=== PATIENT | female | born 1960 | race American Indian/Alaskan Native ===

== ENCOUNTER 2016-04-24 09:56 | Outpatient (CLI) | payer MEDICAID ==
[~2016-04-24 09:56] MED LIST: PROVENTIL IH ONE
--- NOTE | 2016-04-24 11:48 | XRay Report ---
CHEST X-RAY, 2 VIEWS History: Shortness of breath. Findings: Compared to 12/12/15. Heart size is borderline. Normal pulmonary vascularity. The lungs are clear. Hazy opacity at the right lung base has resolved. No pleural effusion or pneumothorax. Impression: Borderline heart size. Lungs clear.
[2016-04-24 12:14] LABS: ISTAT Base Excess 6; ISTAT DEVICE 0; ISTAT HCO3 30.8; ISTAT PCO2 50.6 (35-45); ISTAT PH 7.392 (7.35-7.45); ISTAT PO2 58 (80-105); ISTAT SO2 89; ISTAT TCO2 32
[2016-04-24 12:15] LABS: Hematocrit 40.6 % (30.3-42.9); Mean Corpuscular Volume 91 fl (79-97); Red Blood Count 4.48 M/mm3 (3.65-5.03); White Blood Count 4.4 K/mm3 (4.5-11.0)
[2016-04-24 12:16] LABS: Mean Corpuscular HGB Conc 32 % (30-34); Mean Corpuscular Hemoglobin 29 pg (28-32); Platelet Count 251 K/mm3 (140-440); Red Cell Distribution Width 14.2 % (13.2-15.2)
[2016-04-24 13:17] LABS: Alanine Aminotransferase 12 units/L (7-56); Albumin 4.1 g/dL (3.9-5); Alkaline Phosphatase 83 units/L (35-129); Anion Gap 16 mmol/L; BUN/Creatinine Ratio 22.22; Bilirubin,Total 0.3 mg/dL (0.1-1.2); Blood Urea Nitrogen 20 mg/dL (7-17); Calcium 9.6 mg/dL (8.4-10.2); Carbon Dioxide 31 mmol/L (22-30); Chloride 99.5 mmol/L (98-107); Cholesterol 242 mg/dL (50-199); Glucose 86 mg/dL (65-100); HDL Cholesterol 61 mg/dL (40-59); LDL Cholesterol,Direct 145 mg/dL (50-130); Potassium 4.1 mmol/L (3.6-5.0); Sodium 142 mmol/L (137-145); Total Protein 8.1 g/dL (6.3-8.2); Triglycerides 183 mg/dL (2-149)
== END 2016-04-24 09:57 | disposition home or self-care (01) ==
LOC: PF 09:56
PROVIDERS: ATTEND Internal Medicine
DX: R06.02 Shortness of breath (principal)
CPT/HCPCS: 36415; 36600; 71020; 80053; 80061; 82803; 84439; 84443; 85027; 94060; 94640; 94726; 94729

== ENCOUNTER 2016-09-07 11:57 | Inpatient (IN) | payer MEDICAID ==
[2016-09-07] MEDS ORDERED: PROVENTIL IH ONE ×2 (12:01)
[2016-09-07 12:31] LABS: Basophils % (Auto) 0.4 % (0.0-1.8); Eosinophils % (Auto) 3.1 % (0.0-4.3); Hematocrit 38.9 % (30.3-42.9); Hemoglobin 12.5 gm/dl (10.1-14.3); Mean Corpuscular HGB Conc 32 % (30-34); Mean Corpuscular Hemoglobin 30 pg (28-32); Mean Corpuscular Volume 94 fl (79-97); Platelet Count 241 K/mm3 (140-440); Red Blood Count 4.16 M/mm3 (3.65-5.03); White Blood Count 4.4 K/mm3 (4.5-11.0)
--- NOTE | 2016-09-07 12:31 | Emergency Department Report ---
ED Shortness of Breath HPI - General Chief Complaint: Dyspnea/Respdistress Stated Complaint: ELIJAH Time Seen by Provider: 09/07/16 12:01 Source: patient, EMS Mode of arrival: Stretcher Limitations: No Limitations - History of Present Illness Initial Comments: 55-year-old female presents to the emergency department via EMS complaining of difficulty breathing. Patient states she's been having difficulty breathing for the past 3 days. Symptoms became worse this morning. Patient states she has been running fever at home and has had a productive cough, but cannot describe the sputum. Patient states she was not going to call the ambulance, but her daughter did. EMS states that on their arrival another EMS unit had are administered a single DuoNeb nebulizer treatment. The transporting EMS unit administered 2.5 mg of additional albuterol and started the patient on CPAP. Patient states that CPAP is helping her breathing. She denies pain. There are no other complaints. MD Complaint: shortness of breath -: Gradual, days(s) (3) Pain Scale: 0 Consistency: constant Improves With: oxygen Worsens With: nothing Known History Of: congestive heart failure, HIV Associated Symptoms: fever, cough, sputum production Treatments Prior to Arrival: oxygen, bronchodilator, NIPPV - Related Data Home Oxygen Therapy: No Home Medications Medication Instructions Recorded Confirmed Last Taken Abacavir/Dolutegravir/Lamivudi 1 each PO DAILY 12/13/15 09/07/16 09/06/16 [Triumeq Tablet] Carvedilol [Coreg] 25 mg PO BID 12/13/15 09/07/16 09/06/16 Hydroxyzine HCl 25 mg PO Q6HR PRN 12/13/15 09/07/16 09/06/16 Lisinopril [Zestril] 20 mg PO QDAY 12/13/15 09/07/16 09/06/16 Temazepam 30 mg PO QHS 12/13/15 09/07/16 09/06/16 levETIRAcetam [Keppra TAB] 500 mg PO BID 12/13/15 09/07/16 09/06/16 Diphenhydramine HCl [Sleep Tabs 25 mg PO QHS PRN 09/07/16 09/07/16 09/06/16 25MG] Hydrochlorothiazide [HCTZ] 25 mg PO QDAY 09/07/16 09/07/1609/06/17 Ibuprofen [Motrin] 800 mg PO Q8HR PRN 09/07/16 09/07/16 09/06/16 Allergies Allergy/AdvReac Type Severity Reaction Status Date / Time No Known Allergies Allergy Verified 12/12/15 20:48 ED Review of Systems ROS: Stated complaint: ELIJAH Other details as noted in HPI Comment: All other systems reviewed and negative Constitutional: fever Respiratory: cough, shortness of breath, wheezing ED Past Medical Hx - Past Medical History Previous Medical History?: Yes Hx Hypertension: Yes Hx Congestive Heart Failure: Yes Hx Headaches / Migraines: Yes Hx Seizures: Yes Hx HIV: Yes - Surgical History Past Surgical History?: No - Family History Family history: no significant - Social History Smoking Status: Never Smoker Substance Use Type: None - Medications Home Medications: Home Medications Medication Instructions Recorded Confirmed Last Taken Type Abacavir/Dolutegravir/Lamivudi 1 each PO DAILY 12/13/15 09/07/16 09/06/16 History [Triumeq Tablet] Carvedilol [Coreg] 25 mg PO BID 12/13/15 09/07/16 09/06/16 History Hydroxyzine HCl 25 mg PO Q6HR PRN 12/13/15 09/07/16 09/06/16 History Lisinopril [Zestril] 20 mg PO QDAY 12/13/15 09/07/16 09/06/16 History Temazepam 30 mg PO QHS 12/13/15 09/07/16 09/06/16 History levETIRAcetam [Keppra TAB] 500 mg PO BID 12/13/15 09/07/16 09/06/16 History Diphenhydramine HCl [Sleep Tabs 25 mg PO QHS PRN 09/07/16 09/07/16 09/06/16 History 25MG] Hydrochlorothiazide [HCTZ] 25 mg PO QDAY 09/07/16 09/07/16 09/06/16 History Ibuprofen [Motrin] 800 mg PO Q8HR PRN 09/07/16 09/07/16 09/06/16 History ED Physical Exam - General Limitations: No Limitations General appearance: alert, in distress (moderate respiratory distress) - Head Head exam: Present: atraumatic, normocephalic - Eye Eye exam: Present: normal appearance, PERRL, EOMI - ENT ENT exam: Present: normal exam, normal orophraynx, mucous membranes moist - Neck Neck exam: Present: normal inspection, full ROM. Absent: tenderness - Respiratory Respiratory exam: Present: respiratory distress (moderate tachypnea), wheezes ( audible expiratory wheezing noted), decreased breath sounds (bilateral posterior diffuse) - Cardiovascular Cardiovascular Exam: Present: regular rate, normal rhythm, normal heart sounds - GI/Abdominal GI/Abdominal exam: Present: soft, normal bowel sounds. Absent: distended, tenderness - Extremities Exam Extremities exam: Present: normal inspection, full ROM. Absent: tenderness - Back Exam Back exam: Present: normal inspection, full ROM. Absent: tenderness - Neurological Exam Neurological exam: Present: alert, oriented X3. Absent: motor sensory deficit - Skin Skin exam: Present: warm, dry, intact ED Course Vital Signs 09/07/16 09/07/16 09/07/16 11:52 11:57 12:01 Temperature 98.3 F Pulse Rate 92 H 91 H 88 Pulse Rate [ Anterior Bilateral Throughout] Respiratory 26 H 32 H 24 Rate Respiratory Rate [Anterior Bilateral Throughout] Blood Pressure 131/84 O2 Sat by Pulse 96 95 99 Oximetry 09/07/16 09/07/16 09/07/16 12:05 12:17 12:41 Temperature Pulse Rate Pulse Rate [ 88 85 Anterior Bilateral Throughout] Respiratory 26 H Rate Respiratory 32 H 22 Rate [Anterior Bilateral Throughout] Blood Pressure O2 Sat by Pulse 100 Oximetry 09/07/16 12:45 Temperature Pulse Rate 85 Pulse Rate [ Anterior Bilateral Throughout] Respiratory 22 Rate Respiratory Rate [Anterior Bilateral Throughout] Blood Pressure O2 Sat by Pulse 94 Oximetry ED Medical Decision Making - Lab Data Result diagrams: 09/07/16 12:19 09/07/16 12:19 - Radiology Data Radiology results: image reviewed interpreted by me: Chest x-ray shows no acute cardiopulmonary abnormality. - Medical Decision Making Lab and imaging results reviewed and discussed with the patient. Patient continues to require noninvasive positive pressure ventilation. Patient is to be admitted by the hospitalist. - Differential Diagnosis CHF, pneumonia, asthma, pulmonary edema Critical care attestation.: If time is entered above; I have spent that time in minutes in the direct care of this critically ill patient, excluding procedure time. ED Disposition Clinical Impression: Acute and chronic respiratory failure Qualifiers: Respiratory failure complication: hypoxia Qualified Code(s): J96.21 - Acute and chronic respiratory failure with hypoxia Disposition: DC-09 OP ADMIT IP TO THIS HOSP Is pt being admited?: Yes Condition: Stable Time of Disposition: 13:27
[2016-09-07 12:52] LABS: Alanine Aminotransferase 9 units/L (7-56); Albumin/Globulin Ratio 1.1 %; Alkaline Phosphatase 58 units/L (35-129); Anion Gap 18 mmol/L; Blood Urea Nitrogen 21 mg/dL (7-17); Calcium 8.7 mg/dL (8.4-10.2); Carbon Dioxide 28 mmol/L (22-30); Chloride 98.5 mmol/L (98-107); Glucose 131 mg/dL (65-100); Sodium 140 mmol/L (137-145); Total Protein 7.7 g/dL (6.3-8.2)
--- NOTE | 2016-09-07 13:21 | History and Physical Report ---
History of Present Illness Chief complaint: I cant breathe History of present illness: 55 YO Female with HTN, CHF, COPD, AIDS, Seizure Disorder presents to ED for evaluation. Pt states that she has been experiencing difficulty breathing with productive cough with increased production of clear sputum for the past 3 days with worsening symptoms for the past 6 hours. Pt reports subjective fever, but denies chills, CP, Palpitations, NVD, skin rashes,NVD, Syncope, Vertigo, BRBPR, Medication Noncompliance, or recent ill contacts. Pt seen and evaluated in ED and found to be is respiratory distress. Pt placed on NIPPV. Past History Past Medical History: COPD, heart failure, HIV/AIDS, hypertension, seizures Past Surgical History: No surgical history, Other (reviewed) Social history: single. denies: smoking, alcohol abuse, prescription drug abuse Family history: no significant family history Medications and Allergies Allergies Allergy/AdvReac Type Severity Reaction Status Date / Time No Known Allergies Allergy Verified 12/12/15 20:48 Home Medications Medication Instructions Recorded Confirmed Last Taken Type Abacavir/Dolutegravir/Lamivudi 1 each PO DAILY 12/13/15 09/07/16 09/06/16 History [Triumeq Tablet] Carvedilol [Coreg] 25 mg PO BID 12/13/15 09/07/16 09/06/16 History Hydroxyzine HCl 25 mg PO Q6HR PRN 12/13/15 09/07/16 09/06/16 History Lisinopril [Zestril] 20 mg PO QDAY 12/13/15 09/07/16 09/06/16 History Temazepam 30 mg PO QHS 12/13/15 09/07/16 09/06/16 History levETIRAcetam [Keppra TAB] 500 mg PO BID 12/13/15 09/07/16 09/06/16 History Diphenhydramine HCl [Sleep Tabs 25 mg PO QHS PRN 09/07/16 09/07/16 09/06/16 History 25MG] Hydrochlorothiazide [HCTZ] 25 mg PO QDAY 09/07/16 09/07/16 09/06/16 History Ibuprofen [Motrin] 800 mg PO Q8HR PRN 09/07/16 09/07/16 09/06/16 History Review of Systems All systems: negative Respiratory: shortness of breath Exam - Constitutional Vitals: Temp Pulse Resp BP Pulse Ox 98.3 F 85 22 131/84 94 09/07/16 11:57 09/07/16 12:45 09/07/16 12:45 09/07/16 11:57 09/07/16 12:45 General appearance: Present: mild distress, obese - EENT Eyes: Present: PERRL ENT: hearing intact, clear oral mucosa - Neck Neck: Present: supple, normal ROM - Respiratory Respiratory effort: normal Respiratory: bilateral: CTA - Cardiovascular Rhythm: regular Heart Sounds: Present: S1 & S2. Absent: rub, click - Extremities Extremities: pulses symmetrical, No edema Peripheral Pulses: within normal limits - Abdominal General gastrointestinal: Present: soft, non-tender, non-distended, normal bowel sounds Female genitourinary: Present: normal - Integumentary Integumentary: Present: clear, dry, decreased turgor - Musculoskeletal Musculoskeletal: gait normal, strength equal bilaterally - Psychiatric Psychiatric: appropriate mood/affect, intact judgment & insight - Neurologic Neurologic: CNII-XII intact, moves all extremities Results - Labs CBC & Chem 7: 09/07/16 12:19 09/07/16 12:19 Labs: Abnormal lab results 09/07/16 09/07/16 Range/Units 12:19 12:19 WBC 4.4 L (4.5-11.0) K/mm3 [place] % (Auto) 10.5 H (0.0-7.3) % BUN 21 H (7-17) mg/dL Glucose 131 H (65-100) mg/dL Assessment and Plan - Patient Problems (1) Sepsis Current Visit: Yes Status: Acute Qualifiers: Sepsis type: S Plan to address problem: IV abx, IVF, supportive care, serial lactate levels, monitor uop q shift, blood culture, IVF bolus as per protocol (2) COPD with exacerbation Current Visit: Yes Status: Acute Plan to address problem: IV abx, nebs, supplemental oxygen, NIPPV as clinically indicated (3) CHF (congestive heart failure) Current Visit: Yes Status: Acute Qualifiers: Congestive heart failure type: C Congestive heart failure chronicity: C Plan to address problem: BNP, D dimer, fluid restriction, resume home medication, (4) Acute and chronic respiratory failure Current Visit: Yes Status: Acute Qualifiers: Respiratory failure complication: hypoxia Qualified Code(s): J96.21 - Acute and chronic respiratory failure with hypoxia Plan to address problem: Supplemental oxygen, nebs, aspiration precautions, NIPPV (5) DVT prophylaxis Current Visit: Yes Status: Acute
--- NOTE | 2016-09-07 13:28 | XRay Report ---
Single view chest: Compared to 04/24/16. History: Dyspnea. Findings: Cardiomegaly. Trachea is midline. Mild pulmonary venous congestion predominantly lower lobes. Normal CP angles. No consolidation. Impression: Probable early CHF.
--- NOTE | 2016-09-07 13:36 | Admit Criteria Form ---
Admission Criteria Documentation: RESPIRATORY FAILURE GRG Clinical Indications for Admission to Inpatient Care (Place 'X' for any and all applicable criteria): Hospital admission is needed for appropriate care of the patient because of acute respiratory failure or insufficiency as indicated by ANY ONE of the following(1)(2)(3)(4)(5)(6)(7)(8): [X ]I. Mechanical ventilation needed (acute invasive or noninvasive) [ ]II. Severe ventilation deficit as indicated by ANY ONE of the following (9) [ ]a) Respiratory acidosis (pH less than 7.32 and partial pressure of carbon dioxide greater than 40 mm Hg (5.3 kPa)) [ ]b) Partial pressure of carbon dioxide greater than 44 mm Hg (5.9 kPa ) (new) [ ]c) Airflow measurements less than 25% of predicted (eg, peak expiratory flow rate less than 100 L/minute) [ ]d) Forced vital capacity less than 15 mL/kg of ideal body weight, or 50% decrease in vital capacity from baseline [ ]III. Noncardiac pulmonary edema not resolving with rapid emergency treatment (8) [ ]IV. Severe respiratory distress as indicated by ANY ONE of the following: [ ]a) Severe tachypnea (respiratory rate greater than 30, greater than 45 for 6-month-old, greater than 60 for ) [ ]b) Severe hypoxemia (partial pressure of oxygen less than 50 mm Hg ( 6.7 kPa) on greater than 50% oxygen or partial pressure of oxygen to FIO2 ratio less than 200) [ ]c) Mental status deterioration from respiratory disease [ ]V. Airway obstruction or inadequate protection [A](10)(11) The original [email or web address] content created by [email or web address] has been revised. The portions of the content which have been revised are identified through the use of italic text or in bold, and [employer] has neither reviewed nor approved the modified material. All other unmodified content is copyright [email or web address]. Please see references footnoted in the original [email or web address] edition 2016 Admission Criteria Met: Yes
[2016-09-07] MEDS ORDERED: ZOFRAN IV PRN (14:05)
[2016-09-07] MEDS ORDERED: TYLENOL PO PRN (14:05)
[2016-09-07] MEDS ORDERED: ATARAX PO PRN (14:11)
[2016-09-07] MEDS ORDERED: DIPHENHYDRAMINE HCL 25 MG PO PRN (14:11)
[2016-09-07] MEDS ORDERED: MOTRIN PO PRN (14:14)
[2016-09-07] MEDS: ZITHROMAX 500 MG in NACL 0.9% 250ML 250 ML IV SCH (15:00)
[2016-09-07] MEDS ORDERED: NACL 0.9% 1000 ML IV ONE (15:08)
[2016-09-07] MEDS ORDERED: NACL 0.9% 1000 ML 1,000 ML ONE (16:40)
[2016-09-07] MEDS: NACL 0.45% 1000 ML 1,000 ML IV SCH (18:00)
[2016-09-07] MEDS: COREG PO SCH (22:33)
[2016-09-07] MEDS: KEPPRA PO SCH (22:34)
[2016-09-07] MEDS: RESTORIL PO SCH (22:34)
[2016-09-07] MEDS: ZOSYN/NS 4.5GM/100ML 4.5 GM/100 ML VIAL IV SCH (22:34)
[2016-09-08] MEDS: ZOSYN/NS 4.5GM/100ML 4.5 GM/100 ML VIAL IV SCH ×3 (06:08→22:56)
[2016-09-08] MEDS: DUONEB *Not for PRN Use IH (08:47)
[2016-09-08] MEDS ORDERED: NON-FORMULARY (Abacavir/Dolutegravir/Lamivudi [Triumeq Tablet] 1 EACH) PO SCH (10:00)
[2016-09-08] MEDS: EPIVIR PO SCH (11:19)
[2016-09-08] MEDS: KEPPRA PO SCH ×2 (11:19→22:57)
[2016-09-08] MEDS: TIVICAY (NF) PO SCH (11:21)
[2016-09-08] MEDS: ZIAGEN PO SCH (11:21)
[2016-09-08] MEDS: COREG PO SCH ×2 (11:23→22:59)
[2016-09-08] MEDS: HCTZ PO SCH (11:23)
[2016-09-08] MEDS: ZESTRIL PO SCH (11:24)
[2016-09-08] MEDS: ZITHROMAX 500 MG in NACL 0.9% 250ML 250 ML IV SCH (11:41)
--- NOTE | 2016-09-08 18:16 | Progress Note ---
Assessment and Plan - Patient Problems (1) Sepsis Current Visit: Yes Status: Acute Qualifiers: Sepsis type: S Plan to address problem: IV abx, IVF, supportive care, serial lactate levels, monitor uop q shift, blood culture, IVF bolus as per protocol (2) COPD with exacerbation Current Visit: Yes Status: Acute Plan to address problem: IV abx, nebs, supplemental oxygen, NIPPV as clinically indicated (3) CHF (congestive heart failure) Current Visit: Yes Status: Acute Qualifiers: Congestive heart failure type: C Congestive heart failure chronicity: C Plan to address problem: BNP, D dimer, fluid restriction, resume home medication, (4) Acute and chronic respiratory failure Current Visit: Yes Status: Acute Qualifiers: Respiratory failure complication: hypoxia Qualified Code(s): J96.21 - Acute and chronic respiratory failure with hypoxia Plan to address problem: Supplemental oxygen, nebs, aspiration precautions, NIPPV (5) DVT prophylaxis Current Visit: Yes Status: Acute Subjective Date of service: 09/08/16 Principal diagnosis: Sepsis+ Copd exacerbation Interval history: On Bipap still Improved from Objective - Constitutional Vitals: Vital Signs - 12hr 09/08/16 09/08/16 09/08/16 08:00 10:00 11:23 Temperature 98.2 F Pulse Rate [ 66 Right From Monitor] Respiratory 20 Rate Blood Pressure 100/67 Blood Pressure 100/67 [Right Arm] O2 Sat by Pulse 96 97 Oximetry 09/08/16 09/08/16 11:24 16:00 Temperature 98.1 F Pulse Rate [ 64 Right From Monitor] Respiratory 20 Rate Blood Pressure 100/67 Blood Pressure 120/80 [Right Arm] O2 Sat by Pulse 97 Oximetry General appearance: Present: no acute distress, well-nourished - EENT Eyes: PERRL, EOM intact ENT: hearing intact, clear oral mucosa Ears: bilateral: normal - Neck Neck: supple, normal ROM - Respiratory Respiratory effort: normal Respiratory: bilateral: CTA - Breasts Breasts: normal - Cardiovascular Rhythm: regular Heart Sounds: Present: S1 & S2. Absent: gallop, rub Extremities: pulses intact, No edema, normal color, Full ROM - Gastrointestinal General gastrointestinal: Present: soft, non-tender, non-distended, normal bowel sounds - Genitourinary Female genitourinary: normal - Integumentary Integumentary: clear, warm, dry - Musculoskeletal Musculoskeletal: 1, strength equal bilaterally - Neurologic Neurologic: moves all extremities - Psychiatric Psychiatric: memory intact, appropriate mood/affect, intact judgment & insight - Labs CBC & Chem 7: 09/07/16 12:19 09/07/16 12:19
[2016-09-08] MEDS: NACL 0.45% 1000 ML 1,000 ML IV SCH (22:54)
[2016-09-08] MEDS: RESTORIL PO SCH (22:57)
[2016-09-09 05:21] LABS: Hematocrit 35.6 % (30.3-42.9); Hemoglobin 11.5 gm/dl (10.1-14.3); Mean Corpuscular HGB Conc 32 % (30-34); Mean Corpuscular Hemoglobin 30 pg (28-32); Mean Corpuscular Volume 92 fl (79-97); Platelet Count 202 K/mm3 (140-440); Red Blood Count 3.85 M/mm3 (3.65-5.03); Red Cell Distribution Width 15.2 % (13.2-15.2); White Blood Count 5.2 K/mm3 (4.5-11.0)
[2016-09-09 05:39] LABS: Alanine Aminotransferase 8 units/L (7-56); Albumin 3.6 g/dL (3.9-5); Alkaline Phosphatase 51 units/L (35-129); Anion Gap 16 mmol/L; BUN/Creatinine Ratio 25.55; Blood Urea Nitrogen 23 mg/dL (7-17); Calcium 8.2 mg/dL (8.4-10.2); Carbon Dioxide 26 mmol/L (22-30); Chloride 99.9 mmol/L (98-107); Glucose 172 mg/dL (65-100); Potassium 4.2 mmol/L (3.6-5.0); Sodium 138 mmol/L (137-145); Total Protein 7.2 g/dL (6.3-8.2)
[2016-09-09] MEDS: ZOSYN/NS 4.5GM/100ML 4.5 GM/100 ML VIAL IV SCH ×3 (05:55→21:16)
[2016-09-09 06:07] LABS: Basophils % (Manual) 0 % (0.0-1.8); Blastocytes % (Manual) 0 %; Diff Status Complete; Platelet Estimate Consistent w Auto; RBC Morphology Normal
[2016-09-09] MEDS: DUONEB *Not for PRN Use IH (08:11)
[2016-09-09] MEDS ORDERED: PROVENTIL IH PRN (09:18)
[2016-09-09] MEDS: KEPPRA PO SCH ×2 (10:18→21:17)
[2016-09-09] MEDS: ZESTRIL PO SCH (10:18)
[2016-09-09] MEDS: COREG PO SCH ×2 (10:19→21:17)
[2016-09-09] MEDS: TIVICAY (NF) PO SCH (10:19)
[2016-09-09] MEDS: ZIAGEN PO SCH (10:19)
[2016-09-09] MEDS: HCTZ PO SCH (10:19)
[2016-09-09] MEDS: EPIVIR PO SCH (10:20)
[2016-09-09] MEDS: ZITHROMAX 500 MG in NACL 0.9% 250ML 250 ML IV SCH (10:22)
[2016-09-09] MEDS: DUONEB *Not for PRN Use IH SCH ×2 (15:50→19:50)
--- NOTE | 2016-09-09 16:18 | Progress Note ---
Assessment and Plan - Patient Problems (1) Sepsis Current Visit: Yes Status: Acute Qualifiers: Sepsis type: S Plan to address problem: IV abx, IVF, supportive care, serial lactate levels, monitor uop q shift, blood culture, IVF bolus as per protocol (2) COPD with exacerbation Current Visit: Yes Status: Acute Plan to address problem: IV abx, nebs, supplemental oxygen, NIPPV as clinically indicated Still Wheezing (3) CHF (congestive heart failure) Current Visit: Yes Status: Acute Qualifiers: Congestive heart failure type: C Congestive heart failure chronicity: C Plan to address problem: BNP, D dimer, fluid restriction, resume home medication, (4) Acute and chronic respiratory failure Current Visit: Yes Status: Acute Qualifiers: Respiratory failure complication: hypoxia Qualified Code(s): J96.21 - Acute and chronic respiratory failure with hypoxia Plan to address problem: Supplemental oxygen, nebs, aspiration precautions, NIPPV (5) DVT prophylaxis Current Visit: Yes Status: Acute Subjective Date of service: 09/09/16 Principal diagnosis: Sepsis+ Copd exacerbation Interval history: On Bipap still Improved from Objective - Constitutional Vitals: Vital Signs - 12hr 09/09/16 09/09/16 09/09/16 08:00 08:10 08:59 Temperature 97.9 F Pulse Rate [ 69 70 Anterior Bilateral Throughout] Pulse Rate [ 61 Left Radial] Pulse Rate [ 61 Right From Monitor] Respiratory 20 Rate Respiratory 18 18 Rate [Anterior Bilateral Throughout] Blood Pressure Blood Pressure 138/70 [Right Arm] O2 Sat by Pulse 96 Oximetry 09/09/16 09/09/16 09/09/16 09:02 10:18 10:19 Temperature Pulse Rate [ Anterior Bilateral Throughout] Pulse Rate [ Left Radial] Pulse Rate [ Right From Monitor] Respiratory Rate Respiratory Rate [Anterior Bilateral Throughout] Blood Pressure 131/71 131/71 Blood Pressure [Right Arm] O2 Sat by Pulse 96 Oximetry 09/09/16 09/09/16 15:50 16:02 Temperature Pulse Rate [ 65 65 Anterior Bilateral Throughout] Pulse Rate [ Left Radial] Pulse Rate [ Right From Monitor] Respiratory Rate Respiratory 18 20 Rate [Anterior Bilateral Throughout] Blood Pressure Blood Pressure [Right Arm] O2 Sat by Pulse Oximetry General appearance: Present: no acute distress, well-nourished - EENT Eyes: PERRL, EOM intact ENT: hearing intact, clear oral mucosa Ears: bilateral: normal - Neck Neck: supple, normal ROM - Respiratory Respiratory effort: normal Respiratory: bilateral: CTA - Breasts Breasts: normal - Cardiovascular Rhythm: regular Heart Sounds: Present: S1 & S2. Absent: gallop, rub Extremities: pulses intact, No edema, normal color, Full ROM - Gastrointestinal General gastrointestinal: Present: soft, non-tender, non-distended, normal bowel sounds - Genitourinary Female genitourinary: normal - Integumentary Integumentary: clear, warm, dry - Musculoskeletal Musculoskeletal: 1, strength equal bilaterally - Neurologic Neurologic: moves all extremities - Psychiatric Psychiatric: memory intact, appropriate mood/affect, intact judgment & insight - Labs CBC & Chem 7: 09/09/16 04:46 09/09/16 04:46 Labs: Abnormal lab results 09/09/16 09/09/16 Range/Units 04:46 04:46 Seg Neuts % (Manual) 88.0 H (40.0-70.0) % Lymphocytes % (Manual) 6.0 L (13.4-35.0) % Lymphocytes # (Manual) 0.3 L (1.2-5.4) K/mm3 BUN 23 H (7-17) mg/dL Glucose 172 H (65-100) mg/dL Calcium 8.2 L (8.4-10.2) mg/dL Albumin 3.6 L (3.9-5) g/dL
[2016-09-09] MEDS: RESTORIL PO SCH (21:18)
[2016-09-09] MEDS: BENADRYL PO PRN (21:19)
[2016-09-10] MEDS: DUONEB *Not for PRN Use IH SCH ×4 (02:00→19:19)
[2016-09-10] MEDS: ZOSYN/NS 4.5GM/100ML 4.5 GM/100 ML VIAL IV SCH ×2 (06:39→16:00)
[2016-09-10] MEDS: NACL 0.45% 1000 ML 1,000 ML IV SCH (07:31)
--- NOTE | 2016-09-10 09:37 | Discharge Summary ---
Providers - Providers Date of Admission: 09/07/16 14:05 Attending physician: MATTEO MANUEL MD Primary care physician: FIRE WATCHMAN Hospitalization Condition: Stable Hospital course: 55 YO Female with HTN, CHF, COPD, AIDS, Seizure Disorder presents to ED for evaluation. Pt states that she has been experiencing difficulty breathing with productive cough with increased production of clear sputum for the past 3 days with worsening symptoms (1) Sepsis Current Visit: Yes Status: Acute Qualifiers: Sepsis type: S Plan to address problem: IV abx, IVF, supportive care, serial lactate levels, monitor uop q shift, blood culture, IVF bolus as per protocol (2) COPD with exacerbation Current Visit: Yes Status: Acute Plan to address problem: IV abx, nebs, supplemental oxygen, NIPPV as clinically indicated Still Wheezing (3) CHF (congestive heart failure) Current Visit: Yes Status: Acute Qualifiers: Congestive heart failure type: C Congestive heart failure chronicity: C Plan to address problem: BNP, D dimer, fluid restriction, resume home medication, (4) Acute and chronic respiratory failure Current Visit: Yes Status: Acute Qualifiers: Respiratory failure complication: hypoxia Qualified Code(s): J96.21 - Acute and chronic respiratory failure with hypoxia Plan to address problem: Supplemental oxygen, nebs, aspiration precautions, NIPPV (5) DVT prophylaxis Current Visit: Yes Status: Acute Disposition: DC-01 TO HOME OR SELFCARE Time spent for discharge: 33 minutes Core Measure Documentation - Palliative Care Palliative Care/ Comfort Measures: Not Applicable - Core Measures Any of the following diagnoses?: none Exam - Constitutional Vitals: Temp Pulse Resp BP Pulse Ox 97.9 F 54 L 18 141/84 100 09/10/16 08:21 09/10/16 08:21 09/10/16 08:21 09/10/16 08:21 09/10/16 08:21 General appearance: Present: no acute distress, well-nourished - EENT Eyes: Present: PERRL ENT: hearing intact, clear oral mucosa - Neck Neck: Present: supple, normal ROM - Respiratory Respiratory effort: normal Respiratory: bilateral: CTA - Cardiovascular Heart Sounds: Present: S1 & S2. Absent: rub, click - Extremities Extremities: pulses symmetrical, No edema Peripheral Pulses: within normal limits - Abdominal General gastrointestinal: Present: soft, non-tender, non-distended, normal bowel sounds Female genitourinary: Present: normal - Integumentary Integumentary: Present: clear, warm, dry - Musculoskeletal Musculoskeletal: gait normal, strength equal bilaterally - Psychiatric Psychiatric: appropriate mood/affect, intact judgment & insight - Neurologic Neurologic: CNII-XII intact, moves all extremities Plan Follow up with: PRIMARY CARE, [Primary Care Provider] - 3-5 Days Prescriptions: Azithromycin [Zithromax TAB] 250 mg PO QDAY #3 tablet Fluticasone/Salmeterol [Advair Diskus 250-50 mcg] 1 puff IH BID #1 disk.w.[email or web address] Ipratropium/Albuterol Sulfate [Duoneb 0.5 mg-3 mg/3 ml Soln] 1 ampul IH Q6HRT # 180 ampul.neb predniSONE [Deltasone] 10 mg PO .TAPER #48 tab
[2016-09-10] MEDS: ZESTRIL PO SCH (10:06)
[2016-09-10] MEDS: HCTZ PO SCH (10:08)
[2016-09-10] MEDS: COREG PO SCH ×2 (10:08→23:00)
[2016-09-10] MEDS: ZIAGEN PO SCH (10:09)
[2016-09-10] MEDS: KEPPRA PO SCH ×2 (10:09→23:00)
[2016-09-10] MEDS: EPIVIR PO SCH (10:10)
[2016-09-10] MEDS: ZITHROMAX 500 MG in NACL 0.9% 250ML 250 ML IV SCH (10:23)
[2016-09-10] MEDS: TIVICAY (NF) PO SCH (16:28)
[2016-09-10] MEDS: RESTORIL PO SCH (23:00)
--- NOTE | 2016-09-10 23:48 | Progress Note ---
Assessment and Plan Assessment and plan: 55-year-old female presents to the emergency department via EMS complaining of difficulty breathing. Sepsis was ruled out, * negative Blood cx, negative CXR * no fever, no source of sepsis identified COPD with exacerbation IV abx, nebs, supplemental oxygen, NIPPV as clinically indicated Still Wheezing CHF (congestive heart failure) * , fluid restriction, resume home medication, * IV lasix optimize meds Acute and chronic respiratory failure Supplemental oxygen, nebs, aspiration precautions, NIPPV as needed History Interval history: she is still c/o sob, tried ambulating in hallway today and got severely sob, was using accessory muscles and wheezing, and had to be allowed to sit in hallway till she recovered her breath. Her RN promptly took her back to her room and she was given neb rx Hospitalist Physical - Constitutional Vitals: Temp Pulse Resp BP Pulse Ox 98.9 F 60 23 172/88 97 09/10/16 20:00 09/10/16 23:15 09/10/16 23:15 09/10/16 20:00 09/10/16 23:15 General appearance: Present: no acute distress, well-nourished - EENT Eyes: Present: PERRL, EOM intact ENT: hearing intact, clear oral mucosa, dentition normal - Neck Neck: Present: supple, normal ROM - Respiratory Respiratory effort: labored Respiratory: bilateral: wheezing - Cardiovascular Rhythm: regular Heart Sounds: Present: S1 & S2 - Extremities Extremities: no ischemia, No edema Peripheral Pulses: within normal limits - Abdominal General gastrointestinal: soft, non-tender, non-distended, normal bowel sounds - Integumentary Integumentary: Present: clear, warm, dry - Psychiatric Psychiatric: appropriate mood/affect, intact judgment & insight - Neurologic Neurologic: CNII-XII intact, no focal deficits Results - Labs CBC & Chem 7: 09/09/16 04:46 09/12/16 08:59 Labs: Laboratory Last Values WBC 5.2 K/mm3 (4.5-11.0) 09/09/16 04:46 RBC 3.85 M/mm3 (3.65-5.03) 09/09/16 04:46 Hgb 11.5 gm/dl (10.1-14.3) 09/09/16 04:46 Hct 35.6 % (30.3-42.9) 09/09/16 04:46 MCV 92 fl (79-97) 09/09/16 04:46 MCH 30 pg (28-32) 09/09/16 04:46 MCHC 32 % (30-34) 09/09/16 04:46 RDW 15.2 % (13.2-15.2) 09/09/16 04:46 Plt Count 202 K/mm3 (140-440) 09/09/16 04:46 Lymph % (Auto) 27.0 % (13.4-35.0) 09/07/16 12:19 [place] % (Auto) 10.5 % (0.0-7.3) H 09/07/16 12:19 Eos % (Auto) 3.1 % (0.0-4.3) 09/07/16 12:19 Baso % (Auto) 0.4 % (0.0-1.8) 09/07/16 12:19 Lymph # 1.2 K/mm3 (1.2-5.4) 09/07/16 12:19 [place] # 0.5 K/mm3 (0.0-0.8) 09/07/16 12:19 Eos # 0.1 K/mm3 (0.0-0.4) 09/07/16 12:19 Baso # 0.0 K/mm3 (0.0-0.1) 09/07/16 12:19 Add Manual Diff Complete 09/09/16 04:46 Total Counted 100 09/09/16 04:46 Seg Neutrophils % Compression Molding Machine Setter 09/09/16 04:46 Seg Neuts % (Manual) 88.0 % (40.0-70.0) H 09/09/16 04:46 Band Neutrophils % 0 % 09/09/16 04:46 Lymphocytes % (Manual) 6.0 % (13.4-35.0) L 09/09/16 04:46 Reactive Lymphs % (Man) 0 % 09/09/16 04:46 Monocytes % (Manual) 4.0 % (0.0-7.3) 09/09/16 04:46 Eosinophils % (Manual) 2.0 % (0.0-4.3) 09/09/16 04:46 Basophils % (Manual) 0 % (0.0-1.8) 09/09/16 04:46 Metamyelocytes % 0 % 09/09/16 04:46 Myelocytes % 0 % 09/09/16 04:46 Promyelocytes % 0 % 09/09/16 04:46 Blast Cells % 0 % 09/09/16 04:46 Nucleated RBC % Not Reportable 09/09/16 04:46 Seg Neutrophils # 2.6 K/mm3 (1.8-7.7) 09/07/16 12:19 Seg Neutrophils # Man 4.6 K/mm3 (1.8-7.7) 09/09/16 04:46 Band Neutrophils # 0.0 K/mm3 09/09/16 04:46 Lymphocytes # (Manual) 0.3 K/mm3 (1.2-5.4) L 09/09/16 04:46 Abs React Lymphs (Man) 0.0 K/mm3 09/09/16 04:46 Monocytes # (Manual) 0.2 K/mm3 (0.0-0.8) 09/09/16 04:46 Eosinophils # (Manual) 0.1 K/mm3 (0.0-0.4) 09/09/16 04:46 Basophils # (Manual) 0.0 K/mm3 (0.0-0.1) 09/09/16 04:46 Metamyelocytes # 0.0 K/mm3 09/09/16 04:46 Myelocytes # 0.0 K/mm3 09/09/16 04:46 Promyelocytes # 0.0 K/mm3 09/09/16 04:46 Blast Cells # 0.0 K/mm3 09/09/16 04:46 WBC Morphology Not Reportable 09/09/16 04:46 Hypersegmented Neuts Not Reportable 09/09/16 04:46 Hyposegmented Neuts Not Reportable 09/09/16 04:46 Hypogranular Neuts Not Reportable 09/09/16 04:46 Smudge Cells Not Reportable 09/09/16 04:46 Toxic Granulation Not Reportable 09/09/16 04:46 Toxic Vacuolation Not Reportable 09/09/16 04:46 Dohle Bodies Not Reportable 09/09/16 04:46 Pelger-Huet Anomaly Not Reportable 09/09/16 04:46 Yaya Rods Not Reportable 09/09/16 04:46 Platelet Estimate Consistent w auto 09/09/16 04:46 Clumped Platelets Not Reportable 09/09/16 04:46 Plt Clumps, EDTA Not Reportable 09/09/16 04:46 Large Platelets Not Reportable 09/09/16 04:46 Giant Platelets Not Reportable 09/09/16 04:46 Platelet Satelliting Not Reportable 09/09/16 04:46 Plt Morphology Comment Not Reportable 09/09/16 04:46 RBC Morphology Normal 09/09/16 04:46 Dimorphic RBCs Not Reportable 09/09/16 04:46 Polychromasia Not Reportable 09/09/16 04:46 Hypochromasia Not Reportable 09/09/16 04:46 Poikilocytosis Not Reportable 09/09/16 04:46 Anisocytosis Not Reportable 09/09/16 04:46 Microcytosis Not Reportable 09/09/16 04:46 Macrocytosis Not Reportable 09/09/16 04:46 Spherocytes Not Reportable 09/09/16 04:46 Pappenheimer Bodies Not Reportable 09/09/16 04:46 Sickle Cells Not Reportable 09/09/16 04:46 Target Cells Not Reportable 09/09/16 04:46 Tear Drop Cells Not Reportable 09/09/16 04:46 Ovalocytes Not Reportable 09/09/16 04:46 Helmet Cells Not Reportable 09/09/16 04:46 [place] Bodies Not Reportable 09/09/16 04:46 [place] Rings Not Reportable 09/09/16 04:46 Paula Cells Not Reportable 09/09/16 04:46 Bite Cells Not Reportable 09/09/16 04:46 Crenated Cell Not Reportable 09/09/16 04:46 Elliptocytes Not Reportable 09/09/16 04:46 Acanthocytes (Spur) Not Reportable 09/09/16 04:46 Rouleaux Not Reportable 09/09/16 04:46 Hemoglobin C Crystals Not Reportable 09/09/16 04:46 Schistocytes Not Reportable 09/09/16 04:46 Malaria parasites Not Reportable 09/09/16 04:46 Vicente Bodies Not Reportable 09/09/16 04:46 Hem Pathologist Commnt No 09/09/16 04:46 D-Dimer 188.81 ng/mlDDU (0-234) 07/07/17 14:14 Sodium 138 mmol/L (137-145) 09/09/16 04:46 Potassium 4.2 mmol/L (3.6-5.0) 09/09/16 04:46 Chloride 99.9 mmol/L (98-107) 09/09/16 04:46 Carbon Dioxide 26 mmol/L (22-30) 09/09/16 04:46 Anion Gap 16 mmol/L 09/09/16 04:46 BUN 23 mg/dL (7-17) H 09/09/16 04:46 Creatinine 0.9 mg/dL (0.7-1.2) 09/09/16 04:46 Estimated GFR > 60 ml/min 09/09/16 04:46 BUN/Creatinine Ratio 25.55 % 09/09/16 04:46 Glucose 172 mg/dL (65-100) H 09/09/16 04:46 Lactic Acid 0.90 mmol/L (0.7-2.0) 09/07/16 18:20 Calcium 8.2 mg/dL (8.4-10.2) L 09/09/16 04:46 Magnesium 1.70 mg/dL (1.7-2.3) 09/07/16 12:19 Total Bilirubin 0.30 mg/dL (0.1-1.2) 09/09/16 04:46 AST 9 units/L (5-40) 09/09/16 04:46 ALT 8 units/L (7-56) 09/09/16 04:46 Alkaline Phosphatase 51 units/L (35-129) 09/09/16 04:46 Troponin T < 0.010 ng/mL (0.00-0.029) 09/07/16 12:19 NT-Pro-B Natriuret Pep 1390 pg/mL (0-900) H 09/07/16 12:09 Total Protein 7.2 g/dL (6.3-8.2) 09/09/16 04:46 Albumin 3.6 g/dL (3.9-5) L 09/09/16 04:46 Albumin/Globulin Ratio 1.0 % 09/09/16 04:46 Blood Type O POSITIVE 09/07/16 15:34 Antibody Screen TNR 09/07/16 15:34 PAULA Antibody Screen Negative 09/07/16 15:34
[2016-09-11] MEDS: LASIX IV SCH ×3 (01:49→22:07)
[2016-09-11] MEDS: DUONEB *Not for PRN Use IH SCH ×5 (01:54→20:32)
[2016-09-11] MEDS: COREG PO SCH ×2 (11:42→22:08)
[2016-09-11] MEDS: ZITHROMAX PO SCH (11:42)
[2016-09-11] MEDS: ZESTRIL PO SCH (11:42)
[2016-09-11] MEDS: KEPPRA PO SCH ×2 (11:42→22:08)
[2016-09-11] MEDS: EPIVIR PO SCH (11:43)
[2016-09-11] MEDS: HCTZ PO SCH (11:43)
[2016-09-11] MEDS: ZIAGEN PO SCH (11:43)
[2016-09-11] MEDS ORDERED: LASIX IV ONE (13:00)
--- NOTE | 2016-09-11 13:13 | XRay Report ---
Single view chest: Compared to 09/07/16. History: CHF. Findings: Cardiomegaly. Trachea is midline. Pulmonary venous congestion bilaterally. No significant interval change. Neck impression: No significant interval change.
--- NOTE | 2016-09-11 14:52 | Progress Note ---
Assessment and Plan Assessment and plan: 55 YO Female with HTN, CHF, COPD, AIDS, Seizure Disorder presents to ED for evaluation. Pt states that she has been experiencing difficulty breathing with productive cough with increased production of clear sputum for the past 3 days with worsening symptoms for the past 6 hours. Pt reports subjective fever, but denies chills, CP, Palpitations, NVD, skin rashes,NVD, Syncope, Vertigo, BRBPR, Medication Noncompliance, or recent ill contacts. Pt seen and evaluated in ED and found to be is respiratory distress. Pt placed on NIPPV and subsequently weaned down to nasal cannula. She is on oxygen PRN at home. COPD with exacerbation * IV abx, nebs, supplemental oxygen, NIPPV as clinically indicated * Still Wheezing, Not quite at baseline. * Taper steriods CHF (congestive heart failure) * Fluid restriction, resume home medication, will hold HCTZ, Continue Lasix, await Echo to further determine severity * Chest xray showing pulmonary congestion * IV lasix optimize meds Acute and chronic respiratory failure * Supplemental oxygen, nebs, aspiration precautions, NIPPV AIDS * Continue current home meds Sepsis was ruled out, * negative Blood cx, negative CXR * no fever, no source of sepsis identified * IVF weaned off. HTN * Continue home meds DVT/GI prophylaxis Disposition Anticipate discharge in 24 to 48 hrs. History Interval history: Patient seen and examined, in no acute distress but still with shortness of breath and not at baseline. Denies any chest pain, nausea, vomiting. still with some shortness of breath but reports some improvement. Awaiting to ambulate today. Hospitalist Physical - Physical exam Narrative exam: VITAL SIGNS: Reviewed. GENERAL: The patient appeared well nourished and normally developed, obese. Vital signs as documented. HEAD: No signs of head trauma. EYES: Pupils are equal. Extraocular motions intact. EARS: Hearing grossly intact. MOUTH: Oropharynx is normal. NECK: No adenopathy, no JVD. CHEST: Chest with wheezing breath sounds bilaterally. No rales, or rhonchi. CARDIAC: Regular rate and rhythm. S1 and S2, without murmurs, gallops, or rubs. VASCULAR: Trace Edema. Peripheral pulses normal and equal in all extremities. ABDOMEN: Soft, without detectable tenderness. No sign of distention. No rebound or guarding, and no masses palpated. Bowel Sounds normal. MUSCULOSKELETAL: Good range of motion of all major joints. Extremities without clubbing, cyanosis. Trace edema. NEUROLOGIC EXAM: Alert and oriented x 3. No focal sensory or strength deficits. Speech normal. Follows commands. PSYCHIATRIC: Mood normal. SKIN: hypopigmented skin - Constitutional Vitals: Temp Pulse Resp BP Pulse Ox 98.0 F 60 24 171/92 98 09/11/16 11:10 09/11/16 11:10 09/11/16 11:10 09/11/16 11:10 09/11/16 11:10 Results - Labs CBC & Chem 7: 09/09/16 04:46 09/09/16 04:46 Labs: Laboratory Last Values WBC 5.2 K/mm3 (4.5-11.0) 09/09/16 04:46 RBC 3.85 M/mm3 (3.65-5.03) 09/09/16 04:46 Hgb 11.5 gm/dl (10.1-14.3) 09/09/16 04:46 Hct 35.6 % (30.3-42.9) 09/09/16 04:46 MCV 92 fl (79-97) 09/09/16 04:46 MCH 30 pg (28-32) 09/09/16 04:46 MCHC 32 % (30-34) 09/09/16 04:46 RDW 15.2 % (13.2-15.2) 09/09/16 04:46 Plt Count 202 K/mm3 (140-440) 09/09/16 04:46 Lymph % (Auto) 27.0 % (13.4-35.0) 09/07/16 12:19 [place] % (Auto) 10.5 % (0.0-7.3) H 09/07/16 12:19 Eos % (Auto) 3.1 % (0.0-4.3) 09/07/16 12:19 Baso % (Auto) 0.4 % (0.0-1.8) 09/07/16 12:19 Lymph # 1.2 K/mm3 (1.2-5.4) 09/07/16 12:19 [place] # 0.5 K/mm3 (0.0-0.8) 09/07/16 12:19 Eos # 0.1 K/mm3 (0.0-0.4) 09/07/16 12:19 Baso # 0.0 K/mm3 (0.0-0.1) 09/07/16 12:19 Add Manual Diff Complete 09/09/16 04:46 Total Counted 100 09/09/16 04:46 Seg Neutrophils % Property Insurance Inspector 09/09/16 04:46 Seg Neuts % (Manual) 88.0 % (40.0-70.0) H 09/09/16 04:46 Band Neutrophils % 0 % 09/09/16 04:46 Lymphocytes % (Manual) 6.0 % (13.4-35.0) L 09/09/16 04:46 Reactive Lymphs % (Man) 0 % 09/09/16 04:46 Monocytes % (Manual) 4.0 % (0.0-7.3) 09/09/16 04:46 Eosinophils % (Manual) 2.0 % (0.0-4.3) 09/09/16 04:46 Basophils % (Manual) 0 % (0.0-1.8) 09/09/16 04:46 Metamyelocytes % 0 % 09/09/16 04:46 Myelocytes % 0 % 09/09/16 04:46 Promyelocytes % 0 % 09/09/16 04:46 Blast Cells % 0 % 09/09/16 04:46 Nucleated RBC % Not Reportable 09/09/16 04:46 Seg Neutrophils # 2.6 K/mm3 (1.8-7.7) 09/07/16 12:19 Seg Neutrophils # Man 4.6 K/mm3 (1.8-7.7) 09/09/16 04:46 Band Neutrophils # 0.0 K/mm3 09/09/16 04:46 Lymphocytes # (Manual) 0.3 K/mm3 (1.2-5.4) L 09/09/16 04:46 Abs React Lymphs (Man) 0.0 K/mm3 09/09/16 04:46 Monocytes # (Manual) 0.2 K/mm3 (0.0-0.8) 09/09/16 04:46 Eosinophils # (Manual) 0.1 K/mm3 (0.0-0.4) 09/09/16 04:46 Basophils # (Manual) 0.0 K/mm3 (0.0-0.1) 09/09/16 04:46 Metamyelocytes # 0.0 K/mm3 09/09/16 04:46 Myelocytes # 0.0 K/mm3 09/09/16 04:46 Promyelocytes # 0.0 K/mm3 09/09/16 04:46 Blast Cells # 0.0 K/mm3 09/09/16 04:46 WBC Morphology Not Reportable 09/09/16 04:46 Hypersegmented Neuts Not Reportable 09/09/16 04:46 Hyposegmented Neuts Not Reportable 09/09/16 04:46 Hypogranular Neuts Not Reportable 09/09/16 04:46 Smudge Cells Not Reportable 09/09/16 04:46 Toxic Granulation Not Reportable 09/09/16 04:46 Toxic Vacuolation Not Reportable 09/09/16 04:46 Dohle Bodies Not Reportable 09/09/16 04:46 Pelger-Huet Anomaly Not Reportable 09/09/16 04:46 Yaya Rods Not Reportable 09/09/16 04:46 Platelet Estimate Consistent w auto 09/09/16 04:46 Clumped Platelets Not Reportable 09/09/16 04:46 Plt Clumps, EDTA Not Reportable 09/09/16 04:46 Large Platelets Not Reportable 09/09/16 04:46 Giant Platelets Not Reportable 09/09/16 04:46 Platelet Satelliting Not Reportable 09/09/16 04:46 Plt Morphology Comment Not Reportable 09/09/16 04:46 RBC Morphology Normal 09/09/16 04:46 Dimorphic RBCs Not Reportable 09/09/16 04:46 Polychromasia Not Reportable 09/09/16 04:46 Hypochromasia Not Reportable 09/09/16 04:46 Poikilocytosis Not Reportable 09/09/16 04:46 Anisocytosis Not Reportable 09/09/16 04:46 Microcytosis Not Reportable 09/09/16 04:46 Macrocytosis Not Reportable 09/09/16 04:46 Spherocytes Not Reportable 09/09/16 04:46 Pappenheimer Bodies Not Reportable 09/09/16 04:46 Sickle Cells Not Reportable 09/09/16 04:46 Target Cells Not Reportable 09/09/16 04:46 Tear Drop Cells Not Reportable 09/09/16 04:46 Ovalocytes Not Reportable 09/09/16 04:46 Helmet Cells Not Reportable 09/09/16 04:46 [place] Bodies Not Reportable 09/09/16 04:46 [place] Rings Not Reportable 09/09/16 04:46 Paula Cells Not Reportable 09/09/16 04:46 Bite Cells Not Reportable 09/09/16 04:46 Crenated Cell Not Reportable 09/09/16 04:46 Elliptocytes Not Reportable 09/09/16 04:46 Acanthocytes (Spur) Not Reportable 09/09/16 04:46 Rouleaux Not Reportable 09/09/16 04:46 Hemoglobin C Crystals Not Reportable 09/09/16 04:46 Schistocytes Not Reportable 09/09/16 04:46 Malaria parasites Not Reportable 09/09/16 04:46 Vicente Bodies Not Reportable 09/09/16 04:46 Hem Pathologist Commnt No 09/09/16 04:46 D-Dimer 188.81 ng/mlDDU (0-234) 09/07/16 14:14 Sodium 138 mmol/L (137-145) 09/09/16 04:46 Potassium 4.2 mmol/L (3.6-5.0) 09/09/16 04:46 Chloride 99.9 mmol/L (98-107) 09/09/16 04:46 Carbon Dioxide 26 mmol/L (22-30) 09/09/16 04:46 Anion Gap 16 mmol/L 09/09/16 04:46 BUN 23 mg/dL (7-17) H 09/09/16 04:46 Creatinine 0.9 mg/dL (0.7-1.2) 09/09/16 04:46 Estimated GFR > 60 ml/min 09/09/16 04:46 BUN/Creatinine Ratio 25.55 % 09/09/16 04:46 Glucose 172 mg/dL (65-100) H 09/09/16 04:46 Lactic Acid 0.90 mmol/L (0.7-2.0) 09/07/16 18:20 Calcium 8.2 mg/dL (8.4-10.2) L 09/09/16 04:46 Magnesium 1.70 mg/dL (1.7-2.3) 09/07/16 12:19 Total Bilirubin 0.30 mg/dL (0.1-1.2) 09/09/16 04:46 AST 9 units/L (5-40) 09/09/16 04:46 ALT 8 units/L (7-56) 09/09/16 04:46 Alkaline Phosphatase 51 units/L (35-129) 09/09/16 04:46 Troponin T < 0.010 ng/mL (0.00-0.029) 09/07/16 12:19 NT-Pro-B Natriuret Pep 1390 pg/mL (0-900) H 09/07/16 12:09 Total Protein 7.2 g/dL (6.3-8.2) 09/09/16 04:46 Albumin 3.6 g/dL (3.9-5) L 09/09/16 04:46 Albumin/Globulin Ratio 1.0 % 09/09/16 04:46 Blood Type O POSITIVE 09/07/16 15:34 Antibody Screen TNR 09/07/16 15:34 PAULA Antibody Screen Negative 09/07/16 15:34 - Imaging and Cardiology Chest x-ray: image reviewed (vascular congestion)
[2016-09-11] MEDS: TIVICAY (NF) PO SCH (15:08)
[2016-09-11] MEDS: RESTORIL PO SCH (22:08)
[2016-09-11] MEDS: BENADRYL PO PRN (22:08)
[2016-09-11] MEDS: HEPARIN SUB-Q SCH (22:09)
[2016-09-12] MEDS: DUONEB *Not for PRN Use IH SCH ×3 (02:25→13:27)
--- NOTE | 2016-09-12 09:26 | Discharge Summary ---
Providers - Providers Date of Admission: 09/07/16 14:05 Date of discharge: 09/12/16 Attending physician: CHANDRAKANT ARANDA MD Primary care physician: [employer] Hospitalization Reason for admission: dyspnea Condition: Stable Hospital course: 55 YO Female with HTN, CHF, COPD, AIDS, Seizure Disorder presents to ED for evaluation. Pt states that she has been experiencing difficulty breathing with productive cough with increased production of clear sputum for the past 3 days with worsening symptoms for the past 6 hours. Pt reports subjective fever, but denies chills, CP, Palpitations, NVD, skin rashes,NVD, Syncope, Vertigo, BRBPR, Medication Noncompliance, or recent ill contacts. Pt seen and evaluated in ED and found to be is respiratory distress. Pt placed on NIPPV and subsequently weaned down to nasal cannula. She is on oxygen PRN at home. The patient was treated for COPD exacerbation with IV antibiotics and labs supplemental oxygen. Please note that the patient uses oxygen at home although she states she uses this intermittently. She also received IV fluids prior to discharge discharge was held on the first initial day due to audible wheezing and congestion and desaturation. The patient required high level of oxygen than normal. IV Lasix was started hydrochlorothiazide was discontinued. An echocardiogram was obtained which the patient will follow with cardiology outpatient for review. She is clinically stable at this point for discharge. She is on beta francoise and also an Nagi inhibitor. She understands that if her COPD continues to be a problem and the beta francoise may need to be discontinued. On discharge I discussed this personally with the patient about her obesity and need for weight loss. She is to continue on home oxygen. Her potassium was also replaced. COPD with exacerbation Acute systolic CHF (congestive heart failure) Acute and chronic respiratory failure with chronic hypoxia AIDS Seizure Morbid obesity HTN Hypokalemia Disposition: [id number]/[place]-06 HOME UNDER HOME [facility] Time spent for discharge: 35 mins Core Measure Documentation - Palliative Care Palliative Care/ Comfort Measures: Not Applicable - Core Measures Any of the following diagnoses?: heart failure - VTE Discharge Requirements Deep Vein Thrombosis/Pulmonary Embolism Present on Admission: No - Heart Failure Discharge Requirements NAGI/ARB for LVSD if EF <40%: Yes Beta francoise at discharge: Yes Exam - Physical Exam Narrative exam: VITAL SIGNS: Reviewed. GENERAL: The patient appeared well nourished and normally developed, obese. Vital signs as documented. HEAD: No signs of head trauma. EYES: Pupils are equal. Extraocular motions intact. EARS: Hearing grossly intact. MOUTH: Oropharynx is normal. NECK: No adenopathy, no JVD. CHEST: Chest with wheezing breath sounds bilaterally. No rales, or rhonchi. CARDIAC: Regular rate and rhythm. S1 and S2, without murmurs, gallops, or rubs. VASCULAR: Trace Edema. Peripheral pulses normal and equal in all extremities. ABDOMEN: Soft, without detectable tenderness. No sign of distention. No rebound or guarding, and no masses palpated. Bowel Sounds normal. MUSCULOSKELETAL: Good range of motion of all major joints. Extremities without clubbing, cyanosis. Trace edema. NEUROLOGIC EXAM: Alert and oriented x 3. No focal sensory or strength deficits. Speech normal. Follows commands. PSYCHIATRIC: Mood normal. SKIN: hypopigmented skin - Constitutional Vitals: Temp Pulse Resp BP Pulse Ox 97.6 F 96 H 18 131/91 96 09/12/16 00:32 09/12/16 07:37 09/12/16 07:37 09/12/16 00:32 09/12/16 07:38 Plan Activity: advance as tolerated, fall precautions Diet: low salt Special Instructions: record daily weights, record daily BP diary Additional Instructions: check Renal function test with PCP in 3-5 days due to lasix(new medication) Follow up with: PRIMARY CARE, [Primary Care Provider] - 3-5 Days MAIA MASON MD [Staff Physician] - 7 Days Prescriptions: Azithromycin [Zithromax TAB] 250 mg PO QDAY #3 tablet Fluticasone/Salmeterol [Advair Diskus 250-50 mcg] 1 puff IH BID #1 disk.w.dev Furosemide [Lasix] 20 mg PO QDAY #30 tablet Ipratropium/Albuterol Sulfate [Combivent Respimat] 1 spray IH QID PRN #1 aer.w.adap PRN Reason: Shortness Of Breath Ipratropium/Albuterol Sulfate [DUONEB *Not for PRN Use*] 1 ampul IH Q6HRT #180 ampul.neb predniSONE [Deltasone] 10 mg PO .TAPER #48 tab predniSONE [Deltasone] 10 mg PO .TAPER #48 tab Tiotropium [place] [Spiriva Respimat] 4 gm IH DAILY #1 mist.inhal
[2016-09-12] MEDS: HEPARIN SUB-Q SCH (09:34)
[2016-09-12] MEDS: LASIX IV SCH (09:34)
[2016-09-12] MEDS: ZITHROMAX PO SCH (09:35)
[2016-09-12] MEDS: ZESTRIL PO SCH (09:35)
[2016-09-12] MEDS: ZIAGEN PO SCH (09:35)
[2016-09-12] MEDS: EPIVIR PO SCH (09:35)
[2016-09-12] MEDS: COREG PO SCH (09:36)
[2016-09-12] MEDS: TIVICAY (NF) PO SCH (09:36)
[2016-09-12] MEDS: KEPPRA PO SCH (09:36)
[2016-09-12] MEDS ORDERED: DELTASONE PO SCH (10:00)
[2016-09-12 10:11] LABS: BUN/Creatinine Ratio 21.81; Blood Urea Nitrogen 24 mg/dL (7-17); Calcium 9.1 mg/dL (8.4-10.2); Carbon Dioxide 36 mmol/L (22-30); Chloride 92.5 mmol/L (98-107); Glucose 186 mg/dL (65-100); Potassium 3.1 mmol/L (3.6-5.0); Sodium 142 mmol/L (137-145)
[2016-09-12 10:31] LABS: Anion Gap 17 mmol/L
[2016-09-12 17:57] VITALS: BP 130/76
== END 2016-09-12 19:55 | disposition home health service (06) | DRG 291 ==
LOC: ED 11:57 → 3A 14:05
PROVIDERS: ADMIT Internal Medicine; ATTEND Internal Medicine
PROC: 5A09457 Assistance with Respiratory Ventilation, 24-96 Consecutive Hours, Continuous Positive Airway Pressure (ICD-10-PCS; principal; 2016-09-07)
DX: I11.0 Hypertensive heart disease with heart failure (principal); B20 Human immunodeficiency virus [HIV] disease; J96.21 Acute and chronic respiratory failure with hypoxia; J44.1 Chronic obstructive pulmonary disease with (acute) exacerbation; G43.909 Migraine, unspecified, not intractable, without status migrainosus; G40.909 Epilepsy, unspecified, not intractable, without status epilepticus; E66.01 Morbid (severe) obesity due to excess calories; E87.6 Hypokalemia; I50.21 Acute systolic (congestive) heart failure; Z68.42 Body mass index [BMI] 45.0-49.9, adult; Z91.19 Patient's noncompliance with other medical treatment and regimen
CPT/HCPCS: 36415; 71010; 80048; 80053; 82140; 83735; 83880; 84484; 85007; 85025; 85379; 86850; 86900; 86901; 87040; 93005; 93010; 93306; 94640; 94644; 94660; 94760; J0456; J1644; J1940; J2543; J2920; J7030; J7050; J7512

== ENCOUNTER 2017-02-16 09:23 | Inpatient (IN) | payer MEDICAID ==
[2017-02-16] MEDS ORDERED: MAGNESIUM SULFATE 2GM/50ML 2 GM/50 ML BAG IV ONE (10:49)
[2017-02-16] MEDS ORDERED: PROVENTIL IH ONE (10:49)
[2017-02-16] MEDS ORDERED: ATROVENT IH ONE (10:49)
[2017-02-16] MEDS ORDERED: TYLENOL PO ONE (10:51)
[2017-02-16] MEDS ORDERED: NACL 0.9% 500 ML 500 ML IV ONE (10:51)
--- NOTE | 2017-02-16 10:52 | Emergency Department Report ---
ED General Adult HPI - General Chief complaint: Dyspnea/Respdistress Stated complaint: DIFFICULTY BREATHING Time Seen by Provider: 02/16/17 10:24 Source: patient, EMS (ems notes not available at time of chart dictation), RN notes reviewed, old records reviewed Mode of arrival: Stretcher Limitations: Physical Limitation - History of Present Illness Initial comments: Primary care doctor/HIV doctor: Dr. Georges Cardiology: Patient can't remember Pulmonology: Dr. Edd Cummings Past medical history includes COPD, CHF, hypertension, AIDS, early on highly active antiretroviral therapy. Patient presents to the ER with a complaint of cough, wheezing, chest congestion, shortness of breath, fever, generalized weakness. Symptoms are constant. They've been going on for the past few days. They worse with physical exertion, and it decreased with rest. No recent road trips, hospitalizations or admissions. History is limited because the patient is in severe respiratory distress requiring BiPAP therapy. She did indicate left calf pain, which has been going on for the past few days. -: Gradual Location: left, lower extremity Quality: aching Consistency: intermittent Improves with: rest Worsens with: movement Associated Symptoms: cough, loss of appetite, malaise, shortness of breath, weakness - Related Data Home Medications Medication Instructions Recorded Confirmed Last Taken Abacavir/Dolutegravir/Lamivudi 1 each PO DAILY 12/13/15 09/07/16 09/06/16 [Triumeq Tablet] Carvedilol [Coreg] 25 mg PO BID 12/13/15 09/07/16 09/06/16 Hydroxyzine HCl 25 mg PO Q6HR PRN 12/13/15 09/07/16 09/06/16 Lisinopril [Zestril TAB] 20 mg PO QDAY 12/13/15 09/07/16 09/06/16 Temazepam 30 mg PO QHS 12/13/15 09/07/16 09/06/16 levETIRAcetam [Keppra TAB] 500 mg PO BID 12/13/15 09/07/16 09/06/16 Diphenhydramine HCl [Sleep Tabs 25 mg PO QHS PRN 09/07/16 09/07/16 09/06/16 25MG] Ibuprofen [Motrin 800 MG tab] 800 mg PO Q8HR PRN 09/07/16 09/07/16 09/06/16 Previous Rx's Medication Instructions Recorded Last Taken Type Azithromycin [Zithromax TAB] 250 mg PO QDAY #3 tablet 09/10/16 Unknown Rx Fluticasone/Salmeterol [Advair 1 puff IH BID #1 disk.w.dev 09/10/16 Unknown Rx Diskus 250-50 mcg] Ipratropium/Albuterol Sulfate 1 spray IH QID PRN #1 aer.w.adap 09/10/16 Unknown Rx [Combivent Respimat] Ipratropium/Albuterol Sulfate 1 ampul IH Q6HRT #180 ampul.neb 09/10/16 Unknown Rx [DUONEB *Not for PRN Use*] Tiotropium [place] [Spiriva 4 gm IH DAILY #1 mist.inhal 09/10/16 Unknown Rx Respimat] predniSONE [Deltasone] 10 mg PO .TAPER #48 tab 09/10/16 Unknown Rx Benzonatate [Tessalon Perles] 100 mg PO Q8HR #30 capsule 09/12/16 Unknown Rx Furosemide [Lasix] 20 mg PO QDAY #30 tablet 09/12/16 Unknown Rx predniSONE [Deltasone] 10 mg PO .TAPER #48 tab 09/12/16 Unknown Rx Allergies Allergy/AdvReac Type Severity Reaction Status Date / Time No Known Allergies Allergy Verified 12/12/15 20:48 ED Review of Systems ROS: Stated complaint: DIFFICULTY BREATHING Other details as noted in HPI Comment: Unobtainable due to pts medical conditions Constitutional: fever, malaise Respiratory: shortness of breath Cardiovascular: dyspnea on exertion Gastrointestinal: denies: vomiting Genitourinary: as per HPI Musculoskeletal: arthralgia, myalgia Skin: as per HPI Neurological: as per HPI, weakness ED Past Medical Hx - Past Medical History Hx Hypertension: Yes Hx Congestive Heart Failure: Yes Hx Headaches / Migraines: Yes Hx Seizures: Yes Hx Asthma: Yes Hx HIV: Yes - Social History Smoking Status: Never Smoker - Medications Home Medications: Home Medications Medication Instructions Recorded Confirmed Last Taken Type Abacavir/Dolutegravir/Lamivudi 1 each PO DAILY 12/13/15 09/07/16 09/06/16 History [Triumeq Tablet] Carvedilol [Coreg] 25 mg PO BID 10/01/1709/07/16 09/06/16 History Hydroxyzine HCl 25 mg PO Q6HR PRN 12/13/15 09/07/16 09/06/16 History Lisinopril [Zestril TAB] 20 mg PO QDAY 12/13/15 09/07/16 09/06/16 History Temazepam 30 mg PO QHS 12/13/15 09/07/16 09/06/16 History levETIRAcetam [Keppra TAB] 500 mg PO BID 12/13/15 09/07/16 09/06/16 History Diphenhydramine HCl [Sleep Tabs 25 mg PO QHS PRN 09/07/16 09/07/16 09/06/16 History 25MG] Ibuprofen [Motrin 800 MG tab] 800 mg PO Q8HR PRN 09/07/16 09/07/16 09/06/16 History Azithromycin [Zithromax TAB] 250 mg PO QDAY #3 tablet 09/10/16 Unknown Rx Fluticasone/Salmeterol [Advair 1 puff IH BID #1 disk.w.dev 09/10/16 Unknown Rx Diskus 250-50 mcg] Ipratropium/Albuterol Sulfate 1 spray IH QID PRN #1 aer.w.adap 09/10/16 Unknown Rx [Combivent Respimat] Ipratropium/Albuterol Sulfate 1 ampul IH Q6HRT #180 ampul.neb 09/10/16 Unknown Rx [DUONEB *Not for PRN Use*] Tiotropium [place] [Spiriva 4 gm IH DAILY #1 mist.inhal 09/10/16 Unknown Rx Respimat] predniSONE [Deltasone] 10 mg PO .TAPER #48 tab 09/10/16 Unknown Rx Benzonatate [Tessalon Perles] 100 mg PO Q8HR #30 capsule 09/12/16 Unknown Rx Furosemide [Lasix] 20 mg PO QDAY #30 tablet 09/12/16 Unknown Rx predniSONE [Deltasone] 10 mg PO .TAPER #48 tab 09/12/16 Unknown Rx ED Physical Exam - General Limitations: Physical Limitation General appearance: alert, in distress, obese - Head Head exam: Present: atraumatic, normocephalic - Eye Eye exam: Present: normal appearance - ENT ENT exam: Present: normal exam, normal orophraynx, mucous membranes moist, normal external ear exam - Neck Neck exam: Present: normal inspection, full ROM - Respiratory Respiratory exam: Present: respiratory distress, wheezes, rhonchi - Cardiovascular Cardiovascular Exam: Present: normal rhythm, tachycardia, normal heart sounds. Absent: systolic murmur, diastolic murmur, rubs, gallop - GI/Abdominal GI/Abdominal exam: Present: soft, normal bowel sounds. Absent: distended, tenderness, guarding, rebound, rigid, pulsatile mass - Extremities Exam Extremities exam: Present: normal inspection, full ROM, normal capillary refill , calf tenderness (the left calf is tender. There is no palpable cord. There is a negative Homans sign.). Absent: pedal edema, joint swelling - Back Exam Back exam: Present: normal inspection, full ROM. Absent: tenderness, CVA tenderness (R), paraspinal tenderness, vertebral tenderness - Neurological Exam Neurological exam: Present: alert, oriented X3, CN II-XII intact, normal gait, other (Extraocular movements intact. Tongue midline. No facial droop. Facial sensation intact to light touch in the V1, V2, V3 distribution bilaterally. 5 and 5 strength in 4 extremities.. Sensation is intact to light touch in 4 extremities.). Absent: motor sensory deficit - Psychiatric Psychiatric exam: Present: anxious - Skin Skin exam: Present: warm, dry, intact, normal color. Absent: rash ED Course Vital Signs 02/16/17 02/16/17 02/16/17 10:03 10:15 10:27 Temperature 101.1 F H Pulse Rate 111 H 93 H Pulse Rate [ Anterior Bilateral Throughout] Respiratory 22 20 Rate Respiratory Rate [Anterior Bilateral Throughout] Blood Pressure 123/97 150/91 O2 Sat by Pulse 78 L 97 94 Oximetry 02/16/17 02/16/17 02/16/17 10:30 10:45 10:55 Temperature Pulse Rate 111 H 107 H 86 Pulse Rate [ Anterior Bilateral Throughout] Respiratory 14 24 34 H Rate Respiratory Rate [Anterior Bilateral Throughout] Blood Pressure 122/89 148/88 O2 Sat by Pulse 82 L 82 L 97 Oximetry 02/16/17 02/16/17 10:59 11:03 Temperature Pulse Rate Pulse Rate [ 95 H Anterior Bilateral Throughout] Respiratory 18 Rate Respiratory 22 Rate [Anterior Bilateral Throughout] Blood Pressure O2 Sat by Pulse 94 Oximetry ED Medical Decision Making - Lab Data Result diagrams: 02/16/17 10:34 02/16/17 10:34 Vital Signs 02/16/17 02/16/17 02/16/17 10:03 10:15 10:27 Temperature 101.1 F H Pulse Rate 111 H 93 H Pulse Rate [ Anterior Bilateral Throughout] Respiratory 22 20 Rate Respiratory Rate [Anterior Bilateral Throughout] Blood Pressure 123/97 150/91 O2 Sat by Pulse 78 L 97 94 Oximetry 02/16/17 02/16/17 02/16/17 10:30 10:45 10:55 Temperature Pulse Rate 111 H 107 H 86 Pulse Rate [ Anterior Bilateral Throughout] Respiratory 14 24 34 H Rate Respiratory Rate [Anterior Bilateral Throughout] Blood Pressure 122/89 148/88 O2 Sat by Pulse 82 L 82 L 97 Oximetry 02/16/17 02/16/17 10:59 11:03 Temperature Pulse Rate Pulse Rate [ 95 H Anterior Bilateral Throughout] Respiratory 18 Rate Respiratory 22 Rate [Anterior Bilateral Throughout] Blood Pressure O2 Sat by Pulse 94 Oximetry Labs 02/16/17 02/16/17 02/16/17 10:34 10:34 10:34 WBC 6.4 RBC 4.87 Hgb 14.2 Hct 43.9 H MCV 90 MCH 29 MCHC 32 RDW 15.0 Plt Count 224 Lymph % (Auto) 8.6 L [place] % (Auto) 5.5 Eos % (Auto) 0.3 Baso % (Auto) 0.4 Lymph # 0.5 L [place] # 0.3 Eos # 0.0 Baso # 0.0 Seg Neutrophils % 85.2 H Seg Neutrophils # 5.4 PT 13.9 INR 1.02 APTT 33.2 POC ABG pH POC ABG pCO2 POC ABG pO2 POC ABG HCO3 POC ABG Total CO2 POC ABG O2 Sat POC ABG Base Excess FiO2 Sodium 137 Potassium 3.9 Chloride 93.4 L Carbon Dioxide 26 Anion Gap 22 BUN 14 Creatinine 0.9 Estimated GFR > 60 BUN/Creatinine Ratio 16 Glucose 186 H Lactic Acid Calcium 9.0 Magnesium 1.60 L Total Bilirubin 0.50 AST 15 ALT 14 Alkaline Phosphatase 76 Lactate Dehydrogenase Troponin T < 0.010 NT-Pro-B Natriuret Pep Total Protein 7.9 Albumin 4.4 Albumin/Globulin Ratio 1.3 02/16/17 02/16/17 02/16/17 10:34 10:39 10:39 WBC RBC Hgb Hct MCV MCH MCHC RDW Plt Count Lymph % (Auto) [place] % (Auto) Eos % (Auto) Baso % (Auto) Lymph # [place] # Eos # Baso # Seg Neutrophils % Seg Neutrophils # PT INR APTT POC ABG pH POC ABG pCO2 POC ABG pO2 POC ABG HCO3 POC ABG Total CO2 POC ABG O2 Sat POC ABG Base Excess FiO2 Sodium Potassium Chloride Carbon Dioxide Anion Gap BUN Creatinine Estimated GFR BUN/Creatinine Ratio Glucose Lactic Acid 1.30 Calcium Magnesium Total Bilirubin AST ALT Alkaline Phosphatase Lactate Dehydrogenase 225 H Troponin T NT-Pro-B Natriuret Pep 3232 H Total Protein Albumin Albumin/Globulin Ratio 02/16/17 02/16/17 11:06 11:50 WBC RBC Hgb Hct MCV MCH MCHC RDW Plt Count Lymph % (Auto) [place] % (Auto) Eos % (Auto) Baso % (Auto) Lymph # [place] # Eos # Baso # Seg Neutrophils % Seg Neutrophils # PT INR APTT POC ABG pH 7.411 POC ABG pCO2 44.7 POC ABG pO2 56 L POC ABG HCO3 28.4 POC ABG Total CO2 30 POC ABG O2 Sat 89 POC ABG Base Excess 4 FiO2 28 Sodium Potassium Chloride Carbon Dioxide Anion Gap BUN Creatinine Estimated GFR BUN/Creatinine Ratio Glucose Lactic Acid 1.10 Calcium Magnesium Total Bilirubin AST ALT Alkaline Phosphatase Lactate Dehydrogenase Troponin T NT-Pro-B Natriuret Pep Total Protein Albumin Albumin/Globulin Ratio - EKG Data -: EKG Interpreted by Wy EKG shows normal: sinus rhythm Rate: normal - EKG Data 02/16/17 12:51 Sinus tachycardia, 127 bpm, borderline rightward axis, right bundle branch block , QTC prolonged, motion artifact, abnormal EKG, not morphologically consistent with ST elevation myocardial infarction, appears unchanged from prior from 09/07. - Radiology Data Radiology results: report reviewed, image [facility] 1960 [facility] [id number] 02/16/17 11:51 - Radiology Dept. Note by KOBY SHAH Acct Num: [id number] : 1960 Patient Age: 56 LLE VENOUS DUPLEX COMPLETED BEDSIDE. VAS LAB PRELIMINARY REPORT; NO EVIDENCE OF DVT/SVT NOTED IN VESSELS/SEGMENTS EXAMINED. PHYSICIANS REPORT TO FOLLOW...(RSK) Initialized on 02/16/17 11:51 - END OF NOTE Referring Physician: MARIBELL REID Patient Name: JULIETA LATHAM Date of : 1960 Sex: Female Report Date: 2017-02-16 Report Status: Finalized Findings [facility] [address] [place] [address] XRay Report Signed Patient: JULIETA LATHAM MR#: [id number] : 1960 Acct:[id number] Age/Sex: 56 / F ADM Date: 02/16/17 Loc: ED Attending Dr: Ordering Physician: MARIBELL REID MD Date of Service: 02/16/17 Procedure(s): XR chest 1V ap Accession Number(s): [id number] cc: MARIBELL REID MD Fluoro Time In Minutes: AP CHEST :02/16/17 09:23:00 CLINICAL: Dyspnea. COMPARISON:09/11/16 FINDINGS: Cardiomegaly and central vascular congestion with redistribution of pulmonary blood flow to the upper lobes. Right basal airspace disease or atelectasis. Left basal opacification with silhouetting of the left hemidiaphragm. Mild blunting of the right costophrenic angle is unchanged compared to the prior exam. The tubes or lines. IMPRESSION: CHF with mild perihilar interstitial pulmonary edema. Bibasal dependent pulmonary edema versus atelectasis or airspace disease. Transcribed By: REF Dictated By: BRIANNE GUAJARDO MD Electronically Authenticated By: BRIANNE GUAJARDO MD Signed Date/Time: 02/16/17 1219 - Medical Decision Making Differential diagnosis, including but not limited to: Congestive heart failure, COPD, pneumonia, PCP pneumonia, pulmonary hypertension, we'll defect for respiratory failure Assessment and plan: 56-year-old female with a history of congestive heart failure, HIV AIDS, on highly active antiretroviral therapy, currently with fever , tachycardia, diffuse pulmonary findings, and left leg pain. Left leg ultrasound negative for DVT. Clinically doubt pulmonary embolus, given physical exam findings, history and chest x-ray, I think congestive heart failure, pneumonia/COPD much more likely. I do appreciated the patient is ruling in for systemic inflammatory response syndrome criteria, she was given an empiric bolus of 500 mL of fluid, still had some respiratory distress, so additional fluid was withheld. Patient given BiPAP, albuterol, Atrovent, steroids, magnesium, Lasix therapy. Her work of breathing improved, and she clinically improved on BiPAP and initial arterial blood gas demonstrated hypoxemic respiratory failure. Given that patient most likely has a component of congestive heart failure examination, I will specifically withhold the 30 mL/ kg bolus of IV fluids, because it is my opinion that this will worsen the patient's status clinically. Given HIV status, LDH was ordered, and was elevated, so patient given IV bolus of Bactrim. Case presented to the Hospital physician, Dr. Martines, who accepted the patient to the medical service. Critical Care Time: Yes Critical care time in (mins) excluding proc time.: 45 Critical care attestation.: If time is entered above; I have spent that time in minutes in the direct care of this critically ill patient, excluding procedure time. ED Disposition Clinical Impression: Respiratory failure, SIRS (systemic inflammatory response syndrome) Disposition: [id number] OP ADMIT IP TO THIS HOSP Is pt being admited?: Yes Condition: Good Referrals: PRIMARY CARE, [Primary Care Provider] - 3-5 Days
[2017-02-16 10:56] LABS: Basophils % (Auto) 0.4 % (0.0-1.8); Eosinophils % (Auto) 0.3 % (0.0-4.3); Hematocrit 43.9 % (30.3-42.9); Hemoglobin 14.2 gm/dl (10.1-14.3); Mean Corpuscular HGB Conc 32 % (30-34); Mean Corpuscular Hemoglobin 29 pg (28-32); Mean Corpuscular Volume 90 fl (79-97); Platelet Count 224 K/mm3 (140-440); Red Blood Count 4.87 M/mm3 (3.65-5.03); White Blood Count 6.4 K/mm3 (4.5-11.0)
[2017-02-16 11:08] LABS: INR 1.02 (0.87-1.13)
[2017-02-16 11:09] LABS: Partial Thromboplastin Time 33.2 Sec. (24.2-36.6)
[2017-02-16 11:17] LABS: ISTAT Base Excess 4; ISTAT HCO3 28.4; ISTAT PCO2 44.7 (35-45); ISTAT PH 7.411 (7.35-7.45); ISTAT PO2 56 (80-105); ISTAT SO2 89; ISTAT TCO2 30
[2017-02-16 12:08] LABS: Alanine Aminotransferase 14 units/L (7-56); Albumin 4.4 g/dL (3.9-5); Albumin/Globulin Ratio 1.3 %; Alkaline Phosphatase 76 units/L (35-129); Anion Gap 22 mmol/L; BUN/Creatinine Ratio 16; Blood Urea Nitrogen 14 mg/dL (7-17); Carbon Dioxide 26 mmol/L (22-30); Chloride 93.4 mmol/L (98-107); Glucose 186 mg/dL (65-100); Potassium 3.9 mmol/L (3.6-5.0); Sodium 137 mmol/L (137-145); Total Protein 7.9 g/dL (6.3-8.2)
--- NOTE | 2017-02-16 12:23 | XRay Report ---
AP CHEST :02/16/17 09:23:00 CLINICAL: Dyspnea. COMPARISON:09/11/16 FINDINGS: Cardiomegaly and central vascular congestion with redistribution of pulmonary blood flow to the upper lobes. Right basal airspace disease or atelectasis. Left basal opacification with silhouetting of the left hemidiaphragm. Mild blunting of the right costophrenic angle is unchanged compared to the prior exam. The tubes or lines. IMPRESSION: CHF with mild perihilar interstitial pulmonary edema. Bibasal dependent pulmonary edema versus atelectasis or airspace disease.
[2017-02-16] MEDS ORDERED: LEVAQUIN 750MG/150ML 750 MG/150 ML BAG IV ONE (12:41)
[2017-02-16] MEDS ORDERED: LASIX IV ONE (12:41)
[2017-02-16] MEDS ORDERED: BACTRIM IV STA (12:43)
[2017-02-16] MEDS ORDERED: BACTRIM IV ONE (14:00)
[2017-02-16] MEDS ORDERED: D5W IV ONE (14:00)
[2017-02-16 15:11] LABS: ISTAT Base Excess 4; ISTAT PCO2 46.4 (35-45); ISTAT PH 7.403 (7.35-7.45); ISTAT PO2 69 (80-105); ISTAT SO2 93; ISTAT TCO2 30
--- NOTE | 2017-02-16 22:52 | History and Physical Report ---
History of Present Illness Date of examination: 02/16/17 Date of admission: 02/16/17 15:37 Chief complaint: CC Sob and cough for 1 week History of present illness: 56 y/o female with past medical history includes COPD, CHF, hypertension, AIDS on antiretroviral therapy presents to the ER with a complaint of cough, wheezing, chest congestion, shortness of breath, fever, generalized weakness. Symptoms are constant. They've been going on for the past few days. They worse with physical exertion, and it decreased with rest. No recent road trips , hospitalizations or admissions. History is limited because the patient is in severe respiratory distress requiring BiPAP therapy. She did indicate left calf pain, which has been going on for the past few days.No exacerbating or relieving factors. Past Medical History Hx Hypertension: Yes Hx Congestive Heart Failure: Yes Hx Headaches / Migraines: Yes Hx Seizures: Yes Hx Asthma: Yes Hx HIV: Yes Social History Smoking Status: Never Smoker Fam Hx Htn - Medications Home Medications: Home Medications Medication Instructions Recorded Confirmed Last Taken Type Abacavir/Dolutegravir/Lamivudi 1 each PO DAILY 12/13/15 09/07/16 09/06/16 History [Triumeq Tablet] Carvedilol [Coreg] 25 mg PO BID 12/13/15 09/07/16 09/06/16 History Hydroxyzine HCl 25 mg PO Q6HR PRN 12/13/15 09/07/16 09/06/16 History Lisinopril [Zestril TAB] 20 mg PO QDAY 12/13/15 09/07/16 09/06/16 History Temazepam 30 mg PO QHS 12/13/15 09/07/16 09/06/16 History levETIRAcetam [Keppra TAB] 500 mg PO BID 12/13/15 09/07/16 09/06/16 History Diphenhydramine HCl [Sleep Tabs 25 mg PO QHS PRN 09/07/16 09/07/16 09/06/16 History 25MG] Ibuprofen [Motrin 800 MG tab] 800 mg PO Q8HR PRN 09/07/16 09/07/16 09/06/16 History Azithromycin [Zithromax TAB] 250 mg PO QDAY #3 tablet 09/10/16 Unknown Rx Fluticasone/Salmeterol [Advair 1 puff IH BID #1 disk.w.dev 09/10/16 Unknown Rx Diskus 250-50 mcg] Ipratropium/Albuterol Sulfate 1 spray IH QID PRN #1 aer.w.adap 09/10/16 Unknown Rx [Combivent Respimat] Ipratropium/Albuterol Sulfate 1 ampul IH Q6HRT #180 ampul.neb 09/10/16 Unknown Rx [DUONEB *Not for PRN Use*] Tiotropium [place] [Spiriva 4 gm IH DAILY #1 mist.inhal 09/10/16 Unknown Rx Respimat] predniSONE [Deltasone] 10 mg PO .TAPER #48 tab 09/10/16 Unknown Rx Benzonatate [Tessalon Perles] 100 mg PO Q8HR #30 capsule 09/12/16 Unknown Rx Furosemide [Lasix] 20 mg PO QDAY #30 tablet 09/12/16 Unknown Rx predniSONE [Deltasone] 10 mg PO .TAPER #48 tab 09/12/16 Unknown Rx Review of Systems Stated complaint: DIFFICULTY BREATHING Other details as noted in HPI Comment: Unobtainable due to pts medical conditions Constitutional: fever, malaise Respiratory: shortness of breath Cardiovascular: dyspnea on exertion Gastrointestinal: denies: vomiting Genitourinary: as per HPI Musculoskeletal: arthralgia, myalgia Skin: as per HPI Neurological: as per HPI, weakness Medications and Allergies Allergies Allergy/AdvReac Type Severity Reaction Status Date / Time No Known Allergies Allergy Verified 12/12/15 20:48 Home Medications Medication Instructions Recorded Confirmed Last Taken Type Abacavir/Dolutegravir/Lamivudi 1 each PO DAILY 12/13/15 02/16/17 09/06/16 History [Triumeq Tablet] Carvedilol [Coreg] 25 mg PO BID 12/13/15 02/16/17 09/06/16 History Hydroxyzine HCl 25 mg PO Q6HR PRN 12/13/15 02/16/17 09/06/16 History Lisinopril [Zestril TAB] 20 mg PO QDAY 12/13/15 02/16/17 09/06/16 History Temazepam 30 mg PO QHS 12/13/15 02/16/17 09/06/16 History levETIRAcetam [Keppra TAB] 500 mg PO BID 12/13/15 02/16/17 09/06/16 History Diphenhydramine HCl [Sleep Tabs 25 mg PO QHS PRN 09/07/16 02/16/17 09/06/16 History 25MG] Ibuprofen [Motrin 800 MG tab] 800 mg PO Q8HR PRN 09/07/16 02/16/17 09/06/16 History Azithromycin [Zithromax TAB] 250 mg PO QDAY #3 tablet 09/10/16 02/16/17 Unknown Rx Fluticasone/Salmeterol [Advair 1 puff IH BID #1 disk.w.dev 09/10/16 02/16/17 Unknown Rx Diskus 250-50 mcg] Ipratropium/Albuterol Sulfate 1 spray IH QID PRN #1 aer.w.adap 09/10/16 Unknown Rx [Combivent Respimat] Ipratropium/Albuterol Sulfate 1 ampul IH Q6HRT #180 ampul.neb 09/10/16 02/16/17 Unknown Rx [DUONEB *Not for PRN Use*] Tiotropium [place] [Spiriva 4 gm IH DAILY #1 mist.inhal 09/10/16 02/16/17 Unknown Rx Respimat] Benzonatate [Tessalon Perles] 100 mg PO Q8HR #30 capsule 09/12/16 02/16/17 Unknown Rx Furosemide [Lasix] 20 mg PO QDAY #30 tablet 09/12/16 02/16/17 Unknown Rx Exam - Constitutional Vitals: Temp Pulse Resp BP Pulse Ox 97.3 F L 82 22 102/61 95 02/16/17 19:39 02/16/17 19:39 02/16/17 19:39 02/16/17 19:39 02/16/17 20:40 General appearance: Present: severe distress, well-nourished - EENT Eyes: Present: PERRL ENT: hearing intact, clear oral mucosa, other (Hypopigmented Skin lesions c/w Vitiligo) - Neck Neck: Present: supple, normal ROM - Respiratory Respiratory effort: normal Respiratory: bilateral: CTA, rales, rhonchi - Cardiovascular Heart rate: 90 Rhythm: regular Heart Sounds: Present: S1 & S2. Absent: rub, click - Extremities Extremities: no ischemia, pulses intact, pulses symmetrical, No edema Peripheral Pulses: within normal limits - Abdominal General gastrointestinal: Present: soft, non-tender, non-distended, normal bowel sounds Female genitourinary: Present: normal - Rectal Rectal Exam: deferred - Integumentary Integumentary: Present: clear, warm, dry - Musculoskeletal Musculoskeletal: gait normal, strength equal bilaterally - Psychiatric Psychiatric: appropriate mood/affect, intact judgment & insight - Neurologic Neurologic: CNII-XII intact, moves all extremities - Allied Health Allied health notes reviewed: nursing, case management Results - Labs CBC & Chem 7: 02/16/17 10:34 02/16/17 10:34 Labs: Laboratory Last Values WBC 6.4 K/mm3 (4.5-11.0) 02/16/17 10:34 RBC 4.87 M/mm3 (3.65-5.03) 02/16/17 10:34 Hgb 14.2 gm/dl (10.1-14.3) 02/16/17 10:34 Hct 43.9 % (30.3-42.9) H 02/16/17 10:34 MCV 90 fl (79-97) 02/16/17 10:34 MCH 29 pg (28-32) 02/16/17 10:34 MCHC 32 % (30-34) 02/16/17 10:34 RDW 15.0 % (13.2-15.2) 02/16/17 10:34 Plt Count 224 K/mm3 (140-440) 02/16/17 10:34 Lymph % (Auto) 8.6 % (13.4-35.0) L 02/16/17 10:34 [place] % (Auto) 5.5 % (0.0-7.3) 02/16/17 10:34 Eos % (Auto) 0.3 % (0.0-4.3) 02/16/17 10:34 Baso % (Auto) 0.4 % (0.0-1.8) 02/16/17 10:34 Lymph # 0.5 K/mm3 (1.2-5.4) L 02/16/17 10:34 [place] # 0.3 K/mm3 (0.0-0.8) 02/16/17 10:34 Eos # 0.0 K/mm3 (0.0-0.4) 02/16/17 10:34 Baso # 0.0 K/mm3 (0.0-0.1) 02/16/17 10:34 Seg Neutrophils % 85.2 % (40.0-70.0) H 02/16/17 10:34 Seg Neutrophils # 5.4 K/mm3 (1.8-7.7) 02/16/17 10:34 PT 13.9 Sec. (12.2-14.9) 02/16/17 10:34 INR 1.02 (0.87-1.13) 02/16/17 10:34 APTT 33.2 Sec. (24.2-36.6) 02/16/17 10:34 POC ABG pH 7.403 (7.35-7.45) 02/16/17 15:03 POC ABG pCO2 46.4 (35-45) H 02/16/17 15:03 POC ABG pO2 69 (80-105) L 02/16/17 15:03 POC ABG HCO3 29.0 02/16/17 15:03 POC ABG Total CO2 30 02/16/17 15:03 POC ABG O2 Sat 93 02/16/17 15:03 POC ABG Base Excess 4 02/16/17 15:03 FiO2 35 % 02/16/17 15:03 Sodium 137 mmol/L (137-145) 02/16/17 10:34 Potassium 3.9 mmol/L (3.6-5.0) 02/16/17 10:34 Chloride 93.4 mmol/L (98-107) L 02/16/17 10:34 Carbon Dioxide 26 mmol/L (22-30) 02/16/17 10:34 Anion Gap 22 mmol/L 02/16/17 10:34 BUN 14 mg/dL (7-17) 02/16/17 10:34 Creatinine 0.9 mg/dL (0.7-1.2) 02/16/17 10:34 Estimated GFR > 60 ml/min 02/16/17 10:34 BUN/Creatinine Ratio 16 % 02/16/17 10:34 Glucose 186 mg/dL (65-100) H 02/16/17 10:34 Lactic Acid 1.10 mmol/L (0.7-2.0) 02/16/17 11:50 Calcium 9.0 mg/dL (8.4-10.2) 02/16/17 10:34 Magnesium 1.60 mg/dL (1.7-2.3) L 02/16/17 10:34 Total Bilirubin 0.50 mg/dL (0.1-1.2) 02/16/17 10:34 AST 15 units/L (5-40) 02/16/17 10:34 ALT 14 units/L (7-56) 02/16/17 10:34 Alkaline Phosphatase 76 units/L (35-129) 02/16/17 10:34 Lactate Dehydrogenase 225 units/L (91-180) H 02/16/17 10:39 Troponin T < 0.010 ng/mL (0.00-0.029) 02/16/17 15:58 NT-Pro-B Natriuret Pep 3232 pg/mL (0-900) H 02/16/17 10:39 Total Protein 7.9 g/dL (6.3-8.2) 02/16/17 10:34 Albumin 4.4 g/dL (3.9-5) 02/16/17 10:34 Albumin/Globulin Ratio 1.3 % 02/16/17 10:34 Short CBC 02/16/17 Range/Units 10:34 WBC 6.4 (4.5-11.0) K/mm3 Hgb 14.2 (10.1-14.3) gm/dl Hct 43.9 H (30.3-42.9) % Plt Count 224 (140-440) K/mm3 BMP 02/16/17 10:34 Sodium 137 Potassium 3.9 Chloride 93.4 L Carbon Dioxide 26 BUN 14 Creatinine 0.9 Glucose 186 H Calcium 9.0 Cardiac Enzymes 02/16/17 02/16/17 02/16/17 Range/Units 10:34 13:07 15:58 Troponin T < 0.010 < 0.010 < 0.010 (0.00-0.029) ng/mL Liver Function 02/16/17 Range/Units 10:34 Total Bilirubin 0.50 (0.1-1.2) mg/dL AST 15 (5-40) units/L ALT 14 (7-56) units/L Alkaline Phosphatase 76 (35-129) units/L Albumin 4.4 (3.9-5) g/dL - Imaging and Cardiology EKG: report reviewed Chest x-ray: report reviewed (CHF with basilar pulmonary edema) Assessment and Plan Advance Directives: Yes (Full code) Plan of care discussed with patient/family: Yes - Patient Problems (1) Acute respiratory failure with hypoxia Current Visit: Yes Status: Acute Plan to address problem: Cont Bipap Neb tx Iv solumedrol and IV abx Pulnm cons requested (2) Acute exacerbation of CHF (congestive heart failure) Current Visit: Yes Status: Acute Qualifiers: Congestive heart failure type: combined Qualified Code(s): I50.43 - Acute on chronic combined systolic (congestive) and diastolic (congestive) heart failure Plan to address problem: IV Lasix and Echo ordered (3) Bronchitis Current Visit: No Status: Acute Plan to address problem: Iv Abx + Bronchodilator's (4) SIRS (systemic inflammatory response syndrome) Current Visit: Yes Status: Acute Plan to address problem: In favor of SIRS given Fever (5) HTN (hypertension) Current Visit: No Status: Chronic Qualifiers: Hypertension type: essential hypertension Qualified Code(s): I10 - Essential (primary) hypertension (6) HIV (human immunodeficiency virus infection) Current Visit: Yes Status: Chronic Plan to address problem: Cont Anti retrovirals (7) Seizure disorder Current Visit: Yes Status: Chronic Plan to address problem: Cont Keppra (8) DVT prophylaxis Current Visit: No Status: Acute Plan to address problem: On Lovenox
[2017-02-16] MEDS ORDERED: MOTRIN PO PRN (22:53)
[2017-02-16] MEDS ORDERED: NON-FORMULARY (Ipratropium/Albuterol Sulfate [Combivent Respimat] 1 SPRAY) IH PRN (22:53)
[2017-02-16] MEDS ORDERED: ATARAX PO PRN (22:53)
[2017-02-16] MEDS ORDERED: BENADRYL PO PRN (22:53)
[2017-02-16] MEDS ORDERED: DELTASONE PO SCH (23:00)
[2017-02-16] MEDS ORDERED: TYLENOL PO PRN (23:03)
[2017-02-16] MEDS ORDERED: DULCOLAX PR PRN (23:03)
[2017-02-16] MEDS ORDERED: MILK OF MAGNESIA PO PRN (23:03)
[2017-02-16] MEDS ORDERED: ZOFRAN IV PRN (23:03)
[2017-02-16] MEDS ORDERED: AMBIEN PO PRN (23:04)
[2017-02-16] MEDS ORDERED: MORPHINE IV PRN (23:04)
[2017-02-16] MEDS ORDERED: PERCOCET 5/325 PO PRN (23:04)
[2017-02-16] MEDS ORDERED: PROVENTIL IH PRN (23:08)
[2017-02-16] MEDS ORDERED: NACL 0.9% 1000 ML 1,000 ML IV SCH (23:45)
[2017-02-16] MEDS: COREG PO SCH (23:50)
[2017-02-17] MEDS: DUONEB *Not for PRN Use IH SCH ×7 (02:18→19:43)
[2017-02-17] MEDS: TESSALON PERLES PO SCH ×2 (06:44→13:49)
[2017-02-17] MEDS: LEVAQUIN 750MG/150ML 750 MG/150 ML BAG IV SCH (09:50)
[2017-02-17] MEDS: KEPPRA PO SCH ×2 (09:51→21:36)
[2017-02-17] MEDS: LASIX PO SCH (09:51)
[2017-02-17] MEDS: K-DUR PO SCH ×2 (09:51→19:45)
[2017-02-17] MEDS: ZITHROMAX PO SCH (09:51)
[2017-02-17] MEDS: COREG PO SCH ×2 (09:52→21:37)
--- NOTE | 2017-02-17 09:54 | Progress Note ---
Assessment and Plan Assessment and plan: Acute on chronic respiratory failure due to COPD excaerbation. Continue supplemental Oxygen. solu-medrol iv, Duoneb. She was on home Oxygen at 2l/min COPD excerbation. Treatment as above. Chronic CHF. Continue Coreg Hypertension. BP stable on Coreg HIV/AIDS. Continue HAART Seizure disorder. She was on Keppra at home . Continue this. Full code status. History Interval history: less shortness breath, less cough No chest pain no vomiting Hospitalist Physical - Physical exam Narrative exam: GEN APPEARANCE : Not in acute distress, morbidly obese HEENT: Normocephalic, Atraumatic NECK : supple, no JVD LUNGS: Decreased breath sounds bilaterally, bilat rhonchi, wheezing HEART: S1 and S2 regular, no murmurs, rubs or gallop, ABD: Soft, non tender, non distended, normal bowel sounds EXT: No edema, no clubbing, no cyanosis NEURO: Awake,alert, oriented x3. No focal neurological signs psych:Normal mood - Constitutional Vitals: Temp Pulse Resp BP Pulse Ox 98.9 F 70 22 116/62 95 02/17/17 07:47 02/17/17 07:47 02/17/17 07:47 02/17/17 07:47 02/17/17 07:47 Results - Labs CBC & Chem 7: 02/16/17 10:34 02/18/17 05:49 Labs: Laboratory Last Values WBC 6.4 K/mm3 (4.5-11.0) 02/16/17 10:34 RBC 4.87 M/mm3 (3.65-5.03) 02/16/17 10:34 Hgb 14.2 gm/dl (10.1-14.3) 02/16/17 10:34 Hct 43.9 % (30.3-42.9) H 02/16/17 10:34 MCV 90 fl (79-97) 02/16/17 10:34 MCH 29 pg (28-32) 02/16/17 10:34 MCHC 32 % (30-34) 02/16/17 10:34 RDW 15.0 % (13.2-15.2) 02/16/17 10:34 Plt Count 224 K/mm3 (140-440) 02/16/17 10:34 Lymph % (Auto) 8.6 % (13.4-35.0) L 02/16/17 10:34 [place] % (Auto) 5.5 % (0.0-7.3) 02/16/17 10:34 Eos % (Auto) 0.3 % (0.0-4.3) 02/16/17 10:34 Baso % (Auto) 0.4 % (0.0-1.8) 02/16/17 10:34 Lymph # 0.5 K/mm3 (1.2-5.4) L 02/16/17 10:34 [place] # 0.3 K/mm3 (0.0-0.8) 02/16/17 10:34 Eos # 0.0 K/mm3 (0.0-0.4) 02/16/17 10:34 Baso # 0.0 K/mm3 (0.0-0.1) 02/16/17 10:34 Seg Neutrophils % 85.2 % (40.0-70.0) H 02/16/17 10:34 Seg Neutrophils # 5.4 K/mm3 (1.8-7.7) 02/16/17 10:34 PT 13.9 Sec. (12.2-14.9) 02/16/17 10:34 INR 1.02 (0.87-1.13) 02/16/17 10:34 APTT 33.2 Sec. (24.2-36.6) 02/16/17 10:34 POC ABG pH 7.403 (7.35-7.45) 02/16/17 15:03 POC ABG pCO2 46.4 (35-45) H 02/16/17 15:03 POC ABG pO2 69 (80-105) L 02/16/17 15:03 POC ABG HCO3 29.0 02/16/17 15:03 POC ABG Total CO2 30 02/16/17 15:03 POC ABG O2 Sat 93 02/16/17 15:03 POC ABG Base Excess 4 02/16/17 15:03 FiO2 35 % 02/16/17 15:03 Sodium 137 mmol/L (137-145) 02/16/17 10:34 Potassium 3.9 mmol/L (3.6-5.0) 02/16/17 10:34 Chloride 93.4 mmol/L (98-107) L 02/16/17 10:34 Carbon Dioxide 26 mmol/L (22-30) 02/16/17 10:34 Anion Gap 22 mmol/L 02/16/17 10:34 BUN 14 mg/dL (7-17) 02/16/17 10:34 Creatinine 0.9 mg/dL (0.7-1.2) 02/16/17 10:34 Estimated GFR > 60 ml/min 02/16/17 10:34 BUN/Creatinine Ratio 16 % 02/16/17 10:34 Glucose 186 mg/dL (65-100) H 02/16/17 10:34 Hemoglobin A1c 7.2 % (4-6) H 02/16/17 23:21 Lactic Acid 1.10 mmol/L (0.7-2.0) 02/16/17 11:50 Calcium 9.0 mg/dL (8.4-10.2) 02/16/17 10:34 Magnesium 1.60 mg/dL (1.7-2.3) L 02/16/17 10:34 Total Bilirubin 0.50 mg/dL (0.1-1.2) 02/16/17 10:34 AST 15 units/L (5-40) 02/16/17 10:34 ALT 14 units/L (7-56) 02/16/17 10:34 Alkaline Phosphatase 76 units/L (35-129) 02/16/17 10:34 Lactate Dehydrogenase 225 units/L (91-180) H 02/16/17 10:39 Troponin T < 0.010 ng/mL (0.00-0.029) 02/16/17 15:58 NT-Pro-B Natriuret Pep 3232 pg/mL (0-900) H 02/16/17 10:39 Total Protein 7.9 g/dL (6.3-8.2) 02/16/17 10:34 Albumin 4.4 g/dL (3.9-5) 02/16/17 10:34 Albumin/Globulin Ratio 1.3 % 02/16/17 10:34
[2017-02-17] MEDS ORDERED: NON-FORMULARY (Abacavir/Dolutegravir/Lamivudi [Triumeq Tablet] 1 EACH) PO SCH (10:00)
[2017-02-17] MEDS ORDERED: NON-FORMULARY (Tiotropium Bromide [Spiriva Respimat] 4 GM) IH SCH (10:00)
[2017-02-17] MEDS ORDERED: NON-FORMULARY (Fluticasone/Salmeterol [Advair Diskus 250-50 Mcg] 1 PUFF) IH SCH (10:00)
[2017-02-17 10:01] LABS: Anion Gap 21 mmol/L; BUN/Creatinine Ratio 22; Blood Urea Nitrogen 24 mg/dL (7-17); Calcium 8.7 mg/dL (8.4-10.2); Carbon Dioxide 26 mmol/L (22-30); Chloride 93.5 mmol/L (98-107); Glucose 240 mg/dL (65-100); Sodium 136 mmol/L (137-145)
[2017-02-17] MEDS: NON-FORMULARY PO SCH (11:21)
[2017-02-17] MEDS: ZESTRIL PO SCH (13:49)
[2017-02-17] MEDS: PULMICORT IH SCH ×2 (14:10→19:43)
[2017-02-17] MEDS: BROVANA NEBU IH SCH ×2 (14:11→19:43)
[2017-02-17] MEDS: LASIX IV SCH (18:23)
[2017-02-17] MEDS ORDERED: RESTORIL PO SCH (22:00)
[2017-02-17] MEDS ORDERED: LOVENOX SUB-Q SCH (22:00)
--- NOTE | 2017-02-17 22:40 | Event Note ---
Date: 02/17/17 PULMONARY CONSULTATION: Dr. Martines thank you for asking us to participate in the care of this patient. Full consultation follow. This is 56 year old female with history of COPD,CHF, Hypertension. Seizures , Migraine headaches and AIDS admitted through emergency room with a complaint of shortness of breath,cough,wheezing, fever and generalized weakness. Patient has no history of smoking.Patients ABGs showed PH 7.4, PCO2 46 , PO2 69, HCO3 29, O2 saturation 93% on 35% FIO2. Chest xray obtained reported CHF with perihilar interstitial pulmonary edema.Patient has no known drug allergies. Impression: 1. Acute exacerbation Asthma 2. CHF Exacerbation 3. HIV/AIDS 4. Hypertension 5. Seizure disorder. 6. HIV/AIDs PLAN: 1. O2 5 litres via nasal canula 2. Brovanna/Budesonide aerosol treatments q 12 hours. 3. Albuterol/atrovent aerosol treatments q 6 hours prn for wheezing and shortness of breath. 4. Continue I/V Solumedral 5. Continue Levaquine and Zithromax. 6. Continue S/C Lovenox. r
[2017-02-18] MEDS: DUONEB *Not for PRN Use IH SCH ×2 (01:20→08:43)
[2017-02-18] MEDS: TESSALON PERLES PO SCH ×3 (04:54→14:00)
[2017-02-18] MEDS: LASIX IV SCH (07:02)
[2017-02-18 07:20] LABS: Anion Gap 17 mmol/L; BUN/Creatinine Ratio 22; Blood Urea Nitrogen 24 mg/dL (7-17); Calcium 8.8 mg/dL (8.4-10.2); Carbon Dioxide 30 mmol/L (22-30); Chloride 96.3 mmol/L (98-107); Glucose 180 mg/dL (65-100); Potassium 4.3 mmol/L (3.6-5.0); Sodium 139 mmol/L (137-145)
[2017-02-18 08:37] VITALS: BP 120/83
[2017-02-18] MEDS: BROVANA NEBU IH SCH (08:43)
[2017-02-18] MEDS: PULMICORT IH SCH (08:43)
[2017-02-18] MEDS ORDERED: PROVENTIL IH PRN ×2 (08:50→08:52)
--- NOTE | 2017-02-18 09:49 | Discharge Summary ---
Providers - Providers Date of Admission: 02/16/17 15:37 Date of discharge: 02/18/17 Attending physician: MARIBELL MOYER 02/16/17 23:04 Consult to Physician [CONS] Routine Consulting Provider: MÓNICA ADAME Reason For Exam: resp failure Place consult to:: vito/ dr. adame Notified:: answering service Phone number called:: Was contact made?: Yes If yes, spoke with:: feng Time called:: 12:30 Primary care physician: DOCUMENT CONTROL SUPERVISOR Hospitalization Condition: Good Hospital course: Patient is 56 yo with Chronic respiratory failure,CHF, COPD and HIV/AIDS. She presented with shortness of breath, cough. She was diagnosed with COPD excaerbation, started on solumedrol, Oxygen and Nebulizers. [employer] was consulted and she was evaluated. She improved over few days. She was re- evaluated on 02/18/17. Shortness of breath had resolved and she was back to her baseline Oxygen requirement of 2l/min via nasal canula. She was then dscharged home to follow as outpatient. Total time spent on discharge, 33 mins Disposition: DC/TX-70 ANOTHER TYPE HLTHCARE - Discharge Diagnoses (1) Acute and chronic respiratory failure Status: Acute (2) Acute on chronic diastolic CHF (congestive heart failure) Status: Acute (3) HIV (human immunodeficiency virus infection) Status: Chronic (4) COPD with exacerbation Status: Acute (5) HTN (hypertension), benign Status: Chronic Core Measure Documentation - Palliative Care Palliative Care/ Comfort Measures: Not Applicable - Core Measures Any of the following diagnoses?: heart failure - Heart Failure Discharge Requirements NAOMY/ARB for LVSD if EF <40%: Not Applicable Beta francoise at discharge: Yes Exam - Constitutional Vitals: Temp Pulse Resp BP Pulse Ox 98.3 F 64 18 120/83 99 02/18/17 07:27 02/18/17 08:44 02/18/17 08:44 02/18/17 07:27 02/18/17 08:48 Plan Activity: advance as tolerated Diet: low fat, low cholesterol, low salt Additional Instructions: 1.Follow up with PCP in 1 week. 2.Follow up with Dr. Medeiros in 1 week. 3.Continue home oxygen at 2l/min. 4.Follow up with cardiology in 1 week Follow up with: PRIMARY CARE, [Primary Care Provider] - 3-5 Days Prescriptions: Azithromycin [Zithromax TAB] 250 mg PO QDAY #5 tablet Prednisone [predniSONE 5 mg (6-Day Pack, 21 Tabs)] 5 mg PO .TAPER #1 tab.ds.pk
[2017-02-18] MEDS: LEVAQUIN 750MG/150ML 750 MG/150 ML BAG IV SCH (10:48)
[2017-02-18] MEDS: ZITHROMAX PO SCH (10:49)
[2017-02-18] MEDS: LASIX PO SCH (10:49)
[2017-02-18] MEDS: KEPPRA PO SCH (10:49)
[2017-02-18] MEDS: K-DUR PO SCH (10:49)
[2017-02-18] MEDS: COREG PO SCH (10:51)
[2017-02-18] MEDS: ZESTRIL PO SCH (10:51)
[2017-02-18] MEDS: NON-FORMULARY PO SCH (11:07)
[2017-02-18] MEDS ORDERED: DUONEB *Not for PRN Use IH SCH (14:00)
[2017-02-18] MEDS ORDERED: PULMICORT IH SCH (20:00)
[2017-02-19] MEDS ORDERED: LEVAQUIN PO SCH (10:00)
--- NOTE | 2017-02-22 13:23 | Query-Infection ---
Dear Siobhan Date:___02/22/17 Speech Language Pathologist Assistant/CDS:____Danymisbah / Siva Phone#:___[phone] Exercise your independent professional judgment when responding to this query. Questions asked do not imply a particular answer is desired or expected. We greatly appreciate your clarification on this issue. Clinical Documentation States: 56 year female was admitted on 02/16/17 The H&P (Dr. Martines) states " 56 y/o female with past medical history includes COPD, CHF, hypertension, AIDS on antiretroviral therapy presents to the ER with a complaint of cough, wheezing, chest congestion, shortness of breath, fever, generalized weakness. (3) Bronchitis (4) SIRS (systemic inflammatory response syndrome) " The Discharge summary (Dr. Mccann) states " (1) Acute and chronic respiratory failure, (2) Acute on chronic diastolic CHF (congestive heart failure), (3) HIV (human immunodeficiency virus infection), (4) COPD with exacerbation " Temperature: 101.1 Pulse rate: 111 Respiratory rate: 34 Clinical findings show: (please check applicable parameters) Infection, known /suspected, with some of the following indicators; Specify the infection: 3 General parameters [x ] Fever (core temp >38.30C or 100.40F) [ ] Hypothermia (core temp <36C) [ x] Heart rate >90 bpm [ x] Tachypnea: >20 bpm or pCO2 < 32 mmHg [ ] Altered mental status [ ] Significant edema / +ve fluid balance (>20 ml/kg 24 h) [ ] Hyperglycemia (Bl. glucose >110 mg/dl) w/o diabetes Inflammatory parameters [ ] Leukocytosis (white blood cell count >12,000/l) [ ] Leukopenia (white blood cell count <4,000/l) [ ] Bandemia (immature WBC > 10%) [ ] Leucocyte Left Shift [ ] Plasma procalcitonin>2 SD above the normal value Hemodynamic and tissue perfusion parameters [ ] Arterial hypotension(SBP <90 mmHg, MAP <70 mmHg,or a SBP drop >40 mmHg in adults) [ ] Hyperlactatemia (>3 mmol/l) [ ] Anion Gap (> 11mEG/l) [ ] Decreased capillary refill or mottling Organ dysfunction parameters [ ] Arterial hypoxemia (PaO2/FIO2 <300) [ ] Creatinine increase =0.5 mg/dl [ ] Acute oliguria (urine output <0.5 ml | kg |h or 45 mM/l for at least 2 hrs) [ ] Coagulation abnormalities (INR >1.5 or activated partial thromboplastin time >60 s) [ ] Ileus (absent ha wel sounds) [ ] Thrombocytopenia (platelet count <100,000/l) [ ] Hyperbilirubinemia (plasma total bilirubin >4 mg/dl) According to the clinical indications above, can Bacteremia be further specified? If so, please indicate below and in your Progress Notes and/ or Discharge Summary. Indicate if the condition was present on admission. PHYSICIAN RESPONSE: [ ] Sepsis [ ] Severe Sepsis [ ] Septic Shock [ ] Septicemia [ ] Sepsis now resolved [ ] SIRS due to non-infectious cause with organ dysfunction [ x] SIRS due to non-infectious cause without organ dysfunction [ ] Other: [ ] Comment/Explanation: Present on Admission: [ x] Yes (Y) [ ] Clinically undeterminable (W) [ ] No (N) [ ] Ruled Out Please also document response in your Progress Notes and/or Discharge Summary and indicate if the condition was present on admission Notes: SIRS/ SIRS WITH ORGAN DYSFUNCTION Systemic inflammatory response syndrome (SIRS) generally refers to the systemic response to trauma/granados or other insult such as Acute Myocardial Infarction, Acute Pancreatitis, and Major Surgery with symptoms including fever, tachycardia , tachypnea, and leukocytosis (1). BACTEREMIA Presence of viable bacteria in the circulating blood (2). This term is reserved for patients that do not manifest above SIRS response. SEPTICEMIA Generally refers to a systemic disease associated with the presence of pathological microorganisms or toxins in the blood, which can include bacteria, viruses, fungi or other organisms (1). SEPSIS Generally refers to SIRS due infection (1). SEVERE SEPSIS Generally refers to sepsis associated with acute organ dysfunction (1). SEPTIC SHOCK Generally refers to circulatory failure associated with severe sepsis (2), and defined as hypotension or hypoperfusion despite adequate fluid resuscitation (1 hour) (3). REFERENCES: 1. [place] [employer]/Society of Critical Care Medicine Consensus Conference. Definitions for sepsis and organ failure and guidelines for the use of innovative therapies in sepsis. Critical Care Med 1992;20:864 - 74. 2. Immanuel padron MM, Briana MP, Maury LANGLEY, Aleksandr E, Rigo D, Maurice D, Pernell J, [place] SM , Giorgio JL, Libby G; International Sepsis Definitions Conference. 2001 SCCM/ESICM/ACCP/ATS/SIS International Sepsis Definitions Conference. Intensive Care Med. 2002 Apr;29(4):530-8. Epub 2002May 29. Review. PubMed PMID:[id number] 3. ICD-9-CM Official Guidelines for Coding and Reporting 4. Medscape Drugs, Diseases and Procedures references 5. Nitesh Textbook of Internal Medicine. 18th Edition MTDD
== END 2017-02-18 16:15 | disposition home or self-care (01) | DRG 291 ==
LOC: ED 09:23 → 3A 15:37
PROVIDERS: ADMIT Internal Medicine; ATTEND Internal Medicine
PROC: 5A09357 Assistance with Respiratory Ventilation, Less than 24 Consecutive Hours, Continuous Positive Airway Pressure (ICD-10-PCS; principal; 2017-02-16)
PROC: 4A033R1 Measurement of Arterial Saturation, Peripheral, Percutaneous Approach (ICD-10-PCS; 2017-02-16)
DX: I11.0 Hypertensive heart disease with heart failure (principal); B20 Human immunodeficiency virus [HIV] disease; J96.21 Acute and chronic respiratory failure with hypoxia; R65.10 Systemic inflammatory response syndrome (SIRS) of non-infectious origin without acute organ dysfunction; G40.909 Epilepsy, unspecified, not intractable, without status epilepticus; E66.01 Morbid (severe) obesity due to excess calories; G43.909 Migraine, unspecified, not intractable, without status migrainosus; J44.1 Chronic obstructive pulmonary disease with (acute) exacerbation; I50.33 Acute on chronic diastolic (congestive) heart failure; Z82.49 Family history of ischemic heart disease and other diseases of the circulatory system; Z68.42 Body mass index [BMI] 45.0-49.9, adult; Z79.899 Other long term (current) drug therapy; Z79.52 Long term (current) use of systemic steroids
CPT/HCPCS: 36415; 71010; 80048; 80053; 82140; 82803; 83036; 83615; 83735; 83880; 84484; 85025; 85610; 85730; 87040; 93005; 93010; 94640; 94760; 96365; 96367; 96375; J1650; J1940; J1956; J2920; J2930; J3475; J7040; J7060

== ENCOUNTER 2017-03-10 12:31 | Inpatient (IN) | payer MEDICAID ==
[2017-03-10] MEDS ORDERED: DUONEB *Not for PRN Use IH ONE (12:57)
[2017-03-10] MEDS ORDERED: NACL 0.9% 1000 ML 1,000 ML IV ONE (12:57)
[2017-03-10] MEDS ORDERED: LEVAQUIN 750MG/150ML 750 MG/150 ML BAG IV ONE (12:58)
--- NOTE | 2017-03-10 13:17 | XRay Report ---
Single view chest: Compared to 02/16/17. History: Shortness of breath. Findings: Marked cardiomegaly. Trachea is midline. Pulmonary venous congestion predominantly lower lobes. No significant interval change. Impression: No significant interval change.
[2017-03-10] MEDS ORDERED: PROVENTIL IH ONE ×2 (13:22→13:29)
[2017-03-10] MEDS ORDERED: ATROVENT IH ONE ×2 (13:22→13:29)
[2017-03-10] MEDS ORDERED: MAGNESIUM SULFATE 2GM/50ML 2 GM/50 ML BAG IV ONE (13:37)
[2017-03-10 13:50] LABS: Basophils % (Auto) 0.3 % (0.0-1.8); Eosinophils % (Auto) 1.2 % (0.0-4.3); Hematocrit 41.7 % (30.3-42.9); Hemoglobin 13.3 gm/dl (10.1-14.3); Lymphocytes # (Auto) 0.4 K/mm3 (1.2-5.4); Lymphocytes % (Auto) 11.6 % (13.4-35.0); Mean Corpuscular HGB Conc 32 % (30-34); Mean Corpuscular Hemoglobin 29 pg (28-32); Mean Corpuscular Volume 91 fl (79-97); Monocytes # (Auto) 0.3 K/mm3 (0.0-0.8); Monocytes % (Auto) 7.3 % (0.0-7.3); Platelet Count 163 K/mm3 (140-440); Red Blood Count 4.59 M/mm3 (3.65-5.03)
--- NOTE | 2017-03-10 13:53 | History and Physical Report ---
History of Present Illness Chief complaint: I cant breathe History of present illness: 56 YO Female with HTN,Diastolic CHF, COPD, AIDS with undetectable Viral load, Seizure Disorder presents to ED for evaluation. Pt states that she has been experiencing difficulty breathing, wheezing, with productive cough with increased production of clear sputum for the past 2 days with worsening symptoms for the past 6 hours. Pt reports subjective fever, but denies chills, CP, Palpitations, NVD, skin rashes,NVD, Syncope, Vertigo, BRBPR, Medication Noncompliance, or recent ill contacts. Pt seen and evaluated in ED and found to be in respiratory failure secondary to bilateral Pneumonia and subsequently placed on supplemental oxygen. Pt admitted to medical floor. Past History Past Medical History: COPD, heart failure, HIV/AIDS, hypertension, seizures Past Surgical History: No surgical history, Other (reviewed) Social history: single. denies: smoking, alcohol abuse, prescription drug abuse Family history: hypertension Medications and Allergies Allergies Allergy/AdvReac Type Severity Reaction Status Date / Time No Known Allergies Allergy Verified 03/10/17 14:13 Home Medications Medication Instructions Recorded Confirmed Last Taken Type Abacavir/Dolutegravir/Lamivudi 1 each PO DAILY 12/13/15 02/16/17 09/06/16 History [Triumeq Tablet] Carvedilol [Coreg] 25 mg PO BID 12/13/15 02/16/17 09/06/16 History Hydroxyzine HCl 25 mg PO Q6HR PRN 12/13/15 02/16/17 09/06/16 History Lisinopril [Zestril TAB] 20 mg PO QDAY 12/13/15 02/16/17 09/06/16 History Temazepam 30 mg PO QHS 12/13/15 02/16/17 09/06/16 History levETIRAcetam [Keppra TAB] 500 mg PO BID 12/13/15 02/16/17 09/06/16 History Diphenhydramine HCl [Sleep Tabs 25 mg PO QHS PRN 09/07/16 02/16/17 09/06/16 History 25MG] Ibuprofen [Motrin 800 MG tab] 800 mg PO Q8HR PRN 09/07/16 02/16/17 09/06/16 History Fluticasone/Salmeterol [Advair 1 puff IH BID #1 disk.w.dev 09/10/16 02/16/17 Unknown Rx Diskus 250-50 mcg] Ipratropium/Albuterol Sulfate 1 spray IH QID PRN #1 aer.w.adap 09/10/16 Unknown Rx [Combivent Respimat] Ipratropium/Albuterol Sulfate 1 ampul IH Q6HRT #180 ampul.neb 09/10/16 02/16/17 Unknown Rx [DUONEB *Not for PRN Use*] Tiotropium Richards [Spiriva 4 gm IH DAILY #1 mist.inhal 09/10/16 02/16/17 Unknown Rx Respimat] Benzonatate [Tessalon Perles] 100 mg PO Q8HR #30 capsule 09/12/16 02/16/17 Unknown Rx Furosemide [Lasix TAB] 20 mg PO QDAY #30 tablet 09/12/16 02/16/17 Unknown Rx Azithromycin [Zithromax TAB] 250 mg PO QDAY #5 tablet 02/18/17 Unknown Rx Prednisone [predniSONE 5 mg (6-Day 5 mg PO .TAPER #1 tab.ds.pk 02/18/17 Unknown Rx Pack, 21 Tabs)] Active Meds: Active Medications Sodium Chloride (Nacl 0.9% 1000 Ml) 1,000 mls @ 999 mls/hr IV BOLUS ONE Stop: 03/10/17 13:57 Last Admin: 03/10/17 13:25 Dose: 999 mls/hr Levofloxacin/Dextrose (Levaquin 750mg/150ml) 750 mg in 150 mls @ 100 mls/hr IV ONCE ONE PRN Reason: Protocol Stop: 03/10/17 14:27 Last Admin: 03/10/17 13:38 Dose: 100 mls/hr Review of Systems Constitutional: fever, no weight loss, no weight gain, no chills, no sweats, no night sweats Ears, nose, mouth and throat: no ear pain, no ear discharge, no tinnitis, no decreased hearing, no nose pain Breasts: no change in shape, no swelling, no mass Cardiovascular: shortness of breath, no chest pain, no orthopnea, no palpitations Respiratory: cough, cough with sputum, shortness of breath, wheezing Gastrointestinal: no abdominal pain, no nausea, no vomiting, no diarrhea Genitourinary Female: no dysmenorrhea, no pelvic pain, no flank pain, no menorrhagia, no dysuria Rectal: no pain, no incontinence, no bleeding Musculoskeletal: no neck stiffness, no neck pain, no shooting arm pain, no arm numbness/tingling Integumentary: no rash, no pruritis, no redness, no sores, no wounds Neurological: no paralysis, no weakness, no parathesias, no numbness, no tingling Psychiatric: no anxiety, no memory loss, no change in sleep habits, no sleep disturbances, no insomnia Endocrine: no cold intolerance, no heat intolerance, no polyphagia, no excessive thirst, no polydipsia Hematologic/Lymphatic: no easy bruising, no easy bleeding, no lymphadenopathy, no lymphedema Allergic/Immunologic: no urticaria, no allergic rhinitis, no wheezing, no persistent infections Exam - Constitutional Vitals: Temp Pulse Resp BP Pulse Ox 101 F H 86 24 157/88 94 03/10/17 12:36 03/10/17 13:31 03/10/17 13:31 03/10/17 13:00 03/10/17 13:00 General appearance: Present: mild distress, obese - EENT Eyes: Present: PERRL ENT: hearing intact, clear oral mucosa - Neck Neck: Present: supple, normal ROM - Respiratory Respiratory effort: labored Respiratory: bilateral: diminished, wheezing - Cardiovascular Heart Sounds: Present: S1 & S2. Absent: rub, click - Extremities Extremities: pulses symmetrical, No edema Peripheral Pulses: within normal limits - Abdominal General gastrointestinal: Present: soft, non-tender, non-distended, normal bowel sounds Female genitourinary: Present: normal - Integumentary Integumentary: Present: clear, warm, dry - Musculoskeletal Musculoskeletal: gait normal, strength equal bilaterally - Psychiatric Psychiatric: appropriate mood/affect, intact judgment & insight - Neurologic Neurologic: CNII-XII intact, moves all extremities Results - Labs CBC & Chem 7: 03/10/17 13:33 03/10/17 13:33 Labs: Abnormal lab results 03/10/17 03/10/17 Range/Units 13:33 13:35 WBC 3.6 L (4.5-11.0) K/mm3 Lymph % (Auto) 11.6 L (13.4-35.0) % Lymph # 0.4 L (1.2-5.4) K/mm3 Seg Neutrophils % 79.6 H (40.0-70.0) % POC ABG pO2 62 L (80-105) Assessment and Plan - Patient Problems (1) Pneumonia Current Visit: Yes Status: Acute Qualifiers: Laterality: bilateral Lung location: lower lobe of lung Plan to address problem: IV abx, IVF, supplemental oxygen, nebs, aspiration precautions, supportive care. (2) COPD with exacerbation Current Visit: Yes Status: Acute Plan to address problem: supplemental oxygen, nebs, IV abx, steroids, NIPPV as clinically indicated. (3) AIDS (acquired immune deficiency syndrome) Current Visit: Yes Status: Acute Plan to address problem: continue medical management, outpatient ID f/u care. (4) Acute and chronic respiratory failure Current Visit: No Status: Acute Qualifiers: Respiratory failure complication: hypoxia Qualified Code(s): J96.21 - Acute and chronic respiratory failure with hypoxia Plan to address problem: Supplemental oxygen, nebs, aspiration precautions, supportive care, treat COPD exacerbation. (5) CHF (congestive heart failure) Current Visit: Yes Status: Acute Qualifiers: Congestive heart failure type: diastolic Congestive heart failure chronicity: chronic Qualified Code(s): I50.32 - Chronic diastolic (congestive ) heart failure Plan to address problem: Supportive care, fluid restriction, blood pressure control, monitor uop q shift , continue medical management (6) DVT prophylaxis Current Visit: Yes Status: Acute
[2017-03-10 14:04] LABS: INR 0.97 (0.87-1.13)
[2017-03-10 14:05] LABS: Partial Thromboplastin Time 33.8 Sec. (24.2-36.6)
[2017-03-10 14:06] LABS: Alanine Aminotransferase 13 units/L (7-56); Albumin 3.8 g/dL (3.9-5)
[2017-03-10 14:20] LABS: BUN/Creatinine Ratio 17; Blood Urea Nitrogen 15 mg/dL (7-17); Calcium 8.6 mg/dL (8.4-10.2); Hemolysis Index 1
[2017-03-10] MEDS ORDERED: ZOFRAN IV PRN (14:23)
[2017-03-10 14:24] LABS: Bilirubin,Direct < 0.2 mg/dL (0-0.2)
[2017-03-10 14:30] LABS: Bacteria,Urine 1+ /HPF (Negative); Bilirubin,Urine NEG (Negative); Blood,Urine NEG (Negative); Color,Urine Yellow (Yellow); Mucus,Urine FEW /HPF; Nitrite,Urine NEG (Negative)
[2017-03-10] MEDS ORDERED: TYLENOL ONE (14:53)
[2017-03-10] MEDS ORDERED: MILK OF MAGNESIA PO PRN (15:00)
[2017-03-10] MEDS: TYLENOL PO PRN ×2 (15:00→20:52)
[2017-03-10] MEDS ORDERED: DULCOLAX PR PRN (15:00)
--- NOTE | 2017-03-10 15:20 | Emergency Department Report ---
ED General Adult HPI - General Chief complaint: Dyspnea/Respdistress Stated complaint: ELIJAH Time Seen by Provider: 03/10/17 12:55 Source: patient, EMS Mode of arrival: Stretcher Limitations: No Limitations - History of Present Illness Initial comments: Patient is a poor historian but is aware of her past medical history to some degree. She states that she had a fairly good CD4 count of greater than 275 as well as an undetectable viral load. She arrives via EMS for evaluation of wheezing. She was given Solu-Medrol and magnesium and route to the hospital. The patient states that she has a headache. She states that "my headache and fever on the same thing". I think she is trying to state that she gets headache when she has a fever. She states that both her headache and her fever started 2 days ago. She complains of a cough which is only occasionally productive. She does not report chills. She states she's had some stiffness of her shoulders but no actual stiff neck and no photophobia. She does not complain of nausea or vomiting. The patient denies being on home O2. She states she does not know what prednisone is so I presume she is not currently taking this. She has been previously prescribed inhaled steroids. I don't know if she is compliant with this either. She cannot really identify her medications very well. She has been admitted to this facility several times for exacerbation of asthma/COPD. She states that she has been previously treated for pneumonia but does not know what PCP is. She does not know what meningitis is either she tells me. When I explained these diseases to her, she states that she does not think that she has had them before. She sees an infectious disease MD in [place]. -: days(s) Location: head Radiation: non-radiation Quality: aching Consistency: intermittent Improves with: none Worsens with: none Associated Symptoms: denies other symptoms, other (not infrequent headaches) Treatments Prior to Arrival: none - Related Data Home Medications Medication Instructions Recorded Confirmed Last Taken Abacavir/Dolutegravir/Lamivudi 1 each PO DAILY 12/13/15 02/16/17 09/06/16 [Triumeq Tablet] Carvedilol [Coreg] 25 mg PO BID 12/13/15 02/16/17 09/06/16 Hydroxyzine HCl 25 mg PO Q6HR PRN 12/13/15 02/16/17 09/06/16 Lisinopril [Zestril TAB] 20 mg PO QDAY 12/13/15 02/16/17 09/06/16 Temazepam 30 mg PO QHS 12/13/15 02/16/17 09/06/16 levETIRAcetam [Keppra TAB] 500 mg PO BID 12/13/15 02/16/17 09/06/16 Diphenhydramine HCl [Sleep Tabs 25 mg PO QHS PRN 09/07/16 02/16/17 09/06/16 25MG] Ibuprofen [Motrin 800 MG tab] 800 mg PO Q8HR PRN 09/07/16 02/16/17 09/06/16 Previous Rx's Medication Instructions Recorded Last Taken Type Fluticasone/Salmeterol [Advair 1 puff IH BID #1 disk.w.dev 09/10/16 Unknown Rx Diskus 250-50 mcg] Ipratropium/Albuterol Sulfate 1 spray IH QID PRN #1 aer.w.adap 09/10/16 Unknown Rx [Combivent Respimat] Ipratropium/Albuterol Sulfate 1 ampul IH Q6HRT #180 ampul.neb 09/10/16 Unknown Rx [DUONEB *Not for PRN Use*] Tiotropium Joy [Spiriva 4 gm IH DAILY #1 mist.inhal 09/10/16 Unknown Rx Respimat] Benzonatate [Tessalon Perles] 100 mg PO Q8HR #30 capsule 09/12/16 Unknown Rx Furosemide [Lasix TAB] 20 mg PO QDAY #30 tablet 09/12/16 Unknown Rx Azithromycin [Zithromax TAB] 250 mg PO QDAY #5 tablet 02/18/17 Unknown Rx Prednisone [predniSONE 5 mg (6-Day 5 mg PO .TAPER #1 tab.ds.pk 02/18/17 Unknown Rx Pack, 21 Tabs)] Allergies Allergy/AdvReac Type Severity Reaction Status Date / Time No Known Allergies Allergy Verified 03/10/17 14:13 ED Review of Systems ROS: Stated complaint: ELIJAH Other details as noted in HPI Constitutional: denies: chills, fever Eyes: denies: eye pain, eye discharge, vision change ENT: denies: ear pain, throat pain Respiratory: cough, shortness of breath, wheezing Cardiovascular: denies: chest pain, palpitations Endocrine: no symptoms reported Gastrointestinal: denies: abdominal pain, nausea, diarrhea Genitourinary: denies: urgency, dysuria, discharge Musculoskeletal: denies: back pain, joint swelling, arthralgia Skin: denies: rash, lesions Neurological: headache. denies: weakness, paresthesias Psychiatric: denies: anxiety, depression Hematological/Lymphatic: denies: easy bleeding, easy bruising ED Past Medical Hx - Past Medical History Hx Hypertension: Yes Hx Congestive Heart Failure: Yes Hx Headaches / Migraines: Yes Hx Seizures: Yes Hx Asthma: No Hx COPD: Yes Hx HIV: Yes - Social History Smoking Status: Never Smoker Substance Use Type: None - Medications Home Medications: Home Medications Medication Instructions Recorded Confirmed Last Taken Type Abacavir/Dolutegravir/Lamivudi 1 each PO DAILY 12/13/15 02/16/17 09/06/16 History [Triumeq Tablet] Carvedilol [Coreg] 25 mg PO BID 12/13/15 02/16/17 09/06/16 History Hydroxyzine HCl 25 mg PO Q6HR PRN 12/13/15 02/16/17 09/06/16 History Lisinopril [Zestril TAB] 20 mg PO QDAY 12/13/15 02/16/17 09/06/16 History Temazepam 30 mg PO QHS 12/13/15 02/16/17 09/06/16 History levETIRAcetam [Keppra TAB] 500 mg PO BID 12/13/15 02/16/17 09/06/16 History Diphenhydramine HCl [Sleep Tabs 25 mg PO QHS PRN 09/07/16 02/16/17 09/06/16 History 25MG] Ibuprofen [Motrin 800 MG tab] 800 mg PO Q8HR PRN 09/07/16 02/16/17 09/06/16 History Fluticasone/Salmeterol [Advair 1 puff IH BID #1 disk.w.dev 09/10/16 02/16/17 Unknown Rx Diskus 250-50 mcg] Ipratropium/Albuterol Sulfate 1 spray IH QID PRN #1 aer.w.adap 09/10/16 Unknown Rx [Combivent Respimat] Ipratropium/Albuterol Sulfate 1 ampul IH Q6HRT #180 ampul.neb 09/10/16 02/16/17 Unknown Rx [DUONEB *Not for PRN Use*] Tiotropium Joy [Spiriva 4 gm IH DAILY #1 mist.inhal 09/10/16 02/16/17 Unknown Rx Respimat] Benzonatate [Tessalon Perles] 100 mg PO Q8HR #30 capsule 09/12/16 02/16/17 Unknown Rx Furosemide [Lasix TAB] 20 mg PO QDAY #30 tablet 09/12/16 02/16/17 Unknown Rx Azithromycin [Zithromax TAB] 250 mg PO QDAY #5 tablet 02/18/17 Unknown Rx Prednisone [predniSONE 5 mg (6-Day 5 mg PO .TAPER #1 tab.ds.pk 02/18/17 Unknown Rx Pack, 21 Tabs)] ED Physical Exam - General Limitations: No Limitations General appearance: alert, in no apparent distress - Head Head exam: Present: atraumatic, normocephalic - Eye Eye exam: Present: normal appearance, PERRL, EOMI. Absent: scleral icterus - ENT ENT exam: Present: normal orophraynx, mucous membranes moist - Neck Neck exam: Present: normal inspection. Absent: tenderness, meningismus - Respiratory Respiratory exam: Present: wheezes (audible and apparently somewhat self- accentuated). Absent: respiratory distress, accessory muscle use, decreased breath sounds - Cardiovascular Cardiovascular Exam: Present: regular rate, normal rhythm. Absent: systolic murmur, diastolic murmur, rubs, gallop - GI/Abdominal GI/Abdominal exam: Present: soft, normal bowel sounds. Absent: distended, tenderness, guarding - Extremities Exam Extremities exam: Present: normal inspection - Back Exam Back exam: Present: normal inspection - Neurological Exam Neurological exam: Present: alert, oriented X3, CN II-XII intact. Absent: motor sensory deficit - Psychiatric Psychiatric exam: Present: normal affect, normal mood - Skin Skin exam: Present: warm, dry, intact, normal color. Absent: rash ED Course Vital Signs 03/10/17 03/10/17 03/10/17 12:36 12:37 12:45 Temperature 101 F H Pulse Rate 102 H 83 Pulse Rate [ Anterior Bilateral Throughout] Pulse Rate [ Bilateral] Respiratory 18 15 Rate Respiratory Rate [Anterior Bilateral Throughout] Respiratory Rate [Bilateral ] Blood Pressure 158/88 156/94 Blood Pressure [Left] O2 Sat by Pulse 94 92 94 Oximetry 03/10/17 03/10/17 03/10/17 12:50 13:00 13:01 Temperature Pulse Rate 83 Pulse Rate [ 82 84 Anterior Bilateral Throughout] Pulse Rate [ Bilateral] Respiratory 30 H Rate Respiratory 26 H 24 Rate [Anterior Bilateral Throughout] Respiratory Rate [Bilateral ] Blood Pressure 157/88 Blood Pressure [Left] O2 Sat by Pulse 94 Oximetry 03/10/17 03/10/17 03/10/17 13:04 13:16 13:31 Temperature Pulse Rate 84 Pulse Rate [ Anterior Bilateral Throughout] Pulse Rate [ 85 86 Bilateral] Respiratory Rate Respiratory Rate [Anterior Bilateral Throughout] Respiratory 24 24 Rate [Bilateral ] Blood Pressure Blood Pressure [Left] O2 Sat by Pulse Oximetry 03/10/17 03/10/17 15:00 15:01 Temperature 99.4 F Pulse Rate 85 Pulse Rate [ Anterior Bilateral Throughout] Pulse Rate [ Bilateral] Respiratory 24 18 Rate Respiratory Rate [Anterior Bilateral Throughout] Respiratory Rate [Bilateral ] Blood Pressure Blood Pressure 146/91 [Left] O2 Sat by Pulse 95 Oximetry - Reevaluation(s) Reevaluation #1: As far as I can determine at this point the patient has not had an AIDS defining infection. She is a poor historian and I am uncertain if this is the case. Nonetheless, she does have a headache and a fever. I have offered to do a lumbar puncture. I discussed this with Dr. Andersen. Dr. Andersen discussed the procedure with the patient and he has informed me she has refused. Clinically she does not appear to be suffering from meningitis. However, we did recommend a lumbar puncture in view of her history of HIV. Now that she is amply stable I will order a CT of her head. She is admitted by Dr. Andersen to the hospitalist service. It is uncertain as to whether she has pneumonia area and she was given Levaquin. The radiologist seem to favor congestive heart failure as a diagnosis per his report. 03/10/17 15:42 ED Medical Decision Making - Lab Data Result diagrams: 03/10/17 13:33 03/10/17 13:33 Laboratory Results - last 24 hr 03/10/17 03/10/17 03/10/17 13:33 13:33 13:33 WBC 3.6 L RBC 4.59 Hgb 13.3 Hct 41.7 MCV 91 MCH 29 MCHC 32 RDW 15.0 Plt Count 163 Lymph % (Auto) 11.6 L [place] % (Auto) 7.3 Eos % (Auto) 1.2 Baso % (Auto) 0.3 Lymph # 0.4 L F[place] # 0.3 Eos # 0.0 Baso # 0.0 Seg Neutrophils % 79.6 H Seg Neutrophils # 2.9 PT INR APTT POC ABG pH POC ABG pCO2 POC ABG pO2 POC ABG HCO3 POC ABG Total CO2 POC ABG O2 Sat POC ABG Base Excess FiO2 Sodium 140 Potassium 3.9 Chloride 98.6 Carbon Dioxide 29 Anion Gap 16 BUN 15 Creatinine 0.9 Estimated GFR > 60 BUN/Creatinine Ratio 17 Glucose 149 H Calcium 8.6 Total Bilirubin Direct Bilirubin Indirect Bilirubin AST ALT Alkaline Phosphatase NT-Pro-B Natriuret Pep 973.3 H Total Protein Albumin Albumin/Globulin Ratio Urine Color Urine Turbidity Urine pH Ur Specific [place] Urine Protein Urine Glucose (UA) Urine Ketones Urine Blood Urine Nitrite Urine Bilirubin Urine Urobilinogen Ur Leukocyte Esterase Urine WBC (Auto) Urine RBC (Auto) U Epithel Cells (Auto) Urine Bacteria (Auto) Urine Mucus 03/10/17 03/10/17 03/10/17 13:33 13:33 13:35 WBC RBC Hgb Hct MCV MCH MCHC RDW Plt Count Lymph % (Auto) [place] % (Auto) Eos % (Auto) Baso % (Auto) Lymph # [place] # Eos # Baso # Seg Neutrophils % Seg Neutrophils # PT 13.4 INR 0.97 APTT 33.8 POC ABG pH 7.402 POC ABG pCO2 43.7 POC ABG pO2 62 L POC ABG HCO3 27.2 POC ABG Total CO2 29 POC ABG O2 Sat 91 POC ABG Base Excess 2 FiO2 2 Sodium Potassium Chloride Carbon Dioxide Anion Gap BUN Creatinine Estimated GFR BUN/Creatinine Ratio Glucose Calcium Total Bilirubin 0.40 Direct Bilirubin < 0.2 Indirect Bilirubin 0.2 AST 13 ALT 13 Alkaline Phosphatase 59 NT-Pro-B Natriuret Pep Total Protein 7.1 Albumin 3.8 L Albumin/Globulin Ratio 1.2 Urine Color Urine Turbidity Urine pH Ur Specific [place] Urine Protein Urine Glucose (UA) Urine Ketones Urine Blood Urine Nitrite Urine Bilirubin Urine Urobilinogen Ur Leukocyte Esterase Urine WBC (Auto) Urine RBC (Auto) U Epithel Cells (Auto) Urine Bacteria (Auto) Urine Mucus 03/10/17 14:05 WBC RBC Hgb Hct MCV MCH MCHC RDW Plt Count Lymph % (Auto) [place] % (Auto) Eos % (Auto) Baso % (Auto) Lymph # [place] # Eos # Baso # Seg Neutrophils % Seg Neutrophils # PT INR APTT POC ABG pH POC ABG pCO2 POC ABG pO2 POC ABG HCO3 POC ABG Total CO2 POC ABG O2 Sat POC ABG Base Excess FiO2 Sodium Potassium Chloride Carbon Dioxide Anion Gap BUN Creatinine Estimated GFR BUN/Creatinine Ratio Glucose Calcium Total Bilirubin Direct Bilirubin Indirect Bilirubin AST ALT Alkaline Phosphatase NT-Pro-B Natriuret Pep Total Protein Albumin Albumin/Globulin Ratio Urine Color Yellow Urine Turbidity Slightly-cloudy Urine pH 5.0 Ur Specific [place] 1.025 Urine Protein 30 mg/dl Urine Glucose (UA) Neg Urine Ketones Neg Urine Blood Neg Urine Nitrite Neg Urine Bilirubin Neg Urine Urobilinogen 2.0 Ur Leukocyte Esterase Tr Urine WBC (Auto) 3.0 Urine RBC (Auto) 2.0 U Epithel Cells (Auto) 9.0 Urine Bacteria (Auto) 1+ Urine Mucus Few - EKG Data -: EKG Interpreted by Ak EKG shows normal: sinus rhythm - EKG Data Interpretation: nonspecific ST-T wave kelsy (right bundle-branch block), other - Radiology Data Radiology results: report reviewed Critical care attestation.: If time is entered above; I have spent that time in minutes in the direct care of this critically ill patient, excluding procedure time. ED Disposition Clinical Impression: Acute exacerbation of COPD with asthma, HIV positive, Right bundle branch block Pneumonia Qualifiers: Pneumonia type: due to unspecified organism Laterality: unspecified laterality Lung location: lower lobe of lung Qualified Code(s): J18.1 - Lobar pneumonia, unspecified organism Headache Qualifiers: Headache type: unspecified Headache chronicity pattern: acute headache Intractability: not intractable Qualified Code(s): R51 - Headache Cardiomyopathy Qualifiers: Cardiomyopathy type: unspecified Qualified Code(s): I42.9 - Cardiomyopathy, unspecified Disposition: OP ADMIT IP TO THIS HOSP Is pt being admited?: Yes Does the pt Need Aspirin: Yes Condition: Stable Time of Disposition: 15:47
--- NOTE | 2017-03-10 16:18 | Cat Scan Report ---
FINAL REPORT EXAM: CT HEAD/BRAIN WO CON HISTORY: headache TECHNIQUE: CT head without contrast PRIORS: None. FINDINGS: No acute intra-axial or extra-axial hemorrhage is identified. There is no evidence of midline shift or mass effect. The ventricles and sulci are within normal limits. Sosa-white matter differentiation is intact. No acute parenchymal abnormalities seen. Bony calvarium is grossly intact. There is mucosal thickening and some foamy appearing material within the left maxillary sinus suspicious for sinusitis likely acute chronic IMPRESSION: Left maxillary sinusitis likely acute on chronic.
[2017-03-10] MEDS: PROVENTIL IH PRN (21:07)
[2017-03-11] MEDS: PROVENTIL IH PRN (08:21)
[2017-03-11] MEDS ORDERED: ROCEPHIN/NS 1 GM/50 ML 1 GM/50 ML BAG IV SCH (10:00)
[2017-03-11] MEDS: ZITHROMAX 500 MG in NACL 0.9% 250ML 250 ML IV SCH (10:42)
[2017-03-11] MEDS: TYLENOL PO PRN (10:59)
--- NOTE | 2017-03-11 11:38 | Progress Note ---
<BRODY BECKETT - Last Filed: 03/11/17 12:06> Assessment and Plan Assessment and plan: 56 YO Female with HTN,Diastolic CHF, COPD, AIDS with undetectable Viral load, Seizure Disorder presents to ED for evaluation. Pt states that she has been experiencing difficulty breathing, wheezing, with productive cough with increased production of clear sputum for the past 2 days with worsening symptoms for the past 6 hours. Pt reports subjective fever, but denies chills, CP, Palpitations, NVD, skin rashes,NVD, Syncope, Vertigo, BRBPR, Medication Noncompliance, or recent ill contacts. Pt seen and evaluated in ED and found to be in respiratory failure secondary to bilateral Pneumonia and subsequently placed on supplemental oxygen. Pt admitted to medical floor. Pneumonia IV abx, IVF, supplemental oxygen, nebs, aspiration precautions, supportive care. COPD with exacerbation supplemental oxygen, nebs, IV abx, steroids, NIPPV as clinically indicated. AIDS (acquired immune deficiency syndrome) continue medical management, outpatient ID f/u care. Acute and chronic respiratory failure Supplemental oxygen, nebs, aspiration precautions, supportive care, CHF (congestive heart failure) Continue lasix, fluid restriction, blood pressure control, monitor uop q shift, continue medical management Seizure disorder Continue Keppra DVT prophylaxis History Interval history: Patient was seen and examined. She complains of shortness of breath and cough. He denies chest pain, nausea, vomiting. Nursing notes and labs reviewed. Hospitalist Physical - Constitutional Vitals: Temp Pulse Resp BP Pulse Ox 98.5 F 60 20 128/78 96 03/11/17 07:54 03/11/17 08:37 03/11/17 08:37 03/11/17 07:54 03/11/17 08:25 General appearance: Present: mild distress, well-nourished, obese - EENT Eyes: Present: PERRL, EOM intact ENT: hearing intact, clear oral mucosa - Neck Neck: Present: supple, normal ROM - Respiratory Respiratory effort: labored Respiratory: bilateral: rhonchi, wheezing - Cardiovascular Rhythm: regular Heart Sounds: Present: S1 & S2 - Extremities Extremities: no ischemia, No edema - Abdominal General gastrointestinal: soft, non-tender - Integumentary Integumentary: Present: clear, warm, dry - Psychiatric Psychiatric: appropriate mood/affect, cooperative - Neurologic Neurologic: CNII-XII intact, moves all extremities - Allied Health Allied health notes reviewed: nursing Results - Labs CBC & Chem 7: 03/10/17 13:33 03/10/17 13:33 Labs: Laboratory Last Values WBC 3.6 K/mm3 (4.5-11.0) L 03/10/17 13:33 RBC 4.59 M/mm3 (3.65-5.03) 03/10/17 13:33 Hgb 13.3 gm/dl (10.1-14.3) 03/10/17 13:33 Hct 41.7 % (30.3-42.9) 03/10/17 13:33 MCV 91 fl (79-97) 03/10/17 13:33 MCH 29 pg (28-32) 03/10/17 13:33 MCHC 32 % (30-34) 03/10/17 13:33 RDW 15.0 % (13.2-15.2) 03/10/17 13:33 Plt Count 163 K/mm3 (140-440) 03/10/17 13:33 Lymph % (Auto) 11.6 % (13.4-35.0) L 03/10/17 13:33 [place] % (Auto) 7.3 % (0.0-7.3) 03/10/17 13:33 Eos % (Auto) 1.2 % (0.0-4.3) 03/10/17 13:33 Baso % (Auto) 0.3 % (0.0-1.8) 03/10/17 13:33 Lymph # 0.4 K/mm3 (1.2-5.4) L 03/10/17 13:33 [place] # 0.3 K/mm3 (0.0-0.8) 03/10/17 13:33 Eos # 0.0 K/mm3 (0.0-0.4) 03/10/17 13:33 Baso # 0.0 K/mm3 (0.0-0.1) 03/10/17 13:33 Seg Neutrophils % 79.6 % (40.0-70.0) H 03/10/17 13:33 Seg Neutrophils # 2.9 K/mm3 (1.8-7.7) 03/10/17 13:33 PT 13.4 Sec. (12.2-14.9) 03/10/17 13:33 INR 0.97 (0.87-1.13) 03/10/17 13:33 APTT 33.8 Sec. (24.2-36.6) 03/10/17 13:33 D-Dimer < 135.00 ng/mlDDU (0-234) 03/10/17 13:33 POC ABG pH 7.402 (7.35-7.45) 03/10/17 13:35 POC ABG pCO2 43.7 (35-45) 03/10/17 13:35 POC ABG pO2 62 (80-105) L 03/10/17 13:35 POC ABG HCO3 27.2 03/10/17 13:35 POC ABG Total CO2 29 03/10/17 13:35 POC ABG O2 Sat 91 03/10/17 13:35 POC ABG Base Excess 2 03/10/17 13:35 FiO2 2 % 03/10/17 13:35 Sodium 140 mmol/L (137-145) 03/10/17 13:33 Potassium 3.9 mmol/L (3.6-5.0) 03/10/17 13:33 Chloride 98.6 mmol/L (98-107) 03/10/17 13:33 Carbon Dioxide 29 mmol/L (22-30) 03/10/17 13:33 Anion Gap 16 mmol/L 03/10/17 13:33 BUN 15 mg/dL (7-17) 03/10/17 13:33 Creatinine 0.9 mg/dL (0.7-1.2) 03/10/17 13:33 Estimated GFR > 60 ml/min 03/10/17 13:33 BUN/Creatinine Ratio 17 % 03/10/17 13:33 Glucose 149 mg/dL (65-100) H 03/10/17 13:33 Calcium 8.6 mg/dL (8.4-10.2) 03/10/17 13:33 Total Bilirubin 0.40 mg/dL (0.1-1.2) 03/10/17 13:33 Direct Bilirubin < 0.2 mg/dL (0-0.2) 03/10/17 13:33 Indirect Bilirubin 0.2 mg/dL 03/10/17 13:33 AST 13 units/L (5-40) 03/10/17 13:33 ALT 13 units/L (7-56) 03/10/17 13:33 Alkaline Phosphatase 59 units/L (35-129) 03/10/17 13:33 NT-Pro-B Natriuret Pep 973.3 pg/mL (0-900) H 03/10/17 13:33 Total Protein 7.1 g/dL (6.3-8.2) 03/10/17 13:33 Albumin 3.8 g/dL (3.9-5) L 03/10/17 13:33 Albumin/Globulin Ratio 1.2 % 03/10/17 13:33 Urine Color Yellow (Yellow) 03/10/17 14:05 Urine Turbidity Slightly-cloudy (Clear) 03/10/17 14:05 Urine pH 5.0 (5.0-7.0) 03/10/17 14:05 Ur Specific [place] 1.025 (1.003-1.030) 03/10/17 14:05 Urine Protein 30 mg/dl mg/dL (Negative) 03/10/17 14:05 Urine Glucose (UA) Neg mg/dL (Negative) 03/10/17 14:05 Urine Ketones Neg mg/dL (Negative) 03/10/17 14:05 Urine Blood Neg (Negative) 03/10/17 14:05 Urine Nitrite Neg (Negative) 03/10/17 14:05 Urine Bilirubin Neg (Negative) 03/10/17 14:05 Urine Urobilinogen 2.0 mg/dL (<2.0) 03/10/17 14:05 Ur Leukocyte Esterase Tr (Negative) 03/10/17 14:05 Urine WBC (Auto) 3.0 /HPF (0.0-6.0) 03/10/17 14:05 Urine RBC (Auto) 2.0 /HPF (0.0-6.0) 03/10/17 14:05 U Epithel Cells (Auto) 9.0 /HPF (0-13.0) 03/10/17 14:05 Urine Bacteria (Auto) 1+ /HPF (Negative) 03/10/17 14:05 Urine Mucus Few /HPF 03/10/17 14:05 <CHANDRAKANT ARANDA - Last Filed: 03/11/17 17:55> Assessment and Plan Assessment and plan: I saw and evaluated the patient. I agree with the findings and the plan of care as documented in the Physician Assistants'~note, with the following corrections and additions. Possible Diastolic Heart failure- Acute ON Chronic. Will obtain ECHO. cards consult. Hospitalist Physical - Constitutional Vitals: Temp Pulse Resp BP Pulse Ox 98.1 F 67 22 125/74 94 03/11/17 16:07 03/11/17 16:07 03/11/17 16:07 03/11/17 16:07 03/11/17 16:07 Results - Labs CBC & Chem 7: 03/10/17 13:33 03/10/17 13:33 Labs: Laboratory Last Values WBC 3.6 K/mm3 (4.5-11.0) L 03/10/17 13:33 RBC 4.59 M/mm3 (3.65-5.03) 03/10/17 13:33 Hgb 13.3 gm/dl (10.1-14.3) 03/10/17 13:33 Hct 41.7 % (30.3-42.9) 03/10/17 13:33 MCV 91 fl (79-97) 03/10/17 13:33 MCH 29 pg (28-32) 03/10/17 13:33 MCHC 32 % (30-34) 03/10/17 13:33 RDW 15.0 % (13.2-15.2) 03/10/17 13:33 Plt Count 163 K/mm3 (140-440) 03/10/17 13:33 Lymph % (Auto) 11.6 % (13.4-35.0) L 03/10/17 13:33 [place] % (Auto) 7.3 % (0.0-7.3) 03/10/17 13:33 Eos % (Auto) 1.2 % (0.0-4.3) 03/10/17 13:33 Baso % (Auto) 0.3 % (0.0-1.8) 03/10/17 13:33 Lymph # 0.4 K/mm3 (1.2-5.4) L 03/10/17 13:33 [place] # 0.3 K/mm3 (0.0-0.8) 03/10/17 13:33 Eos # 0.0 K/mm3 (0.0-0.4) 03/10/17 13:33 Baso # 0.0 K/mm3 (0.0-0.1) 03/10/17 13:33 Seg Neutrophils % 79.6 % (40.0-70.0) H 03/10/17 13:33 Seg Neutrophils # 2.9 K/mm3 (1.8-7.7) 03/10/17 13:33 PT 13.4 Sec. (12.2-14.9) 03/10/17 13:33 INR 0.97 (0.87-1.13) 03/10/17 13:33 APTT 33.8 Sec. (24.2-36.6) 03/10/17 13:33 D-Dimer < 135.00 ng/mlDDU (0-234) 03/10/17 13:33 POC ABG pH 7.402 (7.35-7.45) 03/10/17 13:35 POC ABG pCO2 43.7 (35-45) 03/10/17 13:35 POC ABG pO2 62 (80-105) L 03/10/17 13:35 POC ABG HCO3 27.2 03/10/17 13:35 POC ABG Total CO2 29 03/10/17 13:35 POC ABG O2 Sat 91 03/10/17 13:35 POC ABG Base Excess 2 03/10/17 13:35 FiO2 2 % 03/10/17 13:35 Sodium 140 mmol/L (137-145) 03/10/17 13:33 Potassium 3.9 mmol/L (3.6-5.0) 03/10/17 13:33 Chloride 98.6 mmol/L (98-107) 03/10/17 13:33 Carbon Dioxide 29 mmol/L (22-30) 03/10/17 13:33 Anion Gap 16 mmol/L 03/10/17 13:33 BUN 15 mg/dL (7-17) 03/10/17 13:33 Creatinine 0.9 mg/dL (0.7-1.2) 03/10/17 13:33 Estimated GFR > 60 ml/min 03/10/17 13:33 BUN/Creatinine Ratio 17 % 03/10/17 13:33 Glucose 149 mg/dL (65-100) H 03/10/17 13:33 Calcium 8.6 mg/dL (8.4-10.2) 03/10/17 13:33 Total Bilirubin 0.40 mg/dL (0.1-1.2) 03/10/17 13:33 Direct Bilirubin < 0.2 mg/dL (0-0.2) 03/10/17 13:33 Indirect Bilirubin 0.2 mg/dL 03/10/17 13:33 AST 13 units/L (5-40) 03/10/17 13:33 ALT 13 units/L (7-56) 03/10/17 13:33 Alkaline Phosphatase 59 units/L (35-129) 03/10/17 13:33 NT-Pro-B Natriuret Pep 973.3 pg/mL (0-900) H 03/10/17 13:33 Total Protein 7.1 g/dL (6.3-8.2) 03/10/17 13:33 Albumin 3.8 g/dL (3.9-5) L 03/10/17 13:33 Albumin/Globulin Ratio 1.2 % 03/10/17 13:33 Urine Color Yellow (Yellow) 03/10/17 14:05 Urine Turbidity Slightly-cloudy (Clear) 03/10/17 14:05 Urine pH 5.0 (5.0-7.0) 03/10/17 14:05 Ur Specific [place] 1.025 (1.003-1.030) 03/10/17 14:05 Urine Protein 30 mg/dl mg/dL (Negative) 03/10/17 14:05 Urine Glucose (UA) Neg mg/dL (Negative) 03/10/17 14:05 Urine Ketones Neg mg/dL (Negative) 03/10/17 14:05 Urine Blood Neg (Negative) 03/10/17 14:05 Urine Nitrite Neg (Negative) 03/10/17 14:05 Urine Bilirubin Neg (Negative) 03/10/17 14:05 Urine Urobilinogen 2.0 mg/dL (<2.0) 03/10/17 14:05 Ur Leukocyte Esterase Tr (Negative) 03/10/17 14:05 Urine WBC (Auto) 3.0 /HPF (0.0-6.0) 03/10/17 14:05 Urine RBC (Auto) 2.0 /HPF (0.0-6.0) 03/10/17 14:05 U Epithel Cells (Auto) 9.0 /HPF (0-13.0) 03/10/17 14:05 Urine Bacteria (Auto) 1+ /HPF (Negative) 03/10/17 14:05 Urine Mucus Few /HPF 03/10/17 14:05
[2017-03-11] MEDS ORDERED: ATARAX PO PRN (11:42)
[2017-03-11] MEDS ORDERED: DIPHENHYDRAMINE HCL 25 MG PO PRN (11:42)
[2017-03-11] MEDS: KEPPRA PO SCH ×2 (12:47→21:48)
[2017-03-11] MEDS: COREG PO SCH ×2 (12:47→22:01)
[2017-03-11] MEDS: ZESTRIL PO SCH (12:48)
[2017-03-11] MEDS: cefTRIAXone 1 GM in NACL 0.9% 20 ML IV SCH (13:25)
--- NOTE | 2017-03-11 14:53 | Consultation ---
History of Present Illness Consult date: 03/11/17 Requesting physician: CHANDRAKANT ARANDA Consult reason: congestive heart failure History of present illness: The pt is a 56 YO female with a past medical history significant for chronic diastolic HF, COPD, HIV (CD4 count of greater than 275 as well as an undetectable viral load per pt report), morbid obesity, HTN, HLP, seizure d/o. She is followed in our office by Dr. Puentes. She presented with c/o SOB, wheezing, productive cough for several days prior to arrival. She denies any chest pain, palpitations, n/v, diaphoresis, dizziness or syncope. Echo done 09/2016 showed EF 50-55%, mild LVH, abnormal diastolic function. Lexiscan MPI stress test done 10/2016 was negative for ischemia, EF 43% at rest and 60% during stress. Past History Past Medical History: COPD, heart failure, HIV/AIDS, hypertension, seizures Past Surgical History: No surgical history, Other (reviewed) Social history: single. denies: smoking, alcohol abuse, prescription drug abuse Family history: hypertension Medications and Allergies Allergies Allergy/AdvReac Type Severity Reaction Status Date / Time No Known Allergies Allergy Verified 03/10/17 14:13 Home Medications Medication Instructions Recorded Confirmed Last Taken Type Abacavir/Dolutegravir/Lamivudi 1 each PO DAILY 12/13/15 03/10/17 09/06/16 History [Triumeq Tablet] Carvedilol [Coreg] 25 mg PO BID 12/13/15 03/10/17 09/06/16 History Hydroxyzine HCl 25 mg PO Q6HR PRN 12/13/15 03/10/17 09/06/16 History Lisinopril [Zestril TAB] 20 mg PO QDAY 12/13/15 03/10/17 09/06/16 History Temazepam 30 mg PO QHS 12/13/15 03/10/17 09/06/16 History levETIRAcetam [Keppra TAB] 500 mg PO BID 12/13/15 03/10/17 09/06/16 History Diphenhydramine HCl [Sleep Tabs 25 mg PO QHS PRN 09/07/16 03/10/17 09/06/16 History 25MG] Ibuprofen [Motrin 800 MG tab] 800 mg PO Q8HR PRN 09/07/16 03/10/17 09/06/16 History Fluticasone/Salmeterol [Advair 1 puff IH BID #1 disk.w.dev 09/10/16 03/10/17 Unknown Rx Diskus 250-50 mcg] Ipratropium/Albuterol Sulfate 1 spray IH QID PRN #1 aer.w.adap 09/10/16 Unknown Rx [Combivent Respimat] Ipratropium/Albuterol Sulfate 1 ampul IH Q6HRT #180 ampul.neb 09/10/16 03/10/17 Unknown Rx [DUONEB *Not for PRN Use*] Tiotropium Home [Spiriva 4 gm IH DAILY #1 mist.inhal 09/10/16 03/10/17 Unknown Rx Respimat] Benzonatate [Tessalon Perles] 100 mg PO Q8HR #30 capsule 09/12/16 03/10/17 Unknown Rx Furosemide [Lasix TAB] 20 mg PO QDAY #30 tablet 09/12/16 03/10/17 Unknown Rx Azithromycin [Zithromax TAB] 250 mg PO QDAY #5 tablet 02/18/17 03/10/17 Unknown Rx Prednisone [predniSONE 5 mg (6-Day 5 mg PO .TAPER #1 tab.ds.pk 02/18/17 Unknown Rx Pack, 21 Tabs)] Active Meds: Active Medications Acetaminophen (Tylenol) 650 mg PO Q4H PRN PRN Reason: Pain MILD(1-3)/Fever >100.5/COLON Last Admin: 03/11/17 10:59 Dose: 650 mg Albuterol (Proventil) 2.5 mg IH Q4HRT PRN PRN Reason: Shortness Of Breath Last Admin: 03/11/17 08:21 Dose: 2.5 mg Arformoterol Tartrate (Brovana Nebu) 15 mcg IH Q12HRT [facility] Aspirin (Baby Aspirin) 81 mg PO QDAY ONE Stop: 03/11/17 15:50 Benzonatate (Tessalon Perles) 100 mg PO Q8HR [facility] Bisacodyl (Dulcolax) 10 mg [place] QDAY PRN PRN Reason: Constipation unrelieved by MOM Budesonide (Pulmicort) 0.5 mg IH Q12HRT [facility] Carvedilol (Coreg) 25 mg PO BID [facility] Last Admin: 03/11/17 12:47 Dose: 25 mg Diphenhydramine HCl (Benadryl) 25 mg PO QHS PRN PRN Reason: Sleep Furosemide (Lasix) 40 mg IV 0600,1800 [facility] Hydroxyzine HCl (Atarax) 25 mg PO Q6HR PRN PRN Reason: Itching Azithromycin 500 mg/ Sodium (Chloride) 250 mls @ 250 mls/hr IV Q24HR [facility] PRN Reason: Protocol Last Admin: 03/11/17 10:42 Dose: 250 mls/hr Ceftriaxone Sodium 1 gm/ (Sodium Chloride) 20 mls @ 20 mls/10 min IV Q24HR [facility] Last Admin: 03/11/17 13:25 Dose: 20 mls/10 min Levetiracetam (Keppra) 500 mg PO BID [facility] Last Admin: 03/11/17 12:47 Dose: 500 mg Lisinopril (Zestril) 20 mg PO QDAY [facility] Last Admin: 03/11/17 12:48 Dose: 20 mg Magnesium Hydroxide (Milk Of Magnesia) 30 ml PO Q4H PRN PRN Reason: Constipation Methylprednisolone Sodium Succinate (Solu-Medrol) 20 mg IV Q12HR [facility] Last Admin: 03/11/17 10:43 Dose: 20 mg Miscellaneous Medication (Abacavir/Dolutegravir/Lamivudi [Triumeq Tablet]) 1 each PO DAILY [facility] Temazepam (Restoril) 30 mg PO QHS [facility] Tiotropium Home (Spiriva) 1 puff IH Q24HRT [facility] Review of Systems Constitutional: no weight loss, no weight gain, no fever, no chills, no sweats Ears, nose, mouth and throat: no ear pain, no nose pain, no sinus pressure, no sinus pain Cardiovascular: orthopnea, shortness of breath, dyspnea on exertion, no chest pain, no palpitations, no rapid/irregular heart beat, no edema, no syncope, no lightheadedness Respiratory: cough with sputum, shortness of breath, dyspnea on exertion, wheezing, no congestion, no pain on inspiration Gastrointestinal: no abdominal pain, no nausea, no vomiting, no diarrhea, no constipation, no change in bowel habits Genitourinary Female: no pelvic pain, no flank pain, no dysuria, no urinary frequency Musculoskeletal: no shooting arm pain, no arm numbness/tingling, no low back pain, no shooting leg pain, no leg numbness/tingling, no redness of joints Integumentary: no rash, no pruritis, no redness, no sores, no wounds Neurological: no head injury, no syncope Psychiatric: no anxiety Endocrine: no cold intolerance, no heat intolerance Hematologic/Lymphatic: no easy bruising, no easy bleeding Allergic/Immunologic: wheezing, no urticaria Physical Examination Vital Signs Temp Pulse Resp BP Pulse Ox 101 F H 102 H 18 158/88 94 03/10/17 12:36 03/10/17 12:36 03/10/17 12:36 03/10/17 12:36 03/10/17 12:36 General appearance: no acute distress HEENT: Positive: PERRL, Normocephaly, Mucus Membranes Moist Neck: Positive: neck supple, trachea midline Cardiac: Positive: Reg Rate and Rhythm, S1/S2 Lungs: Positive: clear to auscultation Neuro: Positive: Grossly Intact, Cranial Nerve 2-12 Intact Abdomen: Positive: Soft. Negative: Tender Skin: Positive: Clear. Negative: Rash, Wound Musculoskeletal: No Fluid Collection, No Pain, Normal Range of Motion Extremities: Absent: edema Results 03/10/17 13:33 03/10/17 13:33 - Imaging and Cardiology Echo: pending, report reviewed (09/2016 showed EF 50-55%, mild LVH, abnormal diastolic function.) EKG: report reviewed, image reviewed EKG interpretations - Telemetry EKG Rhythm: Sinus Rhythm - EKG Sinus rhythms and dysrhythmias: sinus rhythm AV and intraventricular conduction: right bundle branch block Assessment and Plan Assessment: Acute on chronic diastolic heart failure COPD with exacerbation ? PNA HTN HLP HIV H/o seizure d/o Morbid obesity Plan: Await f/u echo. Cont present cardiac regimen. Assessment and plan reviewed with pt at bedside. The patient has been seen in conjunction with Dr. Tracy who agrees with the assessment and plan of care.
[2017-03-11] MEDS ORDERED: BABY ASPIRIN PO ONE (15:49)
--- NOTE | 2017-03-11 16:03 | Consultation ---
History of Present Illness Consult date: 03/11/17 Requesting physician: CHANDRAKANT ARANDA Reason for consult: COPD (AECOPD) History of present illness: PULMONARY/CCM CONSULT NOTE (Full dictation # [id number]) Please see dictated notes for full details Past History Past Medical History: COPD, heart failure, HIV/AIDS, hypertension, seizures Past Surgical History: No surgical history, Other (reviewed) Social history: single. denies: smoking, alcohol abuse, prescription drug abuse Family history: hypertension Medications and Allergies Allergies Allergy/AdvReac Type Severity Reaction Status Date / Time No Known Allergies Allergy Verified 03/10/17 14:13 Home Medications Medication Instructions Recorded Confirmed Last Taken Type Abacavir/Dolutegravir/Lamivudi 1 each PO DAILY 12/13/15 03/10/17 09/06/16 History [Triumeq Tablet] Carvedilol [Coreg] 25 mg PO BID 12/13/15 03/10/17 09/06/16 History Hydroxyzine HCl 25 mg PO Q6HR PRN 12/13/15 03/10/17 09/06/16 History Lisinopril [Zestril TAB] 20 mg PO QDAY 12/13/15 03/10/17 09/06/16 History Temazepam 30 mg PO QHS 12/13/15 03/10/17 09/06/16 History levETIRAcetam [Keppra TAB] 500 mg PO BID 12/13/15 03/10/17 09/06/16 History Diphenhydramine HCl [Sleep Tabs 25 mg PO QHS PRN 09/07/16 03/10/17 09/06/16 History 25MG] Ibuprofen [Motrin 800 MG tab] 800 mg PO Q8HR PRN 09/07/16 03/10/17 09/06/16 History Fluticasone/Salmeterol [Advair 1 puff IH BID #1 disk.w.dev 09/10/16 03/10/17 Unknown Rx Diskus 250-50 mcg] Ipratropium/Albuterol Sulfate 1 spray IH QID PRN #1 aer.w.adap 09/10/16 Unknown Rx [Combivent Respimat] Ipratropium/Albuterol Sulfate 1 ampul IH Q6HRT #180 ampul.neb 09/10/16 03/10/17 Unknown Rx [DUONEB *Not for PRN Use*] Tiotropium [place] [Spiriva 4 gm IH DAILY #1 mist.inhal 09/10/16 03/10/17 Unknown Rx Respimat] Benzonatate [Tessalon Perles] 100 mg PO Q8HR #30 capsule 09/12/16 03/10/17 Unknown Rx Furosemide [Lasix TAB] 20 mg PO QDAY #30 tablet 09/12/16 03/10/17 Unknown Rx Azithromycin [Zithromax TAB] 250 mg PO QDAY #5 tablet 02/18/17 03/10/17 Unknown Rx Prednisone [predniSONE 5 mg (6-Day 5 mg PO .TAPER #1 tab.ds.pk 02/18/17 Unknown Rx Pack, 21 Tabs)] Active Meds: Active Medications Acetaminophen (Tylenol) 650 mg PO Q4H PRN PRN Reason: Pain MILD(1-3)/Fever >100.5/COLON Last Admin: 03/11/17 10:59 Dose: 650 mg Albuterol (Proventil) 2.5 mg IH Q4HRT PRN PRN Reason: Shortness Of Breath Last Admin: 03/11/17 08:21 Dose: 2.5 mg Arformoterol Tartrate (Brovana Nebu) 15 mcg IH Q12HRT [facility] Benzonatate (Tessalon Perles) 100 mg PO Q8HR [facility] Bisacodyl (Dulcolax) 10 mg [place] QDAY PRN PRN Reason: Constipation unrelieved by MOM Budesonide (Pulmicort) 0.5 mg IH Q12HRT [facility] Carvedilol (Coreg) 25 mg PO BID [facility] Last Admin: 03/11/17 12:47 Dose: 25 mg Diphenhydramine HCl (Benadryl) 25 mg PO QHS PRN PRN Reason: Sleep Furosemide (Lasix) 40 mg IV 0600,1800 [facility] Hydroxyzine HCl (Atarax) 25 mg PO Q6HR PRN PRN Reason: Itching Azithromycin 500 mg/ Sodium (Chloride) 250 mls @ 250 mls/hr IV Q24HR [facility] PRN Reason: Protocol Last Admin: 03/11/17 10:42 Dose: 250 mls/hr Ceftriaxone Sodium 1 gm/ (Sodium Chloride) 20 mls @ 20 mls/10 min IV Q24HR [facility] Last Admin: 03/11/17 13:25 Dose: 20 mls/10 min Levetiracetam (Keppra) 500 mg PO BID [facility] Last Admin: 03/11/17 12:47 Dose: 500 mg Lisinopril (Zestril) 20 mg PO QDAY [facility] Last Admin: 03/11/17 12:48 Dose: 20 mg Magnesium Hydroxide (Milk Of Magnesia) 30 ml PO Q4H PRN PRN Reason: Constipation Methylprednisolone Sodium Succinate (Solu-Medrol) 20 mg IV Q12HR [facility] Last Admin: 03/11/17 10:43 Dose: 20 mg Miscellaneous Medication (Abacavir/Dolutegravir/Lamivudi [Triumeq Tablet]) 1 each PO DAILY [facility] Temazepam (Restoril) 30 mg PO QHS [facility] Tiotropium [place] (Spiriva) 1 puff IH Q24HRT [facility] Physical Examination Vital signs: Vital Signs Temp Pulse Resp BP Pulse Ox 101 F H 102 H 18 158/88 94 03/10/17 12:36 03/10/17 12:36 03/10/17 12:36 03/10/17 12:36 03/10/17 12:36 Results - Laboratory Findings CBC and BMP: 03/10/17 13:33 03/10/17 13:33 ABG POC ABG pH 7.402 (7.35-7.45) 03/10/17 13:35 POC ABG pCO2 43.7 (35-45) 03/10/17 13:35 POC ABG pO2 62 (80-105) L 03/10/17 13:35 POC ABG HCO3 27.2 03/10/17 13:35 POC ABG Total CO2 29 03/10/17 13:35 POC ABG O2 Sat 91 03/10/17 13:35 PT/INR, D-dimer PT 13.4 Sec. (12.2-14.9) 03/10/17 13:33 INR 0.97 (0.87-1.13) 03/10/17 13:33 D-Dimer < 135.00 ng/mlDDU (0-234) 03/10/17 13:33 Abnormal lab findings: Abnormal Labs 03/10/17 03/10/17 03/10/17 13:33 13:33 13:33 WBC 3.6 L Lymph % (Auto) 11.6 L Lymph # 0.4 L Seg Neutrophils % 79.6 H POC ABG pO2 Glucose 149 H NT-Pro-B Natriuret Pep 973.3 H Albumin 03/10/17 03/10/17 13:33 13:35 WBC Lymph % (Auto) Lymph # Seg Neutrophils % POC ABG pO2 62 L Glucose NT-Pro-B Natriuret Pep Albumin 3.8 L
[2017-03-11] MEDS: LASIX IV SCH (17:33)
[2017-03-11] MEDS: TESSALON PERLES PO SCH ×2 (17:34→21:48)
[2017-03-11] MEDS: PULMICORT IH SCH (20:56)
[2017-03-11] MEDS: BROVANA NEBU IH SCH (20:56)
[2017-03-11] MEDS: PEPCID PO SCH (21:48)
[2017-03-11] MEDS: RESTORIL PO SCH (21:48)
[2017-03-11] MEDS: DELTASONE PO SCH (21:48)
[2017-03-11] MEDS: LOVENOX SUB-Q SCH (21:49)
[2017-03-11] MEDS: BENADRYL PO PRN (21:52)
[2017-03-11] MEDS ORDERED: NON-FORMULARY (Fluticasone/Salmeterol [Advair Diskus 250-50 Mcg] 1 PUFF) IH SCH (22:00)
[2017-03-12] MEDS: TESSALON PERLES PO SCH (05:43)
[2017-03-12] MEDS: LASIX IV SCH ×2 (05:48→18:28)
--- NOTE | 2017-03-12 08:55 | Progress Note ---
<BRODY BECKETT - Last Filed: 03/12/17 14:49> Assessment and Plan Assessment and plan: 56 YO Female with HTN,Diastolic CHF, COPD, AIDS with undetectable Viral load, Seizure Disorder presents to ED for evaluation. Pt states that she has been experiencing difficulty breathing, wheezing, with productive cough with increased production of clear sputum for the past 2 days with worsening symptoms for the past 6 hours. Pt reports subjective fever, but denies chills, CP, Palpitations, NVD, skin rashes,NVD, Syncope, Vertigo, BRBPR, Medication Noncompliance, or recent ill contacts. Pt seen and evaluated in ED and found to be in respiratory failure secondary to bilateral Pneumonia and subsequently placed on supplemental oxygen. Pt admitted to medical floor. Pneumonia IV abx, IVF, supplemental oxygen, nebs, aspiration precautions, supportive care. COPD with exacerbation supplemental oxygen, nebs, IV abx, steroids, NIPPV as clinically indicated. Pulmonology following AIDS (acquired immune deficiency syndrome) continue medical management, outpatient ID f/u care. Acute and chronic respiratory failure Supplemental oxygen, nebs, aspiration precautions, supportive care, CHF (congestive heart failure) Continue lasix, fluid restriction, blood pressure control, monitor uop q shift, continue medical management Echo showed EF 40-45%, Cardiology following Seizure disorder Continue Keppra DVT prophylaxis Lovenox History Interval history: Patient was seen and examined. She complains of shortness of breath with exertion. She denies chest pain, nausea, vomiting. Nursing notes and labs reviewed. Hospitalist Physical - Constitutional Vitals: Temp Pulse Resp BP Pulse Ox 98.1 F 63 20 134/72 2 L 03/11/17 16:07 03/11/17 21:13 03/11/17 21:55 03/11/17 22:01 03/12/17 07:44 General appearance: Present: no acute distress - EENT Eyes: Present: PERRL, EOM intact ENT: hearing intact, clear oral mucosa - Neck Neck: Present: supple, normal ROM - Respiratory Respiratory effort: normal Respiratory: bilateral: wheezing - Cardiovascular Rhythm: regular Heart Sounds: Present: S1 & S2 - Extremities Extremities: no ischemia, No edema - Abdominal General gastrointestinal: soft, non-tender - Integumentary Integumentary: Present: clear, warm, dry - Psychiatric Psychiatric: appropriate mood/affect, cooperative - Neurologic Neurologic: CNII-XII intact, moves all extremities - Allied Health Allied health notes reviewed: nursing Results - Labs CBC & Chem 7: 03/10/17 13:33 03/10/17 13:33 Labs: Laboratory Last Values WBC 3.6 K/mm3 (4.5-11.0) L 03/10/17 13:33 RBC 4.59 M/mm3 (3.65-5.03) 03/10/17 13:33 Hgb 13.3 gm/dl (10.1-14.3) 03/10/17 13:33 Hct 41.7 % (30.3-42.9) 03/10/17 13:33 MCV 91 fl (79-97) 03/10/17 13:33 MCH 29 pg (28-32) 03/10/17 13:33 MCHC 32 % (30-34) 03/10/17 13:33 RDW 15.0 % (13.2-15.2) 03/10/17 13:33 Plt Count 163 K/mm3 (140-440) 03/10/17 13:33 Lymph % (Auto) 11.6 % (13.4-35.0) L 03/10/17 13:33 [place] % (Auto) 7.3 % (0.0-7.3) 03/10/17 13:33 Eos % (Auto) 1.2 % (0.0-4.3) 03/10/17 13:33 Baso % (Auto) 0.3 % (0.0-1.8) 03/10/17 13:33 Lymph # 0.4 K/mm3 (1.2-5.4) L 03/10/17 13:33 [place] # 0.3 K/mm3 (0.0-0.8) 03/10/17 13:33 Eos # 0.0 K/mm3 (0.0-0.4) 03/10/17 13:33 Baso # 0.0 K/mm3 (0.0-0.1) 03/10/17 13:33 Seg Neutrophils % 79.6 % (40.0-70.0) H 03/10/17 13:33 Seg Neutrophils # 2.9 K/mm3 (1.8-7.7) 03/10/17 13:33 PT 13.4 Sec. (12.2-14.9) 03/10/17 13:33 INR 0.97 (0.87-1.13) 03/10/17 13:33 APTT 33.8 Sec. (24.2-36.6) 03/10/17 13:33 D-Dimer < 135.00 ng/mlDDU (0-234) 03/10/17 13:33 POC ABG pH 7.402 (7.35-7.45) 03/10/17 13:35 POC ABG pCO2 43.7 (35-45) 03/10/17 13:35 POC ABG pO2 62 (80-105) L 03/10/17 13:35 POC ABG HCO3 27.2 03/10/17 13:35 POC ABG Total CO2 29 03/10/17 13:35 POC ABG O2 Sat 91 03/10/17 13:35 POC ABG Base Excess 2 03/10/17 13:35 FiO2 2 % 03/10/17 13:35 Sodium 140 mmol/L (137-145) 03/10/17 13:33 Potassium 3.9 mmol/L (3.6-5.0) 03/10/17 13:33 Chloride 98.6 mmol/L (98-107) 03/10/17 13:33 Carbon Dioxide 29 mmol/L (22-30) 03/10/17 13:33 Anion Gap 16 mmol/L 03/10/17 13:33 BUN 15 mg/dL (7-17) 03/10/17 13:33 Creatinine 0.9 mg/dL (0.7-1.2) 03/10/17 13:33 Estimated GFR > 60 ml/min 03/10/17 13:33 BUN/Creatinine Ratio 17 % 03/10/17 13:33 Glucose 149 mg/dL (65-100) H 03/10/17 13:33 Calcium 8.6 mg/dL (8.4-10.2) 03/10/17 13:33 Total Bilirubin 0.40 mg/dL (0.1-1.2) 03/10/17 13:33 Direct Bilirubin < 0.2 mg/dL (0-0.2) 03/10/17 13:33 Indirect Bilirubin 0.2 mg/dL 03/10/17 13:33 AST 13 units/L (5-40) 03/10/17 13:33 ALT 13 units/L (7-56) 03/10/17 13:33 Alkaline Phosphatase 59 units/L (35-129) 03/10/17 13:33 C-Reactive Protein 0.20 mg/dL (0.00-1.30) 03/11/17 21:30 NT-Pro-B Natriuret Pep 973.3 pg/mL (0-900) H 03/10/17 13:33 Total Protein 7.1 g/dL (6.3-8.2) 03/10/17 13:33 Albumin 3.8 g/dL (3.9-5) L 03/10/17 13:33 Albumin/Globulin Ratio 1.2 % 03/10/17 13:33 Urine Color Yellow (Yellow) 03/10/17 14:05 Urine Turbidity Slightly-cloudy (Clear) 03/10/17 14:05 Urine pH 5.0 (5.0-7.0) 03/10/17 14:05 Ur Specific [place] 1.025 (1.003-1.030) 03/10/17 14:05 Urine Protein 30 mg/dl mg/dL (Negative) 03/10/17 14:05 Urine Glucose (UA) Neg mg/dL (Negative) 03/10/17 14:05 Urine Ketones Neg mg/dL (Negative) 03/10/17 14:05 Urine Blood Neg (Negative) 03/10/17 14:05 Urine Nitrite Neg (Negative) 03/10/17 14:05 Urine Bilirubin Neg (Negative) 03/10/17 14:05 Urine Urobilinogen 2.0 mg/dL (<2.0) 03/10/17 14:05 Ur Leukocyte Esterase Tr (Negative) 03/10/17 14:05 Urine WBC (Auto) 3.0 /HPF (0.0-6.0) 03/10/17 14:05 Urine RBC (Auto) 2.0 /HPF (0.0-6.0) 03/10/17 14:05 U Epithel Cells (Auto) 9.0 /HPF (0-13.0) 03/10/17 14:05 Urine Bacteria (Auto) 1+ /HPF (Negative) 03/10/17 14:05 Urine Mucus Few /HPF 03/10/17 14:05 <CHANDRAKANT ARANDA - Last Filed: 03/12/17 15:03> Assessment and Plan Assessment and plan: I saw and evaluated the patient. I agree with the findings and the plan of care as documented in the PA's~note, with the following corrections and additions. Hospitalist Physical - Constitutional Vitals: Temp Pulse Resp BP Pulse Ox 98.3 F 88 22 150/82 100 03/12/17 07:56 03/12/17 07:56 03/12/17 07:56 03/12/17 10:22 03/12/17 09:30 Results - Labs CBC & Chem 7: 03/10/17 13:33 03/10/17 13:33 Labs: Laboratory Last Values WBC 3.6 K/mm3 (4.5-11.0) L 03/10/17 13:33 RBC 4.59 M/mm3 (3.65-5.03) 03/10/17 13:33 Hgb 13.3 gm/dl (10.1-14.3) 03/10/17 13:33 Hct 41.7 % (30.3-42.9) 03/10/17 13:33 MCV 91 fl (79-97) 03/10/17 13:33 MCH 29 pg (28-32) 03/10/17 13:33 MCHC 32 % (30-34) 03/10/17 13:33 RDW 15.0 % (13.2-15.2) 03/10/17 13:33 Plt Count 163 K/mm3 (140-440) 03/10/17 13:33 Lymph % (Auto) 11.6 % (13.4-35.0) L 03/10/17 13:33 [place] % (Auto) 7.3 % (0.0-7.3) 03/10/17 13:33 Eos % (Auto) 1.2 % (0.0-4.3) 03/10/17 13:33 Baso % (Auto) 0.3 % (0.0-1.8) 03/10/17 13:33 Lymph # 0.4 K/mm3 (1.2-5.4) L 03/10/17 13:33 [place] # 0.3 K/mm3 (0.0-0.8) 03/10/17 13:33 Eos # 0.0 K/mm3 (0.0-0.4) 03/10/17 13:33 Baso # 0.0 K/mm3 (0.0-0.1) 03/10/17 13:33 Seg Neutrophils % 79.6 % (40.0-70.0) H 03/10/17 13:33 Seg Neutrophils # 2.9 K/mm3 (1.8-7.7) 03/10/17 13:33 PT 13.4 Sec. (12.2-14.9) 03/10/17 13:33 INR 0.97 (0.87-1.13) 03/10/17 13:33 APTT 33.8 Sec. (24.2-36.6) 03/10/17 13:33 D-Dimer < 135.00 ng/mlDDU (0-234) 03/10/17 13:33 POC ABG pH 7.402 (7.35-7.45) 03/10/17 13:35 POC ABG pCO2 43.7 (35-45) 03/10/17 13:35 POC ABG pO2 62 (80-105) L 03/10/17 13:35 POC ABG HCO3 27.2 03/10/17 13:35 POC ABG Total CO2 29 03/10/17 13:35 POC ABG O2 Sat 91 03/10/17 13:35 POC ABG Base Excess 2 03/10/17 13:35 FiO2 2 % 03/10/17 13:35 Sodium 140 mmol/L (137-145) 03/10/17 13:33 Potassium 3.9 mmol/L (3.6-5.0) 03/10/17 13:33 Chloride 98.6 mmol/L (98-107) 03/10/17 13:33 Carbon Dioxide 29 mmol/L (22-30) 03/10/17 13:33 Anion Gap 16 mmol/L 03/10/17 13:33 BUN 15 mg/dL (7-17) 03/10/17 13:33 Creatinine 0.9 mg/dL (0.7-1.2) 03/10/17 13:33 Estimated GFR > 60 ml/min 03/10/17 13:33 BUN/Creatinine Ratio 17 % 03/10/17 13:33 Glucose 149 mg/dL (65-100) H 03/10/17 13:33 Calcium 8.6 mg/dL (8.4-10.2) 03/10/17 13:33 Total Bilirubin 0.40 mg/dL (0.1-1.2) 03/10/17 13:33 Direct Bilirubin < 0.2 mg/dL (0-0.2) 03/10/17 13:33 Indirect Bilirubin 0.2 mg/dL 03/10/17 13:33 AST 13 units/L (5-40) 03/10/17 13:33 ALT 13 units/L (7-56) 03/10/17 13:33 Alkaline Phosphatase 59 units/L (35-129) 03/10/17 13:33 C-Reactive Protein 0.20 mg/dL (0.00-1.30) 03/11/17 21:30 NT-Pro-B Natriuret Pep 973.3 pg/mL (0-900) H 03/10/17 13:33 Total Protein 7.1 g/dL (6.3-8.2) 03/10/17 13:33 Albumin 3.8 g/dL (3.9-5) L 03/10/17 13:33 Albumin/Globulin Ratio 1.2 % 03/10/17 13:33 Urine Color Yellow (Yellow) 03/10/17 14:05 Urine Turbidity Slightly-cloudy (Clear) 03/10/17 14:05 Urine pH 5.0 (5.0-7.0) 03/10/17 14:05 Ur Specific [place] 1.025 (1.003-1.030) 03/10/17 14:05 Urine Protein 30 mg/dl mg/dL (Negative) 03/10/17 14:05 Urine Glucose (UA) Neg mg/dL (Negative) 03/10/17 14:05 Urine Ketones Neg mg/dL (Negative) 03/10/17 14:05 Urine Blood Neg (Negative) 03/10/17 14:05 Urine Nitrite Neg (Negative) 03/10/17 14:05 Urine Bilirubin Neg (Negative) 03/10/17 14:05 Urine Urobilinogen 2.0 mg/dL (<2.0) 03/10/17 14:05 Ur Leukocyte Esterase Tr (Negative) 03/10/17 14:05 Urine WBC (Auto) 3.0 /HPF (0.0-6.0) 03/10/17 14:05 Urine RBC (Auto) 2.0 /HPF (0.0-6.0) 03/10/17 14:05 U Epithel Cells (Auto) 9.0 /HPF (0-13.0) 03/10/17 14:05 Urine Bacteria (Auto) 1+ /HPF (Negative) 03/10/17 14:05 Urine Mucus Few /HPF 03/10/17 14:05
[2017-03-12] MEDS: PULMICORT IH SCH ×2 (09:24→21:10)
[2017-03-12] MEDS: BROVANA NEBU IH SCH ×2 (09:24→21:10)
[2017-03-12] MEDS ORDERED: NON-FORMULARY (Tiotropium Bromide [Spiriva Respimat] 4 GM) IH SCH (10:00)
[2017-03-12] MEDS ORDERED: NON-FORMULARY (Abacavir/Dolutegravir/Lamivudi [Triumeq Tablet] 1 EACH) PO SCH (10:00)
[2017-03-12] MEDS: DELTASONE PO SCH (10:22)
[2017-03-12] MEDS: ZESTRIL PO SCH (10:22)
[2017-03-12] MEDS: COREG PO SCH ×2 (10:22→21:51)
[2017-03-12] MEDS: TYLENOL PO PRN (10:23)
[2017-03-12] MEDS: cefTRIAXone 1 GM in NACL 0.9% 20 ML IV SCH (10:24)
[2017-03-12] MEDS: ZITHROMAX 500 MG in NACL 0.9% 250ML 250 ML IV SCH (10:24)
[2017-03-12] MEDS: KEPPRA PO SCH ×2 (10:24→21:52)
[2017-03-12] MEDS: PEPCID PO SCH ×2 (10:28→21:52)
--- NOTE | 2017-03-12 10:30 | Progress Note ---
Assessment and Plan Assessment: Acute on chronic combined systolic and diastolic heart failure Mild LV systolic dysfunction COPD with exacerbation ? PNA HTN HLP HIV Moderate pulm HTN H/o seizure d/o Morbid obesity Plan: Echo reviewed - EF 40-45%, pseudonormalization, moderate pulm HTN with RVSP 51mmHg. Cont present cardiac regimen. Assessment and plan reviewed with pt at bedside. The patient has been seen in conjunction with Dr. Tracy who agrees with the assessment and plan of care. Subjective Date of service: 03/12/17 Principal diagnosis: HF; COPD Interval history: pt resting comfortably in bed, states SOB slightly improved. Objective Last Vital Signs Temp 98.3 F 03/12/17 07:56 Pulse 88 03/12/17 07:56 Resp 22 03/12/17 07:56 BP 150/82 03/12/17 10:22 Pulse Ox 100 03/12/17 09:30 - Physical Examination General: No Apparent Distress HEENT: Positive: PERRL, Normocephaly, Mucus Membranes Moist Neck: Positive: neck supple, trachea midline Cardiac: Positive: Reg Rate and Rhythm, S1/S2 Lungs: Positive: Wheezes Neuro: Positive: Grossly Intact, Cranial Nerve 2-12 Intact Abdomen: Positive: Soft. Negative: Tender Skin: Positive: Clear. Negative: Rash, Wound Musculoskeletal: No Fluid Collection, No Pain, Normal Range of Motion Extremities: Absent: edema - Imaging and Cardiology EKG: report reviewed, image reviewed Echo: report reviewed (03/11/2017: EF 40-45%, pseudonormalization, moderate pulm HTN with RVSP 51mmHg. 09/2016 showed EF 50-55%, mild LVH, abnormal diastolic function.) - Telemetry EKG Rhythm: Sinus Rhythm - EKG Sinus rhythms and dysrhythmias: sinus rhythm AV and intraventricular conduction: right bundle branch block
[2017-03-12] MEDS: GUAIFENESIN DM SYRUP PO PRN (15:33)
[2017-03-12] MEDS: SPIRIVA IH SCH (18:29)
--- NOTE | 2017-03-12 20:01 | Progress Note ---
Assessment and Plan 56 YO Female with HTN,Diastolic CHF, COPD, AIDS with undetectable Viral load, Seizure Disorder presents to ED for evaluation. Pt states that she has been experiencing difficulty breathing, wheezing, with productive cough with increased production of clear sputum for the past 2 days with worsening symptoms for the past 6 hours. Pt reports subjective fever, but denies chills, CP, Palpitations, NVD, skin rashes,NVD, Syncope, Vertigo, BRBPR, Medication Noncompliance, or recent ill contacts. Pt seen and evaluated in ED and found to be in respiratory failure secondary to bilateral Pneumonia and subsequently placed on supplemental oxygen. Pt admitted to medical floor. Acute on chronic respiratory failure Pneumonia COPD with exacerbation AIDS (acquired immune deficiency syndrome) CHF (congestive heart failure) Seizure disorder Subjective Date of service: 03/12/17 Principal diagnosis: HF; COPD Objective Vital Signs - 12hr 03/12/17 03/12/17 09:30 10:22 Blood Pressure 150/82 O2 Sat by Pulse 100 Oximetry CBC and BMP: 03/10/17 13:33 03/13/17 06:32 ABG, PT/INR, D-dimer: ABG POC ABG pH 7.402 (7.35-7.45) 03/10/17 13:35 POC ABG pCO2 43.7 (35-45) 03/10/17 13:35 POC ABG pO2 62 (80-105) L 03/10/17 13:35 POC ABG HCO3 27.2 03/10/17 13:35 POC ABG Total CO2 29 03/10/17 13:35 POC ABG O2 Sat 91 03/10/17 13:35 PT/INR, D-dimer PT 13.4 Sec. (12.2-14.9) 03/10/17 13:33 INR 0.97 (0.87-1.13) 03/10/17 13:33 D-Dimer < 135.00 ng/mlDDU (0-234) 03/10/17 13:33 Abnormal lab findings: Abnormal Labs 03/10/17 03/10/17 03/10/17 13:33 13:33 13:33 WBC 3.6 L Lymph % (Auto) 11.6 L Lymph # 0.4 L Seg Neutrophils % 79.6 H POC ABG pO2 Glucose 149 H NT-Pro-B Natriuret Pep 973.3 H Albumin 03/10/17 03/10/17 13:33 13:35 WBC Lymph % (Auto) Lymph # Seg Neutrophils % POC ABG pO2 62 L Glucose NT-Pro-B Natriuret Pep Albumin 3.8 L
--- NOTE | 2017-03-12 21:06 | Consultation ---
CONSULTING PHYSICIAN: Rex Rand MD REASON FOR CONSULTATION: [id number] hypoxemic respiratory failure, acute chronic obstructive pulmonary disease exacerbation. CHIEF COMPLAINT AND HISTORY OF PRESENT ILLNESS: As follow, the patient is a 56-year-old -[place] female office patient of ours, past medical history indeed significant for chronic obstructive lung disease for which she is on home oxygen at 2 liters nasal cannula and also HIV positive, seen in the office about a month ago, did well, states that she was recently discharged also from this hospital in about preceding 2-3 days prior to presentation, she noticed upper respiratory tract type symptoms, rhinorrhea, itchy eyes. She developed a cough that was mostly dry and then she started to cough up some yellowish phlegm. She lives alone. She denies tobacco abuse, she denies any sick contacts. She was taking home Proventil and Symbicort, but some [id number] Nyquil tried to do everything to keep from coming to the hospital. She did not call the office, did not take any antibiotics. Ultimately, she had to call emergency medical services, yesterday in the ER, she was wheezing. She was short of breath. She required admission. We are asked to see her in consult. When I stopped by to see her, she was lying in bed, bunched up in bed with covers over her. She stated she measured a fever of 104 degrees at home. She denied any nausea, vomiting, or overt aspiration. She was feeling a little bit better, but nothing major. I should mention she denied any new onset leg pain or swelling either unilaterally or bilaterally, denied any gross or streaky hemoptysis. Denied any chest pain or any suggestion of venous thromboembolic disorder. PAST MEDICAL HISTORY: Again, significant for COPD, hypertension, congestive heart failure, history of migraines, history of seizures, and history of HIV. PAST SURGICAL HISTORY: Unknown. MEDICATIONS: She was on at the time I stopped by to see were reviewed. Pertinent medications included Brovana 15 mcg inhaled q.12 hours, azithromycin 500 mg IV daily, Tessalon Perles 100 mg p.o. q.8 hours, Pulmicort 0.5 mg nebulized q.12 hours, carvedilol 25 mg p.o. b.i.d., Rocephin 1 g IV daily, Lasix 40 mg IV b.i.d., Keppra 500 mg p.o. b.i.d., Zestril 20 mg p.o. daily, Spiriva 1 puff inhaled q.24 hours. ALLERGIES: No known drug allergies. DIET: Obese lady, morbidly obese. Denies significant weight loss or gain preceding a few weeks to months. FAMILY AND SOCIAL HISTORY: Lives in the community. She describes a less than 5-pack-year remote tobacco smoking history. Denies current alcohol, tobacco, or illicit drug use or abuse. Family history, otherwise noncontributory. REVIEW OF SYSTEMS: No loss of consciousness. No new onset seizures. No new onset focal weakness. Denies gross hematochezia or melena. Denies gross hematuria or dysuria. No joint pains or swellings. Complete 13 review of systems obtained. Pertinent positives and/or negatives as in body of history above, otherwise they are noncontributory. PHYSICAL EXAMINATION: VITAL SIGNS: At presentation in the Emergency Room, she had a fever of 101.0 degrees Fahrenheit, pulse of 102, respiratory rate of 18, blood pressure 158/88, oxygen sats were 94%, inspired oxygen concentration was not recorded. GENERAL: She is a middle-aged -[place] female, looks her stated age, resting in bed. Normocephalic, atraumatic with some vitiligo type lesions to her face and skin; talking to me in partially interrupted sentences, in mild to moderate respiratory distress. HEAD, EYES, EARS, NOSE AND THROAT: She is anicteric. No conjunctival erythema. Oropharynx is a Mallampati #4 oropharynx, mild oropharyngeal pallor. Oropharynx is moist. No gross jugular venous distention, no thyromegaly, grossly no palpable lymph nodes in the supraclavicular or submandibular lymph node chains. LUNGS: Auscultation of both lung locke significant for diminished bilateral breath sounds, expiratory wheezes and prolonged expiratory phase. HEART: No rubs, no murmurs. ABDOMEN: Soft, full, bowel sounds are positive. She has mild epigastric tenderness, no palpable hepatosplenomegaly. EXTREMITIES: Without overt digital clubbing or cyanosis. She says she has trace left lower extremity edema, no significant digital clubbing or cyanosis. Dorsalis pedis pulses are palpable bilaterally. The skin has vitiligo lesions over the whole areas of skin exposed in the lower extremities, upper extremities, face, and upper chest. Turgor is normal, no tenting, no cellulitis, no rash. NEUROLOGIC: Pupils are equal, round, about 3-4 mm, reactive to light. Extraocular muscle movements are intact. She moves all 4 extremities spontaneously. LABORATORY DATA: From my review, white cell count 3600, hemoglobin 13.3, hematocrit 41.7, platelet count 163,000. INR 0.97. D-dimer within normal limits. ABG showed a pH of 7.40, pCO2 of 44, pO2 of 62 that was on 2 liters nasal cannula. Serum sodium 140, potassium 3.9, chloride 99, bicarbonate 29, BUN 15, creatinine 0.9, glucose 149. BNP was elevated at 973. Otherwise, liver function tests essentially within normal limits. Urinalysis, trace leukocyte esterase, only 3 white cells per high power field, 1+ bacteremia. Blood cultures no growth to date. Chest x-ray was done. I have reviewed the chest x-ray and I am also able to compare it with the recent x-ray from 02/16/2017, essentially it seems to me that a shallower inspiration. There is gross cardiomegaly. There are right lower lobe infiltrates and possible left lower lobe infiltrate. Pulmonary edema versus pneumonia. No gross pneumothorax, no gross bony fracture. 2D echocardiogram was also done. I have reviewed the report on the 2D echocardiogram and essentially its EF 40-45%, right ventricular systolic pressure of [address] scan of the head was done at presentation, I presumed for altered mental status essentially, it showed left maxillary sinusitis, otherwise no acute findings. ASSESSMENT: 1. Acute on chronic hypoxemic respiratory failure. 2. Acute chronic obstructive pulmonary disease exacerbation. 3. Congestive heart failure with an acute exacerbation. 4. Likely element of a viral pneumonia. 5. Morbid obesity. 6. Human immunodeficiency virus positive. 7. History of seizures. 8. Acute encephalopathy that has resolved. 9. History of migraines. PLAN: Continue long and short-acting bronchodilators as well as inhaled corticosteroids. Continue her on systemic steroids. She is currently on Solu-Medrol. I will change that to prednisone. I believe she can start p.o. prednisone. I note the leukopenia. I will see get a CRP level to better understand the true infectious potential of this leukopenia. I will continue empiric community-acquired pneumonia therapy. I will send sputum, also for Gram stain, cultures and sensitivities. Oxygen will be weaned to keep sats greater than or equal to about 90-92%. She will benefit from Sleep Clinic evaluation, although I do not believe she has had a sleep study done in the past. Bilevel positive airway pressure ventilation therapy will be on a p.r.n. basis. We agree with continued diuresis keeping an eye on her electrolytes. She will be put on gastrointestinal prophylaxis as well as deep venous thrombosis prophylaxis. Flu and pneumonia vaccination will be per protocol. Thank you very much for the consult. We will follow along. We will make further recommendations as picture progresses/becomes clearer. JOB# [id number] FAB/ALENA
[2017-03-12] MEDS: PROVENTIL IH PRN (21:12)
[2017-03-12] MEDS: RESTORIL PO SCH (21:51)
[2017-03-12] MEDS: LOVENOX SUB-Q SCH (21:51)
[2017-03-12] MEDS: BENADRYL PO PRN (21:52)
[2017-03-13] MEDS: TESSALON PERLES PO SCH (00:03)
[2017-03-13] MEDS: GUAIFENESIN DM SYRUP PO PRN ×2 (01:29→05:49)
[2017-03-13] MEDS: PROVENTIL IH PRN ×2 (01:37→10:20)
[2017-03-13] MEDS: LASIX IV SCH ×2 (05:35→19:19)
[2017-03-13] MEDS: TYLENOL PO PRN (06:24)
[2017-03-13 07:05] LABS: BUN/Creatinine Ratio 20; Blood Urea Nitrogen 18 mg/dL (7-17); Calcium 8.5 mg/dL (8.4-10.2); Hemolysis Index 10
[2017-03-13] MEDS: BROVANA NEBU IH SCH ×2 (08:31→20:24)
[2017-03-13] MEDS: PULMICORT IH SCH ×2 (08:31→20:24)
[2017-03-13] MEDS: SPIRIVA IH SCH (09:05)
[2017-03-13] MEDS: ZITHROMAX PO SCH (10:10)
[2017-03-13] MEDS: KEPPRA PO SCH ×2 (10:11→21:14)
[2017-03-13] MEDS: DELTASONE PO SCH (10:11)
[2017-03-13] MEDS: COREG PO SCH ×2 (10:12→21:14)
[2017-03-13] MEDS: ZESTRIL PO SCH (10:12)
[2017-03-13] MEDS: PEPCID PO SCH ×2 (10:13→21:14)
--- NOTE | 2017-03-13 10:27 | Progress Note ---
<BRODY BECKETT - Last Filed: 03/13/17 13:52> Assessment and Plan Assessment and plan: 56 YO Female with HTN,Diastolic CHF, COPD, AIDS with undetectable Viral load, Seizure Disorder presents to ED for evaluation. Pt states that she has been experiencing difficulty breathing, wheezing, with productive cough with increased production of clear sputum for the past 2 days with worsening symptoms for the past 6 hours. Pt reports subjective fever, but denies chills, CP, Palpitations, NVD, skin rashes,NVD, Syncope, Vertigo, BRBPR, Medication Noncompliance, or recent ill contacts. Pt seen and evaluated in ED and found to be in respiratory failure secondary to bilateral Pneumonia and subsequently placed on supplemental oxygen. Pt admitted to medical floor. ?Pneumonia IV abx, IVF, supplemental oxygen, nebs, aspiration precautions, supportive care. COPD with exacerbation supplemental oxygen, nebs, IV abx, steroids, NIPPV as clinically indicated. Pulmonology following AIDS (acquired immune deficiency syndrome) continue medical management, outpatient ID f/u care. Acute and chronic respiratory failure Supplemental oxygen, nebs, aspiration precautions, supportive care, CHF (congestive heart failure) Continue lasix, fluid restriction, blood pressure control, monitor uop q shift, continue medical management Echo showed EF 40-45%, Cardiology following Seizure disorder Continue Keppra DVT prophylaxis Lovenox History Interval history: Patient was seen and examined. She continues to complain worsening shortness of breath with exertion. She denies chest pain, nausea, vomiting. Nursing notes and labs reviewed. Hospitalist Physical - Constitutional Vitals: Temp Pulse Resp BP Pulse Ox 98.5 F 89 20 125/66 96 03/13/17 07:51 03/13/17 10:12 03/13/17 08:39 03/13/17 10:12 03/13/17 08:33 General appearance: Present: mild distress, obese - EENT Eyes: Present: PERRL, EOM intact ENT: hearing intact, clear oral mucosa - Neck Neck: Present: supple, normal ROM - Respiratory Respiratory effort: normal Respiratory: bilateral: wheezing - Cardiovascular Rhythm: regular Heart Sounds: Present: S1 & S2 - Extremities Extremities: no ischemia, No edema Peripheral Pulses: within normal limits - Abdominal General gastrointestinal: soft, non-tender - Integumentary Integumentary: Present: clear, warm, dry - Psychiatric Psychiatric: appropriate mood/affect, cooperative - Neurologic Neurologic: CNII-XII intact, moves all extremities - Allied Health Allied health notes reviewed: nursing Results - Labs CBC & Chem 7: 03/10/17 13:33 03/13/17 06:32 Labs: Laboratory Last Values WBC 3.6 K/mm3 (4.5-11.0) L 03/10/17 13:33 RBC 4.59 M/mm3 (3.65-5.03) 03/10/17 13:33 Hgb 13.3 gm/dl (10.1-14.3) 03/10/17 13:33 Hct 41.7 % (30.3-42.9) 03/10/17 13:33 MCV 91 fl (79-97) 03/10/17 13:33 MCH 29 pg (28-32) 03/10/17 13:33 MCHC 32 % (30-34) 03/10/17 13:33 RDW 15.0 % (13.2-15.2) 03/10/17 13:33 Plt Count 163 K/mm3 (140-440) 03/10/17 13:33 Lymph % (Auto) 11.6 % (13.4-35.0) L 03/10/17 13:33 [place] % (Auto) 7.3 % (0.0-7.3) 03/10/17 13:33 Eos % (Auto) 1.2 % (0.0-4.3) 03/10/17 13:33 Baso % (Auto) 0.3 % (0.0-1.8) 03/10/17 13:33 Lymph # 0.4 K/mm3 (1.2-5.4) L 03/10/17 13:33 [place] # 0.3 K/mm3 (0.0-0.8) 03/10/17 13:33 Eos # 0.0 K/mm3 (0.0-0.4) 03/10/17 13:33 Baso # 0.0 K/mm3 (0.0-0.1) 03/10/17 13:33 Seg Neutrophils % 79.6 % (40.0-70.0) H 03/10/17 13:33 Seg Neutrophils # 2.9 K/mm3 (1.8-7.7) 03/10/17 13:33 PT 13.4 Sec. (12.2-14.9) 03/10/17 13:33 INR 0.97 (0.87-1.13) 03/10/17 13:33 APTT 33.8 Sec. (24.2-36.6) 03/10/17 13:33 D-Dimer < 135.00 ng/mlDDU (0-234) 03/10/17 13:33 POC ABG pH 7.402 (7.35-7.45) 03/10/17 13:35 POC ABG pCO2 43.7 (35-45) 03/10/17 13:35 POC ABG pO2 62 (80-105) L 03/10/17 13:35 POC ABG HCO3 27.2 03/10/17 13:35 POC ABG Total CO2 29 03/10/17 13:35 POC ABG O2 Sat 91 03/10/17 13:35 POC ABG Base Excess 2 03/10/17 13:35 FiO2 2 % 03/10/17 13:35 Sodium 143 mmol/L (137-145) 03/13/17 06:32 Potassium 3.5 mmol/L (3.6-5.0) L 03/13/17 06:32 Chloride 96.5 mmol/L (98-107) L 03/13/17 06:32 Carbon Dioxide 36 mmol/L (22-30) H D 03/13/17 06:32 Anion Gap 14 mmol/L 03/13/17 06:32 BUN 18 mg/dL (7-17) H 03/13/17 06:32 Creatinine 0.9 mg/dL (0.7-1.2) 03/13/17 06:32 Estimated GFR > 60 ml/min 03/13/17 06:32 BUN/Creatinine Ratio 20 % 03/13/17 06:32 Glucose 126 mg/dL (65-100) H 03/13/17 06:32 Calcium 8.5 mg/dL (8.4-10.2) 03/13/17 06:32 Total Bilirubin 0.40 mg/dL (0.1-1.2) 03/10/17 13:33 Direct Bilirubin < 0.2 mg/dL (0-0.2) 03/10/17 13:33 Indirect Bilirubin 0.2 mg/dL 03/10/17 13:33 AST 13 units/L (5-40) 03/10/17 13:33 ALT 13 units/L (7-56) 03/10/17 13:33 Alkaline Phosphatase 59 units/L (35-129) 03/10/17 13:33 C-Reactive Protein 0.20 mg/dL (0.00-1.30) 03/11/17 21:30 NT-Pro-B Natriuret Pep 973.3 pg/mL (0-900) H 03/10/17 13:33 Total Protein 7.1 g/dL (6.3-8.2) 03/10/17 13:33 Albumin 3.8 g/dL (3.9-5) L 03/10/17 13:33 Albumin/Globulin Ratio 1.2 % 03/10/17 13:33 Urine Color Yellow (Yellow) 03/10/17 14:05 Urine Turbidity Slightly-cloudy (Clear) 03/10/17 14:05 Urine pH 5.0 (5.0-7.0) 03/10/17 14:05 Ur Specific [place] 1.025 (1.003-1.030) 03/10/17 14:05 Urine Protein 30 mg/dl mg/dL (Negative) 03/10/17 14:05 Urine Glucose (UA) Neg mg/dL (Negative) 03/10/17 14:05 Urine Ketones Neg mg/dL (Negative) 03/10/17 14:05 Urine Blood Neg (Negative) 03/10/17 14:05 Urine Nitrite Neg (Negative) 03/10/17 14:05 Urine Bilirubin Neg (Negative) 03/10/17 14:05 Urine Urobilinogen 2.0 mg/dL (<2.0) 03/10/17 14:05 Ur Leukocyte Esterase Tr (Negative) 03/10/17 14:05 Urine WBC (Auto) 3.0 /HPF (0.0-6.0) 03/10/17 14:05 Urine RBC (Auto) 2.0 /HPF (0.0-6.0) 03/10/17 14:05 U Epithel Cells (Auto) 9.0 /HPF (0-13.0) 03/10/17 14:05 Urine Bacteria (Auto) 1+ /HPF (Negative) 03/10/17 14:05 Urine Mucus Few /HPF 03/10/17 14:05 <CHANDRAKANT ARANDA Gato - Last Filed: 03/13/17 17:24> Assessment and Plan Assessment and plan: I saw and evaluated the patient. I agree with the findings and the plan of care as documented in the PA's~note, with the following corrections and additions. Patient was wheezing more today, reports good urine output with the diuresis. she is able to speak in full sentences. CHF- Diastolic- acute on chronic CARDIOLOGY INPUT NOTED. Hospitalist Physical - Constitutional Vitals: Temp Pulse Resp BP Pulse Ox 99.2 F 76 22 125/66 89 03/13/17 16:23 03/13/17 16:23 03/13/17 16:23 03/13/17 10:12 03/13/17 16:23 Results - Labs CBC & Chem 7: 03/10/17 13:33 03/13/17 06:32 Labs: Laboratory Last Values WBC 3.6 K/mm3 (4.5-11.0) L 03/10/17 13:33 RBC 4.59 M/mm3 (3.65-5.03) 03/10/17 13:33 Hgb 13.3 gm/dl (10.1-14.3) 03/10/17 13:33 Hct 41.7 % (30.3-42.9) 03/10/17 13:33 MCV 91 fl (79-97) 03/10/17 13:33 MCH 29 pg (28-32) 03/10/17 13:33 MCHC 32 % (30-34) 03/10/17 13:33 RDW 15.0 % (13.2-15.2) 03/10/17 13:33 Plt Count 163 K/mm3 (140-440) 03/10/17 13:33 Lymph % (Auto) 11.6 % (13.4-35.0) L 03/10/17 13:33 [place] % (Auto) 7.3 % (0.0-7.3) 03/10/17 13:33 Eos % (Auto) 1.2 % (0.0-4.3) 03/10/17 13:33 Baso % (Auto) 0.3 % (0.0-1.8) 03/10/17 13:33 Lymph # 0.4 K/mm3 (1.2-5.4) L 03/10/17 13:33 [place] # 0.3 K/mm3 (0.0-0.8) 03/10/17 13:33 Eos # 0.0 K/mm3 (0.0-0.4) 03/10/17 13:33 Baso # 0.0 K/mm3 (0.0-0.1) 03/10/17 13:33 Seg Neutrophils % 79.6 % (40.0-70.0) H 03/10/17 13:33 Seg Neutrophils # 2.9 K/mm3 (1.8-7.7) 03/10/17 13:33 PT 13.4 Sec. (12.2-14.9) 03/10/17 13:33 INR 0.97 (0.87-1.13) 03/10/17 13:33 APTT 33.8 Sec. (24.2-36.6) 03/10/17 13:33 D-Dimer < 135.00 ng/mlDDU (0-234) 03/10/17 13:33 POC ABG pH 7.402 (7.35-7.45) 03/10/17 13:35 POC ABG pCO2 43.7 (35-45) 03/10/17 13:35 POC ABG pO2 62 (80-105) L 03/10/17 13:35 POC ABG HCO3 27.2 03/10/17 13:35 POC ABG Total CO2 29 03/10/17 13:35 POC ABG O2 Sat 91 03/10/17 13:35 POC ABG Base Excess 2 03/10/17 13:35 FiO2 2 % 03/10/17 13:35 Sodium 143 mmol/L (137-145) 03/13/17 06:32 Potassium 3.5 mmol/L (3.6-5.0) L 03/13/17 06:32 Chloride 96.5 mmol/L (98-107) L 03/13/17 06:32 Carbon Dioxide 36 mmol/L (22-30) H D 03/13/17 06:32 Anion Gap 14 mmol/L 03/13/17 06:32 BUN 18 mg/dL (7-17) H 03/13/17 06:32 Creatinine 0.9 mg/dL (0.7-1.2) 03/13/17 06:32 Estimated GFR > 60 ml/min 03/13/17 06:32 BUN/Creatinine Ratio 20 % 03/13/17 06:32 Glucose 126 mg/dL (65-100) H 03/13/17 06:32 Calcium 8.5 mg/dL (8.4-10.2) 03/13/17 06:32 Total Bilirubin 0.40 mg/dL (0.1-1.2) 03/10/17 13:33 Direct Bilirubin < 0.2 mg/dL (0-0.2) 03/10/17 13:33 Indirect Bilirubin 0.2 mg/dL 03/10/17 13:33 AST 13 units/L (5-40) 03/10/17 13:33 ALT 13 units/L (7-56) 03/10/17 13:33 Alkaline Phosphatase 59 units/L (35-129) 03/10/17 13:33 C-Reactive Protein 0.20 mg/dL (0.00-1.30) 03/11/17 21:30 NT-Pro-B Natriuret Pep 973.3 pg/mL (0-900) H 03/10/17 13:33 Total Protein 7.1 g/dL (6.3-8.2) 03/10/17 13:33 Albumin 3.8 g/dL (3.9-5) L 03/10/17 13:33 Albumin/Globulin Ratio 1.2 % 03/10/17 13:33 Urine Color Yellow (Yellow) 03/10/17 14:05 Urine Turbidity Slightly-cloudy (Clear) 03/10/17 14:05 Urine pH 5.0 (5.0-7.0) 03/10/17 14:05 Ur Specific [place] 1.025 (1.003-1.030) 03/10/17 14:05 Urine Protein 30 mg/dl mg/dL (Negative) 03/10/17 14:05 Urine Glucose (UA) Neg mg/dL (Negative) 03/10/17 14:05 Urine Ketones Neg mg/dL (Negative) 03/10/17 14:05 Urine Blood Neg (Negative) 03/10/17 14:05 Urine Nitrite Neg (Negative) 03/10/17 14:05 Urine Bilirubin Neg (Negative) 03/10/17 14:05 Urine Urobilinogen 2.0 mg/dL (<2.0) 03/10/17 14:05 Ur Leukocyte Esterase Tr (Negative) 03/10/17 14:05 Urine WBC (Auto) 3.0 /HPF (0.0-6.0) 03/10/17 14:05 Urine RBC (Auto) 2.0 /HPF (0.0-6.0) 03/10/17 14:05 U Epithel Cells (Auto) 9.0 /HPF (0-13.0) 03/10/17 14:05 Urine Bacteria (Auto) 1+ /HPF (Negative) 03/10/17 14:05 Urine Mucus Few /HPF 03/10/17 14:05
--- NOTE | 2017-03-13 11:45 | Progress Note ---
Assessment and Plan Assessment: Acute on chronic combined systolic and diastolic heart failure Mild LV systolic dysfunction COPD with exacerbation ? PNA HTN HLP HIV Moderate pulm HTN H/o seizure d/o Morbid obesity Plan: Cont present cardiac regimen. Assessment and plan reviewed with pt at bedside. The patient has been seen in conjunction with Dr. Tracy who agrees with the assessment and plan of care. Subjective Date of service: 03/13/17 Principal diagnosis: HF; COPD Interval history: pt with c/o wheezing and SOB Objective Last Vital Signs Temp 98.5 F 03/13/17 07:51 Pulse 94 H 03/13/17 10:25 Resp 20 03/13/17 10:25 BP 125/66 03/13/17 10:12 Pulse Ox 96 03/13/17 08:33 - Physical Examination General: No Apparent Distress HEENT: Positive: PERRL, Normocephaly, Mucus Membranes Moist Neck: Positive: neck supple, trachea midline Cardiac: Positive: Reg Rate and Rhythm, S1/S2 Lungs: Positive: Wheezes Neuro: Positive: Grossly Intact, Cranial Nerve 2-12 Intact Abdomen: Positive: Soft. Negative: Tender Skin: Positive: Clear. Negative: Rash, Wound Musculoskeletal: No Fluid Collection, No Pain, Normal Range of Motion Extremities: Absent: edema - Labs and Meds Comprehensive Metabolic Panel 03/13/17 Range/Units 06:32 Sodium 143 (137-145) mmol/L Potassium 3.5 L (3.6-5.0) mmol/L Chloride 96.5 L (98-107) mmol/L Carbon Dioxide 36 H D (22-30) mmol/L BUN 18 H (7-17) mg/dL Creatinine 0.9 (0.7-1.2) mg/dL Glucose 126 H (65-100) mg/dL Calcium 8.5 (8.4-10.2) mg/dL - Imaging and Cardiology EKG: report reviewed, image reviewed Echo: report reviewed (03/11/2017: EF 40-45%, pseudonormalization, moderate pulm HTN with RVSP 51mmHg. 09/2016 showed EF 50-55%, mild LVH, abnormal diastolic function.) - EKG Sinus rhythms and dysrhythmias: sinus rhythm AV and intraventricular conduction: right bundle branch block
[2017-03-13] MEDS: cefTRIAXone 1 GM in NACL 0.9% 20 ML IV SCH (12:15)
[2017-03-13] MEDS ORDERED: IMODIUM PO ONE (13:00)
[2017-03-13] MEDS: TAMIFLU PO SCH ×2 (13:51→21:15)
[2017-03-13] MEDS ORDERED: PROAIR IH SCH (14:00)
--- NOTE | 2017-03-13 15:17 | Query-Infection ---
Bettye Watkins___[place] Date:__03/13/2017 Pearl Stringer/CDS:___Shi Phone#:__[phone] Exercise your independent professional judgment when responding to this query. Questions asked do not imply a particular answer is desired or expected. We greatly appreciate your clarification on this issue. Clinical Documentation States: 56 Year old female was admitted on 03/10/2017 for difficulty breathing, wheezing, with productive cough with increased production of clear sputum. The Hospitalist progress note on 03/13/2017 states "?Pneumonia IV abx, IVF, supplemental oxygen, nebs, aspiration precautions, supportive care. COPD with exacerbation supplemental oxygen, nebs, IV abx, steroids, NIPPV as clinically indicated. Pulmonology following AIDS (acquired immune deficiency syndrome) continue medical management, outpatient ID f/u care." Clinical findings show: (please check applicable parameters) Temp: 101 WBC: 3.6 MI: 102 RR: 32 Infection, known /suspected, with some of the following indicators; Specify the infection: 3 General parameters [X] Fever (core temp >38.30C or 100.40F) [ ] Hypothermia (core temp <36C) [X] Heart rate >90 bpm [X] Tachypnea: >20 bpm or pCO2 < 32 mmHg [ ] Altered mental status [ ] Significant edema / +ve fluid balance (>20 ml/kg 24 h) [ ] Hyperglycemia (Bl. glucose >110 mg/dl) w/o diabetes Inflammatory parameters [ ] Leukocytosis (white blood cell count >12,000/l) [X] Leukopenia (white blood cell count <4,000/l) [ ] Bandemia (immature WBC > 10%) [ ] Leucocyte Left Shift [ ] Plasma procalcitonin>2 SD above the normal value Hemodynamic and tissue perfusion parameters [ ] Arterial hypotension(SBP <90 mmHg, MAP <70 mmHg,or a SBP drop >40 mmHg in adults) [ ] Hyperlactatemia (>3 mmol/l) [ ] Anion Gap (> 11mEG/l) [ ] Decreased capillary refill or mottling Organ dysfunction parameters [ ] Arterial hypoxemia (PaO2/FIO2 <300) [ ] Creatinine increase =0.5 mg/dl [ ] Acute oliguria (urine output <0.5 ml | kg |h or 45 mM/l for at least 2 hrs) [ ] Coagulation abnormalities (INR >1.5 or activated partial thromboplastin time >60 s) [ ] Ileus (absent ha wel sounds) [ ] Thrombocytopenia (platelet count <100,000/l) [ ] Hyperbilirubinemia (plasma total bilirubin >4 mg/dl) According to the clinical indications above, can Bacteremia be further specified? If so, please indicate below and in your Progress Notes and/ or Discharge Summary. Indicate if the condition was present on admission. PHYSICIAN RESPONSE: [ X] Sepsis [ ] Severe Sepsis [ ] Septic Shock [ ] Septicemia [ ] Sepsis now resolved [ ] SIRS due to non-infectious cause with organ dysfunction [ ] SIRS due to non-infectious cause without organ dysfunction [ ] Other: [ ] Comment/Explanation: Present on Admission: [ Y] Yes (Y) [ ] Clinically undeterminable (W) [ ] No (N) [ ] Ruled Out Please also document response in your Progress Notes and/or Discharge Summary and indicate if the condition was present on admission Notes: SIRS/ SIRS WITH ORGAN DYSFUNCTION Systemic inflammatory response syndrome (SIRS) generally refers to the systemic response to trauma/granados or other insult such as Acute Myocardial Infarction, Acute Pancreatitis, and Major Surgery with symptoms including fever, tachycardia , tachypnea, and leukocytosis (1). BACTEREMIA Presence of viable bacteria in the circulating blood (2). This term is reserved for patients that do not manifest above SIRS response. SEPTICEMIA Generally refers to a systemic disease associated with the presence of pathological microorganisms or toxins in the blood, which can include bacteria, viruses, fungi or other organisms (1). SEPSIS Generally refers to SIRS due infection (1). SEVERE SEPSIS Generally refers to sepsis associated with acute organ dysfunction (1). SEPTIC SHOCK Generally refers to circulatory failure associated with severe sepsis (2), and defined as hypotension or hypoperfusion despite adequate fluid resuscitation (1 hour) (3). REFERENCES: 1. [employer] [employer]/Society of Critical Care Medicine Consensus Conference. Definitions for sepsis and organ failure and guidelines for the use of innovative therapies in sepsis. Critical Care Med 1992;20:864 - 74. 2. Immanuel y MM, Briana MP, Maury KORIN, Aleksandr E, Rigo D, Maurice D, Pernell J, Alee SM , Giorgio JL, Libby G; International Sepsis Definitions Conference. 2001 SCCM/ESICM/ACCP/ATS/SIS International Sepsis Definitions Conference. Intensive Care Med. 2002 Apr;29(4):530-8. Epub 2002May 29. Review. PubMed PMID:[id number] 3. ICD-9-CM Official Guidelines for Coding and Reporting 4. Medscape Drugs, Diseases and Procedures references 5. [employer] Textbook of Internal Medicine. 18th Edition MTDD
--- NOTE | 2017-03-13 19:14 | Progress Note ---
Assessment and Plan 56 YO Female with HTN,Diastolic CHF, COPD, AIDS with undetectable Viral load, Seizure Disorder presents to ED for evaluation. Pt states that she has been experiencing difficulty breathing, wheezing, with productive cough with increased production of clear sputum for the past 2 days with worsening symptoms for the past 6 hours. Pt reports subjective fever, but denies chills, CP, Palpitations, NVD, skin rashes,NVD, Syncope, Vertigo, BRBPR, Medication Noncompliance, or recent ill contacts. Pt seen and evaluated in ED and found to be in respiratory failure secondary to bilateral Pneumonia and subsequently placed on supplemental oxygen. Pt admitted to medical floor. Acute on chronic respiratory failure Pneumonia COPD with exacerbation AIDS (acquired immune deficiency syndrome) CHF (congestive heart failure) Seizure disorder Subjective Date of service: 03/13/17 Principal diagnosis: HF; COPD Objective Vital Signs - 12hr 03/13/17 03/13/17 03/13/17 07:24 07:51 08:33 Temperature 98.5 F Pulse Rate 64 Pulse Rate [ 88 Bilateral] Respiratory 22 22 Rate Respiratory 20 Rate [Bilateral ] Blood Pressure 125/66 O2 Sat by Pulse 95 96 Oximetry 03/13/17 03/13/17 03/13/17 08:39 10:12 10:20 Temperature Pulse Rate 89 Pulse Rate [ 89 90 Bilateral] Respiratory Rate Respiratory 20 20 Rate [Bilateral ] Blood Pressure 125/66 O2 Sat by Pulse Oximetry 03/13/17 03/13/17 10:25 16:23 Temperature 99.2 F Pulse Rate 76 Pulse Rate [ 94 H Bilateral] Respiratory 22 Rate Respiratory 20 Rate [Bilateral ] Blood Pressure O2 Sat by Pulse 89 Oximetry CBC and BMP: 03/10/17 13:33 03/13/17 06:32 ABG, PT/INR, D-dimer: ABG POC ABG pH 7.402 (7.35-7.45) 03/10/17 13:35 POC ABG pCO2 43.7 (35-45) 03/10/17 13:35 POC ABG pO2 62 (80-105) L 03/10/17 13:35 POC ABG HCO3 27.2 03/10/17 13:35 POC ABG Total CO2 29 03/10/17 13:35 POC ABG O2 Sat 91 03/10/17 13:35 PT/INR, D-dimer PT 13.4 Sec. (12.2-14.9) 03/10/17 13:33 INR 0.97 (0.87-1.13) 03/10/17 13:33 D-Dimer < 135.00 ng/mlDDU (0-234) 03/10/17 13:33 Abnormal lab findings: Abnormal Labs 03/10/17 03/10/17 03/10/17 13:33 13:33 13:33 WBC 3.6 L Lymph % (Auto) 11.6 L Lymph # 0.4 L Seg Neutrophils % 79.6 H POC ABG pO2 Potassium Chloride Carbon Dioxide BUN Glucose 149 H NT-Pro-B Natriuret Pep 973.3 H Albumin 03/10/17 03/10/17 03/13/17 13:33 13:35 06:32 WBC Lymph % (Auto) Lymph # Seg Neutrophils % POC ABG pO2 62 L Potassium 3.5 L Chloride 96.5 L Carbon Dioxide 36 H D BUN 18 H Glucose 126 H NT-Pro-B Natriuret Pep Albumin 3.8 L
[2017-03-13] MEDS: LOVENOX SUB-Q SCH (21:13)
[2017-03-13] MEDS: BENADRYL PO PRN (21:13)
[2017-03-13] MEDS: RESTORIL PO SCH (21:14)
[2017-03-14] MEDS: PROVENTIL IH SCH ×6 (01:39→20:43)
[2017-03-14] MEDS: LASIX IV SCH (06:55)
[2017-03-14] MEDS: SPIRIVA IH SCH (08:22)
[2017-03-14] MEDS: BROVANA NEBU IH SCH ×2 (08:22→20:51)
[2017-03-14] MEDS: PULMICORT IH SCH ×2 (08:23→20:43)
[2017-03-14] MEDS: cefTRIAXone 1 GM in NACL 0.9% 20 ML IV SCH (09:51)
[2017-03-14] MEDS: PEPCID PO SCH ×2 (09:52→22:20)
[2017-03-14] MEDS: COREG PO SCH (09:52)
[2017-03-14] MEDS: KEPPRA PO SCH ×2 (09:52→22:20)
[2017-03-14] MEDS: ZESTRIL PO SCH (09:52)
[2017-03-14] MEDS: ZITHROMAX PO SCH (09:52)
[2017-03-14] MEDS: DELTASONE PO SCH (09:52)
[2017-03-14] MEDS: TAMIFLU PO SCH ×2 (10:00→22:20)
[2017-03-14] MEDS ORDERED: K-DUR PO NR (10:30)
--- NOTE | 2017-03-14 13:44 | Progress Note ---
Assessment and Plan Assessment: Acute on chronic combined systolic and diastolic heart failure - nearing/at euvolemia Mild LV systolic dysfunction COPD with exacerbation ? PNA HTN HLP HIV Moderate pulm HTN H/o seizure d/o Morbid obesity Plan: Convert coreg to lopressor given COPD and titrate as tolerated. Convert IV lasix to PO lasix 40mg daily. Currently stable cardiac status. Pt may discharge home from cardiology standpoint. Follow up in our [place] office with Dr. Puentes on 03/20/2017 @ 9:45AM. Assessment and plan reviewed with pt at bedside. The patient has been seen in conjunction with Dr. Tracy who agrees with the assessment and plan of care. Subjective Date of service: 03/14/17 Principal diagnosis: HF; COPD Interval history: pt appears more comfortable today, states SOB and wheezing are improving Objective Last Vital Signs Temp 97.8 F 03/14/17 07:35 Pulse 76 03/14/17 08:32 Resp 20 03/14/17 08:32 BP 142/85 03/14/17 07:35 Pulse Ox 93 03/14/17 08:22 - Physical Examination General: No Apparent Distress HEENT: Positive: PERRL, Normocephaly, Mucus Membranes Moist Neck: Positive: neck supple, trachea midline Cardiac: Positive: Reg Rate and Rhythm, S1/S2 Lungs: Positive: Wheezes Neuro: Positive: Grossly Intact, Cranial Nerve 2-12 Intact Abdomen: Positive: Soft. Negative: Tender Skin: Positive: Clear. Negative: Rash, Wound Musculoskeletal: No Fluid Collection, No Pain, Normal Range of Motion Extremities: Absent: edema - Imaging and Cardiology EKG: report reviewed, image reviewed Echo: report reviewed (03/11/2017: EF 40-45%, pseudonormalization, moderate pulm HTN with RVSP 51mmHg. 09/2016 showed EF 50-55%, mild LVH, abnormal diastolic function.) - EKG Sinus rhythms and dysrhythmias: sinus rhythm AV and intraventricular conduction: right bundle branch block
--- NOTE | 2017-03-14 18:26 | Progress Note ---
Assessment and Plan Assessment and plan: 56 YO Female with HTN,Diastolic CHF, COPD, AIDS with undetectable Viral load, Seizure Disorder presents to ED for evaluation. Pt states that she has been experiencing difficulty breathing, wheezing, with productive cough with increased production of clear sputum for the past 2 days with worsening symptoms for the past 6 hours. Pt reports subjective fever, but denies chills, CP, Palpitations, NVD, skin rashes,NVD, Syncope, Vertigo, BRBPR, Medication Noncompliance, or recent ill contacts. Pt seen and evaluated in ED and found to be in respiratory failure secondary to bilateral Pneumonia and subsequently placed on supplemental oxygen. Pt admitted to medical floor. Aspiration Pnuemonitis IV abx, IVF, supplemental oxygen, nebs, aspiration precautions, supportive care. COPD with exacerbation supplemental oxygen, nebs, IV abx, steroids, NIPPV as clinically indicated. Pulmonology following AIDS (acquired immune deficiency syndrome) continue medical management, outpatient ID f/u care. Acute and chronic respiratory failure Supplemental oxygen, nebs, aspiration precautions, supportive care, Hypokalemia Replace Acute on chronic Diastolic CHF (congestive heart failure) Continue lasix, fluid restriction, blood pressure control, monitor uop q shift, continue medical management Echo showed EF 40-45%, Cardiology following Seizure disorder Continue Keppra DVT prophylaxis Lovenox Plan discussed with the patient in detail. History Interval history: Patient seen and examined, remains with mild shortness of breath but improved compared to yesterday. Hospitalist Physical - Physical exam Narrative exam: VITAL SIGNS: Reviewed. GENERAL: The patient appeared well nourished and normally developed. Vital signs as documented. HEAD: No signs of head trauma. EYES: Pupils are equal. Extraocular motions intact. EARS: Hearing grossly intact. MOUTH: Oropharynx is normal. NECK: No adenopathy, no JVD. CHEST: Chest with Wheezing breath sounds bilaterally. CARDIAC: Regular rate and rhythm. S1 and S2, without murmurs, gallops, or rubs. VASCULAR: Trace Edema. Peripheral pulses normal and equal in all extremities. ABDOMEN: Soft, without detectable tenderness. No sign of distention. No rebound or guarding, and no masses palpated. Bowel Sounds normal. MUSCULOSKELETAL: Good range of motion of all major joints. Extremities without clubbing, cyanosis. Trace EDEMA NEUROLOGIC EXAM: Alert and oriented x 3. No focal sensory or strength deficits. Speech normal. Follows commands. PSYCHIATRIC: Mood normal. SKIN: No rash or lesions. - Constitutional Vitals: Temp Pulse Resp BP Pulse Ox 97.8 F 75 20 142/85 93 03/14/17 07:35 03/14/17 13:31 03/14/17 13:31 03/14/17 07:35 03/14/17 08:22 General appearance: Present: mild distress, obese Results - Labs CBC & Chem 7: 03/10/17 13:33 03/13/17 06:32 Labs: Laboratory Last Values WBC 3.6 K/mm3 (4.5-11.0) L 03/10/17 13:33 RBC 4.59 M/mm3 (3.65-5.03) 03/10/17 13:33 Hgb 13.3 gm/dl (10.1-14.3) 03/10/17 13:33 Hct 41.7 % (30.3-42.9) 03/10/17 13:33 MCV 91 fl (79-97) 03/10/17 13:33 MCH 29 pg (28-32) 03/10/17 13:33 MCHC 32 % (30-34) 03/10/17 13:33 RDW 15.0 % (13.2-15.2) 03/10/17 13:33 Plt Count 163 K/mm3 (140-440) 03/10/17 13:33 Lymph % (Auto) 11.6 % (13.4-35.0) L 03/10/17 13:33 [place] % (Auto) 7.3 % (0.0-7.3) 03/10/17 13:33 Eos % (Auto) 1.2 % (0.0-4.3) 03/10/17 13:33 Baso % (Auto) 0.3 % (0.0-1.8) 03/10/17 13:33 Lymph # 0.4 K/mm3 (1.2-5.4) L 03/10/17 13:33 [place] # 0.3 K/mm3 (0.0-0.8) 03/10/17 13:33 Eos # 0.0 K/mm3 (0.0-0.4) 03/10/17 13:33 Baso # 0.0 K/mm3 (0.0-0.1) 03/10/17 13:33 Seg Neutrophils % 79.6 % (40.0-70.0) H 03/10/17 13:33 Seg Neutrophils # 2.9 K/mm3 (1.8-7.7) 03/10/17 13:33 PT 13.4 Sec. (12.2-14.9) 03/10/17 13:33 INR 0.97 (0.87-1.13) 03/10/17 13:33 APTT 33.8 Sec. (24.2-36.6) 03/10/17 13:33 D-Dimer < 135.00 ng/mlDDU (0-234) 03/10/17 13:33 POC ABG pH 7.402 (7.35-7.45) 03/10/17 13:35 POC ABG pCO2 43.7 (35-45) 03/10/17 13:35 POC ABG pO2 62 (80-105) L 03/10/17 13:35 POC ABG HCO3 27.2 03/10/17 13:35 POC ABG Total CO2 29 03/10/17 13:35 POC ABG O2 Sat 91 03/10/17 13:35 POC ABG Base Excess 2 03/10/17 13:35 FiO2 2 % 03/10/17 13:35 Sodium 143 mmol/L (137-145) 03/13/17 06:32 Potassium 3.5 mmol/L (3.6-5.0) L 03/13/17 06:32 Chloride 96.5 mmol/L (98-107) L 03/13/17 06:32 Carbon Dioxide 36 mmol/L (22-30) H D 03/13/17 06:32 Anion Gap 14 mmol/L 03/13/17 06:32 BUN 18 mg/dL (7-17) H 03/13/17 06:32 Creatinine 0.9 mg/dL (0.7-1.2) 03/13/17 06:32 Estimated GFR > 60 ml/min 03/13/17 06:32 BUN/Creatinine Ratio 20 % 03/13/17 06:32 Glucose 126 mg/dL (65-100) H 03/13/17 06:32 Calcium 8.5 mg/dL (8.4-10.2) 03/13/17 06:32 Total Bilirubin 0.40 mg/dL (0.1-1.2) 03/10/17 13:33 Direct Bilirubin < 0.2 mg/dL (0-0.2) 03/10/17 13:33 Indirect Bilirubin 0.2 mg/dL 03/10/17 13:33 AST 13 units/L (5-40) 03/10/17 13:33 ALT 13 units/L (7-56) 03/10/17 13:33 Alkaline Phosphatase 59 units/L (35-129) 03/10/17 13:33 C-Reactive Protein 0.20 mg/dL (0.00-1.30) 03/11/17 21:30 NT-Pro-B Natriuret Pep 973.3 pg/mL (0-900) H 03/10/17 13:33 Total Protein 7.1 g/dL (6.3-8.2) 03/10/17 13:33 Albumin 3.8 g/dL (3.9-5) L 03/10/17 13:33 Albumin/Globulin Ratio 1.2 % 03/10/17 13:33 Urine Color Yellow (Yellow) 03/10/17 14:05 Urine Turbidity Slightly-cloudy (Clear) 03/10/17 14:05 Urine pH 5.0 (5.0-7.0) 03/10/17 14:05 Ur Specific [place] 1.025 (1.003-1.030) 03/10/17 14:05 Urine Protein 30 mg/dl mg/dL (Negative) 03/10/17 14:05 Urine Glucose (UA) Neg mg/dL (Negative) 03/10/17 14:05 Urine Ketones Neg mg/dL (Negative) 03/10/17 14:05 Urine Blood Neg (Negative) 03/10/17 14:05 Urine Nitrite Neg (Negative) 03/10/17 14:05 Urine Bilirubin Neg (Negative) 03/10/17 14:05 Urine Urobilinogen 2.0 mg/dL (<2.0) 03/10/17 14:05 Ur Leukocyte Esterase Tr (Negative) 03/10/17 14:05 Urine WBC (Auto) 3.0 /HPF (0.0-6.0) 03/10/17 14:05 Urine RBC (Auto) 2.0 /HPF (0.0-6.0) 03/10/17 14:05 U Epithel Cells (Auto) 9.0 /HPF (0-13.0) 03/10/17 14:05 Urine Bacteria (Auto) 1+ /HPF (Negative) 03/10/17 14:05 Urine Mucus Few /HPF 03/10/17 14:05
--- NOTE | 2017-03-14 19:08 | Progress Note ---
Assessment and Plan Patient alert, awake and resting on 3 litres O2 and O2 saturation 93%.No acute respiratory distress. - Patient Problems (1) AIDS (acquired immune deficiency syndrome) Current Visit: Yes Status: Acute Plan to address problem: Management as per ID. (2) Acute exacerbation of COPD with asthma Current Visit: Yes Status: Acute Plan to address problem: O2 supplementation 3 litres. Brovanna/Budesonide aerosol treatments q 12 hours. Albuterol inhalor 2 puffs po qid prn for shortness of breath. Continue Zithromax and ceftrioxone. Continue S/C Lovenox. Continue Famotadine. (3) CHF (congestive heart failure) Current Visit: Yes Status: Acute Qualifiers: Congestive heart failure type: diastolic Congestive heart failure chronicity: chronic Qualified Code(s): I50.32 - Chronic diastolic (congestive ) heart failure Plan to address problem: Management as per cardiology. (4) Cardiomyopathy Current Visit: Yes Status: Acute Qualifiers: Cardiomyopathy type: unspecified Qualified Code(s): I42.9 - Cardiomyopathy , unspecified Plan to address problem: Management as per cardiology. Subjective Date of service: 03/14/17 Principal diagnosis: HF; COPD Interval history: Patient alert, awake and resting on 3 litres O2 and O2 saturation 93%.No acute respiratory distress. Objective Vital Signs - 12hr 03/14/17 03/14/17 03/14/17 07:35 08:22 08:32 Temperature 97.8 F Pulse Rate 81 Pulse Rate [ 66 76 Anterior Bilateral Throughout] Respiratory 22 Rate Respiratory 20 20 Rate [Anterior Bilateral Throughout] Blood Pressure 142/85 O2 Sat by Pulse 90 93 Oximetry 03/14/17 03/14/17 13:21 13:31 Temperature Pulse Rate Pulse Rate [ 78 75 Anterior Bilateral Throughout] Respiratory Rate Respiratory 20 20 Rate [Anterior Bilateral Throughout] Blood Pressure O2 Sat by Pulse Oximetry Constitutional: no acute distress, alert Eyes: non-icteric ENT: oropharynx moist Neck: supple, no lymphadenopathy Ascultation: Bilateral: wheezes (Ocassional wheezing.) Cardiovascular: regular rate and rhythm Gastrointestinal: normoactive bowel sounds, soft, non-tender Integumentary: other (Patient has depigmentation of skin all over the body.) Neurologic: normal mental status, non-focal exam, pupils equal and round, CN II- XII normal Psychiatric: mood appropriate CBC and BMP: 03/10/17 13:33 03/13/17 06:32 ABG, PT/INR, D-dimer: ABG POC ABG pH 7.402 (7.35-7.45) 03/10/17 13:35 POC ABG pCO2 43.7 (35-45) 03/10/17 13:35 POC ABG pO2 62 (80-105) L 03/10/17 13:35 POC ABG HCO3 27.2 03/10/17 13:35 POC ABG Total CO2 29 03/10/17 13:35 POC ABG O2 Sat 91 03/10/17 13:35 PT/INR, D-dimer PT 13.4 Sec. (12.2-14.9) 03/10/17 13:33 INR 0.97 (0.87-1.13) 03/10/17 13:33 D-Dimer < 135.00 ng/mlDDU (0-234) 03/10/17 13:33 Abnormal lab findings: Abnormal Labs 03/10/17 03/10/17 03/10/17 13:33 13:33 13:33 WBC 3.6 L Lymph % (Auto) 11.6 L Lymph # 0.4 L Seg Neutrophils % 79.6 H POC ABG pO2 Potassium Chloride Carbon Dioxide BUN Glucose 149 H NT-Pro-B Natriuret Pep 973.3 H Albumin 03/10/17 03/10/17 03/13/17 13:33 13:35 06:32 WBC Lymph % (Auto) Lymph # Seg Neutrophils % POC ABG pO2 62 L Potassium 3.5 L Chloride 96.5 L Carbon Dioxide 36 H D BUN 18 H Glucose 126 H NT-Pro-B Natriuret Pep Albumin 3.8 L Chest x-ray: report reviewed (Marked cardiomegaly and pulmonary vascular congestion.), image reviewed
[2017-03-14] MEDS: LOPRESSOR PO SCH (22:20)
[2017-03-14] MEDS: LOVENOX SUB-Q SCH (22:20)
[2017-03-14] MEDS: RESTORIL PO SCH (22:20)
[2017-03-14] MEDS: BENADRYL PO PRN (22:22)
[2017-03-15] MEDS: PROVENTIL IH SCH ×4 (02:41→20:46)
[2017-03-15] MEDS: BROVANA NEBU IH SCH ×2 (08:48→20:46)
[2017-03-15] MEDS: SPIRIVA IH SCH (08:48)
[2017-03-15] MEDS: PULMICORT IH SCH ×2 (08:48→20:46)
[2017-03-15] MEDS: DELTASONE PO SCH (10:50)
[2017-03-15] MEDS: TAMIFLU PO SCH ×2 (10:50→22:22)
[2017-03-15] MEDS: LOPRESSOR PO SCH ×2 (10:50→22:23)
[2017-03-15] MEDS: ZITHROMAX PO SCH (10:50)
[2017-03-15] MEDS: ZESTRIL PO SCH (10:51)
[2017-03-15] MEDS: KEPPRA PO SCH ×2 (10:51→22:23)
[2017-03-15] MEDS: LASIX PO SCH (10:51)
[2017-03-15] MEDS: cefTRIAXone 1 GM in NACL 0.9% 20 ML IV SCH (10:56)
[2017-03-15] MEDS: PEPCID PO SCH ×2 (11:51→22:23)
--- NOTE | 2017-03-15 16:03 | Progress Note ---
<BRODY BECKETT - Last Filed: 03/15/17 16:00> Assessment and Plan Assessment and plan: 56 YO Female with HTN,Diastolic CHF, COPD, AIDS with undetectable Viral load, Seizure Disorder presents to ED for evaluation. Pt states that she has been experiencing difficulty breathing, wheezing, with productive cough with increased production of clear sputum for the past 2 days with worsening symptoms for the past 6 hours. Pt reports subjective fever, but denies chills, CP, Palpitations, NVD, skin rashes,NVD, Syncope, Vertigo, BRBPR, Medication Noncompliance, or recent ill contacts. Pt seen and evaluated in ED and found to be in respiratory failure secondary to bilateral Pneumonia and subsequently placed on supplemental oxygen. Pt admitted to medical floor. ?Pneumonia IV abx, IVF, supplemental oxygen, nebs, aspiration precautions, supportive care. COPD with exacerbation supplemental oxygen, nebs, IV abx, steroids, NIPPV as clinically indicated. Pulmonology following AIDS (acquired immune deficiency syndrome) continue medical management, outpatient ID f/u care. Acute and chronic respiratory failure Supplemental oxygen, nebs, aspiration precautions, supportive care, CHF (congestive heart failure) Continue lasix, fluid restriction, blood pressure control, monitor uop q shift, continue medical management Echo showed EF 40-45%, Cardiology following Seizure disorder Continue Keppra DVT prophylaxis Lovenox History Interval history: Patient was seen and examined. She complains shortness of breath with exertion. She denies chest pain, nausea, vomiting. Nursing notes and labs reviewed. Hospitalist Physical - Constitutional Vitals: Temp Pulse Resp BP Pulse Ox 97.7 F 77 20 153/93 88 03/15/17 15:28 03/15/17 15:28 03/15/17 15:28 03/15/17 15:28 03/15/17 15:28 General appearance: Present: no acute distress, obese - EENT Eyes: Present: PERRL, EOM intact ENT: hearing intact, clear oral mucosa - Neck Neck: Present: supple, normal ROM - Respiratory Respiratory effort: normal Respiratory: bilateral: wheezing - Cardiovascular Rhythm: regular Heart Sounds: Present: S1 & S2 - Extremities Extremities: no ischemia, No edema - Abdominal General gastrointestinal: soft, non-tender - Integumentary Integumentary: Present: clear, warm, dry - Psychiatric Psychiatric: appropriate mood/affect, cooperative - Neurologic Neurologic: CNII-XII intact, moves all extremities - Allied Health Allied health notes reviewed: nursing Results - Labs CBC & Chem 7: 03/10/17 13:33 03/13/17 06:32 Labs: Laboratory Last Values WBC 3.6 K/mm3 (4.5-11.0) L 03/10/17 13:33 RBC 4.59 M/mm3 (3.65-5.03) 03/10/17 13:33 Hgb 13.3 gm/dl (10.1-14.3) 03/10/17 13:33 Hct 41.7 % (30.3-42.9) 03/10/17 13:33 MCV 91 fl (79-97) 03/10/17 13:33 MCH 29 pg (28-32) 03/10/17 13:33 MCHC 32 % (30-34) 03/10/17 13:33 RDW 15.0 % (13.2-15.2) 03/10/17 13:33 Plt Count 163 K/mm3 (140-440) 03/10/17 13:33 Lymph % (Auto) 11.6 % (13.4-35.0) L 03/10/17 13:33 [place] % (Auto) 7.3 % (0.0-7.3) 03/10/17 13:33 Eos % (Auto) 1.2 % (0.0-4.3) 03/10/17 13:33 Baso % (Auto) 0.3 % (0.0-1.8) 03/10/17 13:33 Lymph # 0.4 K/mm3 (1.2-5.4) L 03/10/17 13:33 [place] # 0.3 K/mm3 (0.0-0.8) 03/10/17 13:33 Eos # 0.0 K/mm3 (0.0-0.4) 03/10/17 13:33 Baso # 0.0 K/mm3 (0.0-0.1) 03/10/17 13:33 Seg Neutrophils % 79.6 % (40.0-70.0) H 03/10/17 13:33 Seg Neutrophils # 2.9 K/mm3 (1.8-7.7) 03/10/17 13:33 PT 13.4 Sec. (12.2-14.9) 03/10/17 13:33 INR 0.97 (0.87-1.13) 03/10/17 13:33 APTT 33.8 Sec. (24.2-36.6) 03/10/17 13:33 D-Dimer < 135.00 ng/mlDDU (0-234) 03/10/17 13:33 POC ABG pH 7.402 (7.35-7.45) 03/10/17 13:35 POC ABG pCO2 43.7 (35-45) 03/10/17 13:35 POC ABG pO2 62 (80-105) L 03/10/17 13:35 POC ABG HCO3 27.2 03/10/17 13:35 POC ABG Total CO2 29 03/10/17 13:35 POC ABG O2 Sat 91 03/10/17 13:35 POC ABG Base Excess 2 03/10/17 13:35 FiO2 2 % 03/10/17 13:35 Sodium 143 mmol/L (137-145) 03/13/17 06:32 Potassium 3.5 mmol/L (3.6-5.0) L 03/13/17 06:32 Chloride 96.5 mmol/L (98-107) L 03/13/17 06:32 Carbon Dioxide 36 mmol/L (22-30) H D 03/13/17 06:32 Anion Gap 14 mmol/L 03/13/17 06:32 BUN 18 mg/dL (7-17) H 03/13/17 06:32 Creatinine 0.9 mg/dL (0.7-1.2) 03/13/17 06:32 Estimated GFR > 60 ml/min 03/13/17 06:32 BUN/Creatinine Ratio 20 % 03/13/17 06:32 Glucose 126 mg/dL (65-100) H 03/13/17 06:32 Calcium 8.5 mg/dL (8.4-10.2) 03/13/17 06:32 Total Bilirubin 0.40 mg/dL (0.1-1.2) 03/10/17 13:33 Direct Bilirubin < 0.2 mg/dL (0-0.2) 03/10/17 13:33 Indirect Bilirubin 0.2 mg/dL 03/10/17 13:33 AST 13 units/L (5-40) 03/10/17 13:33 ALT 13 units/L (7-56) 03/10/17 13:33 Alkaline Phosphatase 59 units/L (35-129) 03/10/17 13:33 C-Reactive Protein 0.20 mg/dL (0.00-1.30) 03/11/17 21:30 NT-Pro-B Natriuret Pep 973.3 pg/mL (0-900) H 03/10/17 13:33 Total Protein 7.1 g/dL (6.3-8.2) 03/10/17 13:33 Albumin 3.8 g/dL (3.9-5) L 03/10/17 13:33 Albumin/Globulin Ratio 1.2 % 03/10/17 13:33 Urine Color Yellow (Yellow) 03/10/17 14:05 Urine Turbidity Slightly-cloudy (Clear) 03/10/17 14:05 Urine pH 5.0 (5.0-7.0) 03/10/17 14:05 Ur Specific [place] 1.025 (1.003-1.030) 03/10/17 14:05 Urine Protein 30 mg/dl mg/dL (Negative) 03/10/17 14:05 Urine Glucose (UA) Neg mg/dL (Negative) 03/10/17 14:05 Urine Ketones Neg mg/dL (Negative) 03/10/17 14:05 Urine Blood Neg (Negative) 03/10/17 14:05 Urine Nitrite Neg (Negative) 03/10/17 14:05 Urine Bilirubin Neg (Negative) 03/10/17 14:05 Urine Urobilinogen 2.0 mg/dL (<2.0) 03/10/17 14:05 Ur Leukocyte Esterase Tr (Negative) 03/10/17 14:05 Urine WBC (Auto) 3.0 /HPF (0.0-6.0) 03/10/17 14:05 Urine RBC (Auto) 2.0 /HPF (0.0-6.0) 03/10/17 14:05 U Epithel Cells (Auto) 9.0 /HPF (0-13.0) 03/10/17 14:05 Urine Bacteria (Auto) 1+ /HPF (Negative) 03/10/17 14:05 Urine Mucus Few /HPF 03/10/17 14:05 <CHANDRAKANT ARANDA - Last Filed: 03/15/17 18:55> Assessment and Plan Assessment and plan: I saw and evaluated the patient. I agree with the findings and the plan of care as documented in the PA's~note, with the following corrections and additions. Patient still mildly dyspenic but reports some improvement. Cough not as excessive Aspiration Pnuemonitis IV abx, IVF, supplemental oxygen, nebs, aspiration precautions, supportive care. COPD with exacerbation supplemental oxygen, nebs, IV abx, steroids, NIPPV as clinically indicated. Pulmonology following Chest PT on going and giving good result AIDS (acquired immune deficiency syndrome) continue medical management, outpatient ID f/u care. Acute and chronic respiratory failure Supplemental oxygen, nebs, aspiration precautions, supportive care, Hypokalemia Replace Acute on chronic Diastolic CHF (congestive heart failure) Continue lasix, fluid restriction, blood pressure control, monitor uop q shift, continue medical management Echo showed EF 40-45%, Cardiology following Effective dureses being achieved. Seizure disorder Continue Cy Encouraged patient ambulation and anticipate discharge in 24 hrs. Hospitalist Physical - Constitutional Vitals: Temp Pulse Resp BP Pulse Ox 97.7 F 77 20 153/93 88 03/15/17 15:28 03/15/17 15:28 03/15/17 15:28 03/15/17 15:28 03/15/17 15:28 Results - Labs CBC & Chem 7: 03/10/17 13:33 03/13/17 06:32 Labs: Laboratory Last Values WBC 3.6 K/mm3 (4.5-11.0) L 03/10/17 13:33 RBC 4.59 M/mm3 (3.65-5.03) 03/10/17 13:33 Hgb 13.3 gm/dl (10.1-14.3) 03/10/17 13:33 Hct 41.7 % (30.3-42.9) 03/10/17 13:33 MCV 91 fl (79-97) 03/10/17 13:33 MCH 29 pg (28-32) 03/10/17 13:33 MCHC 32 % (30-34) 03/10/17 13:33 RDW 15.0 % (13.2-15.2) 03/10/17 13:33 Plt Count 163 K/mm3 (140-440) 03/10/17 13:33 Lymph % (Auto) 11.6 % (13.4-35.0) L 03/10/17 13:33 [place] % (Auto) 7.3 % (0.0-7.3) 03/10/17 13:33 Eos % (Auto) 1.2 % (0.0-4.3) 03/10/17 13:33 Baso % (Auto) 0.3 % (0.0-1.8) 03/10/17 13:33 Lymph # 0.4 K/mm3 (1.2-5.4) L 03/10/17 13:33 [place] # 0.3 K/mm3 (0.0-0.8) 03/10/17 13:33 Eos # 0.0 K/mm3 (0.0-0.4) 03/10/17 13:33 Baso # 0.0 K/mm3 (0.0-0.1) 03/10/17 13:33 Seg Neutrophils % 79.6 % (40.0-70.0) H 03/10/17 13:33 Seg Neutrophils # 2.9 K/mm3 (1.8-7.7) 03/10/17 13:33 PT 13.4 Sec. (12.2-14.9) 03/10/17 13:33 INR 0.97 (0.87-1.13) 03/10/17 13:33 APTT 33.8 Sec. (24.2-36.6) 03/10/17 13:33 D-Dimer < 135.00 ng/mlDDU (0-234) 03/10/17 13:33 POC ABG pH 7.402 (7.35-7.45) 03/10/17 13:35 POC ABG pCO2 43.7 (35-45) 03/10/17 13:35 POC ABG pO2 62 (80-105) L 03/10/17 13:35 POC ABG HCO3 27.2 03/10/17 13:35 POC ABG Total CO2 29 03/10/17 13:35 POC ABG O2 Sat 91 03/10/17 13:35 POC ABG Base Excess 2 03/10/17 13:35 FiO2 2 % 03/10/17 13:35 Sodium 143 mmol/L (137-145) 03/13/17 06:32 Potassium 3.5 mmol/L (3.6-5.0) L 03/13/17 06:32 Chloride 96.5 mmol/L (98-107) L 03/13/17 06:32 Carbon Dioxide 36 mmol/L (22-30) H D 03/13/17 06:32 Anion Gap 14 mmol/L 03/13/17 06:32 BUN 18 mg/dL (7-17) H 03/13/17 06:32 Creatinine 0.9 mg/dL (0.7-1.2) 03/13/17 06:32 Estimated GFR > 60 ml/min 03/13/17 06:32 BUN/Creatinine Ratio 20 % 03/13/17 06:32 Glucose 126 mg/dL (65-100) H 03/13/17 06:32 Calcium 8.5 mg/dL (8.4-10.2) 03/13/17 06:32 Total Bilirubin 0.40 mg/dL (0.1-1.2) 03/10/17 13:33 Direct Bilirubin < 0.2 mg/dL (0-0.2) 03/10/17 13:33 Indirect Bilirubin 0.2 mg/dL 03/10/17 13:33 AST 13 units/L (5-40) 03/10/17 13:33 ALT 13 units/L (7-56) 03/10/17 13:33 Alkaline Phosphatase 59 units/L (35-129) 03/10/17 13:33 C-Reactive Protein 0.20 mg/dL (0.00-1.30) 03/11/17 21:30 NT-Pro-B Natriuret Pep 973.3 pg/mL (0-900) H 03/10/17 13:33 Total Protein 7.1 g/dL (6.3-8.2) 03/10/17 13:33 Albumin 3.8 g/dL (3.9-5) L 03/10/17 13:33 Albumin/Globulin Ratio 1.2 % 03/10/17 13:33 Urine Color Yellow (Yellow) 03/10/17 14:05 Urine Turbidity Slightly-cloudy (Clear) 03/10/17 14:05 Urine pH 5.0 (5.0-7.0) 03/10/17 14:05 Ur Specific [place] 1.025 (1.003-1.030) 03/10/17 14:05 Urine Protein 30 mg/dl mg/dL (Negative) 03/10/17 14:05 Urine Glucose (UA) Neg mg/dL (Negative) 03/10/17 14:05 Urine Ketones Neg mg/dL (Negative) 03/10/17 14:05 Urine Blood Neg (Negative) 03/10/17 14:05 Urine Nitrite Neg (Negative) 03/10/17 14:05 Urine Bilirubin Neg (Negative) 03/10/17 14:05 Urine Urobilinogen 2.0 mg/dL (<2.0) 03/10/17 14:05 Ur Leukocyte Esterase Tr (Negative) 03/10/17 14:05 Urine WBC (Auto) 3.0 /HPF (0.0-6.0) 03/10/17 14:05 Urine RBC (Auto) 2.0 /HPF (0.0-6.0) 03/10/17 14:05 U Epithel Cells (Auto) 9.0 /HPF (0-13.0) 03/10/17 14:05 Urine Bacteria (Auto) 1+ /HPF (Negative) 03/10/17 14:05 Urine Mucus Few /HPF 03/10/17 14:05
--- NOTE | 2017-03-15 17:02 | Progress Note ---
Assessment and Plan Patient alert, awake and resting on 2 litres O2 and O2 saturation 88%.Increase O2 to 3 litres.No acute respiratory distress. - Patient Problems (1) AIDS (acquired immune deficiency syndrome) Current Visit: Yes Status: Acute Plan to address problem: Management as per ID. (2) Acute exacerbation of COPD with asthma Current Visit: Yes Status: Acute Plan to address problem: O2 supplementation 4 litres. Brovanna/Budesonide aerosol treatments q 12 hours. Albuterol inhalor 2 puffs po qid prn for shortness of breath. Continue Zithromax and ceftrioxone. Continue S/C Lovenox. Continue Famotadine. (3) CHF (congestive heart failure) Current Visit: Yes Status: Acute Qualifiers: Congestive heart failure type: diastolic Congestive heart failure chronicity: chronic Qualified Code(s): I50.32 - Chronic diastolic (congestive ) heart failure Plan to address problem: Management as per cardiology. (4) Cardiomyopathy Current Visit: Yes Status: Acute Qualifiers: Cardiomyopathy type: unspecified Qualified Code(s): I42.9 - Cardiomyopathy , unspecified Plan to address problem: Management as per cardiology. Subjective Date of service: 03/15/17 Principal diagnosis: HF; COPD Interval history: Patient alert, awake and resting on 2 litres O2 and O2 saturation 88%.Increase o2 to 3 litres.No acute respiratory distress. Objective Vital Signs - 12hr 03/15/17 03/15/17 03/15/17 07:50 08:48 08:58 Temperature 98.0 F Pulse Rate 72 Pulse Rate [ 75 71 Anterior Bilateral Throughout] Respiratory 20 Rate Respiratory 20 20 Rate [Anterior Bilateral Throughout] Blood Pressure 149/84 O2 Sat by Pulse 89 95 Oximetry 03/15/17 03/15/17 03/15/17 09:00 09:05 15:28 Temperature 97.7 F Pulse Rate 77 Pulse Rate [ 74 76 Anterior Bilateral Throughout] Respiratory 20 Rate Respiratory 20 20 Rate [Anterior Bilateral Throughout] Blood Pressure 153/93 O2 Sat by Pulse 88 Oximetry Constitutional: no acute distress, alert Eyes: non-icteric ENT: oropharynx moist Neck: supple, no lymphadenopathy Ascultation: Bilateral: wheezes Cardiovascular: regular rate and rhythm Gastrointestinal: normoactive bowel sounds, soft, non-tender Integumentary: other (Patient has depigmentation of skin all over the body.) Neurologic: normal mental status, non-focal exam, pupils equal and round, CN II- XII normal Psychiatric: mood appropriate CBC and BMP: 03/10/17 13:33 03/13/17 06:32 ABG, PT/INR, D-dimer: ABG POC ABG pH 7.402 (7.35-7.45) 03/10/17 13:35 POC ABG pCO2 43.7 (35-45) 03/10/17 13:35 POC ABG pO2 62 (80-105) L 03/10/17 13:35 POC ABG HCO3 27.2 03/10/17 13:35 POC ABG Total CO2 29 03/10/17 13:35 POC ABG O2 Sat 91 03/10/17 13:35 PT/INR, D-dimer PT 13.4 Sec. (12.2-14.9) 03/10/17 13:33 INR 0.97 (0.87-1.13) 03/10/17 13:33 D-Dimer < 135.00 ng/mlDDU (0-234) 03/10/17 13:33 Abnormal lab findings: Abnormal Labs 03/10/17 03/10/17 03/10/17 13:33 13:33 13:33 WBC 3.6 L Lymph % (Auto) 11.6 L Lymph # 0.4 L Seg Neutrophils % 79.6 H POC ABG pO2 Potassium Chloride Carbon Dioxide BUN Glucose 149 H NT-Pro-B Natriuret Pep 973.3 H Albumin 03/10/17 03/10/17 03/13/17 13:33 13:35 06:32 WBC Lymph % (Auto) Lymph # Seg Neutrophils % POC ABG pO2 62 L Potassium 3.5 L Chloride 96.5 L Carbon Dioxide 36 H D BUN 18 H Glucose 126 H NT-Pro-B Natriuret Pep Albumin 3.8 L
[2017-03-15] MEDS: LOVENOX SUB-Q SCH (22:21)
[2017-03-15] MEDS: BENADRYL PO PRN (22:22)
[2017-03-15] MEDS: RESTORIL PO SCH (22:23)
[2017-03-16] MEDS: PROVENTIL IH SCH ×3 (03:02→18:18)
[2017-03-16] MEDS: ZESTRIL PO SCH (09:48)
[2017-03-16] MEDS: cefTRIAXone 1 GM in NACL 0.9% 20 ML IV SCH (09:48)
[2017-03-16] MEDS: KEPPRA PO SCH (09:49)
[2017-03-16] MEDS: ZITHROMAX PO SCH (09:49)
[2017-03-16] MEDS: LASIX PO SCH (09:49)
[2017-03-16] MEDS: TAMIFLU PO SCH (09:49)
[2017-03-16] MEDS: PEPCID PO SCH (09:49)
[2017-03-16] MEDS: DELTASONE PO SCH (09:49)
[2017-03-16] MEDS: LOPRESSOR PO SCH (09:50)
[2017-03-16] MEDS: PULMICORT IH SCH (11:32)
[2017-03-16] MEDS: BROVANA NEBU IH SCH (11:32)
[2017-03-16] MEDS: SPIRIVA IH SCH (11:38)
--- NOTE | 2017-03-16 12:10 | Progress Note ---
Subjective Date of service: 03/16/17 Principal diagnosis: HF; COPD Interval history: Patient is seen today for: Seen and examined at bedside; 24hour events reviewed; nursing and respiratory care staff consulted; no adverse overnight events reported to me; Objective Vital Signs - 12hr 03/16/17 03/16/17 03/16/17 01:08 04:29 09:24 Temperature 98.0 F 98.1 F 97.6 F Pulse Rate 75 59 L 69 Pulse Rate [ Bilateral] Respiratory 22 20 18 Rate Respiratory Rate [Bilateral ] Blood Pressure 168/100 151/75 195/109 O2 Sat by Pulse 93 98 96 Oximetry 03/16/17 03/16/17 03/16/17 09:48 11:30 11:32 Temperature Pulse Rate 69 Pulse Rate [ 68 Bilateral] Respiratory Rate Respiratory 20 Rate [Bilateral ] Blood Pressure 195/101 O2 Sat by Pulse 97 Oximetry 03/16/17 11:57 Temperature Pulse Rate Pulse Rate [ 70 Bilateral] Respiratory Rate Respiratory 20 Rate [Bilateral ] Blood Pressure O2 Sat by Pulse Oximetry Constitutional: no acute distress, alert Eyes: non-icteric ENT: oropharynx moist Neck: supple, no lymphadenopathy Ascultation: Bilateral: wheezes Cardiovascular: regular rate and rhythm Gastrointestinal: normoactive bowel sounds, soft, non-tender Integumentary: other (Patient has depigmentation of skin all over the body.) Neurologic: normal mental status, non-focal exam, pupils equal and round, CN II- XII normal Psychiatric: mood appropriate CBC and BMP: 03/10/17 13:33 03/13/17 06:32 ABG, PT/INR, D-dimer: ABG POC ABG pH 7.402 (7.35-7.45) 03/10/17 13:35 POC ABG pCO2 43.7 (35-45) 03/10/17 13:35 POC ABG pO2 62 (80-105) L 03/10/17 13:35 POC ABG HCO3 27.2 03/10/17 13:35 POC ABG Total CO2 29 03/10/17 13:35 POC ABG O2 Sat 91 03/10/17 13:35 PT/INR, D-dimer PT 13.4 Sec. (12.2-14.9) 03/10/17 13:33 INR 0.97 (0.87-1.13) 03/10/17 13:33 D-Dimer < 135.00 ng/mlDDU (0-234) 03/10/17 13:33 Abnormal lab findings: Abnormal Labs 03/10/17 03/10/17 03/10/17 13:33 13:33 13:33 WBC 3.6 L Lymph % (Auto) 11.6 L Lymph # 0.4 L Seg Neutrophils % 79.6 H POC ABG pO2 Potassium Chloride Carbon Dioxide BUN Glucose 149 H NT-Pro-B Natriuret Pep 973.3 H Albumin 03/10/17 03/10/17 03/13/17 13:33 13:35 06:32 WBC Lymph % (Auto) Lymph # Seg Neutrophils % POC ABG pO2 62 L Potassium 3.5 L Chloride 96.5 L Carbon Dioxide 36 H D BUN 18 H Glucose 126 H NT-Pro-B Natriuret Pep Albumin 3.8 L
--- NOTE | 2017-03-16 13:49 | Discharge Summary ---
Providers - Providers Date of Admission: 03/10/17 14:23 Attending physician: CHANDRAKANT ARANDA MD 03/11/17 11:41 Consult to Physician [CONS] Routine Consulting Provider: MÓNICA ADAME Reason For Exam: copd exacerbation Place consult to:: Office Notified:: yes Phone number called:: [phone] Was contact made?: Yes If yes, spoke with:: Stephanie Time called:: 11:54 Consult to Physician [CONS] Routine Consulting Provider: MAIA MASON Reason For Exam: CHF Place consult to:: -house Notified:: yes If yes, spoke with:: Maggy Time called:: 11:52 Primary care physician: MARIBELL SANTOS Hospitalization Reason for admission: shortness of breath Condition: Stable Hospital course: 56 YO Female with HTN,Diastolic CHF, COPD, AIDS with undetectable Viral load, Seizure Disorder presents to ED for evaluation. Pt states that she has been experiencing difficulty breathing, wheezing, with productive cough with increased production of clear sputum for the past 2 days with worsening symptoms for the past 6 hours. Pt reports subjective fever, but denies chills, CP, Palpitations, NVD, skin rashes,NVD, Syncope, Vertigo, BRBPR, Medication Noncompliance, or recent ill contacts. Pt seen and evaluated in ED and found to be in respiratory failure secondary to bilateral Pneumonia and subsequently placed on supplemental oxygen. Pt admitted to medical floor. Patient was treated for possible aspiration pneumonia and COPD exacerbation. She was also treated for acute diastolic congestive heart failure with improvement noted for an addition of chest PT. She is clinically improved today over her blood pressure was mildly elevated earlier if on my recheck is 160/85. I did make some adjustments to her blood pressure medications on discharge and advised for repeat blood pressure check of her primary care office. She will follow with her secretary bookkeeper and continue steroid taper. She may benefit from sleep study. Condition at this time stable. She was also treated for possible Influenza Discharge diagnosis Aspiration Pnuemonitis COPD with exacerbation AIDS (acquired immune deficiency syndrome) Acute and chronic hypoxic respiratory failure Hypokalemia Acute on chronic Diastolic CHF (congestive heart failure) Seizure disorder Disposition: TO HOME OR SELFCARE Time spent for discharge: 35 MINS Core Measure Documentation - Palliative Care Palliative Care/ Comfort Measures: Not Applicable - Core Measures Any of the following diagnoses?: none - VTE Discharge Requirements Deep Vein Thrombosis/Pulmonary Embolism Present on Admission: No Exam - Physical Exam Narrative exam: VITAL SIGNS: Reviewed. GENERAL: The patient appeared well nourished and normally developed. Vital signs as documented. HEAD: No signs of head trauma. EYES: Pupils are equal. Extraocular motions intact. EARS: Hearing grossly intact. MOUTH: Oropharynx is normal. NECK: No adenopathy, no JVD. CHEST: Chest with diminished breath sounds bilaterally. CARDIAC: Regular rate and rhythm. S1 and S2, without murmurs, gallops, or rubs. VASCULAR: Trace Edema. Peripheral pulses normal and equal in all extremities. ABDOMEN: Soft, without detectable tenderness. No sign of distention. No rebound or guarding, and no masses palpated. Bowel Sounds normal. MUSCULOSKELETAL: Good range of motion of all major joints. Extremities without clubbing, cyanosis. Trace EDEMA NEUROLOGIC EXAM: Alert and oriented x 3. No focal sensory or strength deficits. Speech normal. Follows commands. PSYCHIATRIC: Mood normal. SKIN: Vitiligo - Constitutional Vitals: Temp Pulse Resp BP Pulse Ox 97.6 F 70 20 195/101 97 03/16/17 09:24 03/16/17 11:57 03/16/17 11:57 03/16/17 09:48 03/16/17 11:30 Plan Activity: advance as tolerated, fall precautions Diet: low fat Special Instructions: record daily weights, record daily BP diary Follow up with: MARIBELL SANTOS MD [Primary Care Provider] - 3-5 Days MÓNICA ADAME MD [Staff Physician] - 7 Days ELOISE ALFONSO MD [Staff Physician] - 7 Days Prescriptions: Benzonatate [Tessalon Perles] 100 mg PO Q8HR #20 capsule Oseltamivir [Tamiflu] 75 mg PO BID #6 capsule Prednisone [predniSONE 10 mg (6-Day Pack, 21 Tabs)] 10 mg PO .TAPER #1 tab.ds.pk
[2017-03-16 14:04] VITALS: BP 141/80
== END 2017-03-16 15:35 | disposition home or self-care (01) | DRG 974 ==
LOC: ED 12:31 → 3A 14:23
PROVIDERS: ADMIT Internal Medicine; ATTEND Internal Medicine
PROC: 4A033R1 Measurement of Arterial Saturation, Peripheral, Percutaneous Approach (ICD-10-PCS; principal; 2017-03-10)
DX: B20 Human immunodeficiency virus [HIV] disease (principal); A41.9 Sepsis, unspecified organism; J96.21 Acute and chronic respiratory failure with hypoxia; J69.0 Pneumonitis due to inhalation of food and vomit; I50.43 Acute on chronic combined systolic (congestive) and diastolic (congestive) heart failure; G93.40 Encephalopathy, unspecified; J44.1 Chronic obstructive pulmonary disease with (acute) exacerbation; E66.01 Morbid (severe) obesity due to excess calories; Z68.42 Body mass index [BMI] 45.0-49.9, adult; I11.0 Hypertensive heart disease with heart failure; G40.909 Epilepsy, unspecified, not intractable, without status epilepticus; J44.0 Chronic obstructive pulmonary disease with (acute) lower respiratory infection; G43.909 Migraine, unspecified, not intractable, without status migrainosus; I42.9 Cardiomyopathy, unspecified; I27.20 Pulmonary hypertension, unspecified; E87.6 Hypokalemia; Z91.14 Patient's other noncompliance with medication regimen
CPT/HCPCS: 36415; 70450; 71045; 80048; 80074; 81001; 82803; 83880; 85025; 85379; 85610; 85730; 86140; 87040; 87116; 87430; 93005; 93010; 93306; 94640; 94668; 94669; 94760; 96365; 96366; J0456; J0696; J1650; J1940; J1956; J2920; J7030; J7050; J7512

== ENCOUNTER 2017-08-01 13:46 | Outpatient (CLI) | payer MEDICAID ==
[2017-08-01 14:05] LABS: Hematocrit 38.8 % (30.3-42.9); Hemoglobin 12.6 gm/dl (10.1-14.3); Mean Corpuscular HGB Conc 33 % (30-34); Mean Corpuscular Hemoglobin 30 pg (28-32); Mean Corpuscular Volume 92 fl (79-97); Platelet Count 255 K/mm3 (140-440); Red Blood Count 4.22 M/mm3 (3.65-5.03); Red Cell Distribution Width 14.7 % (13.2-15.2)
[2017-08-01 14:21] LABS: Alanine Aminotransferase 12 units/L (7-56); Albumin 3.9 g/dL (3.9-5); BUN/Creatinine Ratio 23; Blood Urea Nitrogen 23 mg/dL (7-17); Calcium 9.5 mg/dL (8.4-10.2); Hemolysis Index 1
--- NOTE | 2017-08-02 09:15 | XRay Report ---
Chest 2 views: Compared to 05/30/17. History: Left lower lobe infiltrate. Findings: Cardiomegaly. Trachea is midline. Pulmonary venous congestion. Congestion is less pronounced compared to previous study. No consolidation or pleural effusion. Impression: Cardiomegaly with mild pulmonary venous congestion.
--- NOTE | 2017-08-05 14:17 | Cat Scan Report ---
FINAL REPORT EXAM: CT CHEST W CON HISTORY: RIGHT LOWER LOBE INFETRATE TECHNIQUE: Axial images were performed from the lung apices to the bases with IV contrast. Multiplanar reformats are performed on the acquisition scanner. Total exam DLP 1126.24 mGy-cm Comparison: Chest x-ray 12/12/2015 FINDINGS: No recent chest x-rays identified. There is mild diffuse pulmonary emphysema. There is no acute right lower lobe infiltrate identified. There is mild motion degradation in both lung bases. There is an ill-defined minimal infiltrate in the superior segment left lower lobe. Heart is enlarged. There are multiple mildly prominent bilateral axillary lymph nodes. Suboptimal enhancement of the aorta and pulmonary arteries. Heavy calcific coronary artery disease. Fatty infiltrated liver. Imaged upper abdomen otherwise unremarkable. Degenerative spondylitic change thoracic vertebral bodies. No pleural effusion. IMPRESSION: Motion degraded exam. Mild pulmonary emphysema. Ill-defined mild superior segment left lower lobe infiltrate. Again motion degraded. No infiltrate right lower lobe. Fatty liver. Mildly prominent axillary lymph nodes. Recommend follow-up exam be performed with cardiac gating.
== END 2017-08-01 13:47 | disposition home or self-care (01) ==
LOC: CT 13:46
PROVIDERS: ATTEND Internal Medicine
DX: J43.9 Emphysema, unspecified (principal); K76.0 Fatty (change of) liver, not elsewhere classified; I11.0 Hypertensive heart disease with heart failure; I50.9 Heart failure, unspecified
CPT/HCPCS: 36415; 71046; 71260; 80053; 85027; Q9967

== ENCOUNTER 2020-05-11 09:04 | Emergency (ER) | payer MEDICAID ==
[2020-05-11 09:20] VITALS: BP 151/87
--- NOTE | 2020-05-11 09:31 | Emergency Department Report ---
Chief Complaint: Extremity Injury, Upper Stated Complaint: RT ARM KNOT Time Seen by Provider: 05/11/20 09:27 - HPI History of Present Illness: rt arm knot for months pcp told her lipoma no fall/trauma no other complaints - ROS Review of Systems: r arm knot, upper arm over bicept area - Exam Vital Signs: Vital Signs 05/11/20 09:19 Temperature 98.3 F Pulse Rate 69 Respiratory 22 Rate Blood Pressure 151/87 O2 Sat by Pulse 96 Oximetry Physical Exam: lipoma mobile 3 cm x 3 cm to rue distal pulses intact n/v intact MSE screening note: Focused history and physical exam performed. Due to findings the following was ordered: no life threat dc to pcp Patient discussed with doctor:: BRIANNE BETH ED Disposition for MSE Condition: Stable
== END 2020-05-11 09:33 | disposition left against medical advice (07) ==
LOC: ED 09:04
DX: D17.21 Benign lipomatous neoplasm of skin and subcutaneous tissue of right arm (principal)
CPT/HCPCS: 99281

== ENCOUNTER 2020-06-08 19:12 | Inpatient (IN) | payer MEDICAID ==
--- NOTE | 2020-06-08 20:08 | Event Note ---
ED Screening Note Date of service: 06/08/20 Time: 20:07 ED Screening Note: 59-year-old female patient with history of diabetes and hypertension presents to the emergency department with complaints of right-sided abdominal pain starting yesterday. Patient states pain is exacerbated with walking, movement, and positional changes. Reports subjective fever yesterday for which she took aspirin. No known sick contacts. No vomiting or diarrhea. General: Awake, appropriately interactive, appears uncomfortable. Neck: Supple. Full range of motion intact. Cardiovascular: Normal peripheral perfusion. Pulmonary: No respiratory distress. Patient is speaking normally without use of accessory muscles. Abdomen: Soft, nondistended. Tenderness palpation throughout the lower quadrants and periumbilical region. No rigidity or rebound. Skin: No apparent rashes or lesions. Neurological: No facial asymmetry. Speech is clear. Follows commands. Patient is alert and oriented. Musculoskeletal: Moves all four extremities spontaneously with normal range of motion. Psych: Cooperative. Appropriate mood and affect. I have greeted and performed a focused rapid initial assessment of this patient. A comprehensive ED assessment and evaluation of the patient, analysis of all test results, and completion of the medical decision-making process will be conducted by additional ED providers. This initial assessment/diagnostic orders/clinical plan/treatment(s) is/are subject to change based on patients health status, clinical progression and re-assessment. Further treatment and workup at subsequent clinical provider's discretion. Patient/guardian urged not to elope from the ED as their condition may be serious if not clinically assessed and managed.
[2020-06-08 20:38] LABS: Basophils % (Auto) 0.5 % (0.0-1.8); Eosinophils # (Auto) 0.2 K/mm3 (0.0-0.4); Eosinophils % (Auto) 2.9 % (0.0-4.3); Hematocrit 38.2 % (30.3-42.9); Hemoglobin 12.5 gm/dl (10.1-14.3); Lymphocytes # (Auto) 1.8 K/mm3 (1.2-5.4); Lymphocytes % (Auto) 31.5 % (13.4-35.0); Mean Corpuscular HGB Conc 33 % (30-34); Mean Corpuscular Volume 96 fl (79-97); Monocytes # (Auto) 0.4 K/mm3 (0.0-0.8); Monocytes % (Auto) 6.6 % (0.0-7.3); Platelet Count 242 K/mm3 (140-440); Red Blood Count 3.97 M/mm3 (3.65-5.03); Red Cell Distribution Width 14.2 % (13.2-15.2)
[2020-06-08 21:00] LABS: Alanine Aminotransferase 15 units/L (7-56); Albumin 3.6 g/dL (3.9-5); BUN/Creatinine Ratio 18; Blood Urea Nitrogen 20 mg/dL (7-17); Calcium 9.3 mg/dL (8.4-10.2); Hemolysis Index 10
[2020-06-08] MEDS ORDERED: MORPHINE 4 MG/1 ML INJ IV ONE ×2 (21:02→23:52)
[2020-06-08] MEDS ORDERED: ONDANSETRON 4 MG/2 ML INJ IV ONE (21:02)
[2020-06-08] MEDS ORDERED: SODIUM CHLORIDE 0.9% 1000 ML 1,000 ML IV ONE (21:02)
[2020-06-08 21:57] LABS: Bacteria,Urine 4+ /HPF (Negative); Bilirubin,Urine NEG (Negative); Blood,Urine NEG (Negative); Color,Urine Yellow (Yellow); Mucus,Urine FEW /HPF; Protein,Urine <15 mg/dL mg/dL (Negative); Urobilinogen,Urine < 2.0 mg/dL (<2.0)
--- NOTE | 2020-06-08 23:29 | Cat Scan Report ---
CT ABDOMEN AND PELVIS WITH CONTRAST INDICATION / CLINICAL INFORMATION: Patient complains of RIGHT sided abd pain x 1 day.. TECHNIQUE: Axial CT images were obtained through the abdomen and pelvis after 100 cc of Omnipaque [address] scans at this location are performed using CT dose reduction for ALARA by means of automated exposure control. COMPARISON: None available. FINDINGS: LOWER CHEST: No significant abnormality. LIVER: No significant abnormality. GALLBLADDER: No significant abnormality. BILE DUCTS: No significant abnormality. PANCREAS: No significant abnormality. SPLEEN: No significant abnormality. ADRENALS: No significant abnormality. RIGHT KIDNEY / URETER: No significant abnormality. LEFT KIDNEY / URETER: No significant abnormality. STOMACH / SMALL BOWEL: No significant abnormality. COLON: No significant abnormality. APPENDIX: No significant abnormality. PERITONEUM: No free fluid. No free air. No fluid collection. There is a fat-containing ventral hernia above the level the umbilicus just to the right of midline. There is a small amount of fluid in the hernia sac. There is mild stranding in the fat within the hernia sac. LYMPH NODES: No significant adenopathy. AORTA / ARTERIES: No significant abnormality. IVC / VEINS: No significant abnormality. URINARY BLADDER: No significant abnormality. REPRODUCTIVE ORGANS: No significant abnormality. ADDITIONAL FINDINGS: None. SKELETAL SYSTEM: No acute abnormality IMPRESSION: 1. There is a fat-containing ventral hernia with a small amount of fluid in the hernia sac and some m ild stranding in the fat. The fluid and stranding in the fat raise the possibility of incarceration b ut is not definitive. Signer Name: Bharat Sinha MD Signed: 06/08/2020 11:24 PM Workstation Name: [id number]
--- NOTE | 2020-06-09 00:08 | Emergency Department Report ---
ED Abdominal Pain HPI - General Chief Complaint: Abdominal Pain Stated Complaint: ABD PAIN Time Seen by Provider: 06/08/20 20:48 Source: patient Mode of arrival: Ambulatory Limitations: No Limitations - History of Present Illness Initial Comments: This is a 59-year-old male nontoxic, well nourished in appearance, some signs of discomfort presents to the ED with c/o of nausea and vomiting and abdominal pain 1 day. Patient describes vomiting as food content and yellow gastric acid. Patient describes abdominal pain as cramping and aching with level of 10/10 near the umbilicus with bilateral lower abdomen area as well. Patient denies chest pain, short of breath, fever, hemoptysis, blood in stool, chills, headache, stiff neck, numbness or tingling. Patient denies any diarrhea or constipation. Denies any blood in stool. Patient denies any recent travels. Patient denies any allergies to significant past medical history. MD Complaint: abdominal pain -: days(s) Location: periumbilical, LLQ, RLQ Radiation: none Migration to: no migration Severity: severe Severity scale (0 -10): 10 Quality: cramping, aching Consistency: constant Improves With: nothing Worsens With: nothing Associated Symptoms: nausea, vomiting. denies: diarrhea, fever, chills, constipation, dysuria, hematemesis, hematochezia, melena, hematuria, anorexia, syncope - Related Data Home Medications Medication Instructions Recorded Confirmed Last Taken Abacavir/Dolutegravir/Lamivudi 1 each PO DAILY 12/13/15 05/27/17 09/06/16 [Triumeq 600-50-300 mg Tablet] Temazepam 30 mg PO QHS 12/13/15 05/27/17 09/06/16 carvediloL [Coreg] 25 mg PO BID 12/13/15 05/27/17 09/06/16 hydrOXYzine HCL [Hydroxyzine HCl] 25 mg PO Q6HR PRN 12/13/15 05/27/17 09/06/16 levETIRAcetam [Keppra TAB] 500 mg PO BID 12/13/15 05/27/17 09/06/16 lisinopriL [Zestril TAB] 20 mg PO QDAY 12/13/15 05/27/17 09/06/16 Diphenhydramine HCl [Sleep Tabs 25 mg PO QHS PRN 09/07/16 05/27/17 09/06/16 25MG] Ibuprofen [Motrin 800 MG tab] 800 mg PO Q8HR PRN 09/07/16 05/27/17 09/06/16 Previous Rx's Medication Instructions Recorded Last Taken Type Fluticasone/Salmeterol [Advair 1 puff IH BID #1 disk.w.dev 09/10/16 Unknown Rx Diskus 250-50 mcg] Ipratropium/Albuterol Sulfate 1 spray IH QID PRN #1 aer.w.adap 09/10/16 Unknown Rx [Combivent Respimat] Ipratropium/Albuterol Sulfate 1 ampul IH Q6HRT #180 ampul.neb 09/10/16 Unknown Rx [DUONEB *Not for PRN Use*] Tiotropium [place] [Spiriva 4 gm IH DAILY #1 mist.inhal 09/10/16 Unknown Rx Respimat] Furosemide [Lasix TAB] 20 mg PO QDAY #30 tablet 09/12/16 Unknown Rx Azithromycin [Zithromax TAB] 250 mg PO QDAY #5 tablet 02/18/17 Unknown Rx Benzonatate [Tessalon Perles] 100 mg PO Q8HR #20 capsule 03/16/17 Unknown Rx Allergies Allergy/AdvReac Type Severity Reaction Status Date / Time No Known Allergies Allergy Verified 05/11/20 09:16 ED Review of Systems ROS: Stated complaint: ABD PAIN Other details as noted in HPI Comment: All other systems reviewed and negative Constitutional: denies: chills, fever Eyes: denies: eye pain, eye discharge, vision change ENT: denies: ear pain, throat pain Respiratory: denies: cough, shortness of breath, wheezing Cardiovascular: denies: chest pain, palpitations Endocrine: no symptoms reported Gastrointestinal: abdominal pain, nausea, vomiting. denies: diarrhea, constipation, hematemesis, melena, hematochezia Genitourinary: as per HPI. denies: urgency, dysuria, discharge Musculoskeletal: denies: back pain, joint swelling, arthralgia Skin: denies: rash, lesions Neurological: denies: headache, weakness, paresthesias Psychiatric: denies: anxiety, depression Hematological/Lymphatic: denies: easy bleeding, easy bruising ED Past Medical Hx - Past Medical History Hx Hypertension: Yes Hx Congestive Heart Failure: Yes Hx Diabetes: Yes Hx Headaches / Migraines: Yes Hx Seizures: Yes Hx Asthma: Yes Hx COPD: Yes Hx HIV: Yes - Social History Smoking Status: Never Smoker Substance Use Type: None - Medications Home Medications: Home Medications Medication Instructions Recorded Confirmed Last Taken Type Abacavir/Dolutegravir/Lamivudi 1 each PO DAILY 12/13/15 05/27/17 09/06/16 History [Triumeq 600-50-300 mg Tablet] Temazepam 30 mg PO QHS 12/13/15 05/27/17 09/06/16 History carvediloL [Coreg] 25 mg PO BID 12/13/15 05/27/17 09/06/16 History hydrOXYzine HCL [Hydroxyzine HCl] 25 mg PO Q6HR PRN 12/13/15 05/27/17 09/06/16 History levETIRAcetam [Keppra TAB] 500 mg PO BID 12/13/15 05/27/17 09/06/16 History lisinopriL [Zestril TAB] 20 mg PO QDAY 12/13/15 05/27/17 09/06/16 History Diphenhydramine HCl [Sleep Tabs 25 mg PO QHS PRN 09/07/16 05/27/17 09/06/16 History 25MG] Ibuprofen [Motrin 800 MG tab] 800 mg PO Q8HR PRN 09/07/16 05/27/17 09/06/16 History Fluticasone/Salmeterol [Advair 1 puff IH BID #1 disk.w.dev 09/10/16 05/27/17 Unknown Rx Diskus 250-50 mcg] Ipratropium/Albuterol Sulfate 1 spray IH QID PRN #1 aer.w.adap 09/10/16 05/27/17 Unknown Rx [Combivent Respimat] Ipratropium/Albuterol Sulfate 1 ampul IH Q6HRT #180 ampul.neb 09/10/16 05/27/17 Unknown Rx [DUONEB *Not for PRN Use*] Tiotropium [place] [Spiriva 4 gm IH DAILY #1 mist.inhal 09/10/16 05/27/17 Unknown Rx Respimat] Furosemide [Lasix TAB] 20 mg PO QDAY #30 tablet 09/12/16 05/27/17 Unknown Rx Azithromycin [Zithromax TAB] 250 mg PO QDAY #5 tablet 02/18/17 05/27/17 Unknown Rx Benzonatate [Tessalon Perles] 100 mg PO Q8HR #20 capsule 03/16/17 05/27/17 Unknown Rx ED Physical Exam - General Limitations: No Limitations General appearance: alert, in no apparent distress - Head Head exam: Present: atraumatic, normocephalic - Eye Eye exam: Present: normal appearance - Neck Neck exam: Present: normal inspection, full ROM. Absent: tenderness, meningismus, lymphadenopathy - Respiratory Respiratory exam: Present: normal lung sounds bilaterally. Absent: respiratory distress, wheezes, rales, rhonchi, stridor, chest wall tenderness, accessory muscle use, decreased breath sounds, prolonged expiratory - Cardiovascular Cardiovascular Exam: Present: regular rate, normal rhythm, normal heart sounds. Absent: bradycardia, tachycardia, irregular rhythm, systolic murmur, diastolic murmur, rubs, gallop - GI/Abdominal GI/Abdominal exam: Present: soft, tenderness (Periumbilical with bilateral lower abdomen), normal bowel sounds. Absent: distended, guarding, rebound, rigid, diminished bowel sounds - Extremities Exam Extremities exam: Present: normal inspection, full ROM - Back Exam Back exam: Present: normal inspection, full ROM. Absent: tenderness, CVA tenderness (R), CVA tenderness (L), muscle spasm, paraspinal tenderness, vertebral tenderness, rash noted - Neurological Exam Neurological exam: Present: alert, oriented X3, normal gait - Psychiatric Psychiatric exam: Present: normal affect, normal mood - Skin Skin exam: Present: warm, dry, intact, normal color. Absent: rash ED Course Vital Signs 06/08/20 20:06 Temperature 98.1 F Pulse Rate 72 Respiratory 18 Rate Blood Pressure 173/91 O2 Sat by Pulse 97 Oximetry - Reevaluation(s) Reevaluation #1: 06/09/20 00:05 Patient is speaking in full sentences with some discomfort in the abdomen area. - Consultations Consultation #1: 06/09/20 00:05 Patient has been consulted with Dr. Murray (general surgery) about patient history, physical exam, and labs/CT results and agrees for admission with NPO after midnight. Consultation #2: 06/09/20 00:07 Patient has been consulted with Dr. Weathers about patient history, physical exam, and labs/CT results and accepts patient to services. ED Medical Decision Making - Lab Data Result diagrams: 06/08/20 20:28 06/08/20 20:28 Lab Results 06/08/20 06/08/20 06/08/20 Range/Units 20:28 20:28 Unknown WBC 5.8 (4.5-11.0) K/mm3 RBC 3.97 (3.65-5.03) M/mm3 Hgb 12.5 (10.1-14.3) gm/dl Hct 38.2 (30.3-42.9) % MCV 96 (79-97) fl MCH 32 (28-32) pg MCHC 33 (30-34) % RDW 14.2 (13.2-15.2) % Plt Count 242 (140-440) K/mm3 Lymph % (Auto) 31.5 (13.4-35.0) % [place] % (Auto) 6.6 (0.0-7.3) % Eos % (Auto) 2.9 (0.0-4.3) % Baso % (Auto) 0.5 (0.0-1.8) % Lymph # (Auto) 1.8 (1.2-5.4) K/mm3 [place] # (Auto) 0.4 (0.0-0.8) K/mm3 Eos # (Auto) 0.2 (0.0-0.4) K/mm3 Baso # (Auto) 0.0 (0.0-0.1) K/mm3 Seg Neutrophils % 58.5 (40.0-70.0) % Seg Neutrophils # 3.4 (1.8-7.7) K/mm3 Sodium 139 (137-145) mmol/L Potassium 3.9 (3.6-5.0) mmol/L Chloride 101.5 (98-107) mmol/L Carbon Dioxide 32 H (22-30) mmol/L Anion Gap 9 mmol/L BUN 20 H (7-17) mg/dL Creatinine 1.1 (0.6-1.2) mg/dL Estimated GFR > 60 ml/min BUN/Creatinine Ratio 18 % Glucose 130 H (65-100) mg/dL Calcium 9.3 (8.4-10.2) mg/dL Magnesium 1.70 (1.7-2.3) mg/dL Total Bilirubin 0.20 (0.1-1.2) mg/dL AST 12 (5-40) units/L ALT 15 (7-56) units/L Alkaline Phosphatase 83 (35-129) units/L Total Protein 7.0 (6.3-8.2) g/dL Albumin 3.6 L (3.9-5) g/dL Albumin/Globulin Ratio 1.1 % Lipase 19 (13-60) units/L Urine Color Yellow (Yellow) Urine Turbidity Clear (Clear) Urine pH 6.0 (5.0-7.0) Ur Specific [place] 1.021 (1.003-1.030) Urine Protein <15 mg/dl (Negative) mg/dL Urine Glucose (UA) Neg (Negative) mg/dL Urine Ketones Neg (Negative) mg/dL Urine Blood Neg (Negative) Urine Nitrite Neg (Negative) Urine Bilirubin Neg (Negative) Urine Urobilinogen < 2.0 (<2.0) mg/dL Ur Leukocyte Esterase Neg (Negative) Urine WBC (Auto) 2.0 (0.0-6.0) /HPF Urine RBC (Auto) 2.0 (0.0-6.0) /HPF U Epithel Cells (Auto) 2.0 (0-13.0) /HPF Urine Bacteria (Auto) 4+ (Negative) /HPF Urine Mucus Few /HPF - Radiology Data [facility] [address] [place] [address] Cat Scan Report Signed Patient: JULIETA LATHAM MR#: [id number] : 1960 Acct:[id number] Age/Sex: 59 / F ADM Date: 06/08/20 Loc: ED Attending Dr: Ordering Physician: JONATHAN RAYMOND NP Date of Service: 06/08/20 Procedure(s): CT abdomen pelvis w con Accession Number(s): [id number] cc: JONATHAN RAYMOND NP CT ABDOMEN AND PELVIS WITH CONTRAST INDICATION / CLINICAL INFORMATION: Patient complains of RIGHT sided abd pain x 1 day.. TECHNIQUE: Axial CT images were obtained through the abdomen and pelvis after 100 cc of Omnipaque 300 IV [address]. All CT scans at this location are performed using CT dose reduction for ALARA by means of automated exposure control. COMPARISON: None available. FINDINGS: LOWER CHEST: No significant abnormality. LIVER: No significant abnormality. GALLBLADDER: No significant abnormality. BILE DUCTS: No significant abnormality. PANCREAS: No significant abnormality. SPLEEN: No significant abnormality. ADRENALS: No significant abnormality. RIGHT KIDNEY / URETER: No significant abnormality. LEFT KIDNEY / URETER: No significant abnormality. STOMACH / SMALL BOWEL: No significant abnormality. COLON: No significant abnormality. APPENDIX: No significant abnormality. PERITONEUM: No free fluid. No free air. No fluid collection. There is a fat-containing ventral hernia above the level the umbilicus just to the right of midline. There is a small amount of fluid in the hernia sac. There is mild stranding in the fat within the hernia sac. LYMPH NODES: No significant adenopathy. AORTA / ARTERIES: No significant abnormality. IVC / VEINS: No significant abnormality. URINARY BLADDER: No significant abnormality. REPRODUCTIVE ORGANS: No significant abnormality. ADDITIONAL FINDINGS: None. SKELETAL SYSTEM: No acute abnormality IMPRESSION: 1. There is a fat-containing ventral hernia with a small amount of fluid in the hernia sac and some mild stranding in the fat. The fluid and stranding in the fat raise the possibility of incarceration but is not definitive. Signer Name: Bharat Sinha MD Signed: 06/08/2020 11:24 PM Workstation Name: [id number] Transcribed By: Dictated By: Bharat Sinha MD Electronically Authenticated By: Bharat Sinha MD Signed Date/Time: 06/08/202323 DD/ 19 TD/TT: - Medical Decision Making 59-year-old female that presents with incarcerated hernia and intractable pain. Patient is stable and was examined by me. Labs obtained and CT obtained and has been reviewed with the patient with no questions noted by the patient. Despite giving IV pain with medication patient pain is not controlled. Patient consulted with general surgery and agrees to admission. Patient admitted with hospitalist Dr. Weathers. At time of admission, the patient does not seem toxic or ill in appearance. No acute signs of distress noted. Patient agrees to admission treatment plan of care. No further questions noted by the patient. Critical care attestation.: If time is entered above; I have spent that time in minutes in the direct care of this critically ill patient, excluding procedure time. ED Disposition Clinical Impression: Incarcerated ventral hernia, Intractable abdominal pain Disposition: [id number] OP ADMIT IP TO THIS HOSP Is pt being admited?: Yes Condition: Stable Instructions: Abdominal Pain (ED)
[2020-06-09] MEDS ORDERED: ACETAMINOPHEN 325 MG TAB PO PRN ×2 (00:21→00:23)
[2020-06-09] MEDS ORDERED: ONDANSETRON 4 MG/2 ML INJ IV PRN ×2 (00:23→12:11)
[2020-06-09] MEDS ORDERED: hydrALAZINE 20 MG/1 ML INJ IV PRN (00:25)
[2020-06-09] MEDS ORDERED: ALBUTEROL SULFATE IH PRN (00:26)
[2020-06-09] MEDS ORDERED: IPRATROPIUM IH PRN (00:26)
[2020-06-09] MEDS ORDERED: MIST INHAL IH PRN (00:26)
[2020-06-09] MEDS ORDERED: IBUPROFEN 800 MG TAB PO PRN (00:26)
--- NOTE | 2020-06-09 00:33 | History and Physical Report ---
History of Present Illness Date of examination: 06/09/20 Date of admission: 06/09/20 Chief complaint: Abdominal pain History of present illness: 59-year-old male with past medical history of hypertension HIV seizure asthma and CHF was brought to the emergency room because of nausea and vomiting and abdominal pain 1 day. Patient c/o vomiting as food content and yellow gastric acid. Patient describes abdominal pain as cramping and aching with level of 10/10 near the umbilicus with bilateral lower abdomen area as well. Patient denies chest pain, short of breath, fever, hemoptysis, blood in stool, chills, headache, stiff neck, numbness or tingling. Patient denies any diarrhea or constipation. In the emergency room patient CT scan of the abdomen shows incarcerated ventral hernia Past History Past Medical History: diabetes, heart failure, HIV/AIDS, hypertension, seizures Medications and Allergies Allergies Allergy/AdvReac Type Severity Reaction Status Date / Time No Known Allergies Allergy Verified 05/11/20 09:16 Home Medications Medication Instructions Recorded Confirmed Last Taken Type Abacavir/Dolutegravir/Lamivudi 1 each PO DAILY 12/13/15 05/27/17 09/06/16 History [Triumeq 600-50-300 mg Tablet] Temazepam 30 mg PO QHS 12/13/15 05/27/17 09/06/16 History carvediloL [Coreg] 25 mg PO BID 12/13/15 05/27/17 09/06/16 History hydrOXYzine HCL [Hydroxyzine HCl] 25 mg PO Q6HR PRN 12/13/15 05/27/17 09/06/16 H istory levETIRAcetam [Keppra TAB] 500 mg PO BID 12/13/15 05/27/17 09/06/16 History lisinopriL [Zestril TAB] 20 mg PO QDAY 12/13/15 05/27/17 09/06/16 History Diphenhydramine HCl [Sleep Tabs 25 mg PO QHS PRN 09/07/16 05/27/17 09/06/16 History 25MG] Ibuprofen [Motrin 800 MG tab] 800 mg PO Q8HR PRN 09/07/16 05/27/17 09/06/16 History Fluticasone/Salmeterol [Advair 1 puff IH BID #1 disk.w.dev 09/10/16 05/27/17 Unknown Rx Diskus 250-50 mcg] Ipratropium/Albuterol Sulfate 1 spray IH QID PRN #1 aer.w.adap 09/10/16 05/27/17 Unknown Rx [Combivent Respimat] Ipratropium/Albuterol Sulfate 1 ampul IH Q6HRT #180 ampul.neb 09/10/16 05/27/17 Unknown Rx [DUONEB *Not for PRN Use*] Tiotropium [place] [Spiriva 4 gm IH DAILY #1 mist.inhal 09/10/16 05/27/17 Unknown Rx Respimat] Furosemide [Lasix TAB] 20 mg PO QDAY #30 tablet 09/12/16 05/27/17 Unknown Rx Azithromycin [Zithromax TAB] 250 mg PO QDAY #5 tablet 02/18/17 05/27/17 Unknown Rx Benzonatate [Tessalon Perles] 100 mg PO Q8HR #20 capsule 03/16/17 05/27/17 Unknown Rx Review of Systems Gastrointestinal: abdominal pain, nausea, vomiting Exam - Constitutional Vitals: Temp Pulse Resp BP Pulse Ox 98.1 F 72 18 173/91 97 06/08/20 20:06 06/08/20 20:06 06/08/20 20:06 06/08/20 20:06 06/08/20 20:06 General appearance: Present: no acute distress, well-nourished - EENT Eyes: Present: PERRL ENT: hearing intact, clear oral mucosa - Neck Neck: Present: supple, normal ROM - Respiratory Respiratory effort: normal Respiratory: bilateral: CTA - Cardiovascular Heart Sounds: Present: S1 & S2. Absent: rub, click - Extremities Extremities: pulses symmetrical, No edema Peripheral Pulses: within normal limits - Abdominal General gastrointestinal: Present: soft, tender, non-distended, normal bowel sounds Female genitourinary: Present: normal - Integumentary Integumentary: Present: clear, warm, dry - Musculoskeletal Musculoskeletal: gait normal, strength equal bilaterally - Psychiatric Psychiatric: appropriate mood/affect, intact judgment & insight - Neurologic Neurologic: CNII-XII intact, moves all extremities Results - Labs CBC & Chem 7: 06/08/20 20:28 06/08/20 20:28 Labs: Laboratory Last Values WBC 5.8 K/mm3 (4.5-11.0) 06/08/20 20: RBC 3.97 M/mm3 (3.65-5.03) 06/08/20 20: Hgb 12.5 gm/dl (10.1-14.3) 06/08/20 20: Hct 38.2 % (30.3-42.9) 06/08/20: MCV 96 fl (79-97) 06/08/20 20: MCH 32 pg (28-32) 06/08/20 20: MCHC 33 % (30-34) 06/08/20: RDW 14.2 % (13.2-15.2) 06/08/20: Plt Count 242 K/mm3 (140-440) 06/08/20: Lymph % (Auto) 31.5 % (13.4-35.0) 06/08/20: [place] % (Auto) 6.6 % (0.0-7.3) 06/08/20: Eos % (Auto) 2.9 % (0.0-4.3) 06/08/20: Baso % (Auto) 0.5 % (0.0-1.8) 06/08/20: Lymph # (Auto) 1.8 K/mm3 (1.2-5.4) 06/08/20: [place] # (Auto) 0.4 K/mm3 (0.0-0.8) 06/08/20: Eos # (Auto) 0.2 K/mm3 (0.0-0.4) 06/08/20 20: Baso # (Auto) 0.0 K/mm3 (0.0-0.1) 06/08/20: Seg Neutrophils % 58.5 % (40.0-70.0) 06/08/20: Seg Neutrophils # 3.4 K/mm3 (1.8-7.7) 06/08/20 20: Sodium 139 mmol/L (137-145) 06/08/20: Potassium 3.9 mmol/L (3.6-5.0) 06/08/20 20:28 Chloride 101.5 mmol/L (98-107) 06/08/20 20:28 Carbon Dioxide 32 mmol/L (22-30) H 06/08/20 20:28 Anion Gap 9 mmol/L 06/08/20 20:28 BUN 20 mg/dL (7-17) H 06/08/20 20:28 Creatinine 1.1 mg/dL (0.6-1.2) 06/08/20 20:28 Estimated GFR > 60 ml/min 06/08/20 20:28 BUN/Creatinine Ratio 18 % 06/08/20 20:28 Glucose 130 mg/dL (65-100) H 06/08/20 20:28 Calcium 9.3 mg/dL (8.4-10.2) 06/08/20 20:28 Magnesium 1.70 mg/dL (1.7-2.3) 06/08/20 20:28 Total Bilirubin 0.20 mg/dL (0.1-1.2) 06/08/20 20:28 AST 12 units/L (5-40) 06/08/20 20:28 ALT 15 units/L (7-56) 06/08/20 20:28 Alkaline Phosphatase 83 units/L (35-129) 06/08/20 20:28 Total Protein 7.0 g/dL (6.3-8.2) 06/08/20 20:28 Albumin 3.6 g/dL (3.9-5) L 06/08/20 20:28 Albumin/Globulin Ratio 1.1 % 06/08/20 20:28 Lipase 19 units/L (13-60) 06/08/20 20:28 Urine Color Yellow (Yellow) 06/08/20 Unknown Urine Turbidity Clear (Clear) 06/08/20 Unknown Urine pH 6.0 (5.0-7.0) 06/08/20 Unknown Ur Specific [place] 1.021 (1.003-1.030) 06/08/20 Unknown Urine Protein <15 mg/dl mg/dL (Negative) 06/08/20 Unknown Urine Glucose (UA) Neg mg/dL (Negative) 06/08/20 Unknown Urine Ketones Neg mg/dL (Negative) 06/08/20 Unknown Urine Blood Neg (Negative) 06/08/20 Unknown Urine Nitrite Neg (Negative) 06/08/20 Unknown Urine Bilirubin Neg (Negative) 06/08/20 Unknown Urine Urobilinogen < 2.0 mg/dL (<2.0) 06/08/20 Unknown Ur Leukocyte Esterase Neg (Negative) 06/08/20 Unknown Urine WBC (Auto) 2.0 /HPF (0.0-6.0) 06/08/20 Unknown Urine RBC (Auto) 2.0 /HPF (0.0-6.0) 06/08/20 Unknown U Epithel Cells (Auto) 2.0 /HPF (0-13.0) 06/08/20 Unknown Urine Bacteria (Auto) 4+ /HPF (Negative) 06/08/20 Unknown Urine Mucus Few /HPF 06/08/20 Unknown - Imaging and Cardiology CT scan - abdomen: image reviewed Assessment and Plan VTE prophylaxis?: Chemical Plan of care discussed with patient/family: Yes - Patient Problems (1) Incarcerated ventral hernia Current Visit: Yes Status: Acute Plan to address problem: Admit the patient to the medical telemetry. Nothing by mouth. Normal saline at the rate of 100 cc/h. Protonix 40 mg p.o. daily. Zofran 4 mg IV every 6 hours as needed. Morphine 2 mg IV every 4 hours as needed. Will consult surgery for further evaluation and treatment. (2) Intractable abdominal pain Current Visit: Yes Status: Acute Plan to address problem: Nothing by mouth. Normal saline at the rate of 100 cc/h. Protonix 40 mg p.o. daily. Zofran 4 mg IV every 6 hours as needed. Morphine 2 mg IV every 4 hours as needed. Will consult surgery for further evaluation and treatment. (3) CHF (congestive heart failure) Current Visit: No Status: Acute Plan to address problem: Stable. We will monitor the patient closely (4) HTN (hypertension), benign Current Visit: No Status: Acute Plan to address problem: Patient is on Coreg 25 mg p.o. twice daily, hydralazine 10 mg IV every 6 hours as needed. We monitor the blood pressure closely (5) HIV (human immunodeficiency virus infection) Current Visit: No Status: Chronic Plan to address problem: We will continue the HIV medication. Patient will follow up with HIV clinic as outpatient (6) DVT prophylaxis Current Visit: No Status: Acute Plan to address problem: Heparin 5000 units subcu every 8 hours for DVT prophylaxis. Protonix 40 mg p.o. daily for GI prophylaxis. Patient is a full code (7) Diabetes 1.5, managed as type 2 Current Visit: Yes Status: Acute Plan to address problem: We will monitor the blood glucose closely. We will put the patient on insulin sliding scale if needed. Recheck BMP in the morning
[2020-06-09] MEDS ORDERED: MORPHINE 2 MG/1 ML INJ IV PRN (00:40)
[2020-06-09] MEDS ORDERED: D5W/0.45% NACL 1,000 ML IV SCH (01:00)
[2020-06-09] MEDS ORDERED: cefTRIAXone/NS 2 GM/100 ML 2 GM/100 ML BAG IV SCH ×3 (01:00→22:00)
[2020-06-09] MEDS: ONDANSETRON 4 MG/2 ML INJ IV PRN ×2 (02:04→21:52)
[2020-06-09] MEDS: IPRATROPIUM/ALBUTEROL SULFATE 3 ML AMPUL.NEB IH SCH ×4 (02:04→20:06)
[2020-06-09] MEDS: HEPARIN 5,000 UNIT/1 ML VIAL SUB-Q SCH ×3 (06:05→21:52)
[2020-06-09] MEDS: SODIUM CHLORIDE 0.9% 1000 ML 1,000 ML IV SCH (06:05)
[2020-06-09] MEDS: BUDESONIDE 0.5 MG/2 ML NEBU IH SCH ×2 (08:21→20:05)
[2020-06-09] MEDS: ARFORMOTEROL 15 MCG/2 ML NEBU IH SCH ×2 (08:21→20:04)
[2020-06-09] MEDS: PANTOPRAZOLE 40 MG TAB PO SCH (08:35)
[2020-06-09] MEDS: carvediloL 25 MG TAB PO SCH (08:36)
--- NOTE | 2020-06-09 09:41 | Consultation ---
History of Present Illness Consult date: 06/09/20 Reason for consult: abdominal pain Chief complaint: abdominal pain - History of present illness History of present illness: 59-year-old female with a past medical history of CHF, morbid obesity, diabetes who presented to the emergency room with 2 days of right-sided abdominal pain. Patient states that the pain started suddenly and after this was exacerbated by any type of movement, coughing, laughing. Pain is sharp and localized just to the right of the umbilicus. It does not radiate. The pain is mildly improved by the pain medication received in the hospital however made worse with palpation of the area. At first she thought the pain was related to gas but after she had flatus and had a bowel movement the pain did not improve at all. She had episodes of nonbilious/nonbloody emesis. She has never had pain like this before. No fevers or chills. No chest pain or shortness of breath. Past History Past Medical History: diabetes, heart failure, HIV/AIDS, hypertension, seizures Medications and Allergies Allergies Allergy/AdvReac Type Severity Reaction Status Date / Time No Known Allergies Allergy Verified 05/11/20 09:16 Home Medications Medication Instructions Recorded Confirmed Last Taken Type Abacavir/Dolutegravir/Lamivudi 1 each PO DAILY 12/13/15 05/27/17 09/06/16 History [Triumeq 600-50-300 mg Tablet] Temazepam 30 mg PO QHS 12/13/15 05/27/17 09/06/16 History carvediloL [Coreg] 25 mg PO BID 12/13/15 05/27/17 09/06/16 History hydrOXYzine HCL [Hydroxyzine HCl] 25 mg PO Q6HR PRN 12/13/15 05/27/17 09/06/16 History levETIRAcetam [Keppra TAB] 500 mg PO BID 12/13/15 05/27/17 09/06/16 History lisinopriL [Zestril TAB] 20 mg PO QDAY 12/13/15 05/27/17 09/06/16 History Diphenhydramine HCl [Sleep Tabs 25 mg PO QHS PRN 09/07/16 05/27/17 09/06/16 History 25MG] Ibuprofen [Motrin 800 MG tab] 800 mg PO Q8HR PRN 09/07/16 05/27/17 09/06/16 History Fluticasone/Salmeterol [Advair 1 puff IH BID #1 disk.w.dev 09/10/16 05/27/17 Unknown Rx Diskus 250-50 mcg] Ipratropium/Albuterol Sulfate 1 spray IH QID PRN #1 aer.w.adap 09/10/16 05/27/17 Unknown Rx [Combivent Respimat] Ipratropium/Albuterol Sulfate 1 ampul IH Q6HRT #180 ampul.neb 09/10/16 05/27/17 Unknown Rx [DUONEB *Not for PRN Use*] Tiotropium [place] [Spiriva 4 gm IH DAILY #1 mist.inhal 09/10/16 05/27/17 Unknown Rx Respimat] Furosemide [Lasix TAB] 20 mg PO QDAY #30 tablet 09/12/16 05/27/17 Unknown Rx Azithromycin [Zithromax TAB] 250 mg PO QDAY #5 tablet 02/18/17 05/27/17 Unknown Rx Benzonatate [Tessalon Perles] 100 mg PO Q8HR #20 capsule 03/16/17 05/27/17 Unknown Rx Active Meds: Active Medications Abacavir Sulfate (Abacavir 300 Mg Tab) 600 mg PO QDAY DELIO Acetaminophen (Acetaminophen 325 Mg Tab) 650 mg PO Q4H PRN PRN Reason: Pain MILD(1-3)/Fever >100.5/COLON Albuterol/Ipratropium (Ipratropium/Albuterol Sulfate 3 Ml Ampul.Neb) 1 ampul IH Q6HRT [facility] Last Admin: 06/09/20 08:21 Dose: 1 ampul Documented by: Arformoterol Tartrate (Arformoterol 15 Mcg/2 Ml Nebu) 15 mcg IH Q12HRT [facility] Last Admin: 06/09/20 08:21 Dose: 15 mcg Documented by: Azithromycin (Azithromycin 250 Mg Tab) 250 mg PO QDAY [facility]; Protocol Budesonide (Budesonide 0.5 Mg/2 Ml Nebu) 0.5 mg IH BIDRT [facility] Last Admin: 06/09/20 08:21 Dose: 0.5 mg Documented by: Carvedilol (Carvedilol 25 Mg Tab) 25 mg PO BID@0800,1700 [facility] Last Admin: 06/09/20 08:36 Dose: 25 mg Documented by: Cefazolin Sodium (Cefazolin/Sterile Water 2 Gm/20 Ml Syringe) 2 gm IV PREOP NR Heparin Sodium (Porcine) (Heparin 5,000 Unit/1 Ml Vial) 5,000 unit SUB-Q Q8HR [facility] Last Admin: 06/09/20 06:05 Dose: 5,000 unit Documented by: Hydralazine HCl (Hydralazine 20 Mg/1 Ml Inj) 10 mg IV Q6H PRN PRN Reason: htn Sodium Chloride (Nacl 0.9% 1000 Ml) 1,000 mls @ 100 mls/hr IV DIRECT [facility] Last Admin: 06/09/20 06:05 Dose: 100 mls/hr Documented by: Ibuprofen (Ibuprofen 800 Mg Tab) 800 mg PO Q8H PRN PRN Reason: PAIN (1-4) Lamivudine (Lamivudine 150 Mg Tab) 300 mg PO Q24HR [facility] Levetiracetam (Levetiracetam 500 Mg Tab) 500 mg PO BID DELIO Lisinopril (Lisinopril 20 Mg Tab) 20 mg PO QDAY [facility] Morphine Sulfate (Morphine 2 Mg/1 Ml Inj) 2 mg IV Q4H PRN PRN Reason: Pain, Moderate (4-6) Ondansetron HCl (Ondansetron 4 Mg/2 Ml Inj) 4 mg IV Q8H PRN PRN Reason: Nausea And Vomiting Last Admin: 06/09/20 02:04 Dose: 4 mg Documented by: Pantoprazole Sodium (Pantoprazole 40 Mg Tab) 40 mg PO QDAC [facility] Last Admin: 06/09/20 08:35 Dose: 40 mg Documented by: Sodium Chloride (Sodium Chloride 0.9% 10 Ml Flush Syringe) 10 ml IV BID [facility] Sodium Chloride (Sodium Chloride 0.9% 10 Ml Flush Syringe) 10 ml IV PRN PRN PRN Reason: LINE FLUSH Review of Systems All systems: negative (10 point ROS performed and negative except for that listed in HPI) Exam Vital Signs Temp Pulse Resp BP Pulse Ox 98.1 F 72 18 173/91 97 06/08/20 20:06 06/08/20 20:06 06/08/20 20:06 06/08/20 20:06 06/08/20 20:06 Narrative exam: Gen.: Awake, alert, oriented 3. No apparent distress ENT: Trachea midline. No lymphadenopathy. No scleral icterus or conjunctival pallor CV: S1, S2 present Respiratory: No audible wheezes Abdomen: Soft, nondistended, obese. Point tenderness in the right mid abdomen just to the right of the umbilicus. At this location there is a firm mass. Reduction could not be attempted due to pain. There are no skin changes. The remainder of the abdominal exam is benign. No rebound, rigidity, guarding Extremities: No clubbing, cyanosis, edema Results - Labs 06/08/20 20:28 06/08/20 20:28 Abnormal lab results 06/08/20 Range/Units 20:28 Carbon Dioxide 32 H (22-30) mmol/L BUN 20 H (7-17) mg/dL Glucose 130 H (65-100) mg/dL Albumin 3.6 L (3.9-5) g/dL Diabetes panel 06/08/20 Range/Units 20:28 Sodium 139 (137-145) mmol/L Potassium 3.9 (3.6-5.0) mmol/L Chloride 101.5 (98-107) mmol/L Carbon Dioxide 32 H (22-30) mmol/L BUN 20 H (7-17) mg/dL Creatinine 1.1 (0.6-1.2) mg/dL Glucose 130 H (65-100) mg/dL Calcium 9.3 (8.4-10.2) mg/dL AST 12 (5-40) units/L ALT 15 (7-56) units/L Alkaline Phosphatase 83 (35-129) units/L Total Protein 7.0 (6.3-8.2) g/dL Albumin 3.6 L (3.9-5) g/dL Calcium panel 06/08/20 Range/Units 20:28 Calcium 9.3 (8.4-10.2) mg/dL Albumin 3.6 L (3.9-5) g/dL Pituitary panel 06/08/20 Range/Units 20:28 Sodium 139 (137-145) mmol/L Potassium 3.9 (3.6-5.0) mmol/L Chloride 101.5 (98-107) mmol/L Carbon Dioxide 32 H (22-30) mmol/L BUN 20 H (7-17) mg/dL Creatinine 1.1 (0.6-1.2) mg/dL Glucose 130 H (65-100) mg/dL Calcium 9.3 (8.4-10.2) mg/dL Adrenal panel 06/08/20 Range/Units 20:28 Sodium 139 (137-145) mmol/L Potassium 3.9 (3.6-5.0) mmol/L Chloride 101.5 (98-107) mmol/L Carbon Dioxide 32 H (22-30) mmol/L BUN 20 H (7-17) mg/dL Creatinine 1.1 (0.6-1.2) mg/dL Glucose 130 H (65-100) mg/dL Calcium 9.3 (8.4-10.2) mg/dL Total Bilirubin 0.20 (0.1-1.2) mg/dL AST 12 (5-40) units/L ALT 15 (7-56) units/L Alkaline Phosphatase 83 (35-129) units/L Total Protein 7.0 (6.3-8.2) g/dL Albumin 3.6 L (3.9-5) g/dL - Imaging CT scan - abdomen: report reviewed, image reviewed CT scan - pelvis: report reviewed, image reviewed Assessment and Plan 59-year-old female with incarcerated ventral hernia containing fat Pt stable. Still with significant pain at site of hernia which is not reducible. Plan: 1. NPO 2. IVF 3. prn pain control 4. DVT ppx 5. care clinician consult 6. restart home meds per 1' team 7. As the patient is symptomatic from the hernia, recommend proceeding with hernia repair. I discussed all risk benefits, alternatives to surgery with the patient, her daughter, and her sister. All questions were answered. They are agreeable to proceed. Consent obtained for robotic assisted ventral hernia repair with mesh, possible open. Patient added onto the OR schedule for today. 8. Postoperative pain management plan along with activity restrictions discussed with patient in detail. 9. Does not need standing abx - will order one dose ancef for OR Thank you for this consultation. Please call with any questions or concerns. Evaluation and treatment of this patient was during the time of the national and state emergency arising from COVID19 coronavirus pandemic. Treatment and procedures performed meet the current and available best practice and guidelines for patient during the COVID pandemic.
[2020-06-09] MEDS: LISINOPRIL 20 MG TAB PO SCH (09:53)
[2020-06-09] MEDS: levETIRAcetam 500 MG TAB PO SCH ×2 (09:53→21:52)
[2020-06-09] MEDS: ABACAVIR 300 MG TAB PO SCH (09:54)
[2020-06-09] MEDS: DOLUTEGRAVIR 50 MG TAB PO SCH (09:54)
[2020-06-09] MEDS ORDERED: [UNRECOGNIZED DRUG - OTHER] PO SCH (10:00)
[2020-06-09] MEDS ORDERED: LAMIVUDI PO SCH (10:00)
[2020-06-09] MEDS ORDERED: AZITHROMYCIN 250 MG TAB PO SCH (10:00)
[2020-06-09] MEDS ORDERED: DOLUTEGRAVIR PO SCH (10:00)
[2020-06-09] MEDS ORDERED: ceFAZolin/STERILE WATER 2 GM/20 ML SYRINGE IV NR (10:00)
[2020-06-09] MEDS ORDERED: NON-FORMULARY EACH (Fluticasone/Salmeterol [Advair Diskus 250-50 Mcg] 1 EACH Blst.W.Dev) IH SCH (10:00)
[2020-06-09] MEDS ORDERED: ABACAVIR PO SCH (10:00)
[2020-06-09] MEDS ORDERED: NON-FORMULARY EACH (Tiotropium Bromide [Spiriva Respimat] 4 GM Mist.Inhal) IH SCH (10:00)
--- NOTE | 2020-06-09 11:11 | Anesthesia Consultation ---
Anesthesia Consult and Med Hx Date of service: 06/09/20 - Airway Anesthetic Teeth Evaluation: Dentures ROM Head & Neck: Adequate Mental/Hyoid Distance: Adequate Mallampati Class: Class II Intubation Access Assessment: Possibly Difficult - Pulmonary Exam CTA: Yes - Cardiac Exam Cardiac Exam: RRR - Pre-Operative Health Status ASA Pre-Surgery Classification: ASA3 Proposed Anesthetic Plan: General Nerve Block: TAP - Pulmonary Hx Smoking: Yes (quit 5 years ago) Hx Asthma: Yes COPD: Yes Hx Pneumonia: Yes Hx Sleep Apnea: No - Cardiovascular System Hx Hypertension: Yes (h/o CHF ef 40-45% in 2018; ekg ordered) - Central Nervous System Hx Seizures: Yes (patient denies ever having seizute but is on anticonvulsant) Hx Back Pain: Yes - Gastrointestinal Hx Gastroesophageal Reflux Disease: No - Endocrine Hx Non-Insulin Dependent Diabetes: Yes (on metformin 1000mg BID) - Other Systems Hx Alcohol Use: No Hx Substance Use: No Hx Obesity: Yes (BMI 45)
--- NOTE | 2020-06-09 11:12 | Anesthesia Day of Surgery ---
Anesthesia Day of Surgery - Day of Surgery Patient Examined: Yes Patient H&P Reviewed: Yes Patient is NPO: Yes Beta Blockers: No Cardiac Clearance: No (Discussed CHF and previous ECHO with Dr. Beard; EKG ordered)
--- NOTE | 2020-06-09 11:12 | Anesthesia Consultation ---
Anesthesia Consult and Med Hx Date of service: 06/09/20 - Airway Anesthetic Teeth Evaluation: Poor, Chipped, Dentures ROM Head & Neck: Adequate Mental/Hyoid Distance: Adequate Mallampati Class: Class II Intubation Access Assessment: Probably Good - Pulmonary Exam CTA: Yes - Cardiac Exam Cardiac Exam: RRR - Pulmonary Hx Asthma: Yes COPD: Yes Hx Pneumonia: Yes - Cardiovascular System Hx Hypertension: Yes - Central Nervous System Hx Seizures: Yes Hx Back Pain: Yes
[2020-06-09] MEDS ORDERED: propofoL 200 MG/20 ML VIAL IV ONE (11:19)
[2020-06-09] MEDS ORDERED: SUCCINYLCHOLINE CHLORIDE 200 MG/10 ML INJ MDV ONE (11:19)
[2020-06-09] MEDS ORDERED: fentaNYL 100 MCG/2 ML INJ ONE (11:19)
[2020-06-09] MEDS ORDERED: HYDROmorphone 1 MG/1 ML INJ ONE (11:52)
[2020-06-09] MEDS ORDERED: SODIUM CHLORIDE 0.9% 1000 ML 1,000 ML IV SCH (12:00)
[2020-06-09] MEDS ORDERED: BUPIVACAINE/PF (0.5%) 5 MG/1 ML 30 ML VIAL INFILTRATI ONE ×3 (12:06→15:30)
[2020-06-09] MEDS ORDERED: LIDOCAINE (1%) 10 MG/1 ML VIAL 20 ML MDV ONE ×2 (12:06→15:31)
[2020-06-09] MEDS ORDERED: HYDROmorphone 1 MG/1 ML INJ IV PRN ×2 (12:11→16:24)
[2020-06-09] MEDS ORDERED: fentaNYL 100 MCG/2 ML INJ IV PRN (12:11)
[2020-06-09] MEDS: GABAPENTIN 300 MG CAP PO NR ×2 (12:25→21:52)
[2020-06-09] MEDS ORDERED: MAGNESIUM OXIDE 400 MG TAB PO ONE (13:00)
[2020-06-09] MEDS ORDERED: CELECOXIB 200 MG CAP PO NR (13:00)
[2020-06-09] MEDS ORDERED: MIDAZOLAM 2 MG/2 ML INJ IV NR (13:00)
[2020-06-09] MEDS ORDERED: ACETAMINOPHEN 325 MG TAB PO ONE (13:00)
[2020-06-09] MEDS ORDERED: ePHEDrine SULFATE 50 MG/1 ML INJ ONE (13:24)
[2020-06-09] MEDS ORDERED: ceFAZolin 1 GM VIAL ONE (13:29)
[2020-06-09] MEDS ORDERED: LIDOCAINE (1%) 10 MG/1 ML VIAL 20 ML MDV INFILTRATI ONE (13:41)
[2020-06-09] MEDS ORDERED: WATER FOR IRRIG STERILE 1,500 ML BOTTLE IR ONE (13:48)
--- NOTE | 2020-06-09 14:26 | Event Note ---
Date: 06/09/20 This is a 59-year-old female presented with incarcerated ventral hernia This is the second visit after midnight Patient was taken to the OR for abdominal surgery We will continue current management and plan as dictated in the HPI
[2020-06-09] MEDS ORDERED: SUGAMMADEX SODIUM 200 MG/2 ML VIAL IV ONE (14:49)
[2020-06-09] MEDS ORDERED: ROCURONIUM 50 MG/5 ML INJ IV ONE (15:17)
--- NOTE | 2020-06-09 16:00 | Post Operative Note ---
Pre-op diagnosis: incarcerated ventral hernia Post-op diagnosis: same Findings: Incarcerated ventral hernia containing omentum and large amount of preperitoneal fat. Smaller fascial defects adjacent to hernia including small defect at umbilicus. Aggregate hernia measurement approximately 6cm x 5cm repaired with 15 cm x 10.4 cm mesh Procedure: robotic assisted lysis of adhesions, repair of incarcerated ventral hernia with mesh Anesthesia: MIKKIA, local Surgeon: MARIA L DAI Churn Drill Operator: DEVI PUGA Estimated blood loss: minimal Pathology: list (hernia contents) Specimen disposition: to lab Condition: stable Disposition: PACU
[2020-06-09] MEDS: MORPHINE 2 MG/1 ML INJ IV PRN (21:51)
[2020-06-09] MEDS: IBUPROFEN 800 MG TAB PO SCH (21:51)
[2020-06-09] MEDS: GABAPENTIN 300 MG CAP PO SCH (21:53)
[2020-06-10] MEDS: IPRATROPIUM/ALBUTEROL SULFATE 3 ML AMPUL.NEB IH SCH ×4 (02:29→20:01)
[2020-06-10] MEDS: SODIUM CHLORIDE 0.9% 1000 ML 1,000 ML IV SCH (05:22)
[2020-06-10] MEDS: HEPARIN 5,000 UNIT/1 ML VIAL SUB-Q SCH ×3 (05:24→22:01)
[2020-06-10] MEDS: ONDANSETRON 4 MG/2 ML INJ IV PRN (05:24)
[2020-06-10] MEDS: IBUPROFEN 800 MG TAB PO SCH ×3 (05:24→22:00)
[2020-06-10] MEDS: MORPHINE 2 MG/1 ML INJ IV PRN ×3 (05:25→22:17)
[2020-06-10 05:42] LABS: BUN/Creatinine Ratio 16; Blood Urea Nitrogen 14 mg/dL (7-17); Calcium 8.3 mg/dL (8.4-10.2); Hemolysis Index 3
[2020-06-10] MEDS: ARFORMOTEROL 15 MCG/2 ML NEBU IH SCH ×2 (08:28→20:00)
[2020-06-10] MEDS: BUDESONIDE 0.5 MG/2 ML NEBU IH SCH ×2 (08:29→19:59)
[2020-06-10] MEDS: carvediloL 25 MG TAB PO SCH ×3 (09:00→16:16)
[2020-06-10] MEDS: PANTOPRAZOLE 40 MG TAB PO SCH (09:00)
--- NOTE | 2020-06-10 09:21 | Operative Report ---
PREOPERATIVE DIAGNOSIS: Incarcerated ventral hernia. POSTOPERATIVE DIAGNOSIS: Incarcerated ventral hernia. FINDINGS: Incarcerated ventral hernia containing omentum and large amount of preperitoneal fat. Smaller fascial defects adjacent to the hernia including small defect at the umbilicus. Aggregate hernia measurement approximately 6 cm x 5 cm repaired with a 15 cm x 10.4 cm Bard Ventralex composite mesh. PROCEDURE: Robotic-assisted lysis of adhesions, repair of incarcerated ventral hernia with mesh. ANESTHESIA: General endotracheal anesthesia, local. SURGEON: Glendy Murray DO MANUFACTURING CHIEF ENGINEER: Kylah Bazzi MD ESTIMATED BLOOD LOSS: Minimal. PATHOLOGY: Hernia contents. SPECIMEN DISPOSITION: To lab. CONDITION DISPOSITION: The patient is stable to PACU. HISTORY OF PRESENT ILLNESS AND INDICATION: The patient is a 59-year-old female who presented to the Emergency Room with complaints of abdominal pain. The patient was found to have a ventral hernia containing incarcerated fat, which could not be reduced. The site of the hernia was extremely tender to palpation and the patient was admitted to the hospital. As the patient was symptomatic, it was recommended that the hernia be repaired. All risks, benefits and alternatives to surgery were discussed with the patient in detail and questions answered. Consent was obtained. PROCEDURE IN DETAIL: The patient was identified in the preoperative area and taken back to the operating room and placed on the operating table in supine position. After anesthesia was induced, a Kevin catheter was sterilely placed by circulating nurse. Both arms were tucked and all bony prominences were padded appropriately. The abdomen was then prepped and draped in the usual sterile fashion and a timeout performed. Local anesthetic was infiltrated into the skin at the intended incision site. A jerry incision was made at the umbilicus through which a Veress needle was inserted. The Veress needle position was confirmed using saline drop test and the abdomen insufflated to 15 mmHg. The right upper quadrant 5 mm incision was made through which a 5 mm Optiview trocar was placed. The abdomen was inspected. There was no underlying injury to any of the abdominal structures. The Veress needle was identified and removed. There was omentum incarcerated in the hernia, which was gently reduced with manual pressure. Once the omentum was reduced, the hernia defect was visible at the mid epigastrum. There were some adhesions from the omental to the anterior abdominal wall at the site of the hernia. The patient was tilted to the left and two additional trocars were placed. A 12 mm right lateral abdominal wall trocar and an 8 mm right lower quadrant robotic trocar placed under direct visualization. The 5 mm right upper quadrant trocar was replaced with an 8 mm robotic trocar under direct visualization. A Ray-Catrina was placed in the abdomen. The robot was then docked. A monopolar scissor was placed in arm #1 and a fenestrated bipolar grasper in arm #2. The surgeon was then transferred to the console. The omental adhesions to the anterior abdominal wall were lysed using monopolar electrocautery. Once the omentum was reduced, it was inspected and hemostasis ensured. The hernia defect was visualized. It was then decided to create a preperitoneal flap in order to perform a preperitoneal repair. The peritoneum was scored approximately 2-3 cm from the defect. The peritoneal flap was taken down in avascular plane on both sides of the hernia. The hernia sac was then gently reduced using blunt dissection and electrocautery. There was a very large amount of preperitoneal fat incarcerated within the hernia, which was also gently reduced. Once the hernia contents were completely reduced, the flap was carried out in the lateral direction in order to create enough space for mesh placement. During the dissection, three additional very small subcentimeter fascial defects were encountered to the left of and inferior to the main hernia defect. A small amount of preperitoneal fat was incarcerated in each one of these fascial defects which was gently reduced. Once enough space was created for placement of a mesh, the preperitoneal flap was checked for hemostasis, which was carefully ensured. There were some very small peritoneal tears identified during the dissection. Once hemostasis was achieved, the hernia defects were measured in aggregate. This measured approximately 6 cm cephalad caudad, 5 cm in width. It was decided to repair this with a 15 cm x 10.4 cm Bard Ventralight composite mesh. The mesh along with suture material was placed into the abdomen by the pediatric assistant surgeon. The fascial defects were closed in a running fashion using 0 V-Loc suture. The mesh was placed into the preperitoneal pocket with the coated side facing the bowel. The mesh was fixated in 4 quadrants using 2-0 Vicryl interrupted suture. The mesh was seen to lay flat and with adequate coverage of all defects. The peritoneum was then approximated using a running 3-0 V-Loc stitch from either side and overlapping in the middle. During fascial closure, mesh fixation and peritoneal flap closure, the pressure in the abdomen was turned down to 8 mmHg. At this point, the robot was undocked and the surgeon scrubbed back in. The remainder of the case was performed laparoscopically. All the mesh and suture material were removed from the abdomen under direct visualization. The preperitoneal fat that was removed was placed into an EndoCatch bag and removed via the 12 mm port and passed off table as specimen. The 12 mm port fascia was then closed with an interrupted 0 Vicryl stitch using the Etienne-Srinath device. The remainder of the ports were removed under direct visualization and the abdomen slowly desufflated. The mesh was seen to lay flat in the preperitoneal space. The skin incisions were once again infiltrated with local anesthetic. The skin incisions were closed with 4-0 Monocryl subcuticular stitches and skin glue. An abdominal binder was applied to the patient. At the end of the case, all sponge, instrument, sharp counts were correct x2. The Kevin catheter was removed. The patient was awoken from anesthesia, extubated, and taken to PACU in stable condition. JOB# [id number] CORTES/ALENA MCLEOD
--- NOTE | 2020-06-10 10:56 | Progress Note ---
Assessment and Plan 59 yom F s/p robotic assisted lysis of adhesions, repair of incarcerated ventral hernia with mesh, POD 1 Plan: 1. Soft diet with protein supplements 2. dc IVF 3. prn PO pain control 4. abdominal binder at all times 5. DVT ppx 6. IS/pulm toilet 7. OOB/ambulate 8. wean supplemental O2 9. OK to dc in am tomorrow from surgery standpoint. Offered patient [facility] but she declined. Pt to follow up in surgery clinic in 2 weeks upon dc. Thank you, please call with questions. Subjective Date of service: 06/10/20 Narrative: Pt seen and examined. c/o soreness at incision sites. Has been OOB to bathroom on her own. No f/c. Tolerating diet but poor appetite. Using IS, no SOB. Pain controlled. Objective Vital Signs - 12hr 06/10/20 06/10/20 06/10/20 00:15 04:00 04:04 Temperature 97.6 F 97.6 F Pulse Rate 71 76 76 Pulse Rate [ Bilateral Throughout] Respiratory 20 16 Rate Respiratory Rate [Bilateral Throughout] Blood Pressure 121/66 Blood Pressure 128/68 [Left] O2 Sat by Pulse 97 97 Oximetry 06/10/20 06/10/20 06/10/20 07:53 08:00 08:30 Temperature 98.6 F Pulse Rate 82 Pulse Rate [ 85 Bilateral Throughout] Respiratory 18 Rate Respiratory 17 Rate [Bilateral Throughout] Blood Pressure 104/62 Blood Pressure [Left] O2 Sat by Pulse 95 92 Oximetry 06/10/20 06/10/20 09:00 09:01 Temperature Pulse Rate 82 82 Pulse Rate [ Bilateral Throughout] Respiratory Rate Respiratory Rate [Bilateral Throughout] Blood Pressure 104/62 104/62 Blood Pressure [Left] O2 Sat by Pulse Oximetry - General physical appearance Narrative Exam: Gen: AAOx3. NAD CV: S1, S2+ Resp; even and unlabored Abd: soft, ND, obese, + TTP near incisions. Incision c/d/i. No r/r/g. Abdominal binder in place Ext: no c/c/e - Labs 06/08/20 20:28 06/10/20 04:47 Diabetes panel 06/10/20 Range/Units 04:47 Sodium 136 L (137-145) mmol/L Potassium 3.8 (3.6-5.0) mmol/L Chloride 100.6 (98-107) mmol/L Carbon Dioxide 29 (22-30) mmol/L BUN 14 (7-17) mg/dL Creatinine 0.9 (0.6-1.2) mg/dL Glucose 122 H (65-100) mg/dL Calcium 8.3 L (8.4-10.2) mg/dL Calcium panel 06/10/20 Range/Units 04:47 Calcium 8.3 L (8.4-10.2) mg/dL Pituitary panel 06/10/20 Range/Units 04:47 Sodium 136 L (137-145) mmol/L Potassium 3.8 (3.6-5.0) mmol/L Chloride 100.6 (98-107) mmol/L Carbon Dioxide 29 (22-30) mmol/L BUN 14 (7-17) mg/dL Creatinine 0.9 (0.6-1.2) mg/dL Glucose 122 H (65-100) mg/dL Calcium 8.3 L (8.4-10.2) mg/dL Adrenal panel 06/10/20 Range/Units 04:47 Sodium 136 L (137-145) mmol/L Potassium 3.8 (3.6-5.0) mmol/L Chloride 100.6 (98-107) mmol/L Carbon Dioxide 29 (22-30) mmol/L BUN 14 (7-17) mg/dL Creatinine 0.9 (0.6-1.2) mg/dL Glucose 122 H (65-100) mg/dL Calcium 8.3 L (8.4-10.2) mg/dL
[2020-06-10 11:08] LABS: Hematocrit 35.1 % (30.3-42.9); Hemoglobin 11.2 gm/dl (10.1-14.3)
--- NOTE | 2020-06-10 11:30 | Electrocardiograph Report ---
[facility] Test Date: 2020-06-09 Test Time: 12:32:02 Pat Name: JULIETA LATHAM Department: Room: A465 Gender: F Operational Review Sergeant: CYNTHIA : 1960 Requested By: ADRIENNE DAVENPORT Order Number: [id number] Reading MD: Roverto Forman Measurements Intervals [place] Rate: 75 P: 42 FL: 178 QRS: 48 QRSD: 145 T: -23 QT: 435 QTc: 485 Interpretive Statements Sinus rhythm Right bundle branch block Inferior infarct, old No previous ECG available for comparison Electronically Signed On 06-10-2020 11:29:38 EDT by Roverto Forman
[2020-06-10] MEDS: ABACAVIR 300 MG TAB PO SCH (12:31)
[2020-06-10] MEDS: GABAPENTIN 300 MG CAP PO SCH ×2 (12:31→22:00)
[2020-06-10] MEDS: levETIRAcetam 500 MG TAB PO SCH ×2 (12:32→22:00)
[2020-06-10] MEDS: DOLUTEGRAVIR 50 MG TAB PO SCH (14:05)
[2020-06-10] MEDS: LISINOPRIL 20 MG TAB PO SCH (14:28)
[2020-06-10] MEDS: PHENOL 1.4% 177 ML BOTTLE MM PRN (16:17)
--- NOTE | 2020-06-10 17:38 | Progress Note ---
Assessment and Plan Assessment and plan: (1) Incarcerated ventral hernia Current Visit: Yes Status: Acute Plan to address problem: s/p hernia repair advance diet DC in AM if tolerating diet (2) Intractable abdominal pain Current Visit: Yes Status: Acute Plan to address problem: resolved, pain management (3) CHF (congestive heart failure) Current Visit: No Status: Acute Plan to address problem: Stable. We will monitor the patient closely (4) HTN (hypertension), benign Current Visit: No Status: Acute Plan to address problem: Patient is on Coreg 25 mg p.o. twice daily, hydralazine 10 mg IV every 6 hours as needed. (5) HIV (human immunodeficiency virus infection), asymptomatic Current Visit: No Status: Chronic Plan to address problem: We will continue the HIV medication. Patient will follow up with HIV clinic as outpatient (6) DVT prophylaxis Current Visit: No Status: Acute Plan to address problem: Heparin 5000 units subcu every 8 hours for DVT prophylaxis. Protonix 40 mg p.o. daily for GI prophylaxis. Patient is a full code (7) Diabetes 1.5, managed as type 2 Current Visit: Yes Status: Acute Plan to address problem: We will monitor the blood glucose closely. We will put the patient on insulin sliding scale if needed. Recheck BMP in the morning 8. Mobid Obesity - lifestyle change History Interval history: 06/10: no complaints, walking wants to try food. states she doesn't need PT. Hospitalist Physical - Physical exam Narrative exam: General appearance: Present: obese, no acute distress, well-nourished EENT: PERRL, EOM intact, hearing intact, clear oral mucosa, dentition normal Neck: Present: supple, normal ROM Respiratory: bilateral: CTA, negative: rales, rhonchi, wheezing Cardiovascular: Rhythm: regular Heart Sounds: Present: S1 & S2. Absent: gallop, rub Extremities: no ischemia, No edema, normal temperature, normal color, Full ROM Abdominal: abdominal binder, soft, non-tender, non-distended, normal bowel sounds Integumentary: Present: clear, warm, dry Psychiatric: appropriate mood/affect, intact judgment & insight Neurologic: CNII-XII intact, moves all extremities - Constitutional Vitals: Temp Pulse Resp BP Pulse Ox 99.7 F H 88 18 117/68 94 06/10/20 16:07 06/10/20 16:16 06/10/20 16:07 06/10/20 16:16 06/10/20 16:07 General appearance: Present: no acute distress, well-nourished Results - Labs CBC & Chem 7: 06/10/20 10:12 06/10/20 04:47 Labs: Laboratory Last Values WBC 5.8 K/mm3 (4.5-11.0) 06/08/20 20:28 RBC 3.97 M/mm3 (3.65-5.03) 06/08/20 20:28 Hgb 11.2 gm/dl (10.1-14.3) 06/10/20 10:12 Hct 35.1 % (30.3-42.9) 06/10/20 10:12 MCV 96 fl (79-97) 06/08/20 20:28 MCH 32 pg (28-32) 06/08/20 20:28 MCHC 33 % (30-34) 06/08/20 20:28 RDW 14.2 % (13.2-15.2) 06/08/20 20:28 Plt Count 242 K/mm3 (140-440) 06/08/20 20:28 Lymph % (Auto) 31.5 % (13.4-35.0) 06/08/20 20:28 [place] % (Auto) 6.6 % (0.0-7.3) 06/08/20 20:28 Eos % (Auto) 2.9 % (0.0-4.3) 06/08/20 20:28 Baso % (Auto) 0.5 % (0.0-1.8) 06/08/20 20:28 Lymph # (Auto) 1.8 K/mm3 (1.2-5.4) 06/08/20 20:28 [place] # (Auto) 0.4 K/mm3 (0.0-0.8) 06/08/20 20:28 Eos # (Auto) 0.2 K/mm3 (0.0-0.4) 06/08/20 20:28 Baso # (Auto) 0.0 K/mm3 (0.0-0.1) 06/08/20 20:28 Seg Neutrophils % 58.5 % (40.0-70.0) 06/08/20 20:28 Seg Neutrophils # 3.4 K/mm3 (1.8-7.7) 06/08/20 20:28 Sodium 136 mmol/L (137-145) L 06/10/20 04:47 Potassium 3.8 mmol/L (3.6-5.0) 06/10/20 04:47 Chloride 100.6 mmol/L (98-107) 06/10/20 04:47 Carbon Dioxide 29 mmol/L (22-30) 06/10/20 04:47 Anion Gap 10 mmol/L 06/10/20 04:47 BUN 14 mg/dL (7-17) 06/10/20 04:47 Creatinine 0.9 mg/dL (0.6-1.2) 06/10/20 04:47 Estimated GFR > 60 ml/min 06/10/20 04:47 BUN/Creatinine Ratio 16 % 06/10/20 04:47 Glucose 122 mg/dL (65-100) H 06/10/20 04:47 POC Glucose 140 mg/dL (70-105) H 06/10/20 16:11 Calcium 8.3 mg/dL (8.4-10.2) L 06/10/20 04:47 Magnesium 1.70 mg/dL (1.7-2.3) 06/08/20 20:28 Total Bilirubin 0.20 mg/dL (0.1-1.2) 06/08/20 20:28 AST 12 units/L (5-40) 06/08/20 20:28 ALT 15 units/L (7-56) 06/08/20 20:28 Alkaline Phosphatase 83 units/L (35-129) 06/08/20 20:28 Total Protein 7.0 g/dL (6.3-8.2) 06/08/20 20:28 Albumin 3.6 g/dL (3.9-5) L 06/08/20 20:28 Albumin/Globulin Ratio 1.1 % 06/08/20 20:28 Lipase 19 units/L (13-60) 06/08/20 20:28 Urine Color Yellow (Yellow) 06/08/20 Unknown Urine Turbidity Clear (Clear) 06/08/20 Unknown Urine pH 6.0 (5.0-7.0) 06/08/20 Unknown Ur Specific [place] 1.021 (1.003-1.030) 06/08/20 Unknown Urine Protein <15 mg/dl mg/dL (Negative) 06/08/20 Unknown Urine Glucose (UA) Neg mg/dL (Negative) 06/08/20 Unknown Urine Ketones Neg mg/dL (Negative) 06/08/20 Unknown Urine Blood Neg (Negative) 06/08/20 Unknown Urine Nitrite Neg (Negative) 06/08/20 Unknown Urine Bilirubin Neg (Negative) 06/08/20 Unknown Urine Urobilinogen < 2.0 mg/dL (<2.0) 06/08/20 Unknown Ur Leukocyte Esterase Neg (Negative) 06/08/20 Unknown Urine WBC (Auto) 2.0 /HPF (0.0-6.0) 06/08/20 Unknown Urine RBC (Auto) 2.0 /HPF (0.0-6.0) 06/08/20 Unknown U Epithel Cells (Auto) 2.0 /HPF (0-13.0) 06/08/20 Unknown Urine Bacteria (Auto) 4+ /HPF (Negative) 06/08/20 Unknown Urine Mucus Few /HPF 06/08/20 Unknown Kevin/IV: Voiding Method Toilet Active Medications - Current Medications Current Medications: Generic Name Dose Route Start Last Admin Trade Name Freq PRN Reason Stop Dose Admin Abacavir Sulfate 600 mg 06/09/20 10:00 06/10/20 12:31 Abacavir 300 Mg Tab PO 600 mg QDAY DELIO Administration Albuterol/Ipratropium 1 ampul 06/09/20 02:00 06/10/20 15:14 Ipratropium/Albuterol Sulfate 3 Ml Ampul.Neb IH 1 ampul Q6HRT DELIO Administration Arformoterol Tartrate 15 mcg 06/09/20 08:00 06/10/20 08:28 Arformoterol 15 Mcg/2 Ml Nebu IH 15 mcg Q12HRT DELIO Administration Budesonide 0.5 mg 06/09/20 08:00 06/10/20 08:29 Budesonide 0.5 Mg/2 Ml Nebu IH 0.5 mg BIDRT DELIO Administration Carvedilol 25 mg 06/09/20 08:00 06/10/20 16:16 Carvedilol 25 Mg Tab PO 25 mg BID@0800,1700 DELIO Administration Gabapentin 300 mg 06/09/20 22:00 06/10/20 12:31 Gabapentin 300 Mg Cap PO 300 mg BID DELIO Administration Heparin Sodium (Porcine) 5,000 unit 06/09/20 06:00 06/10/20 14:26 Heparin 5,000 Unit/1 Ml Vial SUB-Q 5,000 unit Q8HR DELIO Administration Hydralazine HCl 10 mg 06/09/20 00:25 Hydralazine 20 Mg/1 Ml Inj IV Q6H PRN htn Ibuprofen 800 mg 06/09/20 16:00 06/10/20 14:02 Ibuprofen 800 Mg Tab PO 800 mg Q8HR DELIO Administration Lamivudine 300 mg 06/09/20 10:00 06/10/20 12:32 Lamivudine 150 Mg Tab PO 300 mg Q24HR DELIO Administration Levetiracetam 500 mg 06/09/20 10:00 06/10/20 12:32 Levetiracetam 500 Mg Tab PO 500 mg BID DELIO Administration Lisinopril 20 mg 06/09/20 10:00 06/10/20 14:28 Lisinopril 20 Mg Tab PO Not Given QDAY [facility] Morphine Sulfate 2 mg 06/09/20 00:21 06/10/20 12:43 Morphine 2 Mg/1 Ml Inj IV 2 mg Q4H PRN Administration Pain , Severe (7-10) Ondansetron HCl 4 mg 06/09/20 00:21 06/10/20 05:24 Ondansetron 4 Mg/2 Ml Inj IV 4 mg Q8H PRN Administration Nausea And Vomiting Oxycodone/Acetaminophen 2 tab 06/09/20 15:55 Oxycodone /Acetaminophen 5-325mg Tab PO Q6H PRN Pain, Moderate (4-6) Pantoprazole Sodium 40 mg 06/09/20 07:30 06/10/20 09:00 Pantoprazole 40 Mg Tab PO 40 mg QDAC DELIO Administration Phenol 1 spray 06/10/20 15:13 06/10/20 16:17 Phenol 1.4% 177 Ml Bottle MM 1 spray PRN PRN Administration Sore Throat Sodium Chloride 10 ml 06/09/20 10:00 06/10/20 12:35 Sodium Chloride 0.9% 10 Ml Flush Syringe IV 10 ml BID DELIO Administration Sodium Chloride 10 ml 06/09/20 00:21 Sodium Chloride 0.9% 10 Ml Flush Syringe IV PRN PRN LINE FLUSH Nutrition/Malnutrition Assess - Dietary Evaluation Nutrition/Malnutrition Findings: Nutrition Notes Start: 06/09/20 13:56 Freq: Status: Active Protocol: Document 06/10/20 15:24 CW (Rec: 06/10/20 15:35 CW [id number]) Nutrition Notes Initial or Follow up Assessment Current Diagnosis Diabetes,Hypertension,Heart Failure Other Pertinent Diagnosis HIV Current Diet Cardiac Consistent Carbohydrate Labs/Tests Na 136 BG 122 Pertinent Medications Zofran NS at 42 ml/hr Height 5 ft 6 in Weight 127.27 kg [place] Body Weight (kg) 59.09 BMI 45.3 Weight Status Morbidly Obese Subjective/Other Information F/U for diet education. Pt reports wanting to loss weight and intentional recent weight loss. Pt reports excersig daily but upset because she is unable to following surgery until area is healed. Pt given dietary recommendation and low strain exercise recommendations like side steps and walking. Pt reports a poor appetite. Food preferences noted and relayed to kitchen. Pt willing to try ONS to increase caloric intake r/t low appetite and wound healing. BG WNL at this time. Will provide high protein ONS rather than glucerna Percent of energy/protein needs met: 0%/0% Burn Absent Trauma Absent GI Symptoms Nausea Food Allergy No Current % PO Negligible Minimum of two criteria No physical signs of malnutrition #2 Nutrition Diagnosis Increased nutrient needs ( specify in comment below) Comments: protein Etiology wound healing As Evidenced by Signs and Symptoms wound related to recent surgery #1 Nutrition Diagnosis Inadequate oral intake Etiology abd pain As Evidenced by Signs and Symptoms pt reports loss of appetite Is patient on ventilator? No Is Patient Ambulatory and/or Out of Bed Yes REE-([facility]-ambulatory/OOB) [ 2436.785 NUTR.MSJOOB] Kcal/Kg value to use for calculation 15 Approximate Energy Requirements Using 1909 kcal/Kg Calculation Used for Recommendations Kcal/kg Additional Notes protein needs: 140 - 186g (1.5 - 2g/kgAdjBW 93.18) fluid needs: 1 ml/kcal Nutrition Intervention Change Diet Order: Continue Current diet order Add Supplement/Snack (indicate name/kcal Ensure HP BID /protein ) Provides kCal: 320 Provides Protein (gm) 32 Teaching Recipient Patient Learning Readiness Good Teaching Methods Discussion,Handout Response to Teaching Verbalize understanding Barriers to Learning No Barriers RD phone number provided Yes Patient aware of follow up options Yes Goal #1 Meet at least 75% of kcal and protein needs Goal #2 wound healing Anticipated Discharge Needs: Cardiac Consistent carbohydrate diet + ONS PRN if low appetite Follow-Up By: 06/14/20 Additional Comments F/U for intakes and ONS tolerance
[2020-06-11] MEDS: IPRATROPIUM/ALBUTEROL SULFATE 3 ML AMPUL.NEB IH SCH ×4 (01:18→20:41)
[2020-06-11 05:05] LABS: Hematocrit 31.9 % (30.3-42.9); Hemoglobin 10.4 gm/dl (10.1-14.3); Mean Corpuscular HGB Conc 33 % (30-34); Mean Corpuscular Volume 96 fl (79-97); Platelet Count 208 K/mm3 (140-440); Red Blood Count 3.33 M/mm3 (3.65-5.03); Red Cell Distribution Width 14.5 % (13.2-15.2)
[2020-06-11 05:25] LABS: BUN/Creatinine Ratio 12; Blood Urea Nitrogen 13 mg/dL (7-17); Hemolysis Index 6
[2020-06-11] MEDS: HEPARIN 5,000 UNIT/1 ML VIAL SUB-Q SCH ×3 (06:04→21:40)
[2020-06-11] MEDS: IBUPROFEN 800 MG TAB PO SCH ×4 (06:19→21:40)
[2020-06-11] MEDS: BUDESONIDE 0.5 MG/2 ML NEBU IH SCH ×2 (08:14→20:41)
[2020-06-11] MEDS: ARFORMOTEROL 15 MCG/2 ML NEBU IH SCH ×2 (08:14→20:41)
[2020-06-11] MEDS: PANTOPRAZOLE 40 MG TAB PO SCH (08:22)
[2020-06-11] MEDS: MORPHINE 2 MG/1 ML INJ IV PRN (08:22)
[2020-06-11] MEDS: carvediloL 25 MG TAB PO SCH ×2 (08:22→18:05)
[2020-06-11] MEDS: ONDANSETRON 4 MG/2 ML INJ IV PRN ×2 (08:22→18:05)
[2020-06-11] MEDS: DOLUTEGRAVIR 50 MG TAB PO SCH (09:11)
[2020-06-11] MEDS: GABAPENTIN 300 MG CAP PO SCH ×2 (09:12→21:39)
[2020-06-11] MEDS: ABACAVIR 300 MG TAB PO SCH (09:12)
[2020-06-11] MEDS: levETIRAcetam 500 MG TAB PO SCH ×2 (09:13→21:39)
--- NOTE | 2020-06-11 10:28 | Progress Note ---
Assessment and Plan Assessment and plan: (1) Incarcerated ventral hernia Current Visit: Yes Status: Acute Plan to address problem: s/p hernia repair advance diet as tolerated continue pain control, follow up with surgery in outpt (2) Intractable abdominal pain Current Visit: Yes Status: Acute Plan to address problem: resolved, pain management (3) CHF (congestive heart failure) Current Visit: No Status: Acute Plan to address problem: Stable. We will monitor the patient closely (4) HTN (hypertension), benign Current Visit: No Status: Acute Plan to address problem: Coreg 25 mg p.o. twice daily, hydralazine 10 mg IV every 6 hours as needed. (5) HIV (human immunodeficiency virus infection), asymptomatic Current Visit: No Status: Chronic Plan to address problem: We will continue the HIV medication. Patient will follow up with HIV clinic as outpatient (6) DVT prophylaxis Current Visit: No Status: Acute Plan to address problem: heparin SQ (7) Diabetes 1.5, managed as type 2 Current Visit: Yes Status: Acute Plan to address problem: Blood glucose with good control, no indication for insulin 8. Mobid Obesity - lifestyle change 9. COPD Duoneb breathing treatments Hold off on steroids due to recent surgery Oxygen supplementation Ambulatory walk test pending, pt will need O2 DISPOSITION: advance diet, continue breathing treatments, evaluate pt for home O2. Spoke with family, all questions answered. History Interval history: 06/10: no complaints, walking wants to try food. states she doesn't need PT. 06/11: pt c/o sob, has hx of copd, has O2 at home, abd pain minimal. not tolerating breakfast Hospitalist Physical - Physical exam Narrative exam: General appearance: Present: obese, no acute distress, well-nourished EENT: PERRL, EOM intact, hearing intact, clear oral mucosa, dentition normal Neck: Present: supple, normal ROM Respiratory: NC O2, bilateral CTA, negative: rales, rhonchi, wheezing Cardiovascular: Rhythm: regular Heart Sounds: Present: S1 & S2. Absent: gallop, rub Extremities: no ischemia, No edema, normal temperature, normal color, Full ROM Abdominal: soft, mildly tender, non-distended, normal bowel sounds Integumentary: Present: clear, warm, dry Psychiatric: appropriate mood/affect, intact judgment & insight Neurologic: CNII-XII intact, moves all extremities - Constitutional Vitals: Temp Pulse Resp BP Pulse Ox 98.0 F 81 18 119/62 99 06/11/20 05:14 06/11/20 08:22 06/11/20 06:20 06/11/20 08:22 06/11/20 05:14 General appearance: Present: no acute distress, well-nourished Results - Labs CBC & Chem 7: 06/11/20 04:47 06/11/20 04:47 Labs: Laboratory Last Values WBC 6.9 K/mm3 (4.5-11.0) 06/11/20 04:47 RBC 3.33 M/mm3 (3.65-5.03) L 06/11/20 04:47 Hgb 10.4 gm/dl (10.1-14.3) 06/11/20 04:47 Hct 31.9 % (30.3-42.9) 06/11/20 04:47 MCV 96 fl (79-97) 06/11/20 04:47 MCH 31 pg (28-32) 06/11/20 04:47 MCHC 33 % (30-34) 06/11/20 04:47 RDW 14.5 % (13.2-15.2) 06/11/20 04:47 Plt Count 208 K/mm3 (140-440) 06/11/20 04:47 Lymph % (Auto) 31.5 % (13.4-35.0) 06/08/20 20:28 [place] % (Auto) 6.6 % (0.0-7.3) 06/08/20 20:28 Eos % (Auto) 2.9 % (0.0-4.3) 06/08/20 20:28 Baso % (Auto) 0.5 % (0.0-1.8) 06/08/20 20:28 Lymph # (Auto) 1.8 K/mm3 (1.2-5.4) 06/08/20 20:28 [place] # (Auto) 0.4 K/mm3 (0.0-0.8) 06/08/20 20:28 Eos # (Auto) 0.2 K/mm3 (0.0-0.4) 06/08/20 20:28 Baso # (Auto) 0.0 K/mm3 (0.0-0.1) 06/08/20 20:28 Seg Neutrophils % 58.5 % (40.0-70.0) 06/08/20 20:28 Seg Neutrophils # 3.4 K/mm3 (1.8-7.7) 06/08/20 20:28 Sodium 138 mmol/L (137-145) 06/11/20 04:47 Potassium 3.6 mmol/L (3.6-5.0) 06/11/20 04:47 Chloride 100.4 mmol/L (98-107) 06/11/20 04:47 Carbon Dioxide 29 mmol/L (22-30) 06/11/20 04:47 Anion Gap 12 mmol/L 06/11/20 04:47 BUN 13 mg/dL (7-17) 06/11/20 04:47 Creatinine 1.1 mg/dL (0.6-1.2) 06/11/20 04:47 Estimated GFR > 60 ml/min 06/11/20 04:47 BUN/Creatinine Ratio 12 % 06/11/20 04:47 Glucose 130 mg/dL (65-100) H 06/11/20 04:47 POC Glucose 140 mg/dL (70-105) H 06/10/20 16:11 Calcium 8.0 mg/dL (8.4-10.2) L 06/11/20 04:47 Magnesium 1.70 mg/dL (1.7-2.3) 06/08/20 20:28 Total Bilirubin 0.20 mg/dL (0.1-1.2) 06/08/20 20:28 AST 12 units/L (5-40) 06/08/20 20:28 ALT 15 units/L (7-56) 06/08/20 20:28 Alkaline Phosphatase 83 units/L (35-129) 06/08/20 20:28 Total Protein 7.0 g/dL (6.3-8.2) 06/08/20 20:28 Albumin 3.6 g/dL (3.9-5) L 06/08/20 20:28 Albumin/Globulin Ratio 1.1 % 06/08/20 20:28 Lipase 19 units/L (13-60) 06/08/20 20:28 Urine Color Yellow (Yellow) 06/08/20 Unknown Urine Turbidity Clear (Clear) 06/08/20 Unknown Urine pH 6.0 (5.0-7.0) 06/08/20 Unknown Ur Specific [place] 1.021 (1.003-1.030) 06/08/20 Unknown Urine Protein <15 mg/dl mg/dL (Negative) 06/08/20 Unknown Urine Glucose (UA) Neg mg/dL (Negative) 06/08/20 Unknown Urine Ketones Neg mg/dL (Negative) 06/08/20 Unknown Urine Blood Neg (Negative) 06/08/20 Unknown Urine Nitrite Neg (Negative) 06/08/20 Unknown Urine Bilirubin Neg (Negative) 06/08/20 Unknown Urine Urobilinogen < 2.0 mg/dL (<2.0) 06/08/20 Unknown Ur Leukocyte Esterase Neg (Negative) 06/08/20 Unknown Urine WBC (Auto) 2.0 /HPF (0.0-6.0) 06/08/20 Unknown Urine RBC (Auto) 2.0 /HPF (0.0-6.0) 06/08/20 Unknown U Epithel Cells (Auto) 2.0 /HPF (0-13.0) 06/08/20 Unknown Urine Bacteria (Auto) 4+ /HPF (Negative) 06/08/20 Unknown Urine Mucus Few /HPF 06/08/20 Unknown Kevin/IV: Voiding Method Toilet Active Medications - Current Medications Current Medications: Generic Name Dose Route Start Last Admin Trade Name Freq PRN Reason Stop Dose Admin Abacavir Sulfate 600 mg 06/09/20 10:00 06/11/20 09:12 Abacavir 300 Mg Tab PO 600 mg QDAY DELIO Administration Albuterol/Ipratropium 1 ampul 06/09/20 02:00 06/11/20 08:14 Ipratropium/Albuterol Sulfate 3 Ml Ampul.Neb IH 1 ampul Q6HRT DELIO Administration Arformoterol Tartrate 15 mcg 06/09/20 08:00 06/11/20 08:14 Arformoterol 15 Mcg/2 Ml Nebu IH 15 mcg Q12HRT DELIO Administration Budesonide 0.5 mg 06/09/20 08:00 06/11/20 08:14 Budesonide 0.5 Mg/2 Ml Nebu IH 0.5 mg BIDRT DELIO Administration Carvedilol 25 mg 06/09/20 08:00 06/11/20 08:22 Carvedilol 25 Mg Tab PO 25 mg BID@0800,1700 DELIO Administration Gabapentin 300 mg 06/09/20 22:00 06/11/20 09:12 Gabapentin 300 Mg Cap PO 300 mg BID DELIO Administration Heparin Sodium (Porcine) 5,000 unit 06/09/20 06:00 06/11/20 06:04 Heparin 5,000 Unit/1 Ml Vial SUB-Q 5,000 unit Q8HR DELIO Administration Hydralazine HCl 10 mg 06/09/20 00:25 Hydralazine 20 Mg/1 Ml Inj IV Q6H PRN htn Ibuprofen 800 mg 06/09/20 16:00 06/11/20 06:20 Ibuprofen 800 Mg Tab PO 800 mg Q8HR DELIO Administration Lamivudine 300 mg 06/09/20 10:00 06/11/20 09:12 Lamivudine 150 Mg Tab PO 300 mg Q24HR DELIO Administration Levetiracetam 500 mg 06/09/20 10:00 06/11/20 09:13 Levetiracetam 500 Mg Tab PO 500 mg BID DELIO Administration Lisinopril 20 mg 06/09/20 10:00 06/10/20 14:28 Lisinopril 20 Mg Tab PO Not Given QDAY [facility] Morphine Sulfate 2 mg 06/09/20 00:21 06/11/20 08:22 Morphine 2 Mg/1 Ml Inj IV 2 mg Q4H PRN Administration Pain , Severe (7-10) Ondansetron HCl 4 mg 06/09/20 00:21 06/11/20 08:22 Ondansetron 4 Mg/2 Ml Inj IV 4 mg Q8H PRN Administration Nausea And Vomiting Oxycodone/Acetaminophen 2 tab 06/09/20 15:55 Oxycodone /Acetaminophen 5-325mg Tab PO Q6H PRN Pain, Moderate (4-6) Pantoprazole Sodium 40 mg 06/09/20 07:30 06/11/20 08:22 Pantoprazole 40 Mg Tab PO 40 mg QDAC DELIO Administration Phenol 1 spray 06/10/20 15:13 06/10/20 16:17 Phenol 1.4% 177 Ml Bottle MM 1 spray PRN PRN Administration Sore Throat Sodium Chloride 10 ml 06/09/20 10:00 06/11/20 09:13 Sodium Chloride 0.9% 10 Ml Flush Syringe IV 10 ml BID DELIO Administration Sodium Chloride 10 ml 06/09/20 00:21 Sodium Chloride 0.9% 10 Ml Flush Syringe IV PRN PRN LINE FLUSH Nutrition/Malnutrition Assess - Dietary Evaluation Nutrition/Malnutrition Findings: Nutrition Notes Start: 06/09/20 13:56 Freq: Status: Active Protocol: Document 06/10/20 15:24 CW (Rec: 06/10/20 15:35 CW [email or web address]) Nutrition Notes Initial or Follow up Assessment Current Diagnosis Diabetes,Hypertension,Heart Failure Other Pertinent Diagnosis HIV Current Diet Cardiac Consistent Carbohydrate Labs/Tests Na 136 BG 122 Pertinent Medications Zofran NS at 42 ml/hr Height 5 ft 6 in Weight 127.27 kg [place] Body Weight (kg) 59.09 BMI 45.3 Weight Status Morbidly Obese Subjective/Other Information F/U for diet education. Pt reports wanting to loss weight and intentional recent weight loss. Pt reports excersig daily but upset because she is unable to following surgery until area is healed. Pt given dietary recommendation and low strain exercise recommendations like side steps and walking. Pt reports a poor appetite. Food preferences noted and relayed to kitchen. Pt willing to try ONS to increase caloric intake r/t low appetite and wound healing. BG WNL at this time. Will provide high protein ONS rather than glucerna Percent of energy/protein needs met: 0%/0% Burn Absent Trauma Absent GI Symptoms Nausea Food Allergy No Current % PO Negligible Minimum of two criteria No physical signs of malnutrition #2 Nutrition Diagnosis Increased nutrient needs ( specify in comment below) Comments: protein Etiology wound healing As Evidenced by Signs and Symptoms wound related to recent surgery #1 Nutrition Diagnosis Inadequate oral intake Etiology abd pain As Evidenced by Signs and Symptoms pt reports loss of appetite Is patient on ventilator? No Is Patient Ambulatory and/or Out of Bed Yes REE-([facility]-ambulatory/OOB) [ 2436.785 NUTR.MSJOOB] Kcal/Kg value to use for calculation 15 Approximate Energy Requirements Using 1909 kcal/Kg Calculation Used for Recommendations Kcal/kg Additional Notes protein needs: 140 - 186g (1.5 - 2g/kgAdjBW 93.18) fluid needs: 1 ml/kcal Nutrition Intervention Change Diet Order: Continue Current diet order Add Supplement/Snack (indicate name/kcal Ensure HP BID /protein ) Provides kCal: 320 Provides Protein (gm) 32 Teaching Recipient Patient Learning Readiness Good Teaching Methods Discussion,Handout Response to Teaching Verbalize understanding Barriers to Learning No Barriers RD phone number provided Yes Patient aware of follow up options Yes Goal #1 Meet at least 75% of kcal and protein needs Goal #2 wound healing Anticipated Discharge Needs: Cardiac Consistent carbohydrate diet + ONS PRN if low appetite Follow-Up By: 06/14/20 Additional Comments F/U for intakes and ONS tolerance
[2020-06-11] MEDS: LISINOPRIL 20 MG TAB PO SCH (12:27)
[2020-06-11] MEDS ORDERED: POLYETHYLENE GLYCOL 3350 17 GM POWDER PO PRN (13:06)
[2020-06-11] MEDS: DOCUSATE SODIUM 100 MG CAP PO SCH ×2 (13:23→21:39)
[2020-06-11] MEDS: oxyCODONE /ACETAMINOPHEN 5-325MG TAB PO PRN ×2 (14:44→23:41)
[2020-06-12] MEDS: IPRATROPIUM/ALBUTEROL SULFATE 3 ML AMPUL.NEB IH SCH ×4 (02:40→20:00)
[2020-06-12] MEDS: ONDANSETRON 4 MG/2 ML INJ IV PRN ×2 (04:41→08:47)
[2020-06-12] MEDS: IBUPROFEN 800 MG TAB PO SCH ×3 (06:46→22:19)
[2020-06-12] MEDS: HEPARIN 5,000 UNIT/1 ML VIAL SUB-Q SCH ×3 (06:48→22:20)
[2020-06-12] MEDS: PANTOPRAZOLE 40 MG TAB PO SCH (08:47)
[2020-06-12] MEDS: carvediloL 25 MG TAB PO SCH ×2 (08:48→18:38)
[2020-06-12] MEDS: BUDESONIDE 0.5 MG/2 ML NEBU IH SCH ×3 (08:53→20:00)
[2020-06-12] MEDS: ARFORMOTEROL 15 MCG/2 ML NEBU IH SCH ×3 (08:53→20:00)
--- NOTE | 2020-06-12 09:16 | Progress Note ---
Assessment and Plan Assessment and plan: (1) Incarcerated ventral hernia Current Visit: Yes Status: Acute Plan to address problem: s/p hernia repair advance diet as tolerated continue pain control, follow up with surgery in outpt AXR pending (2) Intractable abdominal pain Current Visit: Yes Status: Acute Plan to address problem: resolving, pain management (3) CHF (congestive heart failure) Current Visit: No Status: Acute Plan to address problem: Stable. We will monitor the patient closely (4) HTN (hypertension), benign Current Visit: No Status: Acute Plan to address problem: Coreg 25 mg p.o. twice daily, lisinopril hydralazine 10 mg IV every 6 hours as needed. (5) HIV (human immunodeficiency virus infection), asymptomatic Current Visit: No Status: Chronic Plan to address problem: We will continue the HIV medication. Patient will follow up with HIV clinic as outpatient (6) DVT prophylaxis Current Visit: No Status: Acute Plan to address problem: heparin SQ (7) Diabetes 1.5, managed as type 2 Current Visit: Yes Status: Acute Plan to address problem: Blood glucose with good control, no indication for insulin 8. Mobid Obesity - lifestyle change 9. COPD Duoneb breathing treatments Hold off on steroids due to recent surgery Oxygen supplementation pt will need O2, desats into the 70s w/o O2 pending cxr DISPOSITION: advance diet, continue breathing treatments, pending CXR/ AXR History Interval history: 06/10: no complaints, walking wants to try food. states she doesn't need PT. 06/11: pt c/o sob, has hx of copd, has O2 at home, abd pain minimal. not tolerating breakfast 06/12 pt w/sob still, on O2, destats when ambulating, abd pain tolerable, still not tolerating food, nausea, no vomiting Hospitalist Physical - Physical exam Narrative exam: General appearance: obese, no acute distress, well-nourished EENT: PERRL, EOM intact, hearing intact, clear oral mucosa, dentition normal Neck: Present: supple, normal ROM Respiratory: NC O2, bilateral CTA, negative: rales, rhonchi, wheezing Cardiovascular: Rhythm: regular Heart Sounds: Present: S1 & S2. Absent: gallop, rub Extremities: no ischemia, No edema, normal temperature, normal color, Full ROM Abdominal: abdominal binder, surgical wound intact, soft, mildly tender, non- distended, normal bowel sounds Integumentary: Present: clear, warm, dry Psychiatric: appropriate mood/affect, intact judgment & insight Neurologic: CNII-XII intact, moves all extremities - Constitutional Vitals: Temp Pulse Resp BP Pulse Ox 98.3 F 68 18 110/76 96 06/12/20 07:26 06/12/20 07:26 06/12/20 06:46 06/12/20 07:26 06/12/20 08:53 General appearance: Present: no acute distress, well-nourished Results - Labs CBC & Chem 7: 06/11/20 04:47 06/11/20 04:47 Labs: Laboratory Last Values WBC 6.9 K/mm3 (4.5-11.0) 06/11/20 04:47 RBC 3.33 M/mm3 (3.65-5.03) L 06/11/20 04:47 Hgb 10.4 gm/dl (10.1-14.3) 06/11/20 04:47 Hct 31.9 % (30.3-42.9) 06/11/20 04:47 MCV 96 fl (79-97) 06/11/20 04:47 MCH 31 pg (28-32) 06/11/20 04:47 MCHC 33 % (30-34) 06/11/20 04:47 RDW 14.5 % (13.2-15.2) 06/11/20 04:47 Plt Count 208 K/mm3 (140-440) 06/11/20 04:47 Lymph % (Auto) 31.5 % (13.4-35.0) 06/08/20 20:28 [place] % (Auto) 6.6 % (0.0-7.3) 06/08/20 20:28 Eos % (Auto) 2.9 % (0.0-4.3) 06/08/20 20:28 Baso % (Auto) 0.5 % (0.0-1.8) 06/08/20 20:28 Lymph # (Auto) 1.8 K/mm3 (1.2-5.4) 06/08/20 20:28 [place] # (Auto) 0.4 K/mm3 (0.0-0.8) 06/08/20 20:28 Eos # (Auto) 0.2 K/mm3 (0.0-0.4) 06/08/20 20:28 Baso # (Auto) 0.0 K/mm3 (0.0-0.1) 06/08/20 20:28 Seg Neutrophils % 58.5 % (40.0-70.0) 06/08/20 20:28 Seg Neutrophils # 3.4 K/mm3 (1.8-7.7) 06/08/20 20:28 Sodium 138 mmol/L (137-145) 06/11/20 04:47 Potassium 3.6 mmol/L (3.6-5.0) 06/11/20 04:47 Chloride 100.4 mmol/L (98-107) 06/11/20 04:47 Carbon Dioxide 29 mmol/L (22-30) 06/11/20 04:47 Anion Gap 12 mmol/L 06/11/20 04:47 BUN 13 mg/dL (7-17) 06/11/20 04:47 Creatinine 1.1 mg/dL (0.6-1.2) 06/11/20 04:47 Estimated GFR > 60 ml/min 06/11/20 04:47 BUN/Creatinine Ratio 12 % 06/11/20 04:47 Glucose 130 mg/dL (65-100) H 06/11/20 04:47 POC Glucose 158 mg/dL (70-105) H 06/11/20 21:17 Calcium 8.0 mg/dL (8.4-10.2) L 06/11/20 04:47 Magnesium 1.70 mg/dL (1.7-2.3) 06/08/20 20:28 Total Bilirubin 0.20 mg/dL (0.1-1.2) 06/08/20 20:28 AST 12 units/L (5-40) 06/08/20 20:28 ALT 15 units/L (7-56) 06/08/20 20:28 Alkaline Phosphatase 83 units/L (35-129) 06/08/20 20:28 Total Protein 7.0 g/dL (6.3-8.2) 06/08/20 20:28 Albumin 3.6 g/dL (3.9-5) L 06/08/20 20:28 Albumin/Globulin Ratio 1.1 % 06/08/20 20:28 Lipase 19 units/L (13-60) 06/08/20 20:28 Urine Color Yellow (Yellow) 06/08/20 Unknown Urine Turbidity Clear (Clear) 06/08/20 Unknown Urine pH 6.0 (5.0-7.0) 06/08/20 Unknown Ur Specific [place] 1.021 (1.003-1.030) 06/08/20 Unknown Urine Protein <15 mg/dl mg/dL (Negative) 06/08/20 Unknown Urine Glucose (UA) Neg mg/dL (Negative) 06/08/20 Unknown Urine Ketones Neg mg/dL (Negative) 06/08/20 Unknown Urine Blood Neg (Negative) 06/08/20 Unknown Urine Nitrite Neg (Negative) 06/08/20 Unknown Urine Bilirubin Neg (Negative) 06/08/20 Unknown Urine Urobilinogen < 2.0 mg/dL (<2.0) 06/08/20 Unknown Ur Leukocyte Esterase Neg (Negative) 06/08/20 Unknown Urine WBC (Auto) 2.0 /HPF (0.0-6.0) 06/08/20 Unknown Urine RBC (Auto) 2.0 /HPF (0.0-6.0) 06/08/20 Unknown U Epithel Cells (Auto) 2.0 /HPF (0-13.0) 06/08/20 Unknown Urine Bacteria (Auto) 4+ /HPF (Negative) 06/08/20 Unknown Urine Mucus Few /HPF 06/08/20 Unknown Kevin/IV: Voiding Method Toilet Active Medications - Current Medications Current Medications: Generic Name Dose Route Start Last Admin Trade Name Freq PRN Reason Stop Dose Admin Abacavir Sulfate 600 mg 06/09/20 10:00 06/11/20 09:12 Abacavir 300 Mg Tab PO 600 mg QDAY DELIO Administration Albuterol/Ipratropium 1 ampul 06/09/20 02:00 06/12/20 02:40 Ipratropium/Albuterol Sulfate 3 Ml Ampul.Neb IH Not Given Q6HRT DELIO Arformoterol Tartrate 15 mcg 06/09/20 08:00 06/12/20 08:53 Arformoterol 15 Mcg/2 Ml Nebu IH Not Given Q12HRT DELIO Budesonide 0.5 mg 06/09/20 08:00 06/12/20 08:53 Budesonide 0.5 Mg/2 Ml Nebu IH Not Given BIDRT DELIO Carvedilol 25 mg 06/09/20 08:00 06/12/20 08:48 Carvedilol 25 Mg Tab PO 25 mg BID@0800,1700 DELIO Administration Docusate Sodium 100 mg 06/11/20 14:00 06/11/20 21:39 Docusate Sodium 100 Mg Cap PO 100 mg BID DELIO Administration Gabapentin 300 mg 06/09/20 22:00 06/11/20 21:39 Gabapentin 300 Mg Cap PO 300 mg BID DELIO Administration Heparin Sodium (Porcine) 5,000 unit 06/09/20 06:00 06/12/20 06:48 Heparin 5,000 Unit/1 Ml Vial SUB-Q 5,000 unit Q8HR DELIO Administration Hydralazine HCl 10 mg 06/09/20 00:25 Hydralazine 20 Mg/1 Ml Inj IV Q6H PRN htn Potassium Chloride/Dextrose/Sod Cl 10 meq in 1,000 mls @ 75 mls/hr 06/12/20 10:00 D5w/0.45% Nacl/Kcl 10 Meq IV DIRECT DELIO Ibuprofen 800 mg 06/09/20 16:00 06/12/20 06:46 Ibuprofen 800 Mg Tab PO 800 mg Q8HR DELIO Administration Lamivudine 300 mg 06/09/20 10:00 06/11/20 09:12 Lamivudine 150 Mg Tab PO 300 mg Q24HR DELIO Administration Levetiracetam 500 mg 06/09/20 10:00 06/11/20 21:39 Levetiracetam 500 Mg Tab PO 500 mg BID DELIO Administration Lisinopril 20 mg 06/09/20 10:00 06/11/20 12:27 Lisinopril 20 Mg Tab PO Not Given QDAY DELIO Ondansetron HCl 4 mg 06/09/20 00:21 06/12/20 08:47 Ondansetron 4 Mg/2 Ml Inj IV 4 mg Q8H PRN Administration Nausea And Vomiting Oxycodone/Acetaminophen 2 tab 06/09/20 15:55 06/11/20 23:41 Oxycodone /Acetaminophen 5-325mg Tab PO 2 tab Q6H PRN Administration Pain, Moderate (4-6) Pantoprazole Sodium 40 mg 06/09/20 07:30 06/12/20 08:47 Pantoprazole 40 Mg Tab PO 40 mg QDAC DELIO Administration Phenol 1 spray 06/10/20 15:13 06/10/20 16:17 Phenol 1.4% 177 Ml Bottle MM 1 spray PRN PRN Administration Sore Throat Polyethylene Glycol 17 gm 06/11/20 13:06 Polyethylene Glycol 3350 17 Gm Powder PO QDAY PRN Constipation Sodium Chloride 10 ml 06/09/20 10:00 06/11/20 21:40 Sodium Chloride 0.9% 10 Ml Flush Syringe IV 10 ml BID DELIO Administration Sodium Chloride 10 ml 06/09/20 00:21 Sodium Chloride 0.9% 10 Ml Flush Syringe IV PRN PRN LINE FLUSH Nutrition/Malnutrition Assess - Dietary Evaluation Nutrition/Malnutrition Findings: Nutrition Notes Start: 06/09/20 13:56 Freq: Status: Active Protocol: Document 06/10/20 15:24 CW (Rec: 06/10/20 15:35 CW [id number]) Nutrition Notes Initial or Follow up Assessment Current Diagnosis Diabetes,Hypertension,Heart Failure Other Pertinent Diagnosis HIV Current Diet Cardiac Consistent Carbohydrate Labs/Tests Na 136 BG 122 Pertinent Medications Zofran NS at 42 ml/hr Height 5 ft 6 in Weight 127.27 kg [place] Body Weight (kg) 59.09 BMI 45.3 Weight Status Morbidly Obese Subjective/Other Information F/U for diet education. Pt reports wanting to loss weight and intentional recent weight loss. Pt reports excersig daily but upset because she is unable to following surgery until area is healed. Pt given dietary recommendation and low strain exercise recommendations like side steps and walking. Pt reports a poor appetite. Food preferences noted and relayed to kitchen. Pt willing to try ONS to increase caloric intake r/t low appetite and wound healing. BG WNL at this time. Will provide high protein ONS rather than glucerna Percent of energy/protein needs met: 0%/0% Burn Absent Trauma Absent GI Symptoms Nausea Food Allergy No Current % PO Negligible Minimum of two criteria No physical signs of malnutrition #2 Nutrition Diagnosis Increased nutrient needs ( specify in comment below) Comments: protein Etiology wound healing As Evidenced by Signs and Symptoms wound related to recent surgery #1 Nutrition Diagnosis Inadequate oral intake Etiology abd pain As Evidenced by Signs and Symptoms pt reports loss of appetite Is patient on ventilator? No Is Patient Ambulatory and/or Out of Bed Yes REE-([facility]-ambulatory/OOB) [ 2436.785 [id number]] Kcal/Kg value to use for calculation 15 Approximate Energy Requirements Using 1909 kcal/Kg Calculation Used for Recommendations Kcal/kg Additional Notes protein needs: 140 - 186g (1.5 - 2g/kgAdjBW 93.18) fluid needs: 1 ml/kcal Nutrition Intervention Change Diet Order: Continue Current diet order Add Supplement/Snack (indicate name/kcal Ensure HP BID /protein ) Provides kCal: 320 Provides Protein (gm) 32 Teaching Recipient Patient Learning Readiness Good Teaching Methods Discussion,Handout Response to Teaching Verbalize understanding Barriers to Learning No Barriers RD phone number provided Yes Patient aware of follow up options Yes Goal #1 Meet at least 75% of kcal and protein needs Goal #2 wound healing Anticipated Discharge Needs: Cardiac Consistent carbohydrate diet + ONS PRN if low appetite Follow-Up By: 06/14/20 Additional Comments F/U for intakes and ONS tolerance
--- NOTE | 2020-06-12 09:27 | Progress Note ---
Assessment and Plan 59 yo F s/p robotic assisted lysis of adhesions, repair of incarcerated ventral hernia with mesh, POD 3 Plan: 1. diet as miguel., protein supplements 2. restart gentle IVF as patient is not taking in enough PO 3. prn PO pain control 4. abdominal binder at all times 5. DVT ppx 6. IS/pulm toilet 7. OOB/ambulate 8. Agree with obtaining abdominal xray 9. If xray ok, will start reglan TID and aggressive bowel regimen. Pain multifactorial. Incisional pain appears to be improving but made worse when patient is trying to change positions or get out of bed - this is expected. In addition, she has not had a BM in almost 1 week and part of this pain, n/v may be secondary to severe constipation. Incisions on exam appear stable without erythema, signs of infection. Will follow up. D/W Dr. Mcgee. Thank you, please call with questions. Subjective Date of service: 06/12/20 Narrative: Pt seen and examined. c/o pain at incision sites. States the pain has improved steadily over the last few days and the pain medication helps. Pain is worse when she is trying to get out of bed and better once she stands up straight. She is apparently not tolerating a diet. States she is taking in liquids but solid food makes her feel very nauseated and sometimes the food comes back up. She has not had a BM for the last 5-7 days and usually has one daily. No f/c. No CP. c/o dizziness when going from sitting to standing. Pt states she feels better when abdominal binder is on. Objective Vital Signs - 12hr 06/11/20 06/11/20 06/11/20 21:40 23:37 23:41 Temperature 98.1 F Pulse Rate 75 Respiratory 20 16 18 Rate Blood Pressure 117/74 O2 Sat by Pulse 93 Oximetry 06/12/20 06/12/20 06/12/20 05:36 06:46 07:26 Temperature 97.4 F L 98.3 F Pulse Rate 71 68 Respiratory 16 18 Rate Blood Pressure 111/74 110/76 O2 Sat by Pulse 100 95 Oximetry 06/12/20 08:53 Temperature Pulse Rate Respiratory Rate Blood Pressure O2 Sat by Pulse 96 Oximetry - General physical appearance Narrative Exam: Gen: AAOx3. NAD CV: s1, S2+ Resp: even and unlabored Abd: soft, obese, ND. +point TTP at site of incision and TTP in LUQ. Incisions are c/d/i. No hematoma, ecchymosis. Abdominal binder in place Ext: no c/c/e - Labs 06/11/20 04:47 06/11/20 04:47
[2020-06-12] MEDS: levETIRAcetam 500 MG TAB PO SCH ×2 (09:29→22:22)
[2020-06-12] MEDS: ABACAVIR 300 MG TAB PO SCH (09:29)
[2020-06-12] MEDS: DOCUSATE SODIUM 100 MG CAP PO SCH ×2 (09:29→22:19)
[2020-06-12] MEDS: GABAPENTIN 300 MG CAP PO SCH (09:29)
[2020-06-12] MEDS ORDERED: SODIUM CHLORIDE 0.9% 1000 ML 1,000 ML IV SCH (09:30)
[2020-06-12] MEDS: DOLUTEGRAVIR 50 MG TAB PO SCH (09:30)
[2020-06-12] MEDS ORDERED: D5W/0.45% NACL/KCL 10 MEQ 10 MEQ/1,000 ML BAG IV SCH (10:00)
[2020-06-12] MEDS: LISINOPRIL 20 MG TAB PO SCH (10:16)
--- NOTE | 2020-06-12 10:35 | XRay Report ---
ABDOMEN FLAT AND UPRIGHT PORTABLE 0946 INDICATION: nausea/vomiting COMPARISON: None available. FINDINGS: Upright views do not include the diaphragm. No obvious pneumoperitoneum is seen but assessm ent is limited. Bowel gas pattern is unremarkable with no evidence of obstruction. Gas and stool are seen throughout the colon. No obvious urinary tract calculi are seen. Signer Name: Michael Nash MD Signed: 06/12/2020 10:31 AM Workstation Name: [email or web address]
--- NOTE | 2020-06-12 10:39 | XRay Report ---
CHEST 1 VIEW 0939 INDICATION / CLINICAL INFORMATION: acute on chronic hypoxia/COPD COMPARISON: None currently available FINDINGS: SUPPORT DEVICES: None HEART / MEDIASTINUM: No significant abnormality LUNGS / PLEURA: Patient is rotated. Mild bibasilar atelectatic changes are seen. No definite acute in filtrates are noted. Diffuse mild increase in interstitial markings probably is chronic. No pneumotho rax. ADDITIONAL FINDINGS: No significant additional findings. Signer Name: Michael Nash MD Signed: 06/12/2020 10:34 AM Workstation Name: [email or web address]
[2020-06-12] MEDS ORDERED: FUROSEMIDE 40 MG/4 ML INJ IV ONE (14:48)
[2020-06-12] MEDS: MAGNESIUM HYDROXIDE (MOM) ORAL LIQD UDC PO SCH ×2 (16:12→18:39)
[2020-06-12] MEDS: METOCLOPRAMIDE 10 MG/2 ML INJ IV SCH ×2 (16:12→22:20)
[2020-06-12] MEDS: oxyCODONE /ACETAMINOPHEN 5-325MG TAB PO PRN (18:38)
[2020-06-13] MEDS: IPRATROPIUM/ALBUTEROL SULFATE 3 ML AMPUL.NEB IH SCH ×4 (02:00→20:06)
[2020-06-13] MEDS: oxyCODONE /ACETAMINOPHEN 5-325MG TAB PO PRN ×2 (03:17→18:22)
[2020-06-13 05:37] LABS: Hematocrit 32.4 % (30.3-42.9); Hemoglobin 10.4 gm/dl (10.1-14.3); Mean Corpuscular HGB Conc 32 % (30-34); Mean Corpuscular Volume 97 fl (79-97); Platelet Count 239 K/mm3 (140-440); Red Blood Count 3.34 M/mm3 (3.65-5.03); Red Cell Distribution Width 14.1 % (13.2-15.2)
[2020-06-13 05:57] LABS: BUN/Creatinine Ratio 16; Blood Urea Nitrogen 18 mg/dL (7-17); Calcium 8.8 mg/dL (8.4-10.2); Hemolysis Index 5
[2020-06-13] MEDS: HEPARIN 5,000 UNIT/1 ML VIAL SUB-Q SCH ×3 (06:06→21:50)
[2020-06-13] MEDS: IBUPROFEN 800 MG TAB PO SCH ×3 (06:07→21:50)
[2020-06-13] MEDS: ARFORMOTEROL 15 MCG/2 ML NEBU IH SCH ×2 (07:44→20:06)
[2020-06-13] MEDS: BUDESONIDE 0.5 MG/2 ML NEBU IH SCH ×2 (07:45→20:06)
[2020-06-13] MEDS: carvediloL 25 MG TAB PO SCH ×2 (08:23→16:04)
[2020-06-13] MEDS: METOCLOPRAMIDE 10 MG/2 ML INJ IV SCH ×4 (08:23→21:50)
[2020-06-13] MEDS: FUROSEMIDE 40 MG/4 ML INJ IV SCH ×2 (08:23→09:53)
[2020-06-13] MEDS: PANTOPRAZOLE 40 MG TAB PO SCH (08:24)
--- NOTE | 2020-06-13 08:48 | Event Note ---
Date: 06/13/20 My review of records show that patient is followed by [facility] (Dr Costa) on a chronic basis, please refer to their service for cardiac consultation and follow up.
--- NOTE | 2020-06-13 09:06 | Progress Note ---
Assessment and Plan Assessment and plan: Assessment: 59yo female with a past medical history below who is s/p incarcerated hernia repair. Attempting to advance diet, cardiology to see patient for nonsustained V. tach. (1) Incarcerated ventral hernia Current Visit: Yes Status: Acute Plan to address problem: s/p hernia repair advance diet as tolerated continue pain control, follow up with surgery in outpt AXR showing no free air, constipation most likely, no ileus seen (2) Intractable abdominal pain Current Visit: Yes Status: Acute Plan to address problem: resolving, pain management (3) CHF (congestive heart failure) Current Visit: No Status: Acute Plan to address problem: Continue lisinopril, carvedilol, furosemide (4) HTN (hypertension), benign Current Visit: No Status: Acute Plan to address problem: Coreg 25 mg p.o. twice daily, lisinopril hydralazine 10 mg IV every 6 hours as needed. (5) HIV (human immunodeficiency virus infection), asymptomatic Current Visit: No Status: Chronic Plan to address problem: We will continue the HIV medication. Patient will follow up with HIV clinic as outpatient (6) DVT prophylaxis Current Visit: No Status: Acute Plan to address problem: heparin SQ (7) Diabetes 1.5, managed as type 2 Current Visit: Yes Status: Acute Plan to address problem: Blood glucose with good control, no indication for insulin 8. Mobid Obesity - lifestyle change 9. COPD Duoneb breathing treatments Hold off on steroids due to recent surgery Oxygen supplementation Pt will need O2, desats into the 70s w/o O2 Chest x-ray without any infiltrates or pulmonary edema 10. Nonsustained ventricular tachycardia Patient on carvedilol Cardiology consulted for additional recommendations, stated they will make necessary adjustments to medications, no intervention required at this time. DISPOSITION: advance diet, continue breathing treatments History Interval history: 06/10: no complaints, walking wants to try food. states she doesn't need PT. 06/11: pt c/o sob, has hx of copd, has O2 at home, abd pain minimal. not t olerating breakfast 06/12 pt w/sob still, on O2, destats when ambulating, abd pain tolerable, still n ot tolerating food, nausea, no vomiting 06/13 pt attempted to eat solid food, drinking ensure, tried tuna, felt nauseated, no vomiting. pt has 20 beats of NSVT yesterday, cardiology consulted Hospitalist Physical - Physical exam Narrative exam: General appearance: obese, no acute distress, well-nourished EENT: PERRL, EOM intact, hearing intact, clear oral mucosa, dentition normal Neck: Present: supple, normal ROM Respiratory: NC O2, bilateral CTA, negative: rales, rhonchi, wheezing Cardiovascular: Rhythm: regular Heart Sounds: Present: S1 & S2. Absent: gallop, rub Extremities: no ischemia, No edema, normal temperature, normal color, Full ROM Abdominal: abdominal binder, surgical wound intact, soft, mildly tender in right quadrant, non-distended, normal bowel sounds Integumentary: Present: clear, warm, dry Psychiatric: appropriate mood/affect, intact judgment & insight Neurologic: CNII-XII intact, moves all extremities - Constitutional Vitals: Temp Pulse Resp BP Pulse Ox 98.6 F 66 18 121/79 98 06/13/20 07:12 06/13/20 07:50 06/13/20 07:50 06/13/20 07:12 06/13/20 08:52 General appearance: Present: no acute distress, well-nourished Results - Labs CBC & Chem 7: 06/13/20 05:12 06/13/20 05:12 Labs: Laboratory Last Values WBC 5.7 K/mm3 (4.5-11.0) 06/13/20 05:12 RBC 3.34 M/mm3 (3.65-5.03) L 06/13/20 05:12 Hgb 10.4 gm/dl (10.1-14.3) 06/13/20 05:12 Hct 32.4 % (30.3-42.9) 06/13/20 05:12 MCV 97 fl (79-97) 06/13/20 05:12 MCH 31 pg (28-32) 06/13/20 05:12 MCHC 32 % (30-34) 06/13/20 05:12 RDW 14.1 % (13.2-15.2) 06/13/20 05:12 Plt Count 239 K/mm3 (140-440) 06/13/20 05:12 Lymph % (Auto) 31.5 % (13.4-35.0) 06/08/20 20:28 Barron % (Auto) 6.6 % (0.0-7.3) 06/08/20 20:28 Eos % (Auto) 2.9 % (0.0-4.3) 06/08/20 20: Baso % (Auto) 0.5 % (0.0-1.8) 06/08/20 20:28 Lymph # (Auto) 1.8 K/mm3 (1.2-5.4) 06/08/20 20:28 Barron # (Auto) 0.4 K/mm3 (0.0-0.8) 06/08/20 20: Eos # (Auto) 0.2 K/mm3 (0.0-0.4) 06/08/20 20: Baso # (Auto) 0.0 K/mm3 (0.0-0.1) 06/08/20 20: Seg Neutrophils % 58.5 % (40.0-70.0) 06/08/20 20: Seg Neutrophils # 3.4 K/mm3 (1.8-7.7) 06/08/20 20:28 Sodium 133 mmol/L (137-145) L 06/13/20 05:12 Potassium 4.2 mmol/L (3.6-5.0) 06/13/20 05:12 Chloride 95.8 mmol/L (98-107) L 06/13/20 05:12 Carbon Dioxide 30 mmol/L (22-30) 06/13/20 05:12 Anion Gap 11 mmol/L 06/13/20 05:12 BUN 18 mg/dL (7-17) H 06/13/20 05:12 Creatinine 1.1 mg/dL (0.6-1.2) 06/13/20 05:12 Estimated GFR > 60 ml/min 06/13/20 05:12 BUN/Creatinine Ratio 16 % 06/13/20 05:12 Glucose 148 mg/dL (65-100) H 06/13/20 05:12 POC Glucose 158 mg/dL (70-105) H 06/11/20 21:17 Calcium 8.8 mg/dL (8.4-10.2) 06/13/20 05:12 Magnesium 1.70 mg/dL (1.7-2.3) 06/08/20 20:28 Total Bilirubin 0.20 mg/dL (0.1-1.2) 06/08/20 20:28 AST 12 units/L (5-40) 06/08/20 20:28 ALT 15 units/L (7-56) 06/08/20 20:28 Alkaline Phosphatase 83 units/L (35-129) 06/08/20 20:28 Total Protein 7.0 g/dL (6.3-8.2) 06/08/20 20:28 Albumin 3.6 g/dL (3.9-5) L 06/08/20 20:28 Albumin/Globulin Ratio 1.1 % 06/08/20 20:28 Lipase 19 units/L (13-60) 06/08/20 20:28 Urine Color Yellow (Yellow) 06/08/20 Unknown Urine Turbidity Clear (Clear) 06/08/20 Unknown Urine pH 6.0 (5.0-7.0) 06/08/20 Unknown Ur Specific Daisy 1.021 (1.003-1.030) 06/08/20 Unknown Urine Protein <15 mg/dl mg/dL (Negative) 06/08/20 Unknown Urine Glucose (UA) Neg mg/dL (Negative) 06/08/20 Unknown Urine Ketones Neg mg/dL (Negative) 06/08/20 Unknown Urine Blood Neg (Negative) 06/08/20 Unknown Urine Nitrite Neg (Negative) 06/08/20 Unknown Urine Bilirubin Neg (Negative) 06/08/20 Unknown Urine Urobilinogen < 2.0 mg/dL (<2.0) 06/08/20 Unknown Ur Leukocyte Esterase Neg (Negative) 06/08/20 Unknown Urine WBC (Auto) 2.0 /HPF (0.0-6.0) 06/08/20 Unknown Urine RBC (Auto) 2.0 /HPF (0.0-6.0) 06/08/20 Unknown U Epithel Cells (Auto) 2.0 /HPF (0-13.0) 06/08/20 Unknown Urine Bacteria (Auto) 4+ /HPF (Negative) 06/08/20 Unknown Urine Mucus Few /HPF 06/08/20 Unknown Kevin/IV: Voiding Method Bedside Commode Active Medications - Current Medications Current Medications: Generic Name Dose Route Start Last Admin Trade Name Freq PRN Reason Stop Dose Admin Abacavir Sulfate 600 mg 06/09/20 10:00 06/12/20 09:29 Abacavir 300 Mg Tab PO 600 mg QDAY DELIO Administration Albuterol/Ipratropium 1 ampul 06/09/20 02:00 06/13/20 07:44 Ipratropium/Albuterol Sulfate 3 Ml Ampul.Neb IH 1 ampul Q6HRT DELIO Administration Arformoterol Tartrate 15 mcg 06/09/20 08:00 06/13/20 07:44 Arformoterol 15 Mcg/2 Ml Nebu IH 15 mcg Q12HRT DELIO Administration Budesonide 0.5 mg 06/09/20 08:00 06/13/20 07:45 Budesonide 0.5 Mg/2 Ml Nebu IH 0.5 mg BIDRT DELIO Administration Carvedilol 25 mg 06/09/20 08:00 06/13/20 08:23 Carvedilol 25 Mg Tab PO 25 mg BID@0800,1700 DELIO Administration Docusate Sodium 100 mg 06/11/20 14:00 06/12/20 22:19 Docusate Sodium 100 Mg Cap PO 100 mg BID DELIO Administration Furosemide 40 mg 06/13/20 08:00 06/13/20 08:23 Furosemide 40 Mg/4 Ml Inj IV 40 mg QDAY DELIO Administration Heparin Sodium (Porcine) 5,000 unit 06/09/20 06:00 06/13/20 06:06 Heparin 5,000 Unit/1 Ml Vial SUB-Q 5,000 unit Q8HR DELIO Administration Hydralazine HCl 10 mg 06/09/20 00:25 Hydralazine 20 Mg/1 Ml Inj IV Q6H PRN htn Sodium Chloride 1,000 mls @ 75 mls/hr 06/12/20 09:30 Nacl 0.9% 1000 Ml IV DIRECT DELIO Ibuprofen 800 mg 06/09/20 16:00 06/13/20 06:07 Ibuprofen 800 Mg Tab PO 800 mg Q8HR DELIO Administration Lamivudine 300 mg 06/09/20 10:00 06/12/20 09:30 Lamivudine 150 Mg Tab PO 300 mg Q24HR DELIO Administration Levetiracetam 500 mg 06/09/20 10:00 06/12/20 22:22 Levetiracetam 500 Mg Tab PO 500 mg BID DELIO Administration Lisinopril 20 mg 06/09/20 10:00 06/12/20 10:16 Lisinopril 20 Mg Tab PO Not Given QDAY DELIO Metoclopramide HCl 10 mg 06/12/20 16:30 06/13/20 08:23 Metoclopramide 10 Mg/2 Ml Inj IV 10 mg ACHS DELIO Administration Ondansetron HCl 4 mg 06/09/20 00:21 06/12/20 08:47 Ondansetron 4 Mg/2 Ml Inj IV 4 mg Q8H PRN Administration Nausea And Vomiting Oxycodone/Acetaminophen 2 tab 06/09/20 15:55 06/13/20 03:17 Oxycodone /Acetaminophen 5-325mg Tab PO 2 tab Q6H PRN Administration Pain, Moderate (4-6) Pantoprazole Sodium 40 mg 06/09/20 07:30 06/13/20 08:24 Pantoprazole 40 Mg Tab PO 40 mg QDAC DELIO Administration Phenol 1 spray 06/10/20 15:13 06/10/20 16:17 Phenol 1.4% 177 Ml Bottle MM 1 spray PRN PRN Administration Sore Throat Polyethylene Glycol 17 gm 06/11/20 13:06 Polyethylene Glycol 3350 17 Gm Powder PO QDAY PRN Constipation Sodium Chloride 10 ml 06/09/20 10:00 06/12/20 22:20 Sodium Chloride 0.9% 10 Ml Flush Syringe IV 10 ml BID DELIO Administration Sodium Chloride 10 ml 06/09/20 00:21 Sodium Chloride 0.9% 10 Ml Flush Syringe IV PRN PRN LINE FLUSH Nutrition/Malnutrition Assess - Dietary Evaluation Nutrition/Malnutrition Findings: Nutrition Notes Start: 06/09/20 13:56 Freq: Status: Active Protocol: Document 06/10/20 15:24 CW (Rec: 06/10/20 15:35 [id number]) Nutrition Notes Initial or Follow up Assessment Current Diagnosis Diabetes,Hypertension,Heart Failure Other Pertinent Diagnosis HIV Current Diet Cardiac Consistent Carbohydrate Labs/Tests Na 136 BG 122 Pertinent Medications Zofran NS at 42 ml/hr Height 5 ft 6 in Weight 127.27 kg [place] Body Weight (kg) 59.09 BMI 45.3 Weight Status Morbidly Obese Subjective/Other Information F/U for diet education. Pt reports wanting to loss weight and intentional recent weight loss. Pt reports excersig daily but upset because she is unable to following surgery until area is healed. Pt given dietary recommendation and low strain exercise recommendations like side steps and walking. Pt reports a poor appetite. Food preferences noted and relayed to kitchen. Pt willing to try ONS to increase caloric intake r/t low appetite and wound healing. BG WNL at this time. Will provide high protein ONS rather than glucerna Percent of energy/protein needs met: 0%/0% Burn Absent Trauma Absent GI Symptoms Nausea Food Allergy No Current % PO Negligible Minimum of two criteria No physical signs of malnutrition #2 Nutrition Diagnosis Increased nutrient needs ( specify in comment below) Comments: protein Etiology wound healing As Evidenced by Signs and Symptoms wound related to recent surgery #1 Nutrition Diagnosis Inadequate oral intake Etiology abd pain As Evidenced by Signs and Symptoms pt reports loss of appetite Is patient on ventilator? No Is Patient Ambulatory and/or Out of Bed Yes REE-([place]-ambulatory/OOB) [ 2436.785 NUTR.[id number]] Kcal/Kg value to use for calculation 15 Approximate Energy Requirements Using 1909 kcal/Kg Calculation Used for Recommendations Kcal/kg Additional Notes protein needs: 140 - 186g (1.5 - 2g/kgAdjBW 93.18) fluid needs: 1 ml/kcal Nutrition Intervention Change Diet Order: Continue Current diet order Add Supplement/Snack (indicate name/kcal Ensure HP BID /protein ) Provides kCal: 320 Provides Protein (gm) 32 Teaching Recipient Patient Learning Readiness Good Teaching Methods Discussion,Handout Response to Teaching Verbalize understanding Barriers to Learning No Barriers RD phone number provided Yes Patient aware of follow up options Yes Goal #1 Meet at least 75% of kcal and protein needs Goal #2 wound healing Anticipated Discharge Needs: Cardiac Consistent carbohydrate diet + ONS PRN if low appetite Follow-Up By: 06/14/20 Additional Comments F/U for intakes and ONS tolerance
[2020-06-13] MEDS: ABACAVIR 300 MG TAB PO SCH (09:50)
[2020-06-13] MEDS: PHENOL 1.4% 177 ML BOTTLE MM PRN (09:50)
[2020-06-13] MEDS: DOLUTEGRAVIR 50 MG TAB PO SCH (09:51)
[2020-06-13] MEDS: LISINOPRIL 20 MG TAB PO SCH (09:51)
[2020-06-13] MEDS: DOCUSATE SODIUM 100 MG CAP PO SCH ×2 (09:51→21:50)
[2020-06-13] MEDS: levETIRAcetam 500 MG TAB PO SCH ×2 (09:51→21:50)
--- NOTE | 2020-06-13 16:00 | Consultation ---
History of Present Illness Consult date: 06/13/20 Requesting physician: ESTEBAN CRUZ Consult reason: arrhythmia History of present illness: This pt is a 59 year old female with a significant hx of HTN, HLD, Morbid obesity, DM and COPD. She is followed by Dr Tracy with our office. Pt presented to [facility] with a complaint of R sided abd pain, subsequently determined to have several incarcerated hernias. She is currently s/p hernia repair. Cardiology is consulted for arrhythmia. Pt was observed to have a 22 beat episode of non sustained VT. Pt denies any CP, SOB, but did feel episode of palpitation last night. Pt is currently able to take oral medications, but states she is unable to eat any foods due to N/V after meals. Pt denies any tobacco, ETOH, or substa nce use. Past History Past Medical History: diabetes, heart failure, HIV/AIDS, hypertension, seizures Past Surgical History: Other (See HPI) Medications and Allergies Allergies Allergy/AdvReac Type Severity Reaction Status Date / Time No Known Allergies Allergy Verified 05/11/20 09:16 Home Medications Medication Instructions Recorded Confirmed Last Taken Type Abacavir/Dolutegravir/Lamivudi 1 each PO DAILY 12/13/15 05/27/17 09/06/16 History [Triumeq 600-50-300 mg Tablet] Temazepam 30 mg PO QHS 12/13/15 05/27/17 09/06/16 History carvediloL [Coreg] 25 mg PO BID 12/13/15 05/27/17 09/06/16 History hydrOXYzine HCL [Hydroxyzine HCl] 25 mg PO Q6HR PRN 12/13/15 05/27/17 09/06/16 History levETIRAcetam [Keppra TAB] 500 mg PO BID 12/13/15 05/27/17 09/06/16 History lisinopriL [Zestril TAB] 20 mg PO QDAY 12/13/15 05/27/17 09/06/16 History Diphenhydramine HCl [Sleep Tabs 25 mg PO QHS PRN 09/07/16 05/27/17 09/06/16 History 25MG] Ibuprofen [Motrin 800 MG tab] 800 mg PO Q8HR PRN 09/07/16 05/27/17 09/06/16 History Fluticasone/Salmeterol [Advair 1 puff IH BID #1 disk.w.dev 09/10/16 05/27/17 Unknown Rx Diskus 250-50 mcg] Ipratropium/Albuterol Sulfate 1 spray IH QID PRN #1 aer.w.adap 09/10/16 05/27/17 Unknown Rx [Combivent Respimat] Ipratropium/Albuterol Sulfate 1 ampul IH Q6HRT #180 ampul.neb 09/10/16 05/27/17 Unknown Rx [DUONEB *Not for PRN Use*] Tiotropium [place] [Spiriva 4 gm IH DAILY #1 mist.inhal 09/10/16 05/27/17 Unknown Rx Respimat] Furosemide [Lasix TAB] 20 mg PO QDAY #30 tablet 09/12/16 05/27/17 Unknown Rx Azithromycin [Zithromax TAB] 250 mg PO QDAY #5 tablet 02/18/17 05/27/17 Unknown Rx Benzonatate [Tessalon Perles] 100 mg PO Q8HR #20 capsule 03/16/17 05/27/17 Unk nown Rx Ibuprofen [Motrin 800 MG tab] 800 mg PO Q8HR PRN #30 tablet 06/10/20 Unknown Rx Ondansetron [Zofran Odt] 4 mg PO Q8HR PRN #30 tab.rapdis 06/10/20 Unknown Rx oxyCODONE /ACETAMINOPHEN [Percocet 1 tab PO Q6HR PRN #20 tablet 06/10/20 Unknown Rx 5/325] Active Meds: Active Medications Abacavir Sulfate (Abacavir 300 Mg Tab) 600 mg PO QDAY [facility] Last Admin: 06/13/20 09:50 Dose: 600 mg Documented by: Albuterol/Ipratropium (Ipratropium/Albuterol Sulfate 3 Ml Ampul.Neb) 1 ampul IH Q6HRT [facility] Last Admin: 06/13/20 14:27 Dose: 1 ampul Documented by: Arformoterol Tartrate (Arformoterol 15 Mcg/2 Ml Nebu) 15 mcg IH Q12HRT [facility] Last Admin: 06/13/20 07:44 Dose: 15 mcg Documented by: Budesonide (Budesonide 0.5 Mg/2 Ml Nebu) 0.5 mg IH BIDRT [facility] Last Admin: 06/13/20 07:45 Dose: 0.5 mg Documented by: Carvedilol (Carvedilol 25 Mg Tab) 25 mg PO BID@0800,1700 [facility] Last Admin: 06/13/20 08:23 Dose: 25 mg Documented by: Docusate Sodium (Docusate Sodium 100 Mg Cap) 100 mg PO BID [facility] Last Admin: 06/13/20 09:51 Dose: 100 mg Documented by: Furosemide (Furosemide 40 Mg Tab) 40 mg PO 0600,1800 [facility] Heparin Sodium (Porcine) (Heparin 5,000 Unit/1 Ml Vial) 5,000 unit SUB-Q Q8HR [facility] Last Admin: 06/13/20 14:58 Dose: 5,000 unit Documented by: Hydralazine HCl (Hydralazine 20 Mg/1 Ml Inj) 10 mg IV Q6H PRN PRN Reason: htn Sodium Chloride (Nacl 0.9% 1000 Ml) 1,000 mls @ 75 mls/hr IV DIRECT [facility] Ibuprofen (Ibuprofen 800 Mg Tab) 800 mg PO Q8HR [facility] Last Admin: 06/13/20 14:58 Dose: 800 mg Documented by: Lamivudine (Lamivudine 150 Mg Tab) 300 mg PO Q24HR [facility] Last Admin: 06/13/20 09:51 Dose: 300 mg Documented by: Levetiracetam (Levetiracetam 500 Mg Tab) 500 mg PO BID [facility] Last Admin: 06/13/20 09:51 Dose: 500 mg Documented by: Lisinopril (Lisinopril 20 Mg Tab) 20 mg PO QDAY [facility] Last Admin: 06/13/20 09:51 Dose: 20 mg Documented by: Metoclopramide HCl (Metoclopramide 10 Mg/2 Ml Inj) 10 mg IV ACHS [facility] Last Admin: 06/13/20 12:00 Dose: 10 mg Documented by: Ondansetron HCl (Ondansetron 4 Mg/2 Ml Inj) 4 mg IV Q8H PRN PRN Reason: Nausea And Vomiting Last Admin: 06/12/20 08:47 Dose: 4 mg Documented by: Oxycodone/Acetaminophen (Oxycodone /Acetaminophen 5-325mg Tab) 2 tab PO Q6H PRN PRN Reason: Pain, Moderate (4-6) Last Admin: 06/13/20 03:17 Dose: 2 tab Documented by: Pantoprazole Sodium (Pantoprazole 40 Mg Tab) 40 mg PO QDAC [facility] Last Admin: 06/13/20 08:24 Dose: 40 mg Documented by: Phenol (Phenol 1.4% 177 Ml Bottle) 1 spray MM PRN PRN PRN Reason: Sore Throat Last Admin: 06/13/20 09:50 Dose: 1 spray Documented by: Polyethylene Glycol (Polyethylene Glycol 3350 17 Gm Powder) 17 gm PO QDAY PRN PRN Reason: Constipation Sodium Chloride (Sodium Chloride 0.9% 10 Ml Flush Syringe) 10 ml IV BID [facility] Last Admin: 06/13/20 09:51 Dose: 10 ml Documented by: Sodium Chloride (Sodium Chloride 0.9% 10 Ml Flush Syringe) 10 ml IV PRN PRN PRN Reason: LINE FLUSH Review of Systems Constitutional: no weight loss, no weight gain, no fever, no chills, no sweats Ears, nose, mouth and throat: no ear pain, no ear discharge, no nasal congestion, no nasal discharge, no sinus pressure Cardiovascular: palpitations, no chest pain, no lightheadedness, no shortness of breath Respiratory: no cough, no shortness of breath, no dyspnea on exertion Gastrointestinal: abdominal pain, nausea, vomiting, no diarrhea, no constipation Genitourinary Female: no pelvic pain, no flank pain Musculoskeletal: no neck stiffness, no neck pain, no shooting arm pain, no arm numbness/tingling, no low back pain, no shooting leg pain Integumentary: no rash, no pruritis, no redness, no sores, no wounds Neurological: no head injury, no paralysis, no weakness, no parathesias, no numbness, no tingling, no seizures, no syncope, no tremors Psychiatric: no anxiety Endocrine: no cold intolerance, no heat intolerance Hematologic/Lymphatic: no easy bruising, no easy bleeding Allergic/Immunologic: no urticaria Physical Examination Last Vital Signs Temp 98.4 F 06/13/20 11:59 Pulse 61 06/13/20 12:00 Resp 20 06/13/20 11:59 BP 100/64 06/13/20 11:59 Pulse Ox 96 06/13/20 11:59 HEENT: Positive: PERRL, Normocephaly, Mucus Membranes Moist Neck: Positive: neck supple, trachea midline Cardiac: Positive: Reg Rate and Rhythm, S1/S2 Lungs: Positive: Normal Exam Neuro: Positive: Grossly Intact Abdomen: Positive: Soft Skin: Negative: Rash, Wound Musculoskeletal: No Pain Extremities: Present: upper extr. pulses, lower extr. pulses. Absent: edema Results 06/13/20 05:12 06/14/20 04:33 CBC 06/13/20 Range/Units 05:12 WBC 5.7 (4.5-11.0) K/mm3 RBC 3.34 L (3.65-5.03) M/mm3 Hgb 10.4 (10.1-14.3) gm/dl Hct 32.4 (30.3-42.9) % Plt Count 239 (140-440) K/mm3 Comprehensive Metabolic Panel 06/13/20 Range/Units 05:12 Sodium 133 L (137-145) mmol/L Potassium 4.2 (3.6-5.0) mmol/L Chloride 95.8 L (98-107) mmol/L Carbon Dioxide 30 (22-30) mmol/L BUN 18 H (7-17) mg/dL Creatinine 1.1 (0.6-1.2) mg/dL Glucose 148 H (65-100) mg/dL Calcium 8.8 (8.4-10.2) mg/dL - Imaging and Cardiology Echo: pending - EKG Interpretation EKG: sinus rhythm EKG interpretations - Telemetry EKG Rhythm: Sinus Rhythm - EKG Sinus rhythms and dysrhythmias: sinus rhythm AV and intraventricular conduction: right bundle branch block Assessment and Plan This pt is a 59 year old female with a significant hx of HTN, HLD, Morbid obesity, and COPD. She is followed by Dr Tracy with our office. Pt presented to [facility] with a complaint of R sided abd pain, subsequently determined to have several incarcerated hernias. She is currently s/p hernia repair. Cardiology is consulted for arrhythmia. Pt was observed to have a 22 beat episode of non sustained VT. Pt denies any CP, SOB, but did feel episode of palpitation last night. Pt is currently able to take oral medications, but states she is unable to eat any foods due to N/V after meals. Pt denies any tobacco, ETOH, or substance use. Echo is pending. Echo (2018) reviewed: EF 55-60. LV grade II diastolic dysfunction. Mild TR. Mild to moderate Pulm HTN. Convert diuretic to Lasix 40mg PO QD. Continue current regimen Coreg 25mg QD, Lisinopril 20mg Po QD Monitor Potassium and Mg. Currently stable cardiac status. Disposition pending Echo results. Will follow. This pt was seen in conjunction with Dr Forman who agrees with this assessment and plan. - Patient Problems (1) Nonsustained ventricular tachycardia Current Visit: Yes Status: Acute (2) Incarcerated ventral hernia Current Visit: Yes Status: Acute (3) Diabetes mellitus Current Visit: Yes Status: Chronic (4) HLD (hyperlipidemia) Current Visit: Yes Status: Chronic (5) COPD (chronic obstructive pulmonary disease) Current Visit: Yes Status: Chronic (6) HTN (hypertension) Current Visit: Yes Status: Chronic Qualifiers: Hypertension type: essential hypertension Qualified Code(s): I10 - Essential (primary) hypertension
--- NOTE | 2020-06-13 16:05 | Progress Note ---
Assessment and Plan 59 yo F s/p robotic assisted lysis of adhesions, repair of incarcerated ventral hernia with mesh, POD 4 Pt stable. In better spirits today. Plan: 1. diet as miguel., protein supplements 2. gentle IVF as patient is not taking in enough PO 3. prn PO pain control 4. reglan ACHS, zofran prn 5. abdominal binder at all times 6. DVT ppx 7. IS/pulm toilet 8. OOB/ambulate 9. bowel regimen - will give one dulcolax [place] today 10. Pt to be referred to bariatric surgery - Dr. Bazzi as outpatient to discuss weight loss surgery. Patient expressed interest in this. Patient's daughter updated. Thank you, please call with questions. Subjective Date of service: 06/13/20 Narrative: Pt seen and examined. c/o persistent nausea but no vomiting. Abdominal pain improving - only painful when she gets OOB and pain localized to area of incisions. +Flatus. NO BM yet. No f/c. Tolerated only a small amount of solid food today. Objective Vital Signs - 12hr 06/13/20 06/13/20 06/13/20 06:07 07:12 07:50 Temperature 98.6 F Pulse Rate 66 Pulse Rate [ 66 Bilateral Throughout] Respiratory 20 18 Rate Respiratory 18 Rate [Bilateral Throughout] Blood Pressure 121/79 O2 Sat by Pulse 98 Oximetry 06/13/20 06/13/20 06/13/20 08:52 11:59 12:00 Temperature 98.4 F Pulse Rate 69 61 Pulse Rate [ Bilateral Throughout] Respiratory 20 Rate Respiratory Rate [Bilateral Throughout] Blood Pressure 100/64 O2 Sat by Pulse 98 96 Oximetry - General physical appearance Narrative Exam: Gen: AAOx3. NAD CV: s1, S2+ Resp: even and unlabored Abd: soft, obese, ND. + TTP at incision sites only. Incisions are c/d/i. No hematoma, ecchymosis. Abdominal binder in place Ext: no c/c/e - Labs 06/13/20 05:12 06/13/20 05:12 Diabetes panel 06/13/20 Range/Units 05:12 Sodium 133 L (137-145) mmol/L Potassium 4.2 (3.6-5.0) mmol/L Chloride 95.8 L (98-107) mmol/L Carbon Dioxide 30 (22-30) mmol/L BUN 18 H (7-17) mg/dL Creatinine 1.1 (0.6-1.2) mg/dL Glucose 148 H (65-100) mg/dL Calcium 8.8 (8.4-10.2) mg/dL Calcium panel 06/13/20 Range/Units 05:12 Calcium 8.8 (8.4-10.2) mg/dL Pituitary panel 06/13/20 Range/Units 05:12 Sodium 133 L (137-145) mmol/L Potassium 4.2 (3.6-5.0) mmol/L Chloride 95.8 L (98-107) mmol/L Carbon Dioxide 30 (22-30) mmol/L BUN 18 H (7-17) mg/dL Creatinine 1.1 (0.6-1.2) mg/dL Glucose 148 H (65-100) mg/dL Calcium 8.8 (8.4-10.2) mg/dL Adrenal panel 06/13/20 Range/Units 05:12 Sodium 133 L (137-145) mmol/L Potassium 4.2 (3.6-5.0) mmol/L Chloride 95.8 L (98-107) mmol/L Carbon Dioxide 30 (22-30) mmol/L BUN 18 H (7-17) mg/dL Creatinine 1.1 (0.6-1.2) mg/dL Glucose 148 H (65-100) mg/dL Calcium 8.8 (8.4-10.2) mg/dL
[2020-06-13] MEDS: FUROSEMIDE 40 MG TAB PO SCH (18:22)
[2020-06-14] MEDS: IPRATROPIUM/ALBUTEROL SULFATE 3 ML AMPUL.NEB IH SCH ×2 (05:50→07:54)
[2020-06-14] MEDS: IBUPROFEN 800 MG TAB PO SCH ×2 (05:51→14:24)
[2020-06-14] MEDS: FUROSEMIDE 40 MG TAB PO SCH (05:52)
[2020-06-14] MEDS: HEPARIN 5,000 UNIT/1 ML VIAL SUB-Q SCH ×2 (05:52→14:25)
[2020-06-14 05:54] LABS: Calcium 9.5 mg/dL (8.4-10.2)
[2020-06-14] MEDS: ARFORMOTEROL 15 MCG/2 ML NEBU IH SCH (07:54)
[2020-06-14] MEDS: BUDESONIDE 0.5 MG/2 ML NEBU IH SCH (07:54)
[2020-06-14] MEDS: PANTOPRAZOLE 40 MG TAB PO SCH (08:06)
[2020-06-14] MEDS: METOCLOPRAMIDE 10 MG/2 ML INJ IV SCH ×2 (08:06→11:06)
[2020-06-14] MEDS: carvediloL 25 MG TAB PO SCH (08:07)
[2020-06-14] MEDS: oxyCODONE /ACETAMINOPHEN 5-325MG TAB PO PRN (08:19)
[2020-06-14] MEDS: ONDANSETRON 4 MG/2 ML INJ IV PRN (09:04)
[2020-06-14] MEDS ORDERED: FUROSEMIDE 40 MG TAB PO SCH ×2 (10:00→11:47)
[2020-06-14] MEDS: ABACAVIR 300 MG TAB PO SCH (10:27)
[2020-06-14] MEDS: DOCUSATE SODIUM 100 MG CAP PO SCH (10:28)
[2020-06-14] MEDS: levETIRAcetam 500 MG TAB PO SCH (10:28)
[2020-06-14] MEDS: DOLUTEGRAVIR 50 MG TAB PO SCH (10:28)
[2020-06-14] MEDS: LISINOPRIL 20 MG TAB PO SCH (10:29)
--- NOTE | 2020-06-14 10:58 | Progress Note ---
Assessment and Plan Assessment and plan: Assessment: 59yo female with a past medical history below who is s/p incarcerated hernia repair. Attempting to advance diet, cardiology to see patient for nonsustained V. tach. (1) Incarcerated ventral hernia Current Visit: Yes Status: Acute Plan to address problem: s/p hernia repair advance diet as tolerated continue pain control, follow up with surgery in outpt AXR showing no free air, constipation most likely, no ileus seen (2) Intractable abdominal pain Current Visit: Yes Status: Acute Plan to address problem: resolving, pain management (3) CHF (congestive heart failure) Current Visit: No Status: Acute Plan to address problem: Continue lisinopril, carvedilol, furosemide (4) HTN (hypertension), benign Current Visit: No Status: Acute Plan to address problem: Coreg 25 mg p.o. twice daily, lisinopril hydralazine 10 mg IV every 6 hours as needed. (5) HIV (human immunodeficiency virus infection), asymptomatic Current Visit: No Status: Chronic Plan to address problem: We will continue the HIV medication. Patient will follow up with HIV clinic as outpatient (6) DVT prophylaxis Current Visit: No Status: Acute Plan to address problem: heparin SQ (7) Diabetes 1.5, managed as type 2 Current Visit: Yes Status: Acute Plan to address problem: Blood glucose with good control, no indication for insulin 8. Mobid Obesity - lifestyle change 9. COPD Duoneb breathing treatments Hold off on steroids due to recent surgery Oxygen supplementation Pt will need O2, desats into the 70s w/o O2 Chest x-ray without any infiltrates or pulmonary edema 10. Nonsustained ventricular tachycardia Patient on carvedilol Cardiology consulted for additional recommendations, stated they will make necessary adjustments to medications, no intervention required at this time. DISPOSITION: advance diet, continue breathing treatments Hospitalist Physical - Constitutional Vitals: Temp Pulse Resp BP Pulse Ox 99.4 F 71 18 116/59 94 06/14/20 07:54 06/14/20 10:29 06/14/20 07:55 06/14/20 10:29 06/14/20 07:58 General appearance: Present: no acute distress, well-nourished Results - Labs CBC & Chem 7: 06/13/20 05:12 06/14/20 04:33 Labs: Laboratory Last Values WBC 5.7 K/mm3 (4.5-11.0) 06/13/20 05:12 RBC 3.34 M/mm3 (3.65-5.03) L 06/13/20 05:12 Hgb 10.4 gm/dl (10.1-14.3) 06/13/20 05:12 Hct 32.4 % (30.3-42.9) 06/13/20 05:12 MCV 97 fl (79-97) 06/13/20 05:12 MCH 31 pg (28-32) 06/13/20 05:12 MCHC 32 % (30-34) 06/13/20 05:12 RDW 14.1 % (13.2-15.2) 06/13/20 05:12 Plt Count 239 K/mm3 (140-440) 06/13/20 05:12 Lymph % (Auto) 31.5 % (13.4-35.0) 06/08/20 20:28 [place] % (Auto) 6.6 % (0.0-7.3) 06/08/20 20:28 Eos % (Auto) 2.9 % (0.0-4.3) 06/08/20 20:28 Baso % (Auto) 0.5 % (0.0-1.8) 06/08/20 20:28 Lymph # (Auto) 1.8 K/mm3 (1.2-5.4) 06/08/20 20:28 [place] # (Auto) 0.4 K/mm3 (0.0-0.8) 06/08/20 20:28 Eos # (Auto) 0.2 K/mm3 (0.0-0.4) 06/08/20 20:28 Baso # (Auto) 0.0 K/mm3 (0.0-0.1) 06/08/20 20:28 Seg Neutrophils % 58.5 % (40.0-70.0) 06/08/20 20:28 Seg Neutrophils # 3.4 K/mm3 (1.8-7.7) 06/08/20 20:28 Sodium 136 mmol/L (137-145) L 06/14/20 04:33 Potassium 4.3 mmol/L (3.6-5.0) 06/14/20 04:33 Chloride 96.3 mmol/L (98-107) L 06/14/20 04:33 Carbon Dioxide 33 mmol/L (22-30) H 06/14/20 04:33 Anion Gap 11 mmol/L 06/14/20 04:33 BUN 21 mg/dL (7-17) H 06/14/20 04:33 Creatinine 1.3 mg/dL (0.6-1.2) H 06/14/20 04:33 Estimated GFR 51 ml/min 06/14/20 04:33 BUN/Creatinine Ratio 16 % 06/14/20 04:33 Glucose 151 mg/dL (65-100) H 06/14/20 04:33 POC Glucose 150 mg/dL (70-105) H 06/13/20 21:28 Calcium 9.5 mg/dL (8.4-10.2) 06/14/20 04:33 Magnesium 2.00 mg/dL (1.7-2.3) 06/14/20 04:33 Total Bilirubin 0.20 mg/dL (0.1-1.2) 06/08/20 20:28 AST 12 units/L (5-40) 06/08/20 20:28 ALT 15 units/L (7-56) 06/08/20 20:28 Alkaline Phosphatase 83 units/L (35-129) 06/08/20 20:28 Total Protein 7.0 g/dL (6.3-8.2) 06/08/20 20:28 Albumin 3.6 g/dL (3.9-5) L 06/08/20 20:28 Albumin/Globulin Ratio 1.1 % 06/08/20 20:28 Lipase 19 units/L (13-60) 06/08/20 20:28 Urine Color Yellow (Yellow) 06/08/20 Unknown Urine Turbidity Clear (Clear) 06/08/20 Unknown Urine pH 6.0 (5.0-7.0) 06/08/20 Unknown Ur Specific [place] 1.021 (1.003-1.030) 06/08/20 Unknown Urine Protein <15 mg/dl mg/dL (Negative) 06/08/20 Unknown Urine Glucose (UA) Neg mg/dL (Negative) 06/08/20 Unknown Urine Ketones Neg mg/dL (Negative) 06/08/20 Unknown Urine Blood Neg (Negative) 06/08/20 Unknown Urine Nitrite Neg (Negative) 06/08/20 Unknown Urine Bilirubin Neg (Negative) 06/08/20 Unknown Urine Urobilinogen < 2.0 mg/dL (<2.0) 06/08/20 Unknown Ur Leukocyte Esterase Neg (Negative) 06/08/20 Unknown Urine WBC (Auto) 2.0 /HPF (0.0-6.0) 06/08/20 Unknown Urine RBC (Auto) 2.0 /HPF (0.0-6.0) 06/08/20 Unknown U Epithel Cells (Auto) 2.0 /HPF (0-13.0) 06/08/20 Unknown Urine Bacteria (Auto) 4+ /HPF (Negative) 06/08/20 Unknown Urine Mucus Few /HPF 06/08/20 Unknown Kevin/IV: Voiding Method Toilet Active Medications - Current Medications Current Medications: Generic Name Dose Route Start Last Admin Trade Name Freq PRN Reason Stop Dose Admin Abacavir Sulfate 600 mg 06/09/20 10:00 06/14/20 10:27 Abacavir 300 Mg Tab PO 600 mg QDAY DELIO Administration Albuterol/Ipratropium 1 ampul 06/09/20 02:00 06/14/20 07:54 Ipratropium/Albuterol Sulfate 3 Ml Ampul.Neb IH Not Given Q6HRT DELIO Arformoterol Tartrate 15 mcg 06/09/20 08:00 06/14/20 07:54 Arformoterol 15 Mcg/2 Ml Nebu IH 15 mcg Q12HRT DELIO Administration Budesonide 0.5 mg 06/09/20 08:00 06/14/20 07:54 Budesonide 0.5 Mg/2 Ml Nebu IH 0.5 mg BIDRT DELIO Administration Carvedilol 25 mg 06/09/20 08:00 06/14/20 08:07 Carvedilol 25 Mg Tab PO 25 mg BID@0800,1700 DELIO Administration Docusate Sodium 100 mg 06/11/20 14:00 06/14/20 10:28 Docusate Sodium 100 Mg Cap PO 100 mg BID DELIO Administration Furosemide 40 mg 06/14/20 10:00 06/14/20 10:29 Furosemide 40 Mg Tab PO Not Given QDAY DELIO Heparin Sodium (Porcine) 5,000 unit 06/09/20 06:00 06/14/20 05:52 Heparin 5,000 Unit/1 Ml Vial SUB-Q 5,000 unit Q8HR DELIO Administration Hydralazine HCl 10 mg 06/09/20 00:25 Hydralazine 20 Mg/1 Ml Inj IV Q6H PRN htn Sodium Chloride 1,000 mls @ 75 mls/hr 06/12/20 09:30 Nacl 0.9% 1000 Ml IV DIRECT DELIO Ibuprofen 800 mg 06/09/20 16:00 06/14/20 05:51 Ibuprofen 800 Mg Tab PO 800 mg Q8HR DELIO Administration Lamivudine 300 mg 06/09/20 10:00 06/14/20 10:28 Lamivudine 150 Mg Tab PO 300 mg Q24HR DELIO Administration Levetiracetam 500 mg 06/09/20 10:00 06/14/20 10:28 Levetiracetam 500 Mg Tab PO 500 mg BID DELIO Administration Lisinopril 20 mg 06/09/20 10:00 06/14/20 10:29 Lisinopril 20 Mg Tab PO 20 mg QDAY DELIO Administration Metoclopramide HCl 10 mg 06/12/20 16:30 06/14/20 08:06 Metoclopramide 10 Mg/2 Ml Inj IV 10 mg ACHS DELIO Administration Ondansetron HCl 4 mg 06/09/20 00:21 06/14/20 09:04 Ondansetron 4 Mg/2 Ml Inj IV 4 mg Q8H PRN Administration Nausea And Vomiting Oxycodone/Acetaminophen 2 tab 06/09/20 15:55 06/14/20 08:19 Oxycodone /Acetaminophen 5-325mg Tab PO 2 tab Q6H PRN Administration Pain, Moderate (4-6) Pantoprazole Sodium 40 mg 06/09/20 07:30 06/14/20 08:06 Pantoprazole 40 Mg Tab PO 40 mg QDAC DELIO Administration Phenol 1 spray 06/10/20 15:13 06/13/20 09:50 Phenol 1.4% 177 Ml Bottle MM 1 spray PRN PRN Administration Sore Throat Polyethylene Glycol 17 gm 06/11/20 13:06 Polyethylene Glycol 3350 17 Gm Powder PO QDAY PRN Constipation Sodium Chloride 10 ml 06/09/20 10:00 06/14/20 10:26 Sodium Chloride 0.9% 10 Ml Flush Syringe IV 10 ml BID DELIO Administration Sodium Chloride 10 ml 06/09/20 00:21 Sodium Chloride 0.9% 10 Ml Flush Syringe IV PRN PRN LINE FLUSH Nutrition/Malnutrition Assess - Dietary Evaluation Nutrition/Malnutrition Findings: Nutrition Notes Start: 06/09/20 13:56 Freq: Status: Active Protocol: Document 06/10/20 15:24 CW (Rec: 06/10/20 15:35 CW [id number]) Nutrition Notes Initial or Follow up Assessment Current Diagnosis Diabetes,Hypertension,Heart Failure Other Pertinent Diagnosis HIV Current Diet Cardiac Consistent Carbohydrate Labs/Tests Na 136 BG 122 Pertinent Medications Zofran NS at 42 ml/hr Height 5 ft 6 in Weight 127.27 kg [place] Body Weight (kg) 59.09 BMI 45.3 Weight Status Morbidly Obese Subjective/Other Information F/U for diet education. Pt reports wanting to loss weight and intentional recent weight loss. Pt reports excersig daily but upset because she is unable to following surgery until area is healed. Pt given dietary recommendation and low strain exercise recommendations like side steps and walking. Pt reports a poor appetite. Food preferences noted and relayed to kitchen. Pt willing to try ONS to increase caloric intake r/t low appetite and wound healing. BG WNL at this time. Will provide high protein ONS rather than glucerna Percent of energy/protein needs met: 0%/0% Burn Absent Trauma Absent GI Symptoms Nausea Food Allergy No Current % PO Negligible Minimum of two criteria No physical signs of malnutrition #2 Nutrition Diagnosis Increased nutrient needs ( specify in comment below) Comments: protein Etiology wound healing As Evidenced by Signs and Symptoms wound related to recent surgery #1 Nutrition Diagnosis Inadequate oral intake Etiology abd pain As Evidenced by Signs and Symptoms pt reports loss of appetite Is patient on ventilator? No Is Patient Ambulatory and/or Out of Bed Yes REE-([facility]-ambulatory/OOB) [ 2436.785 NUTR.[id number]] Kcal/Kg value to use for calculation 15 Approximate Energy Requirements Using 1909 kcal/Kg Calculation Used for Recommendations Kcal/kg Additional Notes protein needs: 140 - 186g (1.5 - 2g/kgAdjBW 93.18) fluid needs: 1 ml/kcal Nutrition Intervention Change Diet Order: Continue Current diet order Add Supplement/Snack (indicate name/kcal Ensure HP BID /protein ) Provides kCal: 320 Provides Protein (gm) 32 Teaching Recipient Patient Learning Readiness Good Teaching Methods Discussion,Handout Response to Teaching Verbalize understanding Barriers to Learning No Barriers RD phone number provided Yes Patient aware of follow up options Yes Goal #1 Meet at least 75% of kcal and protein needs Goal #2 wound healing Anticipated Discharge Needs: Cardiac Consistent carbohydrate diet + ONS PRN if low appetite Follow-Up By: 06/14/20 Additional Comments F/U for intakes and ONS tolerance
--- NOTE | 2020-06-14 11:40 | Progress Note ---
Assessment and Plan tele reviewed - in SR HR 60s with isolated PVCs, no NSVT noted overnight. K+ and Mg WNL. Await echo. Currently stable cardiac status. Cont present cardiac management, including coreg, lisinopril, lipitor, PO lasix 20mg daily (home dose). Cont to advance diet as tolerated per primary team/general surgery. Pending tte does not show any significant abnormalities and pt is tolerating diet, pt may discharge from cardiology standpoint. Recommend pt follow up in our office with Dr. Tracy within 2 weeks of discharge ([phone]). The patient has been seen in conjunction with Dr. Forman who agrees with the assessment and plan of care. - Patient Problems (1) S/P hernia repair Current Visit: Yes Status: Acute (2) Nonsustained ventricular tachycardia Current Visit: Yes Status: Acute (3) COPD (chronic obstructive pulmonary disease) Current Visit: Yes Status: Chronic (4) Chronic respiratory failure Current Visit: Yes Status: Chronic (5) Pulmonary hypertension Current Visit: Yes Status: Chronic (6) Right bundle branch block Current Visit: Yes Status: Chronic (7) HIV (human immunodeficiency virus infection) Current Visit: Yes Status: Chronic (8) HTN (hypertension) Current Visit: Yes Status: Chronic Qualifiers: Hypertension type: essential hypertension Qualified Code(s): I10 - Essential (primary) hypertension (9) Diabetes mellitus Current Visit: Yes Status: Chronic (10) HLD (hyperlipidemia) Current Visit: Yes Status: Chronic Subjective Date of service: 06/14/20 Principal diagnosis: hernia repair; NSVT Interval history: pt resting in bed, no current cardiac complaints. still with some nausea. tele reviewed - in SR HR 60s with isolated PVCs, no NSVT noted overnight. Objective Last Vital Signs Temp 99.4 F 06/14/20 07:54 Pulse 71 06/14/20 10:29 Resp 18 06/14/20 07:55 BP 116/59 06/14/20 10:29 Pulse Ox 94 06/14/20 07:58 - Physical Examination General: No Apparent Distress HEENT: Positive: PERRL, Normocephaly, Mucus Membranes Moist Neck: Positive: neck supple, trachea midline Cardiac: Positive: Reg Rate and Rhythm, S1/S2 Lungs: Positive: Decreased Breath Sounds Neuro: Positive: Grossly Intact Abdomen: Positive: Soft Skin: Negative: Rash, Wound Musculoskeletal: No Pain Extremities: Present: upper extr. pulses, lower extr. pulses. Absent: edema - Labs and Meds Comprehensive Metabolic Panel 06/14/20 Range/Units 04:33 Sodium 136 L (137-145) mmol/L Potassium 4.3 (3.6-5.0) mmol/L Chloride 96.3 L (98-107) mmol/L Carbon Dioxide 33 H (22-30) mmol/L BUN 21 H (7-17) mg/dL Creatinine 1.3 H (0.6-1.2) mg/dL Glucose 151 H (65-100) mg/dL Calcium 9.5 (8.4-10.2) mg/dL - Imaging and Cardiology EKG: report reviewed, image reviewed Pharmacologic stress test: report reviewed (10/2016: lexiscan MPI stress test negative for ischemia, EF 43% at rest and 60% during stress) Echo: report reviewed (03/2017: EF 40-45%, pseudonormalization, mod pulm HTN RVSP 51mmHg) - Telemetry EKG Rhythm: Sinus Rhythm - EKG Sinus rhythms and dysrhythmias: sinus rhythm AV and intraventricular conduction: right bundle branch block
[2020-06-14] MEDS ORDERED: FUROSEMIDE 20 MG TAB PO SCH (12:00)
[2020-06-14 12:25] VITALS: BP 105/65
--- NOTE | 2020-06-14 13:15 | Progress Note ---
Assessment and Plan 59 yo F s/p robotic assisted lysis of adhesions, repair of incarcerated ventral hernia with mesh, POD 5 Pt stable. Tolerating liquids and some solid food. Plan: 1. diet as miguel., protein supplements 2. prn PO pain control - will dc percocet. Pt to be discharged with ibuprofen 800mg PO q8h prn pain 3. zofran q6 as needed 4. abdominal binder at all times 5. DVT ppx 6. IS/pulm toilet 7. OOB/ambulate 8. bowel regimen 9. Pt to be referred to bariatric surgery - Dr. Bazzi as outpatient to discuss weight loss surgery. Patient expressed interest in this. Pt doing better today. May dc from surgery standpoint. Will follow up in office in 10 days Patient's daughter updated. Thank you, please call with questions. Subjective Date of service: 06/14/20 Narrative: Pt seen and examined. Wants to go home. Had 2 small BMs since yesterday evening. Passing flatus. Feels ok when she is eating but then gets nauseated. Feels dizzy, nauseated, and having strange thoughts after taking percocet. States abdominal pain is much better. No f/c. No vomiting. Ambulating on her own. Objective Vital Signs - 12hr 06/14/20 06/14/20 06/14/20 05:32 05:51 07:54 Temperature 98.1 F 99.4 F Pulse Rate 74 71 Pulse Rate [ Bilateral Throughout] Respiratory 20 20 20 Rate Respiratory Rate [Bilateral Throughout] Blood Pressure 119/72 116/59 O2 Sat by Pulse 91 91 Oximetry 06/14/20 06/14/20 06/14/20 07:55 07:58 08:07 Temperature Pulse Rate 71 Pulse Rate [ 85 Bilateral Throughout] Respiratory Rate Respiratory 18 Rate [Bilateral Throughout] Blood Pressure 116/59 O2 Sat by Pulse 94 94 Oximetry 06/14/20 06/14/20 10:29 11:34 Temperature 97.9 F Pulse Rate 71 68 Pulse Rate [ Bilateral Throughout] Respiratory 18 Rate Respiratory Rate [Bilateral Throughout] Blood Pressure 116/59 105/65 O2 Sat by Pulse 94 Oximetry - General physical appearance Narrative Exam: Gen: AAOx3. NAD CV: s1, S2+ Resp: even and unlabored Abd: soft, obese, ND, mild TTP near incisions only. NO r/r/g. Incisions c/d/i - no hematoma, swelling, erythema Ext: no c/c/e - Labs 06/13/20 05:12 06/14/20 04:33 Diabetes panel 06/14/20 Range/Units 04:33 Sodium 136 L (137-145) mmol/L Potassium 4.3 (3.6-5.0) mmol/L Chloride 96.3 L (98-107) mmol/L Carbon Dioxide 33 H (22-30) mmol/L BUN 21 H (7-17) mg/dL Creatinine 1.3 H (0.6-1.2) mg/dL Glucose 151 H (65-100) mg/dL Calcium 9.5 (8.4-10.2) mg/dL Calcium panel 06/14/20 Range/Units 04:33 Calcium 9.5 (8.4-10.2) mg/dL Pituitary panel 06/14/20 Range/Units 04:33 Sodium 136 L (137-145) mmol/L Potassium 4.3 (3.6-5.0) mmol/L Chloride 96.3 L (98-107) mmol/L Carbon Dioxide 33 H (22-30) mmol/L BUN 21 H (7-17) mg/dL Creatinine 1.3 H (0.6-1.2) mg/dL Glucose 151 H (65-100) mg/dL Calcium 9.5 (8.4-10.2) mg/dL Adrenal panel 06/14/20 Range/Units 04:33 Sodium 136 L (137-145) mmol/L Potassium 4.3 (3.6-5.0) mmol/L Chloride 96.3 L (98-107) mmol/L Carbon Dioxide 33 H (22-30) mmol/L BUN 21 H (7-17) mg/dL Creatinine 1.3 H (0.6-1.2) mg/dL Glucose 151 H (65-100) mg/dL Calcium 9.5 (8.4-10.2) mg/dL
--- NOTE | 2020-06-14 14:47 | Discharge Summary ---
Providers - Providers Date of Admission: 06/09/20 00:24 Date of discharge: 06/14/20 Attending physician: JODY PEPE 06/08/20 23:54 Consult to Physician [CONS] Urgent Comment: Slim spoke with Dr. Dai @ [phone] Consulting Provider: MARIA L DAI Physician Instructions: Reason For Exam: Incarcerated hernia 06/09/20 09:38 Consult to Dietitian/Nutrition [CONS] Routine Physician Instructions: Reason For Exam: morbid obesity, DM Reason for Consult: Diet education 06/11/20 10:32 Consult to Case Management [CONS] Routine Services Needed at Discharge: Home O2 Notified:: na 06/13/20 09:00 Consult to Physician [CONS] Routine Comment: Consulting Provider: SASCHA BISHOP Physician Instructions: Reason For Exam: NSVT, pt of Dr. Costa Primary care physician: MINER ASSISTANT Hospitalization Reason for admission: Abdominal pain/incarcerated ventral hernia Condition: Stable Pertinent studies: Incarcerated ventral hernia robotic assisted lysis of adhesions repair of incarcerated ventral hernia with mesh CT abdomen and pelvis CT abdomen and pelvis Hospital course: 59-year-old female patient with significant history of congestive heart failure morbid obesity diabetes mellitus was admitted through emergency room with abdominal pain work-up is consistent with incarcerated ventral hernia containing fat Patient was evaluated by surgery subsequently underwent surgical procedure Patient was evaluated by clinic cma for congestive heart failure medications optimized patient symptoms slowly gradually improved Surgery has started the diet starting with clear liquids slowly advanced Surgery and cardiology cleared the patient for discharge and follow-up in the of fice per schedule patient is hemodynamically and clinically stable at discharge Today patient is comfortable no new complaints vital signs stable Tolerating oral nutrition and ambulatory without support Discharge diagnosis and management --Incarcerated ventral hernia s/p surgical repair advance diet as tolerated --Intractable abdominal pain present on admission Resolved --Ac on chr combined syst and diast CHF (congestive heart failure) Continue antifailure medications --HTN (hypertension), benign Well-controlled --HIV (human immunodeficiency virus infection), asymptomatic Patient will follow up with HIV clinic as outpatient --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 Incarcerated abdominal hernia. Status post surgical repair. Acute on chronic combined systolic diastolic CHF. HIV. Type 2 diabetes mellitus. Morbid obesity. Nonsustained VT resolved Time spent for discharge: 35 min Core Measure Documentation - Palliative Care Palliative Care/ Comfort Measures: Not Applicable - Core Measures Any of the following diagnoses?: history only Exam - Constitutional Vitals: Temp Pulse Resp BP Pulse Ox 97.9 F 68 18 105/65 94 06/14/20 11:34 06/14/20 11:34 06/14/20 11:34 06/14/20 11:34 06/14/20 11:34 General appearance: Present: no acute distress, well-nourished - EENT Eyes: Present: PERRL, EOM intact - Neck Neck: Present: supple, normal ROM - Respiratory Respiratory effort: normal Respiratory: bilateral: diminished, negative: rales, rhonchi, wheezing - Cardiovascular Rhythm: regular Heart Sounds: Present: S1 & S2 - Extremities Extremities: no ischemia, No edema - Abdominal General gastrointestinal: Present: soft, non-tender, non-distended, normal bowel sounds - Integumentary Integumentary: Present: clear, warm - Musculoskeletal Musculoskeletal: strength equal bilaterally, generalized weakness - Psychiatric Psychiatric: appropriate mood/affect, cooperative - Neurologic Neurologic: CNII-XII intact, moves all extremities Plan Activity: advance as tolerated Diet: advance as tolerated (Advance diet as tolerated), other (Cardiac diet advance as tolerated) Additional Instructions: .f/u clinic cma office with Dr. Tracy within 2 weeks of discharge ([phone]). If you have worsening symptoms contact MD or go to emergency room Follow up with: MARIA L DAI DO [Staff Physician] - 14 Days PRIMARY CARE,MD [Primary Care Provider] - 7 Days Prescriptions: lisinopriL [Lisinopril] 20 mg PO DAILY #30 tablet Ibuprofen [Motrin 800 MG tab] 800 mg PO Q8HR PRN #30 tablet PRN Reason: Pain, Moderate (4-6) oxyCODONE /ACETAMINOPHEN [Percocet 5/325] 1 tab PO Q6HR PRN #20 tablet PRN Reason: Pain , Severe (7-10) Ondansetron [Zofran Odt] 4 mg PO Q8HR PRN #30 tab.rapdis PRN Reason: Nausea
== END 2020-06-14 19:00 | disposition home health service (06) | DRG 353 ==
LOC: ED 19:12 → 4A 06-09 00:24
PROVIDERS: ADMIT Hospitalist; ATTEND Internal Medicine
PROC: 0WUF0JZ Supplement Abdominal Wall with Synthetic Substitute, Open Approach (ICD-10-PCS; principal; 2020-06-09)
PROC: 8E0W0CZ Robotic Assisted Procedure of Trunk Region, Open Approach (ICD-10-PCS; 2020-06-09)
DX: K43.6 Other and unspecified ventral hernia with obstruction, without gangrene (principal); B20 Human immunodeficiency virus [HIV] disease; I50.43 Acute on chronic combined systolic (congestive) and diastolic (congestive) heart failure; E66.01 Morbid (severe) obesity due to excess calories; Z68.42 Body mass index [BMI] 45.0-49.9, adult; I11.0 Hypertensive heart disease with heart failure; E11.9 Type 2 diabetes mellitus without complications; G43.909 Migraine, unspecified, not intractable, without status migrainosus; J44.9 Chronic obstructive pulmonary disease, unspecified; Z79.899 Other long term (current) drug therapy; Z79.84 Long term (current) use of oral hypoglycemic drugs; Z87.891 Personal history of nicotine dependence; I47.2 Ventricular tachycardia
CPT/HCPCS: 36415; 71045; 74018; 74177; 80048; 80053; 81001; 82962; 83690; 83735; 85014; 85018; 85025; 85027; 88302; 93005; 93306; 94640; 96365; 96375; G0378; C1781; J0330; J0690; J0696; J1170; J1644; J1940; J2250; J2270; J2405; J2704; J2765; J3010; J7030; Q9967